=== PATIENT | female | born 1945 | race Hispanic/Latino ===

== ENCOUNTER → 2018-03-14 | Outpatient (CLI) | payer MEDICARE, OTHER ==
[~2018-03-14] MED LIST: ASPIR 8181 MG PO; BYDUREON2 MG; Carisoprodol PO; FLUTICASONE PRO15 GM; GABAPENTIN100 MG PO; LANTUS100 UNITS/ SC; LIPITOR20 MG PO; LOPRESSOR25 MG PO; LYRICA75 MG; MELOXICAM7.5 MG PO; METFORMIN HCL500 MG PO; NOVOLOG100 UNIT/1 SC; PLAVIX75 MG PO; PRINIVIL10 MG PO; PROTONIX40 MG/ML PO; TRAZODONE HCL50 MG PO; VALIUM2 MG PO; VITAMIN B-121000 MCG PO
--- NOTE | 2018-03-14 15:24 | Diagnostic Imaging Report ---
PROCEDURE: Frontal and lateral views of the chest. COMPARISON: Patients [facility], DX, CHEST SINGLE (PORTABLE), 03/13/2016, 17:51. Patients [facility], CT, CT CHEST WO, 03/13/2016, 18:39. Patients [facility], DX, CHEST SINGLE (PORTABLE), 09/23/2016, 22:15. INDICATIONS: COUGH FINDINGS: Lines/tubes: None. Lungs: Lungs are well-inflated. No interval change in focal opacity in the right upper lobe when compared to prior CT chest 2016. Rest of the lungs is clear. No consolidation or pulmonary edema. Pleura: There is no pleural effusion or pneumothorax. Heart and mediastinum: Cardiac silhouette is unremarkable. Pulmonary vasculature is normal. Bones: No acute bony abnormality. IMPRESSION: 1. No acute cardiopulmonary abnormalities. 2. No interval change in focal opacity in the right upper lobe, which was seen on prior CT dated 03/13/2016. This may represent bronchogenic neoplasm such as adenocarcinoma (formerly bronchoalveolar carcinoma). Recommend contrast enhanced chest CT for further evaluation. Enrique Whyte M.D. Dictated by: Enrique Whyte M.D. on 03/14/2018 at 15:28 Electronically approved by: Enrique Whyte M.D. on 03/14/2018 at 15:28
--- NOTE | 2018-03-14 23:45 | Diagnostic Imaging Report ---
CERVICAL SPINE 4 OR 5 VIEWS This study is labeled as routine x-ray, however, the clinician needs a overnight read. HISTORY: Neck pain COMPARISON: None FINDINGS: Bones: No displaced fracture. Osseous alignment is within normal limits. Patient is status post fusion of lower cervical spine from C5 through C7 with anterior fenestrated plate and screws and intervertebral disc fusion. Joints: Degenerative changes of the facet joints from C2-3 through C4-5. Soft tissues: Heterotopic calcification in the distribution of the nuchal ligament. Postsurgical changes in the distribution of the left carotid artery suggestive of prior endarterectomy. Calcified partially visualized thoracic aorta IMPRESSION: 1. No acute radiographic abnormality. 2. Postsurgical changes of the lower cervical spine and left carotid artery. Signed by: Dr. Thomas Alfaro M.D. on 03/14/2018 11:41 PM
== END ==
LOC: RAD 13:32
PROVIDERS: ATTEND Emergency Medicine
DX: M54.2 Cervicalgia (principal)
CPT/HCPCS: 71046; 72050

== ENCOUNTER → 2018-03-15 | Outpatient (CLI) | payer MEDICARE, OTHER | LOC: MAMMO 10:48 | PROVIDERS: ATTEND Emergency Medicine | DX: Z12.31 Encounter for screening mammogram for malignant neoplasm of breast (principal) | CPT/HCPCS: 77067 ==

== ENCOUNTER → 2018-03-21 | Outpatient (CLI) | payer MEDICARE, OTHER ==
--- NOTE | 2018-03-21 20:52 | Diagnostic Imaging Report ---
PROCEDURE: CT CHEST WITHOUT CONTRAST CT scan of the chest WITHOUT intravenous contrast, using standard protocol. TECHNIQUE: The chest was scanned utilizing a multidetector helical scanner from the apex to the level of the adrenal glands. No IV contrast was administered per physician's request. Coronal and sagittal multiplanar reformations were obtained. COMPARISON: Patients [facility], CT, CT CHEST WO, 03/13/2016, 18:39. INDICATIONS: COUGH SHORT OF BREATH FINDINGS: Lines/tubes: None. Lungs and Airways: Interval increase in size of the 2.6 x 0.8 x 1.5 cm mildly spiculated focal ground glass opacity in the right upper lobe (series 3, image 40, and sagittal images 32 and coronal image 57), which previously measured approximately 2.4 x 0.4 x 1.5 cm). Stable triangular shaped 0.7 cm benign, raz-fissural nodule in the minor fissure (sagittal image 41 and series 3, image 62). Stable 2-3 mm nodule in the posterior left lower lobe (series 3, image 63). No new nodules. No new masses, other opacities or consolidation. Airways are clear, without endobronchial lesions. Pleura: No effusion, or pneumothorax. Heart and mediastinum: Stable 1.4 cm right and 1.6 cm left thyroid hypodense lesions. Mild cardiomegaly. Atherosclerotic calcification of the aortic valve, coronary arteries and thoracic aorta. The aorta is non-aneurysmal. Main pulmonary artery is normal in caliber. Lymph nodes: No mediastinum or axillary adenopathy. Difficult to evaluate for hilar nodes given the lack of intravenous contrast. Abdomen: Limited views of the upper abdomen show no abnormality within the visualized liver, spleen, pancreas, or left kidney. The adrenal glands are unremarkable. Vascular calcifications in the kidney. Cholecystectomy clips. Bones: No acute bony abnormalities. Multilevel degenerative disc changes in the thoracic spine. Punctate calcific densities in both breasts (for example series 2, images 67, 68). IMPRESSION: 1. 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 No other pulmonary opacities. No mediastinal or axillary adenopathy. Difficult to evaluate for hilar nodes given the lack of intravenous contrast. 2. Stable nonspecific 2-3 mm pulmonary nodule in the posterior left lower lobe. No new pulmonary nodules. 3. Stable hypodense lesions in bilateral thyroid lobes. This may be further evaluated with dedicated thyroid ultrasound. 4. Punctate calcifications in both breasts may represent small calcified fibroadenomas. Correlate with mammography. Enrique Wyhte M.D. Dictated by: Enrique Whyte M.D. on 03/21/2018 at 18:11 Electronically approved by: Enrique Whyte M.D. on 03/21/2018 at 18:11
== END ==
LOC: CT 16:55
PROVIDERS: ATTEND Emergency Medicine
DX: J98.4 Other disorders of lung (principal)
CPT/HCPCS: 71250

== ENCOUNTER → 2018-04-06 | Outpatient (CLI) | payer OTHER ==
[~2018-04-06] MED LIST changes: +FENTANYL CITRATE/PF 100MCG/2 ML INJ ONE; +LIDOCAINE HCL 1% LOCAL INJ 20 ML VIAL ONE; +MIDAZOLAM HCL 2 MG/2 ML VIAL ONE
[2018-04-06 09:34] LABS: INR 0.95; PROTHROMBIN TIME 11.9 seconds (11.9-14.5)
[2018-04-06 09:35] LABS: PARTIAL THROMBOPLASTIN TIME 27.1 seconds (23.8-35.5)
--- NOTE | 2018-04-06 11:48 | Diagnostic Imaging Report ---
PROCEDURE: CHEST XRAY POST PROCEDURE COMPARISON: None. INDICATIONS: POST LUNG BIOPSY FINDINGS: LUNGS: Ill-defined opacity in the right upper lobe again noted. PLEURA: No effusions or pneumothorax. HEART \T\ MEDIASTINUM: The heart is within normal size-limits. Calcification within the aortic knob and descending aorta. BONES \T\ SOFT TISSUES: No acute findings. Orthopedic plate overlying the lower cervical spine. CONCLUSION: Status post right upper lobe nodule biopsy without evidence of a pneumothorax. Gio Phillip D.O. Dictated by: Gio Phillip D.O. on 04/06/2018 at 11:53 Electronically approved by: Gio hPillip D.O. on 04/06/2018 at 11:53
--- NOTE | 2018-04-06 13:55 | Diagnostic Imaging Report ---
PROCEDURE:X-RAY CHEST, ONE VIEW COMPARISON:Patients [facility], DX, CHEST XRAY POST PROCEDURE, 04/06/2018, 11:31. INDICATIONS:POST LUNG BIOPSY FINDINGS: This is a second post CT guided biopsy chest x-ray. Patient relates no symptoms. There is no pneumothorax. Focal nodular opacity in the right upper lobe again seen. The cardiomediastinal silhouette and pulmonary vasculature are normal. Calcification within the aortic knob. There are no acute osseous abnormalities. CONCLUSION: No evidence of a pneumothorax. Gio Phillip D.O. Dictated by: Gio Phillip D.O. on 04/06/2018 at 14:00 Electronically approved by: iGo Phillip D.O. on 04/06/2018 at 14:00
--- NOTE | 2018-04-06 14:08 | Diagnostic Imaging Report ---
PROCEDURE: CT GUIDED NEEDLE PLACEMENT INDICATIONS: Right apical nodule lung biopsy MEDICATIONS:25 micrograms of Fentanyl and 0.5 mg of Versed EBL: < 5 ml SPECIMEN: Given to pathology DESCRIPTION OF PROCEDURE: Informed consent was obtained. The patient's right anterior chest was prepped and draped in the standard sterile fashion. Multiple CT images were used to localize the abnormality. The skin was anesthetized with lidocaine. Using CT guidance, a 19 G guiding needle was placed into the lesion. Then 4 FNAs were performed utilizing a 20 G Chiba needles and 6 core biopsies utilizing 20 gauge 1 cm and 2 cm throw biopsy guns. The samples were given to pathology in attendance. The pathologist deemed the samples adequate for diagnosis. The patient tolerated the procedure well without evidence of complication. No pneumothorax was noted on completion chest CT. CONCLUSION: Successful CT guided right upper lobe groundglass pulmonary nodule biopsy performed without complication. Gio Phillip D.O. Dictated by: Gio Phillip D.O. on 04/06/2018 at 14:13 Electronically approved by: iGo Phillip D.O. on 04/06/2018 at 14:13
== END ==
LOC: CT 08:34
PROVIDERS: ATTEND Emergency Medicine
DX: C34.91 Malignant neoplasm of unspecified part of right bronchus or lung (principal)
CPT/HCPCS: 10022; 32405; 36415; 71045 ×2; 77012; 85049; 85610; 85730; 88112; 88305; J2001; J2250; 88172; 88173; 99152; 99153

== ENCOUNTER → 2018-04-13 | Outpatient (CLI) | payer MEDICARE, OTHER ==
[~2018-04-13] MED LIST changes: -FENTANYL CITRATE/PF 100MCG/2 ML INJ ONE; -LIDOCAINE HCL 1% LOCAL INJ 20 ML VIAL ONE; -MIDAZOLAM HCL 2 MG/2 ML VIAL ONE
--- NOTE | 2018-04-13 17:06 | Diagnostic Imaging Report ---
PROCEDURE: US THYROID COMPARISON: None. INDICATIONS:Thyromegaly TECHNIQUE: Transverse and longitudinal lee-scale sonographic images of the thyroid were obtained and supplemented with color doppler. FINDINGS: Right thyroid lobe: 4.2 x 1.5 x 1.7 cm. Heterogeneous echogenicity. Normal vascularity. * 1.3 x 1.1 x 1.1 cm iso-to slightly hyperechoic solid nodule in the mid lateral aspect, without microcalcifications, or increased vascularity. * 1.1 x 0.9 x 1.0 cm solid iso-to slightly hyperechoic solid nodule in the inferolateral aspect, without microcalcifications, or increased vascularity. Left thyroid lobe: 4.2 x 1.8 x 2.1 cm. Heterogeneous echogenicity. Normal vascularity. No focal lesions. Isthmus: 0.6 cm. Normal echogenicity. Normal vascularity. No focal lesions. No parathyroid masses. No adenopathy. CONCLUSION: 1. Normal bilateral thyroid lobe size. Bilateral heterogeneous echogenicity. 2. 1.3 and 1.1 cm solid nodules in the right thyroid lobe without suspicious characteristics. Recommend followup thyroid ultrasound in 12 months to document stability. Enrique Whyte M.D. Dictated by: Enrique Whyte M.D. on 04/13/2018 at 17:10 Electronically approved by: Enrique Whyte M.D. on 04/13/2018 at 17:10
== END ==
LOC: US 10:40
PROVIDERS: ATTEND Emergency Medicine
DX: E04.9 Nontoxic goiter, unspecified (principal)
CPT/HCPCS: 76536

== ENCOUNTER → 2018-04-27 | Outpatient (CLI) | payer MEDICARE, OTHER ==
--- NOTE | 2018-04-28 08:48 | Diagnostic Imaging Report ---
#[id number] - MGDXLT #UNILATERAL LEFT DIGITAL DIAGNOSTIC MAMMOGRAM WITH SPOT COMPRESSION: 04/27/2018 Comparison is made to exam dated: 03/15/2018 mammogram - [facility]. Current study contains 2 films. There are scattered fibroglandular elements in the left breast. The density noted on the CC view appears to represent normal breast tissue. No definite mass seen. There are benign vascular calcifications and calcifications in the left breast. No significant masses, calcifications, or other findings are seen in the breast. There has been no significant interval change. IMPRESSION: BENIGN There is no mammographic evidence of malignancy. A 1 year screening mammogram is recommended. The patient will be notified by letter of the results. Gio Phillip Jr., D.O. cw/:04/27/2018 13:40:22 Carnival Worker: Lauren MOHAN)(M), [facility] letter sent: Normal Exam Mammogram BI-RADS: 2 Benign
== END ==
LOC: MAMMO 11:27
PROVIDERS: ATTEND Emergency Medicine
DX: N63.20 Unspecified lump in the left breast, unspecified quadrant (principal)

== ENCOUNTER → 2018-07-18 | Outpatient (CLI) | payer MEDICARE, OTHER ==
--- NOTE | 2018-07-18 13:40 | Diagnostic Imaging Report ---
Frontal and lateral views of the chest. HISTORY: Cough COMPARISON: Chest radiograph September 23, 2016. Images from CT of the chest March 21, 2018. DISCUSSION: Lungs: Low lung volumes result in bibasilar vascular crowding, accentuation of the pulmonary interstitial markings, central pulmonary vasculature, and the cardiac silhouette. Allowing for these limitations, the findings are as follows: The right upper lobe parenchymal nodule was better visualized on the comparison CT and x-ray. No evidence of a consolidative pneumonia or pulmonary alveolar edema. Pleura: No pleural effusion or pneumothorax. Heart and mediastinum: The cardiomediastinal silhouette appears unremarkable. Atherosclerotic vascular calcifications at the aortic arch. Bones: Diffusely decreased mineralization of the osseous structures limits bone detail. Metallic fixation hardware partially visualized at the lower cervical spine. Multilevel degenerative changes of the thoracic spine. Accentuation of the thoracic kyphosis. IMPRESSION: 1. No acute radiographic abnormality. 2. Please refer to the report from the CT of the chest March 21, 2018 regarding the right upper lobe pulmonary nodule, which appears to have decreased in size based upon these chest radiographs. Surveillance CT of the chest without contrast follow-up may still be warranted. Signed by: Dr. Miguel Wen D.O., M.M.M. on 07/18/2018 1:37 PM
== END ==
LOC: RAD 12:51
PROVIDERS: ATTEND Emergency Medicine
DX: R05 Cough (principal)
CPT/HCPCS: 71046

== ENCOUNTER → 2018-11-28 | Outpatient (CLI) | payer MEDICARE, OTHER ==
--- NOTE | 2018-11-28 15:59 | Diagnostic Imaging Report ---
EXAM: Lumbar spine radiographs-5 views INDICATION: Low back pain. COMPARISON: None. FINDINGS: BONES: Diffuse osteopenia. The alignment is within normal limits. No acute displaced fractures. Vertebral body heights are preserved. DISCS: Mild degenerative disc changes, most pronounced at L5-S1. JOINTS: Moderate facet degenerative changes, most pronounced at L5-S1. OTHER: Extensive atherosclerotic calcifications. Right common iliac artery stent is noted. Status post cholecystectomy. IMPRESSION: No acute radiographic abnormality. Mild degenerative disc changes and moderate facet degenerative changes, most pronounced at L5-S1. Diffuse osteopenia. Signed by: Dr. Bg Sue MD on 11/28/2018 3:56 PM
== END ==
LOC: RAD 13:35
PROVIDERS: ATTEND Emergency Medicine
DX: M54.5 Low back pain (principal)
CPT/HCPCS: 72110

== ENCOUNTER → 2019-06-20 | Outpatient (CLI) | payer MEDICARE, OTHER ==
--- NOTE | 2019-06-22 09:15 | Diagnostic Imaging Report ---
#[id number] - MGSCRBIL #BILATERAL DIGITAL SCREENING MAMMOGRAM WITH CAD: 06/20/2019 CLINICAL: Routine screening. Comparison is made to exams dated: 04/27/2018 mammogram and 03/15/2018 mammogram - [facility]. Current study contains 4 films. There are scattered fibroglandular elements in both breasts. Current study was also evaluated with a Computer Aided Detection (CAD) system. There are benign vascular calcifications in both breasts. Benign appearing calcifications are noted bilaterally. No significant masses, calcifications, or other findings are seen in either breast. IMPRESSION: BENIGN There is no mammographic evidence of malignancy. A 1 year screening mammogram is recommended. The patient will be notified by letter of the results. JOSHUA MEJÍA M.D. ct/penrad:06/21/2019 16:13:53 Costume Specialist: Lauren MOHNA)(Meir), [facility] letter sent: Normal Exam Mammogram BI-RADS: 2 Benign
== END ==
LOC: MAMMO 13:35
PROVIDERS: ATTEND Emergency Medicine
DX: Z12.31 Encounter for screening mammogram for malignant neoplasm of breast (principal)
CPT/HCPCS: 77067

== ENCOUNTER 2019-07-17 13:44 | Observation (INO) | payer MEDICARE, OTHER ==
[~2019-07-17] VITALS: Ht 157.5 cm; Wt 67.1 kg
--- OUTSIDE RECORDS SUMMARY | 2019-07-17 13:48 | XMS REPORT ---
[facility] Address Unknown Phone Unavailable Care Team Providers Care Data Management Analyst Name Role Phone RAMA MEDINA Unavailable Unavailable Payers Payer Name Policy Type Policy Number Effective Date Expiration Date Problems This patient has no known problems. Allergies, Adverse Reactions, Alerts Allergy Name Allergy Type Status Severity Reaction(s) Onset Date Inactive Date Treating Clinician Comments No Known Allergies DA Active U 2018-10-12 00:00:00 Medications This patient has no known medications. Results Test Description Test Time Test Comments Text Results Atomic Results Result Comments MAMMOGRAPHY DIGITAL SCR BILAT 2019-06-20 14:25:00 [place] [address] Patient Name: Bharath FRANZ MR #: [id number] : 1945 Age/Sex: 74/F Req #: [id number] Adm Physician: Ordered by: RAMA MEDINA MD Report #: [id number] Location: [facility] Room/Bed: Procedure: [id number] MG/MAMMOGRAPHY DIGITAL SCR BILAT Exam Date: 06/20/19 Exam Time: 1350 REPORT STATUS: Signed #[id number] - [id number] #BILATERAL DIGITAL SCREENING MAMMOGRAM WITH CAD: 06/20/2019 CLINICAL: Routine screening. Comparison is made to exams dated: 04/27/2018 mammogram and 03/15/2018 mammogram - [facility]. Current study contains 4 films. There are scattered fibroglandular elements in both breasts. Current study was also evaluated with a Computer Aided Detection (CAD) system. There are benign vascular calcifications in both breasts. Benign appearing calcifications are noted bilaterally. No significant masses, calcifications, or other findings are seen in either breast. IMPRESSION: BENIGN There is no mammographic evidence of malignancy. A 1 year screening mammogram is recommended. The patient will be notified by letter of the results. JOSHUA MEJÍA M.D. ct/margarita:06/21/2019 16:13:53 Toolroom Clerk: Lauren KING(Gal)(Meir), [facility] letter sent: Normal Exam Mammogram BI-RADS: 2 Benign Dictated By: GLORIA MEJÍA MD 12 Transcribed By: MARGARITA on 06/21/191612 COPY TO: RAMA MEDINA MD [facility] W/CXR 2018-12-28 08:43:00 [place] [address] Patient Name: Bharath FRANZ MR #: [id number] : 1945 Age/Sex: 73/F Req #: [id number] Adm Physician: Ordered by: RAMA MEDINA MD Report #: [id number] Location: [facility] Room/Bed: Procedure: [id number] DX/RIBS UNILAT W/CXR Exam Date: 12/27/18 Exam Time: 1330 REPORT STATUS: Signed EXAM: RIBS UNILAT W/CXR DATE: 12/27/2018 1:14 PM I NDICATION: Fall COMPARISON: Chest x-ray, 07/18/2018; chest CT, 03/21/2018 (no report available) FINDINGS: PA chest: Heart size normal. No focal pulmonary opacity, pleural effusion or pneumothorax. Right upper lobe spiculated mass present on images of previous CT is not readily identified on chest x-ray. Present appearance is unchanged from the previous chest x-ray cervical fusion hardware is partially visualized. Right ribs: 3 views of the right ribs shows no displaced fracture. No underlying pneumothorax or hemothorax is seen. Cholecystectomy clips are noted. Degenerative changes are seen at the right shoulder and thoracic spine. IMPRESSION: 1. No evidence for acute disease in the chest. Spiculated right upper lobe mass present on previous chest CT is not well seen on plain radiograph. 2. No right rib fractures. No underlying pneumothorax or pneumothorax in the right chest. Signed by: Dr. Timmy Vale M.D. on 12/28/2018 8:51 AM Dictated By: TIMMY VALE MD 0 Transcribed By: LAWRENCE on 12/28/18850 COPY TO: RAMA MEDINA MD BONE DXA DUAL ENERGY 2018-12-28 07:02:00 [place] [address] Patient Name: Bharath FRANZ MR #: [id number] : 1945 Age/Sex: 73/F Req #: [id number] Adm Physician: Ordered by: RAMA MEDINA MD Report #: [id number] Location: [facility] Room/Bed: Procedure: [id number] DX/BONE DXA DUAL ENERGY Exam Date: Exam Time: REPORT STATUS: Signed EXAM: DXA BONE DENSITY INDICATIONS: OSTEOPORSIS COMPARISON: None. FINDINGS: Proximal left femur bone mineral density (BMD) (g/cm2): 0.810 Femur T-score (standard deviation relative to young adult mean BMD): -1.1 Femur Z-score (standard deviation relative to age-matched control group): 0.6 Lumbar bone mineral density (BMD) (g/cm2): 1.158 Lumbar T-score (standard deviation relative to young adult mean BMD): 1.0 Lumbar Z-score (standard deviation relative to age-matched control group): 3.4 Change since prior exam (%): Femur: Not applicable. Spine: Not applicable. Change since oldest prior exam (%): Femur: Not applicable. Spine: Not applicable. CONCLUSION: 1. Bone mineral density in the left femur is classified as osteopenia. Fracture risk is increased. 2. Bone mineral density in the spine is classified as normal. Fracture risk is not increased. World Health Organization Classification: *The Z-score is provided for informational purposes. The T-score is preferable for clinical decisions. When comparing exams, a change of >4% is considered statistically significant. SUGGESTED RECOMMENDATIONS: Normal Osteopenia: Consideration should be given to use of calcium supplementation, daily multiple vitamins and adequate exercise, as preventive measures against osteoporosis, if clinically indicated. Osteoporosis Severe Osteoporosis: In addition to the above, consideration should be given to medical therapy against osteoporosis, if clinically indicated. Gio Oviedo D.O. Dictated by: Gio Oviedo D.O. on 12/28/2018 at 7:02 Electronically approved by: Gio Oviedo D.O. on 12/28/2018 at 7:02 Dictated By: GIO OVIEDO DO 1 Roman scribed By: MESFIN on 12/28/18701 COPY TO: RAMA MEDINA MD SP LUMBAR, COMPLETE MIN 4VW 2018-11-28 15:47:00 [place] [address] Patient Name: AMISH FRANZ MR #: [id number] : 1945 Age/Sex: 73/F Req #: [id number] Adm Physician: Ordered by: RAMA MEDINA MD Report #: [id number] Location: [facility] Room/Bed: Procedure: [id number] DX/SP LUMBAR, COMPLETE MIN 4VW Exam Date: 11/28/18 Exam Time: 1350 REPORT STATUS: Signed EXAM: Lumbar spine radiographs-5 views PAULETTE CATION: Low back pain. COMPARISON: None. FINDINGS: BONES: Diffuse osteopenia. The alignment is within normal limits. No acute displaced fractures. Vertebral body heights are preserved. DISCS: Mild degenerative disc changes, most pronounced at L5-S1. JOINTS: Moderate facet degenerative changes, most pronounced at L5-S1. OTHER: Extensive atherosclerotic calcifications. Right common iliac artery stent is noted. Status post cholecystectomy. IMPRESSION: No acute radiographic abnormality. Mild degenerative disc changes and moderate facet degenerative changes, most pronounced at L5-S1. Diffuse osteopenia. Signed by: Dr. Walker Toledo MD on 11/28/2018 3:56 PM Dictated By: WALKER TOLEDO MD [id number] Transcribed By: LAWRENCE on 11/28/18 5665 COPY TO: RAMA MEDINA MD BASIC METABOLIC PANEL 2018-10-12 22:24:00 SODIUM (test code=NA) 137 mmol/L 136-145 POTASSIUM (test code=K) 3.2 mmol/L 3.5-5.1 CHLORIDE (test code=CL) 100.0 mmol/L 98-107 CARBON DIOXIDE (test code=CO2) 28.0 mmol/L 21-32 ANION GAP (test code=GAP) 12.2 10-20 GLUCOSE (test code=GLU) 285 mg/dL 74-106 BLOOD UREA NITROGEN (test code=BUN) 15 mg/dL 7-18 GLOMERULAR FILTRATION RATE (test code=GFR) 54 mL/min >=60 Estimated GFR by using Modified MDRD formula.Chronic kidney disease is defined as either kidney damageor GFR <60 mL/min/1.73 m2 for >3 months. CREATININE (test code=CREAT) 1.00 mg/dL 0.55-1.02 Note change in reference range due to change in reagent. BUN/CREATININE RATIO (test code=BUN/CREA) 15.2 10-20 CALCIUM (test code=CA) 9.0 mg/dL 8.5-10.1 [id number] 22:24:00* Test Item Value Reference Range Comments TROPONIN-I (test code=TROPI) <0.015 ng/mL 0-0.045 CBC W/AUTO [id number] 22:04:00* Test Item Value Reference Range Comments WHITE BLOOD CELL (test code=WBC) 8.7 K/mm3 4.5-12.5 RED BLOOD CELL (test code=RBC) 4.55 mill/mm3 3.7-5.2 HEMOGLOBIN (test code=HGB) 13.9 gram/dL 11.5-15.5 HEMATOCRIT (test code=HCT) 40.6 % 36.0-46.0 MEAN CELL VOLUME (test code=MCV) 89.2 fL 80-98 MEAN CELL HGB (test code=MCH) 30.5 picogram 27.0-33.0 MEAN CELL HGB CONCETRATION (test code=MCHC) 34.2 gram/dL 33.0-36.0 RED CELL DISTRIBUTION WIDTH (test code=RDW) 13.1 % 11.6-16.2 RED CELL DISTRIBUTION WIDTH SD (test code=RDW-SD) 42.6 fL 37.0-51.0 PLATELET COUNT (test code=PLT) 299 K/mm3 150-450 MEAN PLATELET VOLUME (test code=MPV) 9.8 fL 6.7-11.0 NEUTROPHIL % (test code=NT%) 67.2 % 39.0-69.0 IMMATURE GRANULOCYTE % (test code=IG%) 0.2 % 0.0-5.0 LYMPHOCYTE % (test code=LY%) 19.5 % 25.0-55.0 MONOCYTE % (test code=MO%) 6.6 % 0.0-10.0 EOSINOPHIL % (test code=EO%) 3.7 % 0.0-5.0 BASOPHIL % (test code=BA%) 2.8 % 0.0-1.0 NUCLEATED RBC % (test code=NRBC%) 0.0 % 0-0 NEUTROPHIL # (test code=NT#) 5.82 K/mm3 1.8-7.7 IMMATURE GRANULOCYTE # (test code=IG#) 0.02 x10 3/uL 0-0.03 LYMPHOCYTE # (test code=LY#) 1.69 K/mm3 1.0-5.0 MONOCYTE # (test code=MO#) 0.57 K/mm3 0-0.8 EOSINOPHIL # (test code=EO#) 0.32 K/mm3 0.0-0.5 BASOPHIL # (test code=BA#) 0.24 K/mm3 0.0-0.2 NUCLEATED RBC # (test code=NRBC#) 0.00 K/mm3 0.0-0.1 MANUAL DIFF REQUIRED (test code=MDIFF) NO - CT HEAD/BRAIN W/O [id number] 21:51:00 Name: AMISH FRANZ [facility] : 1945 Age/S: 73 / F [address] [facility] Unit #: [id number] Loc: [place] [address] Phys: Moise Martin MD Acct: [id number] Dis Date: Status: PRE ER PHONE #: [phone] Exam Date: 10/12/20188 FAX #: [phone] Reason: Headache EXAMS: CPT CODE: [id number] CT HEAD/BRAIN W/O CONT 29813 EXAM: CT of the head without contrast; INFORMATION: Headache; TECHNIQUE AND FINDINGS: CT dose reduction protocol; 2.5 mm axial scans. There is no evidence of intra or extra-axial hemorrhage, mass lesions or midline shift. Minimal periventricular hypodensities; otherwise, unremarkable muse/white matter differentiation. Ventricles are symmetric and of normal diameter for age; prominent sulci; basilar cisterns are intact. Calcifications of the internal carotid arteries. The calvarium is intact. Complete opacification of the right maxillary sinus; the remainder of the sinuses and mastoid air cells are well aerated. IMPRESSION: 1. No evidence of intracranial hemorrhage or acute territorial infarction. 2. Minimal chronic ischemic white matter changes. 3. Right maxillary sinusitis. at 2151 Reported and signed by: Stephen Brown M.D. CC: Moise Martin MD; Lucio Trimble III, MD Technologist:Leela KING(R); VIDHYA Medeiros CTDI: DLP: Trnscb Date/Time: 10/12/2018 (2150) AdisGRW Orig Print D/T: S: 10/12/2018 (2154) CTDI: DLP: PAGE 1 Signed Report CHEST 2 [id number] 13:31:00 [place] [address] Patient Name: AMISH FRANZ MR #: [id number] : 1945 Age/Sex: 73/F Req #: [id number] Adm Physician: Ordered by: RAMA MEDINA MD Report #: [id number] Location: [facility] Room/Bed: Procedure: [id number] DX/C HEST 2 VIEWS Exam Date: 07/18/18 Exam Time: 1313 REPORT STATUS: Signed Frontal and l ateral views of the chest. HISTORY: Cough COMPARISON: Chest radiograph September 23, 2016. Images from CT of the chest March 21, 2018. DISCUSSIO N: Lungs: Low lung volumes result in bibasilar vascular crowding, ac centuation of the pulmonary interstitial markings, central pulmonary vasculatu re, and the cardiac silhouette. Allowing for these limitations, the findings are as follows: The right upper lobe parenchymal nodule was better visualized on the comparison CT and x-ray. No evidence of a consolidative pneumonia or pulmonary alveolar edema. Pleura: No pleural effusion or pneumothorax. Heart and mediastinum: The cardiomediastinal silhouette appears unremar kable. Atherosclerotic vascular calcifications at the aortic arch. Bones: Diffusely decreased mineralization of the osseous structures limits bone detail. Metallic fixation hardware partially visualized at the lower cervical spine. Multilevel degenerative changes of the thoracic spine. Accentuation o f the thoracic kyphosis. IMPRESSION: 1. No acute radiographic abnorm ality. 2. Please refer to the report from the CT of the chest March 21, 2018 re garding the right upper lobe pulmonary nodule, which appears to have decreased in size based upon these chest radiographs. Surveillance CT of the chest wit hout contrast follow-up may still be warranted. Signed by: Marilu CastanedaOTeresa, M.M.M. on 07/18/2018 1:37 PM Dictated By: ANTON HILL DO Electr onically Signed By: ANTON HILL DO on 07/18/181336 Transcribed By: LAWRENCE on 07/18/181336 COPY TO: RAMA MEDINA MD MAMMOGRAPHY DIGITAL DX UNI [id number] 12:10:00 [place] [address] Patient Name: AMISH FRANZ MR #: [id number] : 1945 Age/Sex: 72/F Req #: [id number] Adm Physician: Ordered by: RAMA MEDINA MD Report #: [id number] Location: [facility] Room/Bed: Procedure: MG/MAMMOGRAPHY DIGITAL DX UN I LT Exam Date: 04/27/18 Exam Time: 1133 REPOR T STATUS: Signed #[id number] - [id number] #UNILATERAL LEFT DIGITAL DIAGNO STIC MAMMOGRAM WITH SPOT COMPRESSION: 04/27/2018 Comparison is made to exam date d: 03/15/2018 mammogram - [facility]. Current study contains 2 films. There are scattered fibroglandular elements in the left br east. The density noted on the CC view appears to represent normal breast ti ssue. No definite mass seen. There are benign vascular calcifications and calcifications in the left breast. No significant masses, calcifications, or other findings are seen in the breast. There has been no significant inter albaro change. IMPRESSION: BENIGN There is no mammographic evidence of malig brian. A 1 year screening mammogram is recommended. The patient will be noti fied by letter of the results. Gio Oviedo Jr., D.O. cw/: 04/27/2018 13:40:22 Toolroom Clerk: Lauren KING(R)(M), [facility] letter sent: Normal Exam Mammogram BI-RADS: 2 B enign Dictated By: GIO OVIEDO DO 1340 Transcribed By: MARGARITA on 04/27/18 1340 COPY TO: RAMA MATHEW MD [id number] 17:10:00 [place] [address] Patient Name: AMISH FRANZ MR #: [id number] : 1945 Age/Sex: 72/F Req #: [id number] [facility] Physician: Ordered by: RAMA MEDINA MD Report #: [id number] Location: Room/Bed: Procedure: [id number] US/US THYROID Exam Date: 04/13 Exam Time: 1113 REPORT STATUS: Signed WI OCEDURE: US THYROID COMPARISON: None. INDICATIONS: Thyromegaly TECHNIQUE : Transverse and longitudinal lee-scale sonographic images of the thyroid we re obtained and supplemented with color doppler. FINDINGS: Right thy roid lobe: 4.2 x 1.5 x 1.7 cm. Heterogeneous echogenicity. Normal vascularity . * 1.3 x 1.1 x 1.1 cm iso-to slightly hyperechoic solid nodule in the mid lateral aspect, without microcalcifications, or increased vascularity. * 1.1 x 0.9 x 1.0 cm solid iso-to slightly hyperechoic solid nodule in the in ferolateral aspect, without microcalcifications, or increased vascularity. Left thyroid lobe: 4.2 x 1.8 x 2.1 cm. Heterogeneous echogenicity. Normal vascularity. No focal lesions. Isthmus: 0.6 cm. Normal echogenicity. Norm al vascularity. No focal lesions. No parathyroid masses. No adeno laura. CONCLUSION: 1. Normal bilateral thyroid lobe size. Bilateral h eterogeneous echogenicity. 2. 1.3 and 1.1 cm solid nodules in the right thy roid lobe without suspicious characteristics. Recommend followup thyroid ultr asound in 12 months to document stability. Meir Donaldson Dictated by: Enrique Venegas M.D. on 04/13/2018 at 17:10 Elect ronically approved by: Enrique Venegas M.D. on 04/13/2018 at 17:10 Dictated By: ENRIQUE VENEGAS MD 09 Transcribed By: MESFIN on 04/13/181709 COPY TO: RAMA DELGADO MD FNA WITH IMAGE [id number] 14:13:00 [facility] [place] [address] Patient Name: AMISH FRANZ MR #: [id number] : 1945 Age/Sex: 72/F Req #: [id number] Adm Physician: Ordered by: RAMA MEDINA MD Report #: [id number] Location: CT Room/Bed: Procedure: [id number] IR/FNA WITH IMAGE GUIDANCE Exa m Date: 04/06/18 Exam Time: 1125 REPORT STATUS: Signed PROCEDURE: CT GUIDED NEEDLE PLACEMENT INDICATIONS: Right api maricruz nodule lung biopsy MEDICATIONS: 25 micrograms of Fentanyl and 0.5 mg of Versed EBL: < 5 ml SPECIMEN: Given to pathology DESCRIPTION OF PROCEDURE: Informed consent was obtained. The patient's right anterior chest was prepped and draped in the standard sterile fashion. Multiple CT images were used to localize the abnormality. The skin was anesthetized with lidocaine. Using CT guidance, a 19 G guiding needle was placed into the lesion. Then 4 FNAs were performed utilizing a 20 G Chiba needles and 6 core biopsies utilizing 20 gauge 1 cm and 2 cm throw biopsy guns. The samples were given to pathology in attendance. The pathologist deemed the samples adequate for diagnosis. The patient tolerated the procedure well without evidence of complication. No pneumothorax was noted on completion chest CT. CONCLUSION: Successful CT guided right upper lobe groundglass pulmonary nodule biopsy performed without complication. Gio Oviedo D.O. Dictated by: Gio Oviedo D.O. on 04/06/2018 at 14:13 Electronically approved by: Gio Oviedo D.O. on 04/06/2018 at 14:13 Dictated By: GIO OVIEDO DO 1413 Transcribed By: RIZWANA SMALLS on 04/06/18 1413 COPY TO: RAMA MEDINA MD BIOPSY LUNG 2018-04-06 14:13:00 [place] [address] Patient Name: AMISH FRANZ MR #: [id number] : 1945 Age/Sex: 72/F Req #: [id number] Adm Physician: Ordered by: RAMA MEDINA MD Report #: [id number] Location: CT Room/Bed: Procedure: [id number] IR/BIOPSY LUNG Exam Date: 03/19 06/06 Exam Time: 1125 REPORT STATUS: Signed P ROCEDURE: CT GUIDED NEEDLE PLACEMENT INDICATIONS: Right apical nodule l maya biopsy MEDICATIONS: 25 micrograms of Fentanyl and 0.5 mg of V ersed EBL: < 5 ml SPECIMEN: Given to pathology DESCRIPTION OF PROCEDURE: Informed consent was obtained. The patient's right anterior chest was prepped and draped in the standard sterile fashion. Multiple CT images were used to localize the abnormality. The skin was anesthetized with lidocaine. Using CT guidance, a 19 G guiding needle was placed into the lesion. Then 4 FNAs were performed utilizing a 20 G Chiba needles and 6 core biopsies utilizing 20 gauge 1 cm and 2 cm throw biopsy guns. The samples were given to pathology in attendance. The pathologist deemed the samples adequate for diagnosis. The patient tolerated the procedure well without evidence of complication. No pneumothorax was noted on completion chest CT. CONCLUSION: Successful CT guided right upper lobe groundglass pulmonary nodule biopsy performed without complication. Gio Oviedo D.O. Dictated by: Gio Oviedo D.O. on 04/06/2018 at 14:13 Electronically approved by: Gio Oviedo D.O. on 04/06/2018 at 14:13 Dictated By: GIO OVIEDO DO 141 Transcribed By: RIZWANA SMALLS on 04/06/181412 COPY TO: RAMA EMDINA MD CT GUIDED BIOPSY/ASPIR/INJ/[id number] 14:13:00 [place] [address] Patient Name: AMISH FRANZ MR #: [id number] : 1945 Age/Sex: 72/F Req #: [id number] Adm Physician: Ordered by: RAMA MEDINA MD Report #: [id number] Location: CT Room/Bed: Procedure: CT/CT GUIDED BIOPSY/ASPIR/INJ/P LA Exam Date: 04/06/18 Exam Time: 112 REPORT STATUS: Signed PROCEDURE: CT GUIDED NEEDLE PLACEMENT INDICATIONS: Ri ght apical nodule lung biopsy MEDICATIONS: 25 micrograms of Fenta nyl and 0.5 mg of Versed EBL: < 5 ml SPECIMEN: Given to pathology DESCRIPTION OF PROCEDURE: Informed consent was obtained. The patient's right anterior chest was prepped and draped in the standard sterile fashion. Multiple CT images were used to localize the abnormality. The skin was anesthetized with lidocaine. Using CT guidance, a 19 G guiding needle was placed into the lesion. Then 4 FNAs were performed utilizing a 20 G Chiba needles and 6 core biopsies utilizing 20 gauge 1 cm and 2 cm throw biopsy guns. The samples were given to pathology in attendance. The pathologist deemed the samples adequate for diagnosis. The patient tolerated the procedure well without evidence of complication. No pneum othorax was noted on completion chest CT. CONCLUSION: Successful CT guided right upper lobe groundglass pulmonary nodule biopsy performed without complication. Gio Oviedo D.O. Dictated by: Gio denton D.O. on 04/06/2018 at 14:13 Electronically approved by: Gio Cazares am, D.O. on 04/06/2018 at 14:13 Dictated By: GIO OVIEDO DO 141 Transcribed By: RIZWANA SMALLS on 04/06/18 141 COPY TO: RAMA MEDINA MD CHEST SINGLE (NOT PORTABLE)2018-04-06 14:00:00 [place] [address] Patient Name: AMISH FRANZ MR #: [id number] : 1945 Age/Sex: 72/F Req #: [id number] Adm Physician: Ordered by: GIO OVIEDO DO Report #: [id number] Location: CT Room/Bed: Procedure: DX/CHEST SINGLE (NOT PORTABLE) Exam Date: Exam Time: REPORT STATUS: Signed PROCEDURE: X-RAY CHEST, ONE VIEW COMPARISON: [facility], DX, CHEST XRAY POST PROCEDURE, 04/06/2018, 11:31. INDICATIONS: POST LUNG BIOPSY FINDINGS: This is a second post CT guided biopsy chest x- ray. Patient relates no symptoms. There is no pneumothorax. Focal nodular opa [place] in the right upper lobe again seen. The cardiomediastinal silhouette and pulmonary vasculature are normal. Calcification within the aortic knob. There are no acute osseous abnormalities. CONCLUSION: No evidence of a pneumothorax. Gio Oviedo D.O. Dictated by: Bethel Rivas on 04/06/2018 at 14:00 Electronically approved by: Brittani Rivas on 04/06/2018 at 14:00 Dictated By: GIO OVIEDO DO Electro nically Signed By: GIO OVIEDO DO on 04/06/18 1400 Transcribed By: MESFIN on 0 04/06/18 1400 COPY TO: GIO OVIEDO DO CHEST XRAY POST PROCEDURE 2018-04-06 11:53:00 [place] [address] Patient Name: AMISH FRANZ MR #: [id number] : 1945 Age/Sex: 72/F Req #: [id number] Adm Physician: Ordered by: GIO OVIEDO DO Report #: [id number] Location: CT Room/Bed: Procedure: [id number] DX/CHEST XRAY POST PROCEDURE Ex am Date: Exam Time: REPORT STATUS: Signed PROCEDURE: CHEST XRAY POST PROCEDURE COMPARISON: None. INDICATIONS: POST DONYA G BIOPSY FINDINGS: LUNGS: Ill-defined opacity in the right upper l obe again noted. PLEURA: No effusions or pneumothorax. HEART T MEDIASTINUM: The heart is within normal size-limits. Calcification within the aortic knob and descending aorta. BONES T SOFT TISSUES: No acute findings. Orthopedic plate overlying the lower cervical spine. CONC LUSION: Status post right upper lobe nodule biopsy without evidence of a pneumothorax. Gio Oviedo D.O. Dictated by: Bethel Rivas on 04/06/2018 at 11:53 Electronically approved by: Brittani Rivas on 04/06/2018 at 11:53 Dictated By: GIO WHIGHAM DO Electro nically Signed By: GIO OVIEDO DO on 04/06/18 1153 Transcribed By: MESFIN on 0 04/06/18 1153 COPY TO: GIO OVIEDO CT CHEST [id number] 18:11:00 [place] [address] Patient Name: Bharath FRANZ MR #: [id number] : 1945 Age/Sex: 72/F Req #: [id number] Adm Physician: Ordered by: RAMA MEDINA MD Report #: [id number] Location: CT Room/Bed: Procedure: [id number] CT/CT CHEST WO Exam Date: 03/21/18 Exam Time: 1725 REPORT STATUS: Signed PROCED URE: CT CHEST WITHOUT CONTRAST CT scan of the chest WITHOUT intravenous contra st, using standard protocol. TECHNIQUE: The chest was scanned utilDifferential Dynamicsi ng a multidetector helical scanner from the apex to the level of the adrenal glands. No IV contrast was administered per physician's request. Coronal and sagittal multiplanar reformations were obtained. COMPARISON: [facility], CT, CT CHEST WO, 03/13/2016, 18:39. INDICATIONS: COUGH SH ORT OF BREATH FINDINGS: Lines/tubes: None. Lungs and Airways: Interval increase in size of the 2.6 x 0.8 x 1.5 cm mildly spiculated focal ground glass opacity in the right upper lobe (series 3, image 40, and sagitta l images 32 and coronal image 57), which previously measured approximately 2. 4 x 0.4 x 1.5 cm). Stable triangular shaped 0.7 cm benign, raz-fissural nodul e in the minor fissure (sagittal image 41 and series 3, image 62). Stable 2 -3 mm nodule in the posterior left lower lobe (series 3, image 63). No new nodules. No new masses, other opacities or consolidation. Airways are clear, w ithout endobronchial lesions. Pleura: No effusion, or pneumothorax. Heart and mediastinum: Stable 1.4 cm right and 1.6 cm left thyroid hypodense lesions. Mild cardiomegaly. Atherosclerotic calcification of the aortic valve , coronary arteries and thoracic aorta. The aorta is non-aneurysmal. Main pul monary artery is normal in caliber. Lymph nodes: No mediastinum or axillary ad enopathy. Difficult to evaluate for hilar nodes given the lack of intravenous contrast. Abdomen: Limited views of the upper abdomen show no abnormality wit hin the visualized liver, spleen, pancreas, or left kidney. The adrenal gl ands are unremarkable. Vascular calcifications in the kidney. Cholecystectomy clips. Bones: No acute bony abnormalities. Multilevel degenerative disc changes in the thoracic spine. Punctate calcific densities in both breasts (for example series 2, images 67, 68). IMPRESSION: 1. interval incr ease in size of focal round glass opacity in the right upper lobe, which is s uspicious for bronchogenic neoplasm, likely adenocarcinoma (formerly bronchoa lveolar carcinoma). No other pulmonary opacities. No mediastinal or axillary adenopathy. Difficult to evaluate for hilar nodes given the lack of intraveno us contrast. 2. Stable nonspecific 2-3 mm pulmonary nodule in the posterior le ft lower lobe. No new pulmonary nodules. 3. Stable hypodense lesions in bi lateral thyroid lobes. This may be further evaluated with dedicated thyroid u ltrasound. 4. Punctate calcifications in both breasts may represent small c alcified fibroadenomas. Correlate with mammography. Enrique Venegas M.D. Dictated by: Enrique Venegas M.D. on 03/21/2018 at 18:11 Electronically approved by: Enrique Venegas M.D. on 03/21/2018 at 18: 11 Dictated By: ENRIQUE VENEGAS MD 10 Transcribed By: MESFIN on 03/21/181810 CLAIM REP Y TO: RAMA MEDINA MD MAMMOGRAPHY DIGITAL SCR [id number] 11:44:00 [facility] [address] [address] Patient Name: Bharath FRANZ MR #: [id number] : 1945 Age/Sex: 72/F Req #: [id number] Adm Physician: Ordered by: RAMA MEDINA MD Report #: [id number] Location: MAMMO Room/Bed: Procedure: [id number] MG/MAMMOGRAPHY DIGITAL SCR BILAT Exam Date: 03/15/18 Exam Time: 1106 REPORT STA TUS: Signed #[id number] - [id number] #BILATERAL DIGITAL SCREENING MAMMO GRAM WITH CAD: 03/15/2018 CLINICAL: Routine screening. No prior exams we re available for comparison. Current study contains 4 films. There are scat tered fibroglandular elements in both breasts. Current study was also evalua julia with a Computer Aided Detection (CAD) system. There is an irregular dens ity in the left breast middle depth medial region seen on the craniocaudal vi ew only. This density is highlighted with CAD analysis. There also is a p ossible mass in the left breast posterior depth medial region seen on the brazer crawler torch niocaudal view only. Scattered calcifications and vascular calcfifications are present. Two surgical scar markers overlie the left breast. No other significant masses, calcifications, or other findings are seen in either breast. IMPRESSION: INCOMPLETE: NEEDS ADDITIONAL IMAGING EVALUATION The irregu lar density in the left breast middle depth medial region seen on the craniocaud al view only is indeterminate. Additional views with possible ultrasound are recommended. The possible mass in the left breast posterior depth medial re gion seen on the craniocaudal view only is indeterminate. Additional views with possible ultrasound are recommended. The patient will be contacted by the Mammography Department to schedule this appointment. Gio Oviedo Jr., D.O. cw/:03/23/2018 14:02:53 Toolroom Clerk: Lauren MOHAN)(Meir), [facility] letter sent: Additional Imaging Needed Mammogram BI-RADS: 0 Indeterminate Dictated By: GIO ANNE DO 01 Transcrib ed By: MARGARITA on 03/23/181401 COPY TO: RAMA MEDINA MD CERVICAL SPINE 4 OR 5 [id number] 23:38:[address] [address] Patient Name: AMISH FRANZ MR #: [id number] : 1945 Age/Sex: 72/F Req #: [id number] Adm Physician: Ordered by: RAMA MEDINA MD Report #: [id number] Location: [facility] Room/Bed: Procedure: [id number] DX/CERVICAL SPINE 4 OR 5 VIEWS Exam Date: 03/14/18 Exam Time: [address] ATUS: Signed CERVICAL SPINE 4 OR 5 VIEWS This study is labeled as routine x -ray, however, the clinician needs a overnight read. HISTORY: Neck pain COMPARISON: None FINDINGS: Bones: No displaced fracture. Osseous alignment is within normal limits. Patient is status post fusion of lo wer cervical spine from C5 through C7 with anterior fenestrated plate and scre ws and intervertebral disc fusion. Joints: Degenerative changes of the fa cet joints from C2-3 through C4-5. Soft tissues: Heterotopic calcificatio n in the distribution of the nuchal ligament. Postsurgical changes in the dist ribution of the left carotid artery suggestive of prior endarterectomy. Calc ified partially visualized thoracic aorta IMPRESSION: 1. No acute ra diographic abnormality. 2. Postsurgical changes of the lower cervical spine a nd left carotid artery. Signed by: Dr. Blanche Alfaro M.D. on 03/14/2018 11:41 PM Dictated By: BLANCHE RODRIGUEZ MD 40 Transcribed By: LAWRENCE on 03/14/182340 COPY TO: RAMA MEDINA MD CHEST 2 [id number] 15:28:[address] [address] Patient Name: AMISH FRANZ MR #: [id number] : Age/Sex: 72/F Req #: [id number] Adm Physician: Ordered by: RAMA MEDINA MD Report #: [id number] Location: [facility] Room/Bed: Procedure: [id number] DX/CHEST 2 VIEWS Exam Date: 03/14/18 Exam Time: 1415 REPORT STATUS: Signed PROCEDURE: Frontal and lateral views of the chest. COMPARISON: [facility], DX, CHEST SINGLE (PORTABLE), 03/13/2016, 17:51. Patients [facility], CT, CT CHEST WO, 03/13/2016, 18:39. [facility], DX , CHEST SINGLE (PORTABLE), 09/23/2016, 22:15. INDICATIONS: COUGH FINDINGS: Lines/tubes: None. Lungs: Lungs are well-inflated. No in terval change in focal opacity in the right upper lobe when compared to prior CT chest 2015. Rest of the lungs is clear. No consolidation or pulmonary lex ma. Pleura: There is no pleural effusion or pneumothorax. Heart and mediastinum: Cardiac silhouette is unremarkable. Pulmonary vasculature is no rmal. Bones: No acute bony abnormality. IMPRESSION: 1. No a cute cardiopulmonary abnormalities. 2. No interval change in focal opacity in the right upper lobe, which was seen on prior CT dated 03/13/2016. This may re present bronchogenic neoplasm such as adenocarcinoma (formerly bronchoalveola r carcinoma). Recommend contrast enhanced chest CT for further evaluation. Enrique Venegas M.D. Dictated by: Enrique Venegas M.D. on at 15:28 Electronically approved by: Enrique Venegas M.D. on 03/14/2018 at 15:28 Dictated By: ENRIQUE VENEGAS MD [employer] Signed By: ENRIQUE VENEGAS MD on 03/14/18 1528 Transcribed By: MESFIN on 02/18 03/06 1528 COPY TO: RAMA MEDINA MD
[2019-07-17] MEDS ORDERED: ASPIRIN 81 MG CHEW TAB PO ONE ×2 (14:30→16:30)
[2019-07-17 15:09] LABS: BASOPHILS # (AUTO) 0.1 (0.0-0.1); BASOPHILS % 1.9 % (0.0-1.0); EOSINOPHILS # (AUTO) 0.2 (0.0-0.4); EOSINOPHILS % 3.2 % (0.0-6.0); HEMATOCRIT 34.3 % (34.2-44.1); HEMOGLOBIN 11.9 g/dL (12.0-16.0); LYMPHOCYTES # (AUTO) 1.4 (1.0-3.2); LYMPHOCYTES % 18.6 % (18.0-39.1); MEAN CORPUSCULAR HEMOGLOBIN 31.1 pg (28-32); MEAN CORPUSCULAR HGB CONC 34.7 g/dL (31-35); MEAN CORPUSCULAR VOLUME 89.6 fL (81-99); MONOCYTES # (AUTO) 0.6 (0.2-0.8); MONOCYTES % 8.2 % (4.4-11.3); NEUTROPHILS % 67.8 % (38.7-80.0); PLATELET COUNT 290 x10e3/uL (140-360); RED BLOOD COUNT 3.83 x10e6/uL (3.6-5.1); RED CELL DISTRIBUTION WIDTH 13.5 % (11.7-14.4)
[2019-07-17 15:25] LABS: ALBUMIN 3.7 g/dL (3.5-5.0); ANION GAP 16.8 mmol/L (8-16); CALCIUM 8.6 mg/dL (8.4-10.2); CREATININE, SERUM 1.17 mg/dL (0.57-1.11); POTASSIUM 3.8 mmol/L (3.5-5.1)
[2019-07-17] MEDS ORDERED: DEXTROSE 50% SYRINGE 50 ML IV PRN (17:15)
[2019-07-17] MEDS ORDERED: ACETAMINOPHEN 325 MG TAB PO PRN (17:30)
[2019-07-17] MEDS ORDERED: ACETAMINOPHEN/CODEINE 300MG - 30MG TAB PO PRN (17:30)
[2019-07-17] MEDS ORDERED: HYDRALAZINE HCL 20 MG/ML VIAL IV PRN (17:30)
[2019-07-17] MEDS ORDERED: SODIUM CHLORIDE 0.9% 1000ML 1,000 ML IV SCH (17:30)
[2019-07-17 18:26] VITALS: BP 156/70
[2019-07-17] MEDS ORDERED: DULCOLAX5 MG PO (18:43)
--- NOTE | 2019-07-17 19:40 | NUR ---
Received bedside report from day nurse. Patient sitting up in bed, alert and oriented, no s/s of distress or c/o pain at this time. All safety measures in place. Will continue to monitor.
[2019-07-17 19:59] VITALS: BP 156/70
[2019-07-17] MEDS: TRAZODONE HCL 50 MG TAB PO SCH (20:27)
[2019-07-17] MEDS: INSULIN LISPRO 100 UNIT/1 ML 3ML VIAL SQ SCH (20:27)
[2019-07-17] MEDS: INSULIN GLARGINE 100 UNITS/ML VIAL SC SCH (20:27)
[2019-07-17] MEDS: ATORVASTATIN 40 MG TAB PO SCH (20:27)
[2019-07-17] MEDS ORDERED: MELATONIN 5 MG TABLET PO PRN (21:00)
[2019-07-17] MEDS ORDERED: ATORVASTATIN 20 MG TAB PO SCH (21:00)
[2019-07-17 21:10] VITALS: BP 156/70
[2019-07-17] MEDS: ONDANSETRON HCL INJ 2MG/ML 2ML 2 MG/ML VIAL IV PRN (22:30)
[2019-07-17] MEDS: MORPHINE SULFATE 2 MG/ML SYR 1ML IV PRN (22:30)
[2019-07-17 22:49] LABS: CREATINE KINASE 57 IU/L (29-168)
[2019-07-18] VITALS (8 sets, daily range): BP systolic 15–157; BP diastolic 49–69
[2019-07-18 02:57] LABS: BASOPHILS # (AUTO) 0.1 (0.0-0.1); BASOPHILS % 1.8 % (0.0-1.0); EOSINOPHILS # (AUTO) 0.3 (0.0-0.4); EOSINOPHILS % 3.3 % (0.0-6.0); HEMATOCRIT 32.4 % (34.2-44.1); HEMOGLOBIN 11.3 g/dL (12.0-16.0); LYMPHOCYTES # (AUTO) 1.6 (1.0-3.2); LYMPHOCYTES % 20.9 % (18.0-39.1); MEAN CORPUSCULAR HGB CONC 34.9 g/dL (31-35); MEAN CORPUSCULAR VOLUME 88.8 fL (81-99); MONOCYTES # (AUTO) 0.6 (0.2-0.8); MONOCYTES % 8.4 % (4.4-11.3); NEUTROPHILS % 65.3 % (38.7-80.0); PLATELET COUNT 263 x10e3/uL (140-360); RED BLOOD COUNT 3.65 x10e6/uL (3.6-5.1); RED CELL DISTRIBUTION WIDTH 13.4 % (11.7-14.4)
[2019-07-18] MEDS: MORPHINE SULFATE 2 MG/ML SYR 1ML IV PRN ×2 (03:02→08:20)
[2019-07-18] MEDS: ONDANSETRON HCL INJ 2MG/ML 2ML 2 MG/ML VIAL IV PRN ×2 (03:02→08:20)
[2019-07-18 03:10] LABS: CREATINE KINASE 48 IU/L (29-168)
[2019-07-18 03:24] LABS: ANION GAP 15.3 mmol/L (8-16); CALCIUM 8.5 mg/dL (8.4-10.2); CHOL/HDL RATIO 5.2 (3.0-3.6); CREATININE, SERUM 1.16 mg/dL (0.57-1.11); POTASSIUM 3.3 mmol/L (3.5-5.1)
[2019-07-18 03:30] LABS: CREATINE KINASE MB < 1.00 ng/mL (0-4.3)
[2019-07-18 03:44] LABS: THYROID STIMULATING HORMONE 1.316 uIU/mL (0.350-4.940)
[2019-07-18] MEDS ORDERED: TRICOR48 MG PO (06:36)
[2019-07-18] MEDS ORDERED: PANTOPRAZOLE SO40 MG PO (06:36)
--- NOTE | 2019-07-18 06:38 | NUR ---
Per Marilyn MARTINEZ, patient okay to DC home if cleared by cardiology. If patient not tolerating diet, then plan to consult GI.
[2019-07-18] MEDS ORDERED: ULTRAM 50MG50 MG PO (06:43)
--- NOTE | 2019-07-18 07:00 | NUR ---
received am report and rounds done. pt is resting in bed, no s/s of distress. call light within reach and side rails up
[2019-07-18] MEDS: MELOXICAM 7.5 MG TAB PO SCH (08:19)
[2019-07-18] MEDS: FENOFIBRATE 48 MG TAB PO SCH (08:19)
[2019-07-18] MEDS: ASPIRIN 81 MG ENTERIC COATED PO SCH (08:19)
[2019-07-18] MEDS: CLOPIDOGREL BISULFATE 75 MG TAB PO SCH (08:19)
[2019-07-18] MEDS: LISINOPRIL 10 MG TAB PO SCH (08:19)
[2019-07-18] MEDS: INSULIN LISPRO 100 UNIT/1 ML 3ML VIAL SQ SCH ×4 (08:21→20:20)
--- NOTE | 2019-07-18 10:05 | Diagnostic Imaging Report ---
EXAMINATION: CHEST 2 VIEWS INDICATION: Chest pain COMPARISON: None FINDINGS: LINES/TUBES:EKG leads overlie the chest. LUNGS:The lungs are moderately inflated. No focal consolidation or pulmonary edema. PLEURA:No pleural effusion or pneumothorax. MEDIASTINUM:The cardiomediastinal silhouette appears normal in size and shape. Atherosclerotic calcifications of the thoracic aorta. BONES/SOFT TISSUES:No acute osseous injury. Partially visualized cervical spine fusion hardware. ABDOMEN:No free air under the diaphragm. Status post cholecystectomy. IMPRESSION: No focal pneumonia or pulmonary edema. Signed by: Jimmy Noland MD on 07/18/2019 10:01 AM
--- NOTE | 2019-07-18 12:17 | NUR ---
Dr. Randlal ordered CT of chest and abdomen with contrast. Pt notified nurse that she has an allergy to iodide, called Dr. Randall and received orders to premedicate patient and schedule the CT at a later time.
[2019-07-18 12:27] LABS: CREATINE KINASE MB 1.9 ng/mL (0-5.0)
[2019-07-18 12:28] LABS: CREATINE KINASE MB 1.8 ng/mL (0-5.0)
[2019-07-18] MEDS ORDERED: REGADENOSON 0.4 MG/5 ML SYR IV ONE (13:31)
--- NOTE | 2019-07-18 16:26 | History and Physical ---
REPORT TITLE: Cardiac Consultation BODY AFTER REPORT TITLE: REASON FOR CONSULTATION: Chest pain. HISTORY: This is a 74-year-old lady, poorly historian. She is known with longstanding history of diabetes mellitus, severe end organ damage, coronary artery disease, status post prior PCI and myocardial infarction, hypertension, hypercholesteremia, lung cancer, status post some form of modified right lung surgery last year, and degenerative joint disease. The patient is here for three days duration of right-sided chest pain, worse with deep inspiration, pain under the ribs, also under the lower retrosternal area and right upper quadrant. The patient's pain is reproducible with palpation. Pain is very severe. Pain is relentless. There is some nausea and vomiting, but no diarrhea. The patient's activities are limited since her cervical spine surgery or even maybe before she got "wobbly gait". She walked with a cane. She does have easy fatigability, shortness of breath on exertion. There is no orthopnea, no paroxysmal nocturnal dyspnea. There is no syncope or presyncope. Regarding her acute illness, it seems to be new over the last 3 days and it is pleuritic in nature and very severe. REVIEW OF SYSTEMS: GENERAL: No fever, no chills. No recent febrile illness. HEENT: Decreased vision and blurry vision. PULMONARY: As per acute illness. Pleuritic chest pain. No cough. No hemoptysis. No recent infection, easy fatigability, shortness of breath on exertion. No recent travel. No leg swelling. CARDIAC: Definitely the patient does have this chest pain, which seems to be atypical for coronary artery disease, but she does have definitely prior to that stable angina at least class III masked by her inactivity and limited exercise. She had prior myocardial infarction as mentioned above. GI: The patient does have abdominal discomfort and constipation at times. No hematemesis. No melena. : Repeated urinary tract infection and incontinence. She is followed by Dr. Martinez. MUSCULOSKELETAL: Back pain, knee pain, limited activity. Neurological: Wobbly gait, peripheral neuropathy symptoms severe, generalized weakness of the lower extremity. ENDOCRINE: She is diabetic, seems to be poorly controlled by history with severe end-organ damage. Hematology: No easy bruising or bleeding. SKIN: No skin rashes or lesions. SOCIAL HISTORY: She is divorcee. She is nonsmoker. She stopped smoking 10 years ago. She is not alcohol drinker. She has retired from several jobs and she is disabled because of her problems. HOME MEDICATIONS: Include: 1. Aspirin 81 mg a day. 2. Plavix 75 mg a day. 3. Lipitor 20 mg a day. 4. Tricor 48 mg a day. 5. Lisinopril 10 mg a day. 6. Lantus insulin 30 units a day. 7. Humalog 10 units t.i.d. 8. Metformin 500 mg twice a day. 9. Vitamin B12 in addition to other p.r.n. medications. ALLERGIES: CODEINE. PAST MEDICAL HISTORY: 1. Diabetes mellitus, severe end-organ damage of many years' duration. 2. Abnormal gait. 3. Cervical spine surgery, C5 to C7 using anterior approach. 4. Bilateral knee problem. 5. Severe peripheral neuropathy. 6. Chronic renal insufficiency. 7. Coronary artery disease. 8. Status post prior myocardial infarction and PCI many years ago. 9. History of TIA, CVA with left carotid endarterectomy. 10. Bilateral carpal tunnel surgery. 11. Knee surgery. 12. Cholecystectomy. 13. Hysterectomy. FAMILY HISTORY: Really truly she does not know much about her father and mother. She does not know their cause of . Her father at ages 61 and mother at age 84 with enlarged heart. Eleven siblings, 2 brothers, nine sister, several with cancer, several with diabetes mellitus, coronary artery disease, congestive heart failure. Four children, 2 sons and 2 daughters, 1 son with some illness, but she does not know details. PHYSICAL EXAMINATION: VITAL SIGNS: Height of 5 feet 2 inches, weight of 148 pounds. Blood pressure 150/70, heart rate 60, respiratory rate of 18, afebrile. HEENT: Pupils are reactive. Neck: No elevation of jugular venous pulsation. Carotid endarterectomy, bilateral carotid bruit. No thyromegaly. No lymphadenopathy. CHEST: Very tender right lower chest and right upper quadrant as well as lower retrosternal area. Decreased air entry and few crackles. HEART: PMI 5th left intercostal space. Normal first and second heart sounds with soft ejection systolic murmur. ABDOMEN: Tenderness of the right upper quadrant. No abdominal bruit. Bowel sounds are present. No organomegaly. EXTREMITIES: No cyanosis, no clubbing, no edema. No signs of deep venous thrombosis. NEUROLOGIC: Awake, alert, and oriented, able to move her extremities. Vision not examined and gait is not examined. The patient walks with a walker. SKIN: No skin rashes or lesions. LABORATORY DATA: Sodium of 139, potassium 3.3, BUN of 15, creatinine of 1.1. White blood cell count of 7.64, hemoglobin of 11.3, hematocrit 32%, and platelet count of 163,000. TSH of 1.31, triglycerides of 374, cholesterol of 234, HDL of 45, LDL of 114. EKG showing normal sinus rhythm, nonspecific ST changes. Left atrial enlargement, QS in V1, V2. IMPRESSION AND PLAN: 1. Diabetes mellitus severe end organ damage. 2. Angina definitely with history of coronary artery disease and myocardial infarction. 3. Hypertension. 4. Hypercholesteremia. 5. Abnormal gait. 6. Severe end organ damage secondary to diabetes. 7. History of cancer with some form of possible partial lobectomy of the right lung. 8. New illness, which does not sound to be angina characterized by pleuritic chest pain and severe tenderness of the right lower chest and right upper quadrant. Cardiac schultz, I would concur with plan to continue her current medication. We will do a nuclear stress test, she needs to have further workup for the pain. For that reason, I will ask for CT chest and abdomen with contrast. We will do nuclear stress test. We will review her echocardiogram. The patient needs definitely to have cardiac workup. She needs definitely to have carotid and vascular workup. However, because of this pain now probably we will do only stress test and we will do CT of her abdomen and chest as ordered. We will hold on doing invasive approach till this problem is resolved. Pending on the results of initial investigation further steps to be done. Thank you very much for the dictation. Of note, the patient is poorly historian and case discussed with the patient and time care of the patient more than 1 hour almost 80 minutes. MD KATELYN Baires/BRIANNE /[id number]
--- NOTE | 2019-07-18 19:00 | NUR ---
Received bedside report from day nurse. Patient resting in bed, no s/s of distress or c/o pain at this time. All safety measures in place. Will continue to monitor.
--- NOTE | 2019-07-18 19:47 | Myoview Stress Test ---
DATE OF STUDY: 07/18/2019 10:09:00 Stress Test - Treadmill ONLY TITLE OF REPORT: Lexiscan nuclear stress test. INDICATION FOR STUDY: Chest pain, history of coronary disease, and inability to exercise. TECHNICAL DETAILS: After risks, benefits, pros and cons of Lexiscan nuclear stress test were explained to the patient, the patient agreed to proceed. She was brought down to the nuclear lab where she received 11 mCi dose of technetium-99m tetrofosmin intravenously and after about 40 minutes, the patient was taken to the [employer] SPECT camera for resting myocardial perfusion imaging. Afterwards, the patient was brought to the stress lab where 12-lead EKG monitoring and blood pressure monitoring were obtained. She received a dose of Lexiscan 0.4 mg intravenously followed by 33 mCi dose of technetium-99m tetrofosmin intravenously. Resting heart rate went from a baseline of 68 beats per minute to a maximum of 85 beats per minute and blood pressure went from a baseline of 141/107 to 115/70, which is appropriate hemodynamic dynamic response. EKG revealed normal sinus rhythm, nonspecific intraventricular block, and nonspecific ST-T wave changes diffusely and with Lexiscan infusion there were no ischemic EKG changes or symptoms. After 25 minutes, the patient was then taken to the SPECT camera for stress myocardial perfusion imaging. FINDINGS: 1. Resting myocardial perfusion imaging reveals a [id number] sized decreased area of uptake in the inferior wall more towards the mid to basal segments. 2. Stress myocardial perfusion imaging reveals a large decreased uptake in the inferior and inferolateral wall to a greater extent as compared to resting imaging. 3. The following gated measurements are obtained. End-diastolic volume is 74 mm, end systolic volume 36 mm, calculated left ventricular ejection fraction is 51% with notable septal hypokinesis. CONCLUSIONS: 1. Abnormal myocardial perfusion imaging study reveals a large partially reversible inferior and inferolateral wall perfusion defect compatible with a mixed scar and ischemia picture. 2. Normal left ventricular function with EF of 51%. 3. The overall findings of the stress test are compatible with at least a moderate risk stress test. MD SHANELL Frye/BRIANNE /[id number]
[2019-07-18] MEDS: TRAZODONE HCL 50 MG TAB PO SCH (20:20)
[2019-07-18] MEDS: ATORVASTATIN 40 MG TAB PO SCH (20:20)
[2019-07-18] MEDS: INSULIN GLARGINE 100 UNITS/ML VIAL SC SCH (20:20)
[2019-07-18] MEDS ORDERED: PREDNISONE 10 MG TAB PO ONE (21:00)
[2019-07-18] MEDS ORDERED: PREDNISONE 20 MG TAB PO ONE (21:00)
[2019-07-19] VITALS (8 sets, daily range): BP systolic 116–144; BP diastolic 57–72
[2019-07-19] MEDS ORDERED: PREDNISONE 10 MG TAB PO ONE (07:00)
[2019-07-19] MEDS ORDERED: PREDNISONE 20 MG TAB PO ONE (07:00)
--- NOTE | 2019-07-19 07:15 | NUR ---
PATIENT IN BED RESTING WITH EYES CLOSED, NO DISTRESS NOTED. TELEMETRY BOX IN PLACE. BED IN LOWER POSITION, CALL LIGHT AT REACH.
[2019-07-19] MEDS: INSULIN LISPRO 100 UNIT/1 ML 3ML VIAL SQ SCH ×4 (07:30→20:33)
[2019-07-19] MEDS ORDERED: FAMOTIDINE 20 MG TAB PO ONE (08:00)
[2019-07-19] MEDS ORDERED: DIPHENHYDRAMINE HCL 25 MG CAP PO ONE (08:00)
--- NOTE | 2019-07-19 09:16 | NUR ---
PATIENT OFF UNIT TO RADIOLOGY.
[2019-07-19] MEDS: MELOXICAM 7.5 MG TAB PO SCH (09:17)
[2019-07-19] MEDS: FENOFIBRATE 48 MG TAB PO SCH (09:17)
[2019-07-19] MEDS: ASPIRIN 81 MG ENTERIC COATED PO SCH (09:17)
[2019-07-19] MEDS: CLOPIDOGREL BISULFATE 75 MG TAB PO SCH (09:17)
[2019-07-19] MEDS: LISINOPRIL 10 MG TAB PO SCH (09:17)
--- NOTE | 2019-07-19 09:41 | NUR ---
PATIENT BACK TO UNIT FROM RADIOLOGY. ASSISTED BACK IN BED, CALL LIGHT AT REACH.
[2019-07-19] MEDS ORDERED: SODIUM CHLORIDE 0.9% 50ML 50 ML ONE (09:46)
[2019-07-19] MEDS ORDERED: IOPAMIDOL 370 MG/ML 200 ML INFUS..BTL INJ ONE (09:46)
--- NOTE | 2019-07-19 11:07 | Diagnostic Imaging Report ---
EXAM: CT Chest and Abdomen WITH intravenous contrast 07/19/2019 9:00 AM INDICATION: Chest pain COMPARISON: Chest radiograph of 07/17/2019 TECHNIQUE: Chest and abdomen were scanned utilizing a multidetector helical scanner from the lung apex through the level of the iliac crest after administration of IV contrast. Coronal and sagittal reformations were obtained. Routine protocol was performed. IV CONTRAST: 100mL Isovue 370 RADIATION DOSE: Total DLP: 539.4 mGy*cm. Dose modulation, iterative reconstruction, and/or weight based adjustment of the mA/kV was utilized to reduce the radiation dose to as low as reasonably achievable. COMPLICATIONS: None FINDINGS: LINES/ TUBES: None. LUNGS AND AIRWAYS: The central airways are patent. No focal consolidation or pulmonary edema. No suspicious pulmonary nodules. PLEURA: The pleural spaces are clear. HEART AND MEDIASTINUM: The thyroid gland is normal. No mediastinal, hilar or axillary lymphadenopathy. The heart is not enlarged. No pericardial effusion. Diffuse atherosclerotic calcifications of the coronary arteries, thoracic aorta and great vessels.. No central pulmonary embolism. The pulmonary artery measures 2.2 cm in diameter. No right heart strain. HEPATOBILIARY: Diffuse hepatic steatosis. No focal hepatic lesions. No biliary ductal dilatation. Status post cholecystectomy. SPLEEN: No splenomegaly. PANCREAS: No focal masses or ductal dilatation. ADRENALS: No adrenal nodules. KIDNEYS/URETERS: Defect at the upper pole of the left kidney. Correlate with history of prior partial nephrectomy. Vascular calcifications involve both kidneys. 4 mm nonobstructive right upper pole renal calculus. No hydronephrosis. PERITONEUM / RETROPERITONEUM: No free air or fluid. LYMPH NODES: No lymphadenopathy. VESSELS: Heavy diffuse atherosclerotic calcifications of the thoracic and abdominal aorta as well as the great vessels. No aortic aneurysm. There is complete occlusion of the left brachiocephalic origin for a short segment beginning at its origin. There is reconstitution distal to the left internal mammary artery. 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 GI TRACT: No abnormal bowel wall thickening. No bowel obstruction. BONES AND SOFT TISSUES: No acute osseous injury. Diffuse osteopenia. Degenerative changes of the visualized spine. No suspicious lytic or blastic lesions. IMPRESSION: No pulmonary embolism. No focal pneumonia or pulmonary edema. Heavy diffuse atherosclerotic calcifications including of the coronary arteries. 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 The proximal visualized portion of the left vertebral artery is also completely occluded. Diffuse hepatic steatosis. Left upper pole renal defect. Correlate with history of prior surgery. Signed by: Jimmy Noland MD on 07/19/2019 11:03 AM
--- NOTE | 2019-07-19 14:00 | NUR ---
CARDIOLOGY IN TO SEE PATIENT. STATED THAT IT IS OK TO DISCHARGE PATIENT; SHE HAS TO FOLLOW UP WITH A GLAZIER HELPER ON A REGULAR BASES. PATIENT VERBALIZED UNDERSTANDING.
--- NOTE | 2019-07-19 16:23 | NUR ---
PATIENT AMBULATED TO THE RESTROOM AND BACK TO BED. QUALITY WORKER IN TO SEE PATIENT, NO NEW ORDER RECEIVED. ALL PERSONAL ITEMS CLOSE TO PATIENT. BED IN LOWER POSITION, CALL LIGHT AT REACH.
[2019-07-19] MEDS ORDERED: METOPROLOL TARTRATE 25 MG TAB PO SCH (17:00)
--- NOTE | 2019-07-19 19:04 | NUR ---
PATIENT HAS A DISCHARGE ORDER. DISCHARGE PAPER GIVEN TO PATIENT. AWAITING FOR PATIENT'S DAUGHTER FOR TRANSPORTATION. DAUGHTER CALLED AND SHE STATED THAT SHE WILL BE HERE SOON POSSIBLE. PATIENT IN BED WITH CALL LIGHT AT REACH.
[2019-07-19] MEDS: TRAZODONE HCL 50 MG TAB PO SCH (20:32)
[2019-07-19] MEDS: ATORVASTATIN 40 MG TAB PO SCH (20:32)
[2019-07-19] MEDS: INSULIN GLARGINE 100 UNITS/ML VIAL SC SCH (20:33)
--- NOTE | 2019-07-19 22:01 | NUR ---
Patient D/C from unit @2259 by wheelchair with stable condition. V/S WNL.
--- NOTE | 2019-07-20 16:05 | Discharge Summary ---
CONSULTING PHYSICIAN: Dr. Daljit Randall, Cardiology. PRIMARY CARE PHYSICIAN: Dr. Snell. CHIEF COMPLAINT: Chest pain. HOSPITAL COURSE: This is a 74-year-old female with past medical history of diabetes, severe end organ damage, coronary artery disease, status post prior PCI and myocardial infarction, hypertension, hypercholesterolemia, lung cancer status post some form of modified right lung surgery last year, and degenerative joint disease, got admitted with complaints of chest pain. The patient described pain worse with deep inspiration, right-sided pain under the right rib also under the lower retrosternal area and right upper quadrant. On arrival, her cardiac enzymes, troponin x3 were negative. The patient got consulted with Cardiology. She had a nuclear stress test done today. The patient is cleared for discharge, no cardiac intervention recommended. CT chest and abdomen with contrast showed no pulmonary embolism. No focal pneumonia or pulmonary edema. Her vital signs include temperature 97.3, pulse 85, blood pressure 116/57, respiratory rate 20, oxygen saturation 94. ALLERGIES: CODEINE, IODINE. MEDICATIONS: She is on Tricor 48 mg tab daily, Protonix 40 mg tab daily, tramadol 50 mg every 8 hours, aspirin 81 mg daily. Lipitor 20 mg at bedtime, Plavix 75 mg daily, vitamin B12 500 mcg p.o. daily, insulin NovoLog 10 units three times a day, insulin Lantus 30 units at bedtime, lisinopril 10 mg p.o. daily, meloxicam 7.5 mg daily, metformin 1000 mg twice daily, trazodone 50 mg at bedtime. PHYSICAL EXAMINATION: GENERAL: No acute distress. NECK: Supple. EXTREMITIES: With no edema. LUNGS: Clear to auscultation. CARDIOVASCULAR: Regular rate and rhythm. ABDOMEN: Soft and nontender. NEUROLOGIC: Nonfocal. LABS: Sodium 139, potassium 3.3, chloride 99, CO2 of 28, BUN 15, creatinine 1.16, glucose 164. WBC 7.64, hemoglobin 11.3, hematocrit 32.4, platelets 263. ASSESSMENT AND DIAGNOSES: 1. Known history of coronary artery disease. Continue with aspirin and Plavix. 2. Type 2 diabetes. Continue with Lantus and sliding scale at home. 3. Hypertension. Continue with lisinopril and monitor blood pressure at home. 4. Hyperlipidemia. Continue atorvastatin. FOLLOWUP: The patient is advised to follow up with primary care physician in 1 to 2 weeks. Follow up with Cardiology in one week. CONDITION UPON DISCHARGE: Improved, fair. JUAN Baca/BRIANNE /[id number]
== END 2019-07-19 21:55 | disposition home or self-care (01) ==
LOC: ER 13:44 → ERHOLD 16:30 → MED/SURG3 17:49
PROVIDERS: ADMIT Internal Medicine; ATTEND Internal Medicine
DX: I25.119 Atherosclerotic heart disease of native coronary artery with unspecified angina pectoris (principal); R07.9 Chest pain, unspecified; E11.22 Type 2 diabetes mellitus with diabetic chronic kidney disease; N17.9 Acute kidney failure, unspecified; M19.90 Unspecified osteoarthritis, unspecified site; I13.10 Hypertensive heart and chronic kidney disease without heart failure, with stage 1 through stage 4 chronic kidney disease, or unspecified chronic kidney disease; Z95.5 Presence of coronary angioplasty implant and graft; Z83.3 Family history of diabetes mellitus; Z80.9 Family history of malignant neoplasm, unspecified; Z82.49 Family history of ischemic heart disease and other diseases of the circulatory system; Z88.5 Allergy status to narcotic agent; Z85.118 Personal history of other malignant neoplasm of bronchus and lung; E78.00 Pure hypercholesterolemia, unspecified; R26.9 Unspecified abnormalities of gait and mobility; Z91.041 Radiographic dye allergy status; N18.3 Chronic kidney disease, stage 3 (moderate); Z79.4 Long term (current) use of insulin
CPT/HCPCS: 36415 ×3; 71046; 71260; 74160; 78452; 80048; 80053; 80061; 82550 ×2; 82553 ×2; 82948 ×3; 83036; 84443; 84484 ×2; 85025 ×2; 93005; 93017; 93306; 96372 ×2; 99284; A9502; G0378 ×3; J1815; J2270 ×2; J2405 ×2; J2785; J7030; J7512 ×2; Q9967

== ENCOUNTER → 2020-04-09 | Outpatient (CLI) | payer MEDICARE, OTHER ==
[~2020-04-09] MED LIST changes: -BYDUREON2 MG; +BYDUREON2 MG SC; +DULCOLAX5 MG PO; +PANTOPRAZOLE SO40 MG PO; +PROAIR HFA INH8.5 GM NEB; +TRICOR48 MG PO; +ULTRAM 50MG50 MG PO
--- NOTE | 2020-04-09 14:38 | Diagnostic Imaging Report ---
EXAMINATION: ELBOW RIGHT COMPLETE INDICATION: Elbow pain COMPARISON: None FINDINGS: No acute fracture or dislocation. Alignment is anatomic. No substantial joint effusion. Soft tissues appear unremarkable. Atherosclerotic arterial calcifications. IMPRESSION: No acute osseous injury. Signed by: Jimmy Noland MD on 04/09/2020 2:34 PM
== END ==
LOC: RAD 12:19
PROVIDERS: ATTEND Emergency Medicine
DX: M25.521 Pain in right elbow (principal); G89.29 Other chronic pain

== ENCOUNTER 2020-04-11 14:57 | Inpatient (IN) | payer MEDICARE, OTHER ==
[~2020-04-11] VITALS: Ht 157.5 cm; Wt 70.9 kg
[2020-04-11] MEDS: ALBUTEROL/IPRATROPIUM 3 ML NEB NEB PRN (02:15)
[~2020-04-11 14:57] MED LIST changes: -PROAIR HFA INH8.5 GM NEB
--- NOTE | 2020-04-11 15:13 | Emergency Department Note ---
History of Present Illnes History of Present Illness History of Present Illness This is a 74 year old female. Patient complaining of shortness of breath and generalized body pain/ chest pain for 3 days. Patient states that she has a history of asthma but her inhaler is . Patient does not appear to be in any acute distress at this time. . Historian: Patient, Family Member Arrival Mode: Car Onset (how long ago): day(s) Radiation: Reports non-radiation Severity: moderate Onset quality: gradual Duration (how long): day(s) Timing of current episode: constant Progression: worsening Relieving factors: none Exacerbating factors: none Treatments prior to arrival: none Past Medical/Family History Physician Review I have reviewed the patient's past medical and family history. Any updates have been documented here. Past Medical History Past Medical History: CVA, CAD, Cancer, UTI's, Hyperlipedemia, Osteoarthritis Other Medical History: ARTHRITIS CARDIAC STENTS HIGH CHOLESTEROL "SLIGHT STROKE" Lung cancer Past Surgical History: Cholecysctectomy, Appendectomy, Hysterectomy, Lumpectomy Other Surgery: HEART STENTS Other Last Tetanus: OOD Review of Systems Review of Systems Constitutional: Reports as per HPI, Reports weakness EENTM: Reports no symptoms Cardiovascular: Reports no symptoms Respiratory: Reports dyspnea Gastrointestinal: Reports no symptoms Genitourinary: Reports no symptoms Musculoskeletal: Reports muscle pain Integumentary: Reports no symptoms Neurological: Reports weakness Psychological: Reports no symptoms Endocrine: Reports no symptoms Hematological/Lymphatic: Reports no symptoms Physical Exam Related Data Allergies: Coded Allergies: Iodine and Iodide Containing Produc (Verified Allergy, Intermediate, HIVES, 07/18/19) codeine (Verified Allergy, Mild, HIVES, 03/26/17) Vital signs reviewed: Yes Physical Exam CONSTITUTIONAL Constitutional: Present well-developed, Present other (pale) HENT HENT: Present normocephalic, Present atraumatic, Present oropharynx clear/moist, Present mucosae dry, Present nose normal HENT L/R: Present left ext ear normal, Present right ext ear normal EYES Eyes: Reports PERRL, Reports conjunctivae normal NECK Neck: Present ROM normal PULMONARY Pulmonary: Present effort normal, Present breath sounds normal CARDIOVASCULAR Cardiovascular: Present regular rhythm, Present heart sounds normal, Present capillary refill normal, Present normal rate, Present tachycardia GASTROINTESTINAL Abdominal: Present soft, Present nontender, Present bowel sounds normal GENITOURINARY Genitourinary: Present exam deferred SKIN Skin: Present warm, Present dry, Present pale MUSCULOSKELETAL Musculoskeletal: Present ROM normal, Present edema, Present tenderness, Present swelling, Present other (mild atrophy) NEUROLOGICAL Neurological: Present alert, Present oriented x 3, Present no gross motor or sensory deficits PSYCHOLOGICAL Psychological: Present mood/affect normal, Present judgement normal Results Laboratory Lab results reviewed: Yes Laboratory comments high DDIMER, low Hgb, high BNP Imaging Imaging results reviewed: Yes Imaging Comments no acute Diagnostics Tests Diagnostic test(s) reviewed: Yes Diagnostic comments CW CHF. Procedures 12 Lead ECG Interpretation ECG Interpretation : ECG: ECG 1 Date: Apr 11, 2020 Time: 15:17 Prior ECG tracings: reviewed Rhythm: sinus tachycardia QRS axis: normal ST segments normal: Yes Q waves: aVR, V1, V2 Clinical Impression: abnormal ECG Additional Comments old SD Assessment & Plan Medical Decision Making MDM CHF, anemia, PE Reassessment Reassessment time: 17:10 Reassessment VSS Assessment & Plan Final Impression: (1) CHF exacerbation (2) SOB (shortness of breath) on exertion (3) Anemia Depart Disposition: ADMITTED Home Meds Active Scripts Furosemide (FUROSEMIDE) 40 Mg Tablet, 20 MG PO Daily, #30 TAB Prov:CARROLL PACK M RN NEUROSURGICAL 04/15/20 Pantoprazole Sodium* (PROTONIX) 40 Mg Tablet.dr, 40 MG PO BIDAC for 30 Days, TAB Prov:CARROLL PACK M RN NEUROSURGICAL 04/15/20 Metoprolol Tartrate (LOPRESSOR) 25 Mg Tab, 25 MG PO BID for 30 Days, TAB Prov:SEAMUS PACKIN M RN NEUROSURGICAL 04/15/20 Tramadol Hcl* (ULTRAM 50MG*) 50 Mg Tab, 50 MG PO Q8H PRN for pain, #20 TAB Prov:CARROLL PACK M RN NEUROSURGICAL 07/18/19 Fenofibrate (TRICOR) 48 Mg Tab, 48 MG PO DAILY, #30 TAB Prov:CARROLL PACK M RN NEUROSURGICAL 07/18/19 Atorvastatin Calcium (LIPITOR) 20 Mg Tablet, 40 MG PO HS for 30 Days Prov:ROSAMARIA MARINO 03/19/16 Reported Medications Albuterol Sulf* (PROAIR HFA INHALER*) 8.5 Gm Inh, 2 INH NEB Q6HR PRN for shor tness of breath 04/12/20 Gabapentin (GABAPENTIN) 100 Mg Capsule, 1 CAP PO TID 04/12/20 Bisacodyl (DULCOLAX) 5 Mg Tablet.dr, 1 TAB PO DAILY 07/17/19 Exenatide Microspheres (BYDUREON) 2 Mg Vial, 2 MG SC once a week 03/26/17 Cyanocobalamin (VITAMIN B-12) 1,000 Mcg Tab, 500 MCG PO DAILY, #30 TAB 03/26/17 Clopidogrel Bisulfate* (PLAVIX) 75 Mg Tablet, 75 MG PO DAILY, #30 TAB 03/26/17 Trazodone Hcl (TRAZODONE HCL) 50 Mg Tablet, 50 MG PO HS, #30 TAB 03/26/17 Aspirin (ASPIR 81) 81 Mg Tablet.dr, 1 TAB PO DAILY 03/26/17 Metformin Hcl (METFORMIN HCL) 500 Mg Tablet, 1000 MG PO BIDWM, #60 TAB 03/13/16 Discontinued Reported Medications Fluticasone Propionate (FLUTICASONE PROPIONATE) 15 Gm Cr 03/26/17 Meloxicam (MELOXICAM) 7.5 Mg Tablet, 7.5 MG PO DAILY, #30 TAB 03/26/17 Insulin Aspart (NOVOLOG) 100 Unit/1 Ml Cartridge, 10 UNITS SC TIDWM 03/13/16 Insulin Glargine (LANTUS) 100 Units/Ml Ml, 30 UNITS SC HS 03/13/16 Discontinued Scripts Lisinopril (PRINIVIL) 10 Mg Tablet, 10 MG PO DAILY for 30 Days Prov:ROSAMARIA MARINO 03/19/16 Pantoprazole Sodium* (PROTONIX) 40 Mg Tablet., 40 MG PO DAILY@0600 for 30 Days, TAB Prov:CARROLL PACK NP 07/18/19 Medications in the ED IV abx, IV fluid Physician Attestation Provider Attestation case discussed with Dr Feldman, Dr Mcfadden. Dr Feldman willl see into the VQ scan RENATO BUSBY MD Apr 11, 2020 15:13
[2020-04-11] MEDS ORDERED: SODIUM CHLORIDE 0.9% 1000ML 1,000 ML IV STA (15:27)
[2020-04-11] MEDS ORDERED: ASPIRIN 81 MG CHEW TAB PO ONE ×2 (15:30→17:15)
[2020-04-11] MEDS ORDERED: CEFTRIAXONE SOD 1 GM VIAL IV ONE (15:30)
[2020-04-11] MEDS ORDERED: ACETAMINOPHEN 325 MG TAB PO ONE (15:30)
[2020-04-11] MEDS ORDERED: ONDANSETRON HCL INJ 2MG/ML 2ML 2 MG/ML VIAL IV PRN ×2 (15:30→17:15)
[2020-04-11 15:39] LABS: BASOPHILS # (AUTO) 0.2 (0.0-0.1); BASOPHILS % 2.4 % (0.0-1.0); EOSINOPHILS # (AUTO) 0.1 (0.0-0.4); EOSINOPHILS % 1.6 % (0.0-6.0); HEMATOCRIT 29.2 % (34.2-44.1); HEMOGLOBIN 8.8 g/dL (12.0-16.0); LYMPHOCYTES # (AUTO) 1.6 (1.0-3.2); MEAN CORPUSCULAR HEMOGLOBIN 25.4 pg (28-32); MEAN CORPUSCULAR HGB CONC 30.1 g/dL (31-35); MEAN CORPUSCULAR VOLUME 84.4 fL (81-99); MONOCYTES # (AUTO) 0.7 (0.2-0.8); MONOCYTES % 8.4 % (4.4-11.3); NEUTROPHILS # (AUTO) 5.4 (2.1-6.9); NEUTROPHILS % 67.4 % (38.7-80.0); PLATELET COUNT 470 x10e3/uL (140-360); RED BLOOD COUNT 3.46 x10e6/uL (3.6-5.1); RED CELL DISTRIBUTION WIDTH 15.8 % (11.7-14.4)
[2020-04-11 15:44] LABS: INR 1.04; PROTHROMBIN TIME 14.1 seconds (11.9-14.5)
[2020-04-11 15:45] LABS: PARTIAL THROMBOPLASTIN TIME 30.7 seconds (23.8-35.5)
[2020-04-11] MEDS ORDERED: CEFTRIAXONE SOD 1 GM/NS 50 ML 50 ML IV ONE (15:45)
[2020-04-11 15:48] LABS: CLARITY,URINE CLEAR (CLEAR); COLOR,URINE YELLOW (YELLOW); LEUKOCYTE ESTERASE ,URINE NEGATIVE (NEGATIVE); NITRITE,URINE NEGATIVE (NEGATIVE); PROTEIN,URINE DIPSTICK 2+ (NEGATIVE)
[2020-04-11 15:49] LABS: BILIRUBIN,URINE SMALL (NEGATIVE); KETONES,URINE NEGATIVE (NEGATIVE)
[2020-04-11 15:54] LABS: ALBUMIN 3.6 g/dL (3.5-5.0); ALBUMIN/GLOBULIN RATIO 0.9 (0.8-2.0); ANION GAP 20.1 mmol/L (8-16); CALCIUM 9.8 mg/dL (8.4-10.2); CREATININE, SERUM 1.35 mg/dL (0.57-1.11); POTASSIUM 4.1 mmol/L (3.5-5.1)
[2020-04-11 15:57] LABS: BACTERIA,URINE MODERATE /HPF; EPITHELIAL CELLS,URINE MANY /LPF; WBC,URINE (MAN) 0-5 /HPF (0-5)
[2020-04-11 16:00] LABS: CREATINE KINASE MB 2.6 ng/mL (0-5.0)
--- NOTE | 2020-04-11 16:24 | Diagnostic Imaging Report ---
EXAMINATION: CHEST SINGLE (PORTABLE) INDICATION: Chest pain COMPARISON: Chest CT 10/08/2019 FINDINGS: LINES/TUBES:EKG leads overlie the chest. LUNGS:The lungs are moderately inflated. Mild right apical pleural parenchymal thickening/scarring. No focal consolidation or pulmonary edema. PLEURA:No pleural effusion or pneumothorax. MEDIASTINUM:The cardiomediastinal silhouette appears normal in size and shape. Atherosclerotic calcifications of the thoracic aorta. BONES/SOFT TISSUES:No acute osseous injury. ABDOMEN:No free air under the diaphragm. IMPRESSION: No focal pneumonia or pulmonary edema. Signed by: Jimmy Noland MD on 04/11/2020 4:20 PM
[2020-04-11] MEDS ORDERED: SODIUM CHLORIDE FLUSH 10 ML SYR INJ PRN (17:15)
[2020-04-11] MEDS ORDERED: DIPHENHYDRAMINE HCL INJ 50 MG/ML VIAL IV PRN (17:15)
[2020-04-11] MEDS: FAMOTIDINE 20 MG TAB PO SCH (18:25)
--- NOTE | 2020-04-11 18:54 | NUR ---
report given to Selvin BECERRIL
--- NOTE | 2020-04-11 20:17 | Diagnostic Imaging Report ---
Perfusion Lung Scan NOTE: Lung ventilation studies with xenon are not being performed per the recommendation of the Society of Nuclear Medicine and Molecular Imaging. It is not possible to be certain that the ventilation system is adequately disinfected. Ventilation studies with Tc-99m DTPA particles is contraindicated because the delivery by nebulization generates too many water droplets from the patient's airway. Clinical Information: SOB x 3 days Comparison: Chest radiograph 04/11/2020 Discussion: Ventilation images were not obtained. See note above. Perfusion images of the lungs were obtained in multiple projections following intravenous administration of approximately 6 mCi of Tc-99m MAA. The right lung volume is decreased compared to the left lung volume. Distribution of tracer is mildly irregular throughout the lungs. There are no segmental perfusion defects of any size. The cardiomediastinal silhouette is unremarkable. Impression: 1. Scan findings represent a VERY LOW probability for acute pulmonary embolic disease based on the perfusion-only PIOPED II criteria. 2. Decreased volume in the right lung due to elevated hemidiaphragm as well as right apical pleural thickening/scarring as seen on today's chest radiograph. 3. Scan findings are compatible with diffuse parenchymal and/or obstructive lung disease. Signed by: Dr. Lauren Forrest M.D. on 04/11/2020 8:14 PM
[2020-04-11] MEDS: PANTOPRAZOLE 40 MG 10ML VIAL IV SCH (20:45)
[2020-04-11] MEDS ORDERED: ZOLPIDEM TARTRATE 5 MG TAB PO PRN (21:00)
--- NOTE | 2020-04-11 22:30 | NUR ---
Received telephone report from Selvin (ER nurse). Selvin mentioned patient's BNP was 1275.1 but patient never received Lasix medication in ED because SBP was low (90s).
--- NOTE | 2020-04-11 22:45 | NUR ---
Patient arrived on the unit as a new admit from ED to room 207 with admitting diagnoses of Anemia, CHF exacerbation, and shortness of breath on exertion. Pt saline locked on IV. Pt notably pale and quite short of breath especially when exerting herself. Pt placed on 2L NC. O2 sat 100% at this time. On potline monitor (SR on rhythm). Will monitor pt closely. Call osborn within reach.
[2020-04-12] VITALS (9 sets, daily range): BP systolic 72–126; BP diastolic 56–81
[2020-04-12 00:11] LABS: CREATINE KINASE MB 2.2 ng/mL (0-5.0)
[2020-04-12] MEDS ORDERED: FUROSEMIDE 20 MG TAB PO STA (01:54)
--- NOTE | 2020-04-12 01:55 | NUR ---
Called Daja Zamora (RESIDENTIAL PROPERTY CONSULTANT for Dr. Feldman) and explained that patient is currently c/o chest tightness accompanied with shortness of breath. Patient currently sitting up on bedside chair for extra comfort. Oxygen increased to 3L on nasal cannula with O2 sat at 98%. Daja aware and ordered to give patient Lasix 20mg PO x1 STAT, ECHO in AM, labs in AM (CBC, BMP, BNP), Duoneb Q6hr prn for dyspnea.
--- NOTE | 2020-04-12 02:00 | NUR ---
Called RT and requested breathing treatment of patient. RT stated she was busy at the moment at [facility] unit but will come up shortly.
--- NOTE | 2020-04-12 02:05 | NUR ---
Pt given Lasix 20mg PO. Will continue to monitor pt.
[2020-04-12] MEDS ORDERED: PROAIR HFA INH8.5 GM NEB (02:19)
[2020-04-12] MEDS ORDERED: GABAPENTIN100 MG PO (02:19)
--- NOTE | 2020-04-12 02:19 | NUR ---
Pt receiving breathing treatment at this time given by RT.
--- NOTE | 2020-04-12 02:50 | NUR ---
Checked on patient. Patient still sitting on bedside chair and on 3L NC. Patient states she feels a lot better in terms of breathing and chest tightness was gone. Patient preferred to stay on the chair for now.
--- NOTE | 2020-04-12 05:45 | NUR ---
Patient assisted back in bed. Pt stated she felt so much better. Pt stated she urinated 3 times ever since she received the lasix medication.
[2020-04-12 06:05] LABS: BASOPHILS # (AUTO) 0.2 (0.0-0.1); BASOPHILS % 2.3 % (0.0-1.0); EOSINOPHILS # (AUTO) 0.1 (0.0-0.4); EOSINOPHILS % 1.1 % (0.0-6.0); HEMOGLOBIN 8.1 g/dL (12.0-16.0); LYMPHOCYTES # (AUTO) 1.2 (1.0-3.2); LYMPHOCYTES % 16.2 % (18.0-39.1); MEAN CORPUSCULAR HEMOGLOBIN 25.2 pg (28-32); MEAN CORPUSCULAR VOLUME 84.1 fL (81-99); MONOCYTES # (AUTO) 0.6 (0.2-0.8); MONOCYTES % 7.8 % (4.4-11.3); NEUTROPHILS # (AUTO) 5.1 (2.1-6.9); NEUTROPHILS % 72.3 % (38.7-80.0); PLATELET COUNT 435 x10e3/uL (140-360); RED BLOOD COUNT 3.21 x10e6/uL (3.6-5.1); RED CELL DISTRIBUTION WIDTH 15.6 % (11.7-14.4)
--- NOTE | 2020-04-12 06:27 | NUR ---
Called and spoke with Dr. Randall (via phone) to notify of new consult order. Reason for consult is CHF. MD aware and stated he will see pt today.
[2020-04-12 06:34] LABS: ANION GAP 14.1 mmol/L (8-16); CALCIUM 8.8 mg/dL (8.4-10.2); CREATININE, SERUM 1.17 mg/dL (0.57-1.11); POTASSIUM 4.1 mmol/L (3.5-5.1)
--- NOTE | 2020-04-12 07:00 | NUR ---
RECEIVED PATIENT RESTING IN BED NO S/S OF DISTRESS. BED LOW, WHEELS LOCKED, SIDE RAILS X2. CALL LIGHT IN REACH WILL CONTINUE TO MONITOR PATIENT.
[2020-04-12 07:36] LABS: CREATINE KINASE MB 2.6 ng/mL (0-5.0)
[2020-04-12] MEDS: PANTOPRAZOLE 40 MG 10ML VIAL IV SCH ×2 (07:58→16:00)
[2020-04-12] MEDS: FAMOTIDINE 20 MG TAB PO SCH ×2 (07:58→15:57)
--- NOTE | 2020-04-12 11:29 | NUR ---
DR. GOYAL MAKING ROUNDS. AWARE OF BLOOD PRESSURE BEING LOW. PATIENT ASYMPTOMATIC AT THIS TIME. NEW ORDER FOR HH AT 1300. NEW ORDERS IMPLEMENTED.
--- NOTE | 2020-04-12 12:54 | Consultation ---
DATE OF CONSULTATION: 04/12/2020 Cardiac consultation. REASON FOR CONSULTATION: Weakness, volume overload, debility, chronic pain. HISTORY OF PRESENT ILLNESS: This 74-year-old lady, very poorly historian, diabetic of many years with severe end-organ damage, coronary artery disease status post multiple PCI and myocardial infarction in the past. Most recent in [place] when she had several stents and latest cath showed all the stents are working, hypertension, hypercholesteremia, history of lung cancer. She had some form of modified right lung surgery last year and there is probably new spot degenerative joint disease and chronic pain. The patient came to this institution because weakness. She cannot hold anything by her hands. Her hands are hurting her. She is weak. No energy. She is having easy fatigability, shortness of breath on exertion. She said her pain is very, very severe. It is all over her body, mainly her both hands are very weak and she cannot hold anything and her muscle is spasming. She needs pain medication. She denied having any chest pain. She denied having any shortness of breath. The patient said she does have wobbly gait since her cervical spine surgery and she got weakness and the pain in both arms and tingling and numbness and spasm in her arms are relentless since then. Surprisingly, she denied having angina. She does have some shortness of breath on exertion, easy fatigability. She does not do really much of her activity. There is no pleuritic nor pericardiac component of chest pain. There is no anginal chest pain. There is only the above-mentioned symptoms. REVIEW OF SYSTEMS: GENERAL: No fever, no chills. No recent febrile illness. HEENT: Decreased vision and blurry vision at the time. PULMONARY AND CARDIAC: As per history and physical. However, the patient is not very active. GI: Bloating, indigestion, and constipation. No hematemesis, no melena, although her stool occult blood was positive. : Repeated urinary tract infection and incontinence. MUSCULOSKELETAL: Back pain, knee pain, and unable to do much activity and weakness of both arm and wobbly gait since her cervical spine surgery. NEUROLOGICAL: Abnormal gait, peripheral neuropathy, weakness. ENDOCRINE: Diabetic, poorly controlled with severe end organ damage. HEMATOLOGY: No easy bruising or bleeding. SKIN: There are no skin rashes. SOCIAL HISTORY: She is divorcee. She is nonsmoker. She stopped in fact smoking 10 years ago. She is not alcohol drinker. She is retired from several jobs and she is disabled. HOME MEDICATIONS: Include: 1. Aspirin 81 mg a day. 2. Plavix 75 mg a day. 3. Lipitor 20 mg a day. 4. Tricor 48 mg a day. 5. Lisinopril 10 mg a day. 6. Lantus insulin and Humalog in addition to metformin. 7. Vitamin B12. 8. ProAir and other p.r.n. ALLERGIES: CODEINE. PAST MEDICAL/SURGICAL HISTORY: 1. Diabetes mellitus, severe end-organ damage. 2. Abnormal gait. 3. Status post cervical spine surgery using anterior approach. 4. Bilateral knee problem. 5. Severe peripheral neuropathy. 6. Coronary artery disease. 7. Status post myocardial infarction and PCIs. 8. History of TIA, CVA with left carotid endarterectomy. 9. Bilateral carpal tunnel surgeries. 10. Knee surgery. 11. Cholecystectomy. 12. Hysterectomy. FAMILY HISTORY: Father and mother unknown cause of . Dad at age 61 and mother at age 84. Seven siblings, two brothers, 9 sisters, several with cancer, coronary artery disease and congestive heart failure. Four children. PHYSICAL EXAMINATION: VITAL SIGNS: Height of 5 feet 2 inches, weight of 156 pounds, blood pressure 100/60, heart rate of 80, respiratory rate of 18. HEENT: Pupils are reactive. NECK: No elevation of jugular venous pulsation. CHEST: Clear to auscultation and percussion. HEART: PMI 5th left intercostal space. Normal first and second heart sounds. ABDOMEN: Soft with good bowel sounds. EXTREMITIES: Decreased pulses and weakness. SKIN: No rashes. LABORATORY DATA: Sodium of 139, potassium 4.1, BUN of 18, creatinine of 1.17. White blood cell count of 7000, hemoglobin 8.1, hematocrit 27%, platelet count of 435,000. BNP of 1144. Chest x-ray showing no volume overload. EKG showing sinus tachycardia, anterior myocardial infarction, and lateral T-wave changes. IMPRESSION AND PLAN: 1. Weakness, debility and pain. 2. Shortness of breath. 3. Elevated BNP. 4. Diabetes mellitus, severe end-organ damage. 5. Hypertension. 6. Severe spine disease with abnormal gait and severe neuropathy. 7. History of cancer, status post surgery. 8. Anemia with occult blood positive. 9. Chronic pain syndrome. 10. Abnormal stress test last year and followed by her leather carver, questionable details of further workup. 11. From a cardiac point of view, the recommendation now observation adjusting medication, observing volume status, watching hemoglobin and hematocrit. If the patient ruled out for myocardial infarction and when she is stabilized, she can go home and keep follow up with her PCP and her leather carver. Importance of continuous care and proper followup with physicians are discussed and explained. MD KATELYN Baires/CATHERINEL /[id number]
[2020-04-12 13:48] LABS: HEMATOCRIT 28.1 % (34.2-44.1); HEMOGLOBIN 8.5 g/dL (12.0-16.0)
[2020-04-12] MEDS ORDERED: DEXTROSE 50% SYRINGE 50 ML IV PRN (18:15)
--- NOTE | 2020-04-12 20:25 | NUR ---
PATIENT RESTING IN BED ALERT AND ORIENTED, NO SIGNS OF DISTRESS NOTED. NIGHT TIME MEDICATIONS ARE GIVEN AND PATIENT VOICES NO PAIN AT THIS TIME. NASAL CANNULA IS INTACT AND RUNNING AT 3 LITERS, PATENT AND FLOWING. BED IS IN LOWEST POSITION, BOTH SIDE RAILS ARE UP, CALL LIGHT IS WITHIN EASY REACH, WILL CONTINUE TO MONITOR.
[2020-04-12] MEDS: INSULIN REGULAR, HUMAN 100 UNIT/1 ML 3ML VIAL SQ SCH (20:40)
[2020-04-12] MEDS: ATORVASTATIN 20 MG TAB PO SCH (20:40)
[2020-04-13] VITALS (9 sets, daily range): BP systolic 111–155; BP diastolic 61–102
[2020-04-13 05:36] LABS: BASOPHILS # (AUTO) 0.2 (0.0-0.1); BASOPHILS % 1.9 % (0.0-1.0); EOSINOPHILS # (AUTO) 0.3 (0.0-0.4); EOSINOPHILS % 2.9 % (0.0-6.0); HEMATOCRIT 26.3 % (34.2-44.1); HEMOGLOBIN 8.3 g/dL (12.0-16.0); LYMPHOCYTES # (AUTO) 1.6 (1.0-3.2); LYMPHOCYTES % 17.2 % (18.0-39.1); MEAN CORPUSCULAR HEMOGLOBIN 26.9 pg (28-32); MEAN CORPUSCULAR HGB CONC 31.6 g/dL (31-35); MEAN CORPUSCULAR VOLUME 85.1 fL (81-99); MONOCYTES # (AUTO) 0.8 (0.2-0.8); MONOCYTES % 8.7 % (4.4-11.3); NEUTROPHILS # (AUTO) 6.3 (2.1-6.9); NEUTROPHILS % 68.9 % (38.7-80.0); PLATELET COUNT 381 x10e3/uL (140-360); RED BLOOD COUNT 3.09 x10e6/uL (3.6-5.1); RED CELL DISTRIBUTION WIDTH 15.9 % (11.7-14.4)
[2020-04-13 06:10] LABS: ALBUMIN 3.1 g/dL (3.5-5.0); ALBUMIN/GLOBULIN RATIO 0.9 (0.8-2.0); ANION GAP 13.2 mmol/L (8-16); CALCIUM 8.7 mg/dL (8.4-10.2); CHOL/HDL RATIO 4.7 (3.0-3.6); CREATININE, SERUM 1.24 mg/dL (0.57-1.11); POTASSIUM 3.2 mmol/L (3.5-5.1)
[2020-04-13 06:32] LABS: THYROID STIMULATING HORMONE 1.651 uIU/mL (0.350-4.940)
[2020-04-13 06:57] LABS: FERRITIN 23.76 ng/mL (4.63-204.00)
--- NOTE | 2020-04-13 07:14 | NUR ---
Patient is Day [address] observation. Message left for Dr. Feldman, and awaiting reply.
[2020-04-13] MEDS ORDERED: METFORMIN HCL 500 MG TAB PO SCH (08:00)
[2020-04-13] MEDS: INSULIN REGULAR, HUMAN 100 UNIT/1 ML 3ML VIAL SQ SCH ×4 (08:18→20:00)
[2020-04-13] MEDS: PANTOPRAZOLE 40 MG 10ML VIAL IV SCH ×2 (08:18→16:04)
[2020-04-13] MEDS: FAMOTIDINE 20 MG TAB PO SCH ×2 (08:18→16:04)
[2020-04-13] MEDS: ACETAMINOPHEN 325 MG TAB PO PRN (10:36)
--- NOTE | 2020-04-13 11:44 | NUR ---
Nutrition Screen Note RD Recommendation for Physician: -Rec adding ADA 1600 diet restriction Plan of Care: RD following, monitoring for tolerance and adequacy Nutrition reason for involvement: Nutrition risk trigger MST Primary Diagnose(s): Weakness, debility and pain PMH: diabetic of many years with severe end-organ damage, coronary artery disease status post multiple PCI and myocardial infarction, hypertension, hypercholesteremia, lung cancer Ht: 62in Wt: 156.25lb BMI: 28.6kg/m2 IBW: 110lb +/- 10% RD Assessment: (04/13) Chart reviewed. Labs and meds reviewed. 74yo F, who was admitted for weakness. Visited pt in the room. Pt reports good appetite with 75% recorded meal intake. Pt denies any nausea or vomiting. Pt has denture, and denies any chewing or swallowing difficulty. Weight has been stable. Pt has had diabetes for over 30+ years but never received any education on diabetic diet. Handouts were left on bedside. RD will return for diet education when pt is less fatigue. Will continue to follow. Current Diet: cardiac diet Malnutrition Evaluation (04/13/20) The patient does not meet criteria for a specified degree of malnutrition at this time. Will re-evaluate at follow-up as appropriate. Diet Education Needs Assessment: Diet education indicated, provided education handouts on diabetic diet. Pt was too fatigue for teaching. Nutrition Care Level: low Signed: Jackelyn Bowman MS, RD, LD
--- NOTE | 2020-04-13 11:55 | NUR ---
Patient states , "I feel dizzy." BP supine position 134/71 P90, sitting 121/102 P90, standing 111/[address] Randall aware
[2020-04-13] MEDS ORDERED: POTASSIUM CHLORIDE 20 MEQ TAB CR PO ONE (12:06)
--- NOTE | 2020-04-13 16:03 | Progress Note ---
DATE: 04/13/2020 CONSULTING PHYSICIAN: Daljit Randall MD. PERTINENT ADDITIONAL PAST HISTORY: The patient does not see Pulmonology or Oncology on an outpatient basis. She lives alone. She states she has a daughter who lives close. There was a 2nd daughter who lives in [place], [place], and she has a son who does not live nearby. She states that she stopped going to her first PCP because it did not seem like things were getting done. She changed to a different PCP, Dr. Graves, but she has difficulty getting to his office as it is at [place] [address] and she lives in [place]. She does not have much support in the way of getting to the doctor's office. She continues to feel malaise and given her current condition she would likely be hard pressed to be able to get transportation not only to her PCP but to any consulting physicians to allow for any further workup. She has a history of lung cancer and states she also has a history of asthma. She had some type of modified right lung surgery. She states that she had five nodules removed from the right lung by Dr. Servin. She has had multiple PCI with stents. She had cervical spine surgery. The lung surgery was for lung cancer. SUBJECTIVE: In speaking with the patient and reviewing the emergency department physician's note, the patient had chest pain and general pain for 3 days prior to arrival. She says that three days ago she had a wheeze, but it was definitely not an asthma attack. She has experienced that in the past and she was taking her asthma medications and was not resolving. She currently complains of being tired, weak, having a dry cough, dizzy, short of breath with chest pressure and paroxysmal palpitations. Her last bowel movement was 04/11. She has also had recent considerable stress and depression. OBJECTIVE: VITAL SIGNS: This morning, temperature 98.2, heart rate 96, blood pressure 150/69, respirations 20, and oxygen saturation 99%. Orthostatic blood pressures are as follows: In supine 134/71, sitting 121/102, standing 111/62. GENERAL: The patient is supine in bed, is verbose, but appears extremely weak, frail, does not appear healthy. Skin on her face appears ashen. LUNGS: Overall clear to auscultation, diminished in the bases. She was on 2 L of oxygen via nasal cannula earlier, but now is on room air with oxygen saturation 96%. She does complain of dyspnea on exertion, but currently respirations are relaxed in respiratory rate is normal. HEENT: EOMI. NECK: Supple. No JVD. CARDIOVASCULAR: Regular rate and rhythm without murmur. ABDOMEN: Soft. Bowel sounds present. No guarding. EXTREMITIES: Without pitting edema. No clubbing, cyanosis, or signs of DVT. NEUROLOGICAL: GCS 15. Nonfocal. Does complain of weakness and tingling in her hands, chronic pain. LABORATORY DATA: WBCs 9.11, hemoglobin 8.3, hematocrit 26.3, and platelets 381. Sodium 139, potassium 3.2, chloride 103, CO2 of 26, anion gap 13.2, BUN 18, creatinine 1.24, estimated GFR 42, glucose 106, calcium 8.7. Iron 13, TIBC 385, percept sat 3, transferrin 275, ferritin 23.76, total bilirubin 0.4, AST 13, ALT 8, alkaline phosphatase 116, total bilirubin 6.7, albumin 3.1, triglycerides 114, cholesterol 142, LDL 89, HDL 30, and TSH 1.651. Yesterday B-type natriuretic peptide was 1144.5. The on 04/11 fecal occult blood test was positive. On 04/11 [place] virus PCR was negative. The coronavirus sample was sent to [facility]. I spoke with Debbie Edmond in the laboratory, who had called [facility] and obtained the result, which was negative. Blood cultures x2 collected on 04/11, show no growth after 24 hours. Final urine culture sensitivity shows no growth after 36 to 48 hours. Urinalysis on 04/11, showed moderate bacteria, negative for nitrite, negative for leukocyte esterase. IMAGING STUDIES: V/Q lung scan on 04/11, had shown very low probability for acute pulmonary embolic disease. Chest x-ray on 04/11, showed no focal pneumonia or pulmonary edema. Per telemetry, sinus rhythm with a heart rate of 92, bundle branch block. On 04/12, her echocardiogram showed the mild concentric left ventricular hypertrophy. Overall, left ventricular systolic function mild to moderately impaired with an ejection fraction between 40-45%. Pseudo normal left ventricular filling pattern consistent with elevated left atrial pressure. Left atrium enlargement. Mild aortic valve sclerosis without stenosis. Mild to moderate aortic regurgitation. Very abnormal mitral valve with eccentric jet of mild to moderate mitral regurgitation. Evidence of pulmonary hypertension. Ejection fraction was between 40-45%. ASSESSMENT AND PLAN: 1. Shortness of breath, status post diuresis for acute on chronic systolic congestive heart failure with ejection fraction 40-45%. The patient had 120 mg dose of IV Lasix and cardiology has seen the patient today and is okay with her discharging home from a Cardiology standpoint. She continues to have a dry cough and shortness of breath, but currently not requiring oxygen as well as Dr. Francis with Pulmonology to see her and evaluate. She may need a CT of the chest ordered. 2. Elevated D-dimer. V/Q scan was negative for PE, currently not on anticoagulant. 3. History of lung cancer and modified right lung surgery as well as Dr. Jennifer Hall with Oncology to see and evaluate the patient. She has no oncologist here to follow up with her on outpatient basis. Appreciate recommendations from all consultants. 4. Acute hypokalemia. Potassium level 3.2, potassium 40 mEq p.o. once today. 5. Iron deficiency anemia with positive fecal occult blood test and possible chronic blood loss. Aspirin and Plavix held by Cardiology. The patient states she had a colonoscopy done a year and a half ago that was normal. Hemoglobin 8.3, hematocrit 26.5. No obvious bleeding. Defer anemia workup to Hematology. 6. Degenerative joint disease with chronic pain syndrome. The patient especially complains of pain in the hands. Defer pain management to oncology/hematology. 7. Hemoglobin A1c on 07/18/2019 was 8.2%. Serum glucose 106. We will check a hemoglobin A1c tomorrow. 8. Controlled hypertension. Blood pressure 150/69, orthostatic vital signs as above. Cardiology following. Continue current medications. 9. History of coronary artery disease with multiple stents. Aspirin and Plavix on hold. 10. Severe spine disease with abnormal gait and severe neuropathy with ambulatory dysfunction, debility, weakness and pain. PT eval and treat. 11. Abnormal stress test last year and followed up by our livestock counter, questionable details of further workup ensure myocardial infarction ruled out. Troponin I was 0.109, then 0.118, then 0.168. Cardiac enzyme her screaming cardiac biomarker was negative x3. We will change her diet from a cardiac diet to ADA diet. 12. Prophylaxis. Protonix and Pepcid. Billing code 62596. Time spent 60 minutes. Dictated by Spike W Derrell, CORPORATE SAFETY COORDINATOR MD SADIE Naidu/BRIANNE /[id number]
--- NOTE | 2020-04-13 19:06 | Diagnostic Imaging Report ---
EXAM: CT Chest WITHOUT contrast INDICATION: SOB, dry cough, chest pressure,hx Lung CA Rt lung surgery COMPARISON: VQ scan dated 04/11/2020. Chest x-ray dated 04/11/2020. CT chest dated 07/19/2019. TECHNIQUE: Chest was scanned utilizing a multidetector helical scanner from the lung apex through the level of the adrenal glands without administration of IV contrast. Absence of intravenous contrast decreases sensitivity for detection of lymphadenopathy and vascular pathology. Coronal and sagittal reformations were obtained. Routine protocol was performed. IV CONTRAST: None COMPLICATIONS: None RADIATION DOSE: Total DLP: 436.42 mGy*cm Estimated effective dose: (DLP x 0.014 x size factor) mSv CTDIvol has been reviewed. It is below the limits set by the Radiation Protocol Committee (RPC). FINDINGS: LINES/ TUBES: None. LUNGS AND AIRWAYS: Faint bilateral groundglass opacities are seen. Additionally there are few new nodular opacities, for example a 5 mm nodular opacity in the left lower lobe (series 3, image 77) and 6 mm nodular opacity in the right lung (series 3, image 67).. Airways are normal. PLEURA: There is a moderate size right and a small left pleural effusion with associated atelectasis. HEART AND MEDIASTINUM: The thyroid gland is heterogeneous. No axillary lymphadenopathy. Slightly prominent mediastinal and hilar lymphadenopathy likely reactive. The heart is normal in size.. There is no pericardial effusion. There are significant atherosclerotic calcifications in the aorta and coronary arteries. UPPER ABDOMEN: Cholecystectomy clips. Nonobstructive right renal calculi measure up to 5 mm. BONES: There are degenerative changes in the spine. Spinal fixation hardware noted. SOFT TISSUES: Unremarkable. IMPRESSION: 1. Faint bilateral groundglass opacities are likely infectious in etiology. 2. New bilateral pulmonary nodules measuring up to 6 mm are nonspecific could be infectious or neoplastic. Recommend attention follow-up. 3. Moderate right and small left pleural effusions with associated atelectasis. 4. Nonobstructive right renal calculi measure up to 5 mm incompletely included on this exam. Signed by: Diogo Forbes MD on 04/13/2020 7:02 PM
--- NOTE | 2020-04-13 19:10 | NUR ---
Report given to oncoming nurse of patient's status. Resting in bed and talking on the phone. AAOX3 to time, person, place, situation. Respirations even and unlabored, forgetful. Side rails upx2, call light within reach, bed alarm on.
--- NOTE | 2020-04-13 19:34 | Consultation ---
DATE OF CONSULTATION: Pulmonary Critical Care Consultation CHIEF COMPLAINT: Dyspnea. HISTORY OF PRESENT ILLNESS: The patient is a 74-year-old woman. She has a past medical history of coronary artery disease with prior stents. She also has a history of lung cancer in 2018 that required surgical resection. She did not require any postoperative chemo. She now complains of shortness of breath for several days. She has a mild cough, but no fevers. She is not complaining of chest pain. PAST SURGICAL HISTORY: 1. Status post lung surgery for bronchogenic carcinoma. 2. History of prior cardiac stents. 3. Status post appendectomy. 4. Status post cholecystectomy. 5. Status post hysterectomy. PAST MEDICAL HISTORY: 1. Diabetes. 2. Coronary artery disease. 3. Vague history of asthma that required a rescue inhaler. SOCIAL HISTORY: The patient was a previous smoker. She quit smoking 12 years ago. She is not a drinker. ALLERGIES: THE PATIENT IS ALLERGIC TO IODINE WELL CODEINE. FAMILY HISTORY: She has a sister with cancer. REVIEW OF SYSTEMS: She has no fever. She has no headache. She is not having neck pain. She has no chest pain. She does note some dyspnea and some cough. She has no abdominal pain. She has no nausea or vomiting. She has no leg edema. PHYSICAL EXAMINATION: VITAL SIGNS: Blood pressure is 142/67. HEENT: No facial swelling or erythema. LYMPHATIC: Shows no submandibular, cervical, or supraclavicular adenopathy. CARDIAC: Regular rate and rhythm with normal S1, S2. LUNGS: Auscultation of lungs reveals crackles at the bases. There is no wheezing. ABDOMEN: Soft, nontender. There is no rebound or guarding. EXTREMITIES: No leg edema. NEUROLOGICAL: No focal abnormalities. LABORATORY DATA: White blood cell count is 9.1 and hemoglobin is 8.3. The platelet count is 381. The BUN to creatinine ratio is 18 to 1.24. Potassium is 3.2 and the other electrolytes are within normal limits. The BNP is 1144. Albumin is 3.1. RADIOGRAPHIC DATA: Chest x-ray shows no active disease. V/Q scan shows low probability for pulmonary embolism. IMPRESSION: 1. Acute on chronic systolic congestive heart failure. 2. Chronic obstructive pulmonary disease with prior use of rescue inhalers. 3. Prior history of stage I bronchogenic carcinoma and lung surgery. 4. Diabetes. 5. Hypertension. 6. Anemia, unspecified. PLAN: 1. Await CT scan of the chest. 2. Low-dose diuretics. 3. Continue oxygen. 4. Continue bronchodilators. MD ALMA Enrique/MODL /[id number]
[2020-04-13] MEDS: ATORVASTATIN 20 MG TAB PO SCH (20:35)
--- NOTE | 2020-04-13 20:35 | NUR ---
PATIENT RESTING IN BED ALERT AND ORIENTED, NO SIGNS OF DISTRESS NOTED. NIGHT TIME MEDICATIONS ARE GIVEN AND PATIENT VOICES NO PAIN AT THIS TIME. NASAL CANNULA IS INTACT AND RUNNING AT 3 LITERS, PATENT AND FLOWING. PATIENT VOICED UNDERSTANDING TO CALL IF NEEDING ASSISTANCE TO RESTROOM. BED IS IN LOWEST POSITION, BOTH SIDE RAILS ARE UP, CALL LIGHT IS WITHIN EASY REACH, WILL CONTINUE TO MONITOR.
[2020-04-14] VITALS (7 sets, daily range): BP systolic 116–141; BP diastolic 63–79
[2020-04-14] MEDS: ALBUTEROL/IPRATROPIUM 3 ML NEB NEB PRN (05:15)
[2020-04-14 05:41] LABS: BASOPHILS # (AUTO) 0.2 (0.0-0.1); BASOPHILS % 1.8 % (0.0-1.0); EOSINOPHILS # (AUTO) 0.2 (0.0-0.4); EOSINOPHILS % 2.1 % (0.0-6.0); HEMATOCRIT 27.4 % (34.2-44.1); HEMOGLOBIN 8.3 g/dL (12.0-16.0); LYMPHOCYTES # (AUTO) 1.3 (1.0-3.2); LYMPHOCYTES % 12.8 % (18.0-39.1); MEAN CORPUSCULAR HGB CONC 30.3 g/dL (31-35); MEAN CORPUSCULAR VOLUME 85.9 fL (81-99); MONOCYTES # (AUTO) 0.7 (0.2-0.8); MONOCYTES % 6.9 % (4.4-11.3); NEUTROPHILS # (AUTO) 7.8 (2.1-6.9); NEUTROPHILS % 76.1 % (38.7-80.0); PLATELET COUNT 403 x10e3/uL (140-360); RED BLOOD COUNT 3.19 x10e6/uL (3.6-5.1); RED CELL DISTRIBUTION WIDTH 15.6 % (11.7-14.4); RETICULOCYTE % 2.4 % (0.8-2.2)
[2020-04-14 06:18] LABS: ALBUMIN 3.3 g/dL (3.5-5.0); ALBUMIN/GLOBULIN RATIO 0.9 (0.8-2.0); ANION GAP 15.4 mmol/L (8-16); CALCIUM 8.6 mg/dL (8.4-10.2); CREATININE, SERUM 1.21 mg/dL (0.57-1.11); MAGNESIUM 1.6 MG/DL (1.3-2.1); POTASSIUM 4.4 mmol/L (3.5-5.1)
[2020-04-14 06:42] LABS: FERRITIN 23.15 ng/mL (4.63-204.00)
[2020-04-14] MEDS: PANTOPRAZOLE 40 MG 10ML VIAL IV SCH ×2 (08:39→18:21)
[2020-04-14] MEDS: METFORMIN HCL 500 MG TAB PO SCH ×2 (08:39→18:21)
[2020-04-14] MEDS: INSULIN REGULAR, HUMAN 100 UNIT/1 ML 3ML VIAL SQ SCH ×4 (08:40→21:00)
[2020-04-14] MEDS: FAMOTIDINE 20 MG TAB PO SCH ×2 (08:40→18:21)
[2020-04-14] MEDS: ACETAMINOPHEN 325 MG TAB PO PRN (08:40)
[2020-04-14] MEDS: FUROSEMIDE INJ 10 MG/ML 4 ML VIAL IV SCH (11:54)
--- NOTE | 2020-04-14 15:16 | NUR ---
Discontinuing PT services since patient is Mod I in functional mobility. Thank you. Addendum: 04/14/20 at 1517 by Drew hull PT Amended: Links added.
--- NOTE | 2020-04-14 16:51 | NUR ---
HEMATOLOGY/ONCOLOGY CONSULTATION REPORT REASON FOR CONSULTATION: History of Lung Cancer and Pain management HISTORY OF PRESENT ILLNESS: Ms. Kwong is a pleasant 74 year old woman with past medical history of coronary artery disease, CHF, COPD, diabetes mellitus, possible history of asthma, and history of bronchogenic carcinoma s/p lung surgery in 2018 without any chemoradiation with a surgeon over at [facility]. She has now been admitted for dyspnea worsening over the past few days concerning for CHF and COPD exacerbation. She was started on inhalers, supplemental oxygen, and diuresis. Hematology/Oncology has been consulted to assist with management. Presently, patient is resting comfortably. She appears to be in NAD with nonlabored breathing. ALLERGIES: Iodine, codeine PAST MEDICAL HISTORY: CAD, CHF, COPD, DM, Asthma, bronchogenic carcinoma PAST SURGICAL HISTORY: Lung surgery, cardiac stent placement, cholecystectomy, hysterectomy PAST FAMILY HISTORY: Sister - cancer (unknown type), Sister - breast cancer SOCIAL HISTORY: Former smoker, denies history of alcohol use, or illicit drug use REVIEW OF SYSTEMS: 14 point ROS negative unless otherwise stated in the HPI. PHYSICAL EXAMINATION: VITAL SIGNS: Reviewed per EMR. GENERAL: NAD HEENT: NC, AT; EOMI NECK: Supple CARDIOVASCULAR: Regular rate, regular rhythm PULMONARY: Decreased breath sounds bilaterally ABDOMEN: Soft, nontender, nondistended, normal bowel sounds EXTREMITIES: No edema, no cyanosis NEUROLOGICAL: Awake, alert PSYCHIATRIC: Cooperative LABORATORY DATA: 04/14/2020 WBC: 10.21 Hgb: 8.3 Hct: 27.4 Plt: 403 BUN: 21 Cr: 1.21 RADIOGRAPHIC DATA: 04/11/20 Chest x-ray: No acute findings. 04/11/20 V/Q scan: Very low probability for pulmonary embolism. 04/13/[address] 1. Faint bilateral groundglass opacities are likely infectious in etiology.2. New bilateral pulmonary nodules measuring up to 6 mm are nonspecific could be infectious or neoplastic. Recommend attention follow-up. 3. Moderate right and small left pleural effusions with associated atelectasis. 4. Nonobstructive right renal calculi measure up to 5 mm incompletely included on this exam. ASSESSMENT/PLAN: Ms. Kwong is a pleasant 74 year old woman with past medical history of coronary artery disease, CHF, COPD, diabetes mellitus, possible history of asthma, and history of bronchogenic carcinoma s/p lung surgery in 8 without any chemoradiation with a surgeon over at [facility]. She has now been admitted for dyspnea worsening over the past few days concerning for CHF and COPD exacerbation. She was started on inhalers, supplemental oxygen, and diuresis. Hematology/Oncology has been consulted to assist with management. 1. Dyspnea: Appears possible secondary to CHF and/or COPD exacerbation. BNP 1144. On diuresis and inhalers. CT chest revealed bilateral groundglass opacities likely infectious. COVID19 negative. Afebrile and not currently on antibiotics. Managed per Primary and Pulmonary teams on board. 2. Anemia: Appears chronic with normocytic, hypochromic counts suggestive of iron deficiency anemia. Counts overall stable. S/p colonoscopy about 1 year ago with normal results per patient. FOBT positive although no signs of active b leeding. Will obtain baseline workup and patient may benefit from IV Iron infusions. Monitor for now. 3. ALICE?: On IVF. Creatinine improving. Managed per primary team. 4. Back Pain: Chronic in nature. Patient currently denies pain. She can continue Tylenol 650mg q6h as needed for now. Will consider adding gabapentin for neuropathy. She has used Tramadol in the past for pain relief verified by [facility] Aware. Will monitor for medication adjustment. Recommend limiting opioid pain medication if possible given COPD/CHF and risk for sedation/respiratory depression. 5. DVT/GI proph: Recommend starting patient on Heparin sq for DVT proph. On pepcid and protonix. [facility] AWARE: 07/21/2019 1 07/18/2019 Tramadol Hcl 50 Mg Tablet 20.00 6 Er Amb [id number] [facility] ([id number]) 0 16.67 MME Comm Ins [place] Above plan discussed with Dr. Rodriguez. Thank you for the consult. I will be available. Please call with questions.
--- NOTE | 2020-04-14 17:22 | NUR ---
HEMATOLOGY/ONCOLOGY CONSULTATION REPORT 6. Thrombocytosis: Likely reactive possibly secondary to TIMO pending further workup. Counts stable. Monitor for now. Thank you, MOLINA [place] Dr.
[2020-04-14] MEDS: DOCUSATE SODIUM 100 MG CAP PO SCH (18:21)
[2020-04-14] MEDS: POLYETHYLENE GLYCOL 3350 17 GM PACK PO SCH (18:21)
[2020-04-14] MEDS: METOPROLOL TARTRATE 25 MG TAB PO SCH (18:22)
--- NOTE | 2020-04-14 19:20 | NUR ---
Report given to oncoming nurse of patient's status. Resting in bed. No s/s of acute distress noted. Side rails upx2, call light within reach.
[2020-04-14] MEDS: ATORVASTATIN 20 MG TAB PO SCH (21:00)
[2020-04-14] MEDS ORDERED: MAGNESIUM SULFATE 2GM/50ML 50 ML IV ONE (22:15)
--- NOTE | 2020-04-14 23:00 | Progress Note ---
DATE: CONSULTING PHYSICIANS: 1. Dr. Glen Francis with Pulmonology. 2. Dr. Ronel Rodriguez with Oncology/Hematology. 3. Dr. Daljit Randall with Cardiology. SUBJECTIVE: The patient states she did not eat breakfast. Denies any chest pain. She is complaining of a stiff neck tonight. She ambulated 350 feet with a cane with Physical Therapy today. She took 12 steps, which she tolerated well per PT. Apparently, she has steps at home. She is able to achieve this. At the time I saw her this morning, she only complained of stomach upset. Her last bowel movement was 2 days ago. She is weak and feels constipated. No cough today. Headache that she had yesterday is improved now. No pain. OBJECTIVE: VITAL SIGNS: Temperature 98.4, heart rate 108. She does have sinus tachycardia at times, but no atrial fibrillation. Blood pressure 138/79, respirations 17, oxygen saturation 98%. GENERAL: Pale, appears ill, frail, does not appear healthy. SKIN: On her face appears ashen. LUNGS: Overall clear to auscultation, diminished in the bases. Currently, breathing room air. No supplemental oxygen. HEENT: EOMI. NECK: Supple. No JVD. CARDIOVASCULAR: Regular rate and rhythm without murmur. ABDOMEN: Soft. Bowel sounds are present. No guarding. EXTREMITIES: Without pitting edema. No clubbing, cyanosis, or signs of DVT. NEUROLOGIC: GCS 15. Nonfocal. She does complain of weakness and tingling in her hands from time to time and chronic pain. INTEGUMENTARY: No rash. LABORATORY DATA: WBCs 10.21, hemoglobin 8.3, hematocrit 27.4, platelets 403. Sodium 138, potassium 4.4, chloride 101, CO2 of 26. BUN 21, creatinine 1.21, estimated GFR 43, glucose 211, calcium 8.6, phosphorus 4, magnesium 1.6. Iron 26, TIBC 402, percent saturation 6, transferrin 287, ferritin 23.15. Total bilirubin 0.4, AST 12, ALT 8, alkaline phosphatase 122, total protein 7.1, albumin 3.3, hemoglobin A1c 9.9%, vitamin D B12 of 850, folate pending. Fingerstick blood glucose level 268 on . Coronavirus PCR was negative on 04/11 and negative today on 04/14. Blood cultures collected on 04/11, show no growth after [address] of the chest done yesterday on 04/13, showed faint bilateral ground-glass opacities, likely infectious in etiology. New bilateral pulmonary nodules measuring up to 6 mm, nonspecific, could be infectious or neoplastic. Recommend attention followup, moderate right and small left pleural effusions with associated atelectasis. Nonobstructive right renal calculi measuring up to 5 mm incompletely included on this exam. ASSESSMENT AND PLAN: 1. Dyspnea, status post diuresis for [id number] systolic congestive heart failure with ejection fraction of 40% to 45%. The patient had 20 mg of IV Lasix by Cardiology and they are okay with sending her home from a Cardiology standpoint because she has had dry cough, shortness of breath, and history of lung cancer. Overall, had malaise. Did not look good enough to send home. 2. Pulmonology and Oncology consults were ordered. Apparently, also has a possible history of chronic obstructive pulmonary disease and asthma. She is on inhalers p.r.n. supplemental oxygen. Continue diuresis p.r.n. Appreciate recommendations from all consultants. Coronavirus disease test negative twice. Afebrile and not currently on antibiotics. White blood cell count slightly elevated at 10.2, we will reassess in the morning. 3. Elevated D-dimer. V/Q scan was negative for pulmonary embolism, currently not anticoagulated. 4. History of lung cancer, modified right lung surgery. Appreciate recommendations from all consultants regarding whether CT of the chest results need further workup. 5. Iron-deficiency anemia. Deferred to Hematology. FOBT positive, although no signs of active bleeding. The patient may benefit from IV iron sucrose infusions. Monitor for now. Aspirin and Plavix held by Cardiology. 6. Degenerative joint disease with chronic pain syndrome. Defer pain management, oncology/Hematology. 7. Uncontrolled type 2 diabetes mellitus with hyperglycemia, hemoglobin A1c 9.9%. Serum glucose 211. Given her elevation in creatinine, we will stop her metformin and start her on a low dose sliding scale insulin. 8. Acute kidney injury. Creatinine 1.21 (1.24). Elevation in creatinine may be due to diuresis. Monitor renal labs. Otherwise, we will discontinue metformin. 9. Controlled hypertension. Blood pressure 138/79. Cardiology following. Continue current medications. 10. Chronic back pain. The patient has severe spine disease with abnormal gait, severe neuropathy with ambulatory dysfunction, debility, weakness and pain. The patient can continue Tylenol 650 mg every 6 hours p.r.n. for now as per Oncology recommendations. Possible addition of gabapentin for neuropathy. Tramadol has been used in the past for pain relief as verified by [facility] aware, limit opioid pain medication if possible given her chronic obstructive pulmonary disease /congestive heart failure, and risk for sedation/respiratory depression. Physical therapy to continue work on with the patient. 11. Multiple coronary artery stents with history of coronary artery disease and abnormal stress test last year. Troponin I was 0.109, 0.118, then 0.168. Cardiac biomarkers negative x3. 12. Prophylaxis. Protonix and Pepcid for peptic ulcer disease prophylaxis. Oncology recommends starting the patient on heparin subcu for deep venous thrombosis prophylaxis. 13. Acute hypomagnesemia. Magnesium level 1.6. We will replace with 2 g magnesium sulfate IV once. 14. Billing code 64044. Time spent 45 minutes. Dictated by Spike Dove NP Kin Feldman MD HWP/MODL /[id number]
[2020-04-15 00:39] VITALS: BP 93/52
[2020-04-15] MEDS ORDERED: MAGNESIUM SULFATE 2GM/50ML 50 ML IV ONE (02:30)
[2020-04-15 03:50] VITALS: BP 93/52
[2020-04-15] MEDS ORDERED: SODIUM CHLORIDE 0.9% 250ML 250 ML ONE (04:25)
[2020-04-15 04:48] VITALS: BP 118/54
[2020-04-15 06:11] LABS: BASOPHILS # (AUTO) 0.2 (0.0-0.1); BASOPHILS % 1.6 % (0.0-1.0); EOSINOPHILS # (AUTO) 0.2 (0.0-0.4); EOSINOPHILS % 1.6 % (0.0-6.0); HEMATOCRIT 26.3 % (34.2-44.1); HEMOGLOBIN 7.9 g/dL (12.0-16.0); LYMPHOCYTES # (AUTO) 1.5 (1.0-3.2); LYMPHOCYTES % 15.6 % (18.0-39.1); MEAN CORPUSCULAR HEMOGLOBIN 24.8 pg (28-32); MEAN CORPUSCULAR VOLUME 82.4 fL (81-99); MONOCYTES # (AUTO) 0.7 (0.2-0.8); MONOCYTES % 7.3 % (4.4-11.3); NEUTROPHILS % 73.5 % (38.7-80.0); PLATELET COUNT 424 x10e3/uL (140-360); RED BLOOD COUNT 3.19 x10e6/uL (3.6-5.1); RED CELL DISTRIBUTION WIDTH 15.7 % (11.7-14.4)
[2020-04-15 06:33] LABS: ALBUMIN 3.1 g/dL (3.5-5.0); ALBUMIN/GLOBULIN RATIO 0.8 (0.8-2.0); ANION GAP 15.7 mmol/L (8-16); CALCIUM 8.8 mg/dL (8.4-10.2); CREATININE, SERUM 1.32 mg/dL (0.57-1.11); POTASSIUM 3.7 mmol/L (3.5-5.1)
--- NOTE | 2020-04-15 07:00 | NUR ---
Bedside rounding was completed and the pt. denies pain or discomfort at this time.
[2020-04-15] MEDS: INSULIN REGULAR, HUMAN 100 UNIT/1 ML 3ML VIAL SQ SCH ×2 (07:30→11:30)
[2020-04-15 07:44] VITALS: BP 123/61
--- NOTE | 2020-04-15 07:58 | NUR ---
HEMATOLOGY/ONCOLOGY CONSULTATION REPORT REASON FOR CONSULTATION: History of Lung Cancer and Pain management HISTORY OF PRESENT ILLNESS: Patient resting comfortably, appears NAD. She denies chest pain, back pain, abdominal pain. She c/o constipated and took a stool softener and laxative. PHYSICAL EXAMINATION: VITAL SIGNS: Reviewed per EMR. GENERAL: NAD HEENT: NC, AT; EOMI NECK: Supple CARDIOVASCULAR: Regular rate, regular rhythm PULMONARY: Decreased breath sounds bilaterally ABDOMEN: Soft, nontender, nondistended, normal bowel sounds EXTREMITIES: No edema, no cyanosis NEUROLOGICAL: Awake, alert PSYCHIATRIC: Cooperative LABORATORY DATA: 04/14/2020 WBC: 9.55 Hgb: 7.9 Hct: 26.3 Plt: 424 BUN: 19 Cr: 1.32 Retic: 2.4 Iron: 26 TIBC: 402 %sat: 6 Transferrin: 287 Ferritin: 23.15 B12: 850 Folate: 12.3 RADIOGRAPHIC DATA: 04/11/20 Chest x-ray: No acute findings. 04/11/20 V/Q scan: Very low probability for pulmonary embolism. 04/13/[address] 1. Faint bilateral groundglass opacities are likely infectious in etiology.2. New bilateral pulmonary nodules measuring up to 6 mm are nonspecific could be infectious or neoplastic. Recommend attention follow-up. 3. Moderate right and small left pleural effusions with associated atelectasis. 4. Nonobstructive right renal calculi measure up to 5 mm incompletely included on this exam. ASSESSMENT/PLAN: Ms. Kwong is a pleasant 74 year old woman with past medical history of coronary artery disease, CHF, COPD, diabetes mellitus, possible history of asthma, and history of bronchogenic carcinoma s/p lung surgery in 201 without any chemoradiation with a surgeon over at [facility]. She has now been admitted for dyspnea worsening over the past few days concerning for CHF and COPD exacerbation. She was started on inhalers, supplemental oxygen, and diuresis. Hematology/Oncology has been consulted to assist with management. 1. Dyspnea: Appears possible secondary to CHF and/or COPD exacerbation. BNP 1144. On diuresis and inhalers. CT chest revealed bilateral groundglass opacities likely infectious. COVID19 negative. Afebrile and not currently on antibiotics. Managed per Primary and Pulmonary teams on board. 2. Anemia: Appears chronic with normocytic, hypochromic counts appears secondary to iron deficiency anemia. S/p colonoscopy about 1 year ago with normal results per patient. FOBT positive although no signs of active bleeding. Counts trending down. Start patient on trial of IV Iron infusion. Monitor for now. 3. ALICE?: On IVF. Creatinine slightly up today. Managed per primary team. 4. Back Pain: Chronic in nature. Patient currently denies pain. She can continue Tylenol 650mg q6h as needed for now. Will consider adding gabapentin for neuropathy. She has used Tramadol in the past for pain relief verified by [facility] Aware. Will monitor for medication adjustment. Recommend limiting opioid pain medication if possible given COPD/CHF and risk for sedation/respiratory depression. 5. NSCLC: S/p lung surgery in 2018. No history of chemoradiation. CT chest new bilateral pulmonary nodules measuring up to 6 mm are nonspecific. Patient will need PETCT scan which can be done in the outpatient setting fo further evaluation. Monitor for now. 6. Thrombocytosis: Likely reactive secondary to TIMO. Counts trending up. Monitor for now. 7. DVT/GI proph: Start patient on Heparin 5000u sq q12h for DVT proph. On pepcid and protonix. [facility]WARE: 07/21/2019 1 07/18/2019 Tramadol Hcl 50 Mg Tablet 20.00 6 Er Amb [id number] [facility] (3526) 0 16.67 MME Comm Ins [place] Above plan discussed with Dr. Rodriguez. Thank you for the consult. I will be available. Please call with questions.
[2020-04-15] MEDS: FAMOTIDINE 20 MG TAB PO SCH (08:21)
[2020-04-15] MEDS: POLYETHYLENE GLYCOL 3350 17 GM PACK PO SCH (09:00)
[2020-04-15] MEDS ORDERED: HEPARIN SOD (PORCINE) 5,000 UNIT/ML VIAL SC SCH (09:00)
[2020-04-15] MEDS: PANTOPRAZOLE 40 MG 10ML VIAL IV SCH (09:30)
[2020-04-15] MEDS: DOCUSATE SODIUM 100 MG CAP PO SCH (09:30)
[2020-04-15] MEDS: FUROSEMIDE INJ 10 MG/ML 4 ML VIAL IV SCH (09:30)
[2020-04-15] MEDS: METOPROLOL TARTRATE 25 MG TAB PO SCH (09:31)
[2020-04-15] MEDS ORDERED: PANTOPRAZOLE SO40 MG PO (09:55)
[2020-04-15] MEDS ORDERED: LOPRESSOR25 MG PO (09:55)
[2020-04-15] MEDS ORDERED: SODIUM FERRIC GLUCONATE COMPLX 125 MG in SODIUM CHLORIDE 0.9% 100 ML 100 ML IV ONE (10:00)
[2020-04-15] MEDS ORDERED: FUROSEMIDE40 MG PO (10:24)
--- NOTE | 2020-04-15 11:00 | NUR ---
The pt. completed home o2 evaluation and is to discharge home.
[2020-04-15] MEDS ORDERED: ONDANSETRON HCL 4 MG ORAL DISINTEGRATING TAB PO PRN (12:15)
[2020-04-15 13:27] VITALS: BP 125/62
--- NOTE | 2020-04-15 14:41 | NUR ---
The pt. was discharged home in stable condition post removal of iv and receiving prescriptions and discharge information. The pt. verifies that she understands her instructions.
[2020-04-15] MEDS ORDERED: PANTOPRAZOLE SOD 40 MG TABEC PO SCH (16:30)
--- NOTE | 2020-04-16 08:28 | Discharge Summary ---
ADMISSION DIAGNOSES: Acute on chronic systolic CHF, type 2 diabetes, hypertension with chronic systolic CHF, history of CAD with stents, anemia of chronic disease. DISCHARGE DIAGNOSES: Acute on chronic systolic CHF, type 2 diabetes, hypertension with chronic systolic CHF, history of CAD with stents, anemia of chronic disease plus acute blood loss anemia secondary to GI bleed. HISTORY: Type 2 diabetes, arthritis, CAD with PCI, hypertension, severe peripheral neuropathy, TIA, CVA, and hyperlipidemia. SURGICAL HISTORY: Appendectomy, cholecystectomy, hysterectomy, bilateral carpal tunnel surgery, knee surgery, left carotid endarterectomy. FAMILY HISTORY: The patient's sister has cancer. SOCIAL HISTORY: Noncontributory. HOSPITAL COURSE: A 74-year-old female admits with complaints of shortness of breath for the past few days. She reported that she has history of asthma and takes DuoNeb at home. On admission, chest x-ray showed no pneumonia or edema. V/Q scan showed low probability of PE. CT of the chest showed faint bilateral ground-glass opacities, new bilateral pulmonary nodules, moderate right and small left pleural effusion. The patient's BNP on admission was 1275. She was started on IV Lasix. The patient's hemoglobin remained in the 8s on admission. Her stool for blood came back positive, so she was started on Protonix p.o. The patient apparently had a history of lung cancer, which required surgery on her left lung, so she was following Dr. Rodriguez as outpatient. The patient's echo showed an EF of 40% to 45%. Hemoglobin A1c was 9.9%. After few days of IV Lasix, the patient is feeling much better. She was assessed for home O2 prior to discharge and she does not qualify. She is feeling much better and ready to go home. The patient understands discharge instructions and agrees the plan. She will follow up with Primary Care, Cardiology and Dr. Rodriguez in 1 to 2 weeks. Dictated by Marilyn Garcia NP MD CANDIDA Naidu/MODL /[id number]
--- OUTSIDE RECORDS SUMMARY | 2020-04-18 17:51 | XMS REPORT | Clinical Summary ---
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 Active exenatide microspheres Inject under 0 (BYDUREON) 2 mg/0.65 mL the skin once pen injector a week. Active albuterol (PROAIR Inhale 2 0 HFA,PROVENTIL puffs every 6 HFA,VENTOLIN HFA) 90 (six) hours mcg/actuation inhaler as needed for wheezing. Active ipratropium-albuterol Inhale 2 0 (COMBIVENT RESPIMAT) puffs 4 20-100 mcg/actuation mist (four) times inhaler a day. Active Problems Problem Noted Date PAD (peripheral artery disease) 06/26/2018 Subclavian steal syndrome 06/26/2018 Non-small cell lung cancer, right 06/12/2018 Cancer Staging: Pathologic stage from : Stage IA3 (pT1c, pN0, cM0) - Unsigned Pre-op exam 06/04/2018 Carotid bruit 06/04/2018 Coronary artery disease involving [place] heart with a ngina pectoris 06/04/2018 Angina pectoris 06/04/2018 Immunizations Name Administration Dates Next Due FLUCELVAX QUAD PF 06/15/2018 Family History Medical History Relation Name Comments Heart disease Father Neuropathy Father Diabetes Mother Heart disease Mother Relation Name Status Comments Father Mother Social History Date Tobacco Use Types Packs/Day Years Used Quit: 2005 Former Smoker Cigarettes 0.2 47 Smokeless Tobacco: Never Used Drinks/Week oz/Week Comments Alcohol Use No Sex Assigned at Date Recorded Not on file Industry Job Start Date Occupation Not on file Not on file Not on file Travel End Travel History Travel Start No recent travel history available. Last Filed Vital Signs Not on file Plan of Treatment Health Maintenance Due Date Last Done Comments BREAST CANCER SCREENING 1994 COLONOSCOPY SCREENING 1994 SHINGLES VACCINES (#1) 1994 65+ PNEUMOCOCCAL VACCINE 2009 (1 of 2 - PCV13) INFLUENZA VACCINE 04/19/2020 06/15/2018 Implants Device Identifier Shelf Expiration Date Model / Serial / L ot Implanted Type Area Manufactur er 11/24/2022 [id number] / / [id number] [employer]ip [employer] Hem-[employer]-Moni Endoscpc Aplr Surgical N/A: N/A CHRI[facility]INE [facility] - [id number] Implants; CLOSURE Implanted: Qty: 1 on 06/12/2018 by [employer]; Scott Marvin MD at [facility] Extenders; HOSPITAL Surgical Wires Results Not on fileafter 04/11/2019 Insurance Type Payer Benefit Subscriber ID Effective Phone Address Plan / Dates Group Medicaid MEDICAID MEDICAID xxxxxxxxx 2011-P resent HMO [facility] MEDICARE [facility] DUAL xxxxxxxxx 2018-P COMPLETE resent [facility] Advance Directives For more information, please contact: [phone] 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
--- OUTSIDE RECORDS SUMMARY | 2020-04-18 17:51 | XMS REPORT | Clinical Summary ---
Author Author [facility] Organization [facility] Address Unknown Phone Unavailable Care Team Providers Care Blue Leather Sorter Name Role Phone Channing Graves MD PCP [...] Carotid bruit 06/04/2018 Coronary artery disease involving [place] heart with a ngina pectoris 06/04/2018 Angina [...] ot Implanted Type Area Manufactur er 11/24/2022 [id number] / / [id number] Clip [employer] Aplr Surgical N/A: N/A CHRISTINE [facility] - [id number] Implants; CLOSURE Implanted: Qty: 1 on 06/12/2018 by [employer]; Scott Marvin MD at [facility] Ext[employer]; HOSPITAL Surgical Wires Results Not on fileafter 04/11/2019 Insurance Type Payer Benefit Subscriber ID Effective Phone Address Plan / Dates Group Medicaid MEDICAID MEDICAID xxxxxxxxx 2011-P resent HMO [facility] MEDICARE [facility] DUAL xxxxxxxxx 2018-P COMPLETE resent [facility] Advance Directives For more information, please contact: [phone] 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
--- OUTSIDE RECORDS SUMMARY | 2020-04-18 17:51 | XMS REPORT | Continuity of Care Document ---
Author Author [facility] t Organization [facility] Address [address] [place] [address] Phone Unavailable Care Team Providers Care Sporting Goods Sales Associate Name Role Phone CAROL LEVINE, MD ONTIVEROS PCP STEPHANIE CHRISTENSEN Attracheals Unavailable RAMA MEDINA Attphys Unavailable STEPHANIE CHRISTENSEN Admtani Unavailable Payers Payer Name Policy Type Policy Number Effective Date Expiration Date S [facility] [id number] 2019 00:00:00 [facility] [id number] 2019 00:00 :00 [facility] Problems Condition Name Condition Details Condition Category Status Onset Date Resolution Date Last Treatment Date Treating Clinician Comments Source PAD (peripheral artery disease) PAD (peripheral artery disease) Dis ease Active 2018-06-26 00:00:00 Vishal Bentley Subclavian steal syndrome Subclavian steal syndrome Disease Ac tive 2018-06-26 00:00:[address] Non-small cell lung cancer, right Non-small cell lung cancer, ri ght Disease Active 2018-06-12 00:00:00 Christoph on Tenriism Pre-op exam Pre-op exam Disease Active 2018-06-04 00:00:00 Vishal Bentley Carotid bruit Carotid bruit Disease Active 2018-06-04 00:00:00 Vishal Bentley 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 Disease A ctive 2018-06-04 00:00:00 Vishal Bentley Angina pectoris Angina pectoris Disease Active 2018-06-04 00:00:00 Vishal Bentley Chest pain Chest pain Problem Active 2016-03-13 00:00:00 [facility] Diabetes mellitus Diabetes Problem Active 2016-03-13 00:00:00 [facility] Hypokalemia Hypokalemia Problem Active 2016-03-13 00:00:00 [facility] Urinary tract infection UTI (urinary tract infection) Problem Active 2016-03-13 00:00:00 [facility] Acute on chronic congestive heart failure Problem Active [facility] Anemia Problem Active [facility] Short of breath on exertion Problem Active [facility] Allergies, Adverse Reactions, Alerts Allergy Name Allergy Type Status Severity Reaction(s) Onset Date Inacti ve Date Treating Clinician Comments Source Iodine and Iodide Containing Produc Allergy to substance Active M oderate HIVES 2019-07-18 00:00:00 [facility] No Known Allergies DA Active U 2018-10-12 00:00:00 [facility] Codeine Allergy to substance Active Mild HIVES 2017-03-26 00:00:00 [facility] Family History Family Member Diagnosis Comments Start Date Stop Date Source Natural father Heart disease Vishal Bentley Natural father Neuropathy [facility] Natural mother Diabetes [facility] Natural mother Heart disease Vishal Bentley Social History Social Habit Start Date Stop Date Quantity Comments Source History of tobacco use Current smoker Vishal Bentley Sex Assigned At [facility] jarvis Tenri[facility] Cigarettes smoked current (pack per day) - Reported 00:00:00 2018-08-03 00:00:00 Vishal Bentley Cigarette pack-years 2018-08-03 00:00:00 2018-08-03 00:00:00 [facility] Alcohol intake 2018-08-03 00:00:00 2018-08-03 00:00:00 Current non-drinker of alcohol (finding) Vishal Bentley Smoking Status Start Date Stop Date Source Former smoker 2018-08-03 00:00:00 2018-08-03 00:00:00 Vishal Bentley Medications Ordered Medication Name Filled Medication Name Start Date Stop Da te Current Medication? Ordering Clinician Indication Dosage Frequency Signature (SIG) Comments Components Source Furosemide Furosemide 2020-04-15 10:24:00 Yes 20 Faith ly [facility] Metoprolol Tartrate (Lopressor) 25 Mg TAB Metoprolol T artrate (Lopressor) 25 Mg TAB 2020-04-15 09:55:00 Yes 25 Twice A Day [facility] Pantoprazole Sodium (Protonix) 40 Mg TABLET. Pantopr azole Sodium (Protonix) 40 Mg TABLET. 2020-04-15 09:55:00 Yes 40 Twice Daily Before Meals [facility] Tramadol Hcl (Ultram 50MG*) 50 Mg TAB Tramadol Hcl (Ultram 5 0MG*) 50 Mg TAB 2019-07-18 06:43:00 Yes 50 Every 8 Hours as n eeded for Pain [facility] Fenofibrate (Tricor) 48 Mg TAB Fenofibrate (Tricor) 48 Mg TA B 2019-07-18 06:36:00 Yes 48 Daily [facility] Pantoprazole Sodium (Protonix) 40 Mg TABLET. Pantopr azole Sodium (Protonix) 40 Mg TABLET. 2019-07-18 06:36:00 2020-04-12 00:00:00 No 40 Daily@0600 [facility] metFORMIN (GLUCOPHAGE) 500 mg tablet 2018-06-26 13:35:07 Ye s 500mg Q.5D Take 500 mg by mouth 2 (two) times a day with meals. Vishal Bentley exenatide microspheres (BYDUREON) 2 mg/0.65 mL pen injector 2018-06-26 13:35:07 Yes Q7D Inject under the skin once a week. Vishal Bentley albuterol (PROAIR HFA,PROVENTIL HFA,VENTOLIN HFA) 90 mcg/act uation inhaler 2018-06-26 13:35:07 Yes 2{puff} Q6H Inhale 2 puffs every 6 (six) hours as needed for wheezing. Vishal Bentley ipratropium-albuterol (COMBIVENT RESPIMAT) 20-100 mcg/actuat ion mist inhaler 2018-06-26 13:35:07 Yes 2{puff} Q.25D Inhale 2 puffs 4 (four) times a day. Vishal Bentley Atorvastatin Calcium (Lipitor) 20 Mg TABLET Atorvastat in Calcium (Lipitor) 20 Mg TABLET 2016-03-19 14:39:00 Yes 40 Bedtime [facility] Lisinopril (Prinivil) 10 Mg TABLET Lisinopril (Prinivil) 10 Mg TABLET 2016-03-19 14:39:00 2020-04-15 00:00:00 No 10 Daily [facility] Carisoprodol Carisoprodol 2016-03-19 14:39:00 2017-03-26 00:00:00 No 350 Every 12 Hours as needed for Muscle Spasms [facility] Metoprolol Tartrate (Lopressor) 25 Mg TAB Metoprolol T artrate (Lopressor) 25 Mg TAB 2016-03-19 14:39:00 2017-03-26 00:00:00 No 25 Ever y 12 Hours [facility] Pantoprazole Sod (Protonix) 40 Mg/Ml SUSP Pantoprazole Sod (Protonix) 40 Mg/Ml SUSP 2016-03-19 14:39:00 2017-03-26 00:00:00 No 40 Befo re Breakfast [facility] Albuterol Sulfate (Proair Hfa Inhaler*) 8.5 Gm INH Alb uterol Sulfate (Proair Hfa Inhaler*) 8.5 Gm INH Yes 2 Laura ry 6 Hours as needed for Shortness Of Breath [facility] Aspirin (Aspir 81) 81 Mg TABLET. Aspirin (Aspir 81) 81 Mg TABLET. Yes 1 Daily [facility] Bisacodyl (Dulcolax) 5 Mg TABLET. Bisacodyl (Dulcolax) 5 Mg TABLET. Yes 1 Daily [facility] Clopidogrel Bisulfate (Plavix) 75 Mg TABLET Clopidogre l Bisulfate (Plavix) 75 Mg TABLET Yes 75 Daily [facility] Cyanocobalamin (Vitamin B-12) 1,000 Mcg TAB Cyanocobal dennis (Vitamin B-12) 1,000 Mcg TAB Yes 500 Daily [facility] Exenatide Microspheres (Bydureon) 2 Mg VIAL Exenatide Microspheres (Bydureon) 2 Mg VIAL Yes 2 Once A Week [facility] Gabapentin Gabapentin Yes 1 Three Times A Day [facility] Metformin Hcl Metformin Hcl Yes 1000 Twice Daily With Meals [facility] Trazodone Hcl Trazodone Hcl Yes 50 Bedtime [facility] Fluticasone Propionate Fluticasone Propionate 2020-04-12 00:00:00 No [facility] Insulin Aspart (Novolog) 100 Unit/1 Ml CARTRIDGE Insul in Aspart (Novolog) 100 Unit/1 Ml CARTRIDGE 2020-04-12 00:00:00 No 10 Three Times Daily With Meals [facility] Insulin Glargine (Lantus) 100 Units/Ml ML Insulin Glar gine (Lantus) 100 Units/Ml ML 2020-04-12 00:00:00 No 30 Bedtime [facility] Meloxicam Meloxicam 2020-04-12 00:00:00 No 7.5 Daily [facility] Gabapentin Gabapentin 2017-03-26 00:00:00 No 600 Twi ce A Day [facility] Pregabalin (Lyrica) 75 Mg CAP Pregabalin (Lyrica) 75 Mg CAP 2017-03-26 00:00:00 No 75 Twice A Day [facility] Clopidogrel Bisulfate (Plavix) 75 Mg TABLET Clopidogre l Bisulfate (Plavix) 75 Mg TABLET 2016-03-19 00:00:00 No 75 Daily [facility] Diazepam (Valium) 2 Mg TABLET Diazepam (Valium) 2 Mg TABLET 2016-03-14 00:00:00 No 2 Twice A Day [facility] Immunizations Ordered Immunization Name Filled Immunization Name Date Status Comments Source FLUCELVAX QUAD PF 2018-06-15 00:00:00 Completed [facility] Vital Signs Vital Name Observation Time Observation Value Comments Source Body Temperature 2020-04-15 13:27:00 96.7 [degF] [facility] Weight 2020-04-12 00:00:00 156.25 [lb_av] [facility] BMI (Body Mass Index) 2020-04-12 00:00:00 28.6 kg/m2 [facility] Procedures Procedure Date / Time Performed Performing Clinician [facility] Computed tomography of chest without contrast 2020-04-13 00:00:0 0 [facility] US thyroid 2019-10-08 00:00:00 [facility] Computed tomography of chest without contrast 2019-10-08 00:00:0 0 [facility] Computed tomography of abdomen with contrast 2019-07-19 00:0 0:00 JYOTSNA [facility] Computed tomography of chest with contrast 2019-07-19 00:00:00 Tamie DE LA FUENTE [facility] X-ray of chest, two views 2019-07-17 00:00:00 EVERT BAXTER [facility] Plan of Care Planned Activity Planned Date Details Comments Source Future Scheduled Test 2020-04-19 00:00:00 INFLUENZA VACCINE [code = INFLUENZA VACCINE] [facility] Scheduled Test 2009 00:00:00 65+ PNEUMOCOCCAL V ACCINE (1 of 2 - PCV13) [code = 65+ PNEUMOCOCCAL VACCINE (1 of 2 - PCV13)] [facility] Scheduled Test 1994 00:00:00 BREAST CANCER SCRE ENING [code = BREAST CANCER SCREENING] [facility] Scheduled Test 1994 00:00:00 COLONOSCOPY SCREEN ING [code = COLONOSCOPY SCREENING] [facility] Scheduled Test 1994 00:00:00 SHINGLES VACCINES (#1) [code = SHINGLES VACCINES (#1)] [facility] Anemia [facility] Encounters Start Date/Time End Date/Time Encounter Type Admission Type [facility] Care Department Encounter ID Source 2020-04-13 15:21:00 2020-04-15 14:41:00 Discharged Inpatient 1 STEPHANIE CH[facility]ENS[facility] [id number] [facility] 2020-04-09 12:19:00 2020-04-09 12:19:00 Registered Clinic 3 [facility] [id number] [facility] 2019-10-08 12:58:00 2019-10-08 12:58:00 Registered Clinic 3 [facility] [id number] [facility] 2019-07-17 16:30:00 2019-07-19 21:55:00 Discharged Inpatient (obs) 1 AMPARO [facility] [id number] [facility] 2019-06-20 13:35:00 2019-06-20 13:35:00 Registered Clinic 3 [facility] [id number] [facility] 2018-12-27 12:59:00 2018-12-27 12:59:00 Registered Clinic [address] [facility] [id number] [facility] 2018-11-28 13:35:00 2018-11-28 13:35:00 Registered Clinic [address] [facility] [id number] [facility] Results Test Description Test Time Test Comments Results Result Comments Source Capillary blood glucose measurement by glucometer (mas s/volume) 2020-04-15 11:33:00 Test Item Bedside Glucose (test code = 56913-0) 156 70-120 Meter ID: [id number]Blood leukocytes automated count (number/volume)2020-04-15 06:00:00* Test Item Value Reference Range Interpretation Comments White Blood Count (test code = 6690-2) 9.55 4.8-10.8 [facility] erythrocytes automated count (number/volume)2020-04-15 06:00:00* Test Item Value Reference Range Interpretation Comments Red Blood Count (test code = 789-8) 3.19 3.6-5.1 [facility] hemoglobin measurement (moles/volume)2020-04-15 06:00:00* Test Item Value Reference Range Interpretation Comments Hemoglobin (test code = 15688-5) 7.9 12.0-16.0 [facility] SpringsAutomated blood hematocrit (volume fraction)2020-04-15 06:00:00* Test Item Value Reference Range Interpretation Comments Hematocrit (test code = 4544-3) 26.3 34.2-44.1 [facility] SpringsAutomated erythrocyte mean corpuscular [id number] 06:00:00* Test Item Value Reference Range Interpretation Comments Mean Corpuscular Volume (test code = 787-2) 82.4 81-99 [facility] Springs[facility] erythrocyte mean corpuscular hemoglobin (mass per erythrocyte)2020-04-15 06:00:00* Test Item Value Reference Range Interpretation Comments Mean Corpuscular Hemoglobin (test code = 785-6) 24.8 28-32 [facility] Springs[facility] erythrocyte mean corpuscular hemoglobin concentration measurement (mass/volume)2020-04-15 06:00:00* Test Item Value Reference Range Interpretation Comments Mean Corpuscular Hemoglobin Concent (test code = 786-4) 30.0 31-35 [facility] SpringsRDW [id number] 06:00:00* Test Item Value Reference Range Interpretation Comments Red Cell Distribution Width (test code = 83868-4) 15.7 11.7 -14.4 [facility] blood platelet count (count/volume)2020-04-15 06:00:00* Test Item Value Reference Range Interpretation Comments Platelet Count (test code = 777-3) 424 140-360 [facility] SpringsAutom[facility] blood segmented neutrophil count as percentage of total [id number] 06:00:00* Test Item Value Reference Range Interpretation Comments Neutrophils (%) (Auto) (test code = 14869-8) 73.5 38.7-80.0 [facility] blood lymphocyte count as percentage ot total [id number] 06:00:00* Test Item Value Reference Range Interpretation Comments Lymphocytes (%) (Auto) (test code = 736-9) 15.6 18.0-39.1 [facility] SpringsAutomated blood monocyte count as percentage of total [id number] 06:00:00* Test Item Value Reference Range Interpretation Comments Monocytes (%) (Auto) (test code = 5905-5) 7.3 4.4-11.3 [facility] Springs[facility] blood eosinophil count as percentage of total mgfgtgadsk1632-12-67 06:00:00* Test Item Value Reference Range Interpretation Comments Eosinophils (%) (Auto) (test code = 713-8) 1.6 0.0-6.0 [facility] SpringsAutom[facility] blood basophil count as percentage of total [id number] 06:00:00* Test Item Value Reference Range Interpretation Comments Basophils (%) (Auto) (test code = 706-2) 1.6 0.0-1.0 [facility] SpringsFluoroscopic procedure less than one hour [id number] 06:00:00* Test Item Value Reference Range Interpretation Comments IM GRANULOCYTES % (test code = IM GRANULOCYTES %) 0.4 0.0- 1.0 [facility] SpringsAutom[facility] blood neutrophil count 2020-04-15 06:00:00* Test Item Value Reference Range Interpretation Comments Neutrophils # (Auto) (test code = 751-8) 7.0 2.1-6.9 [facility] lymphocytes count (number/volume) 2020-04-15 06:00:00* Test Item Value Reference Range Interpretation Comments Lymphocytes # (Auto) (test code = 81205-5) 1.5 1.0-3.2 [facility] monocytes automated count (number/volume)2020-04-15 06:00:00* Test Item Value Reference Range Interpretation Comments Monocytes # (Auto) (test code = 742-7) 0.7 0.2-0.8 [facility] SpringsAutomated blood eosinophil count 2020-04-15 06:00:00* Test Item Value Reference Range Interpretation Comments Eosinophils # (Auto) (test code = 711-2) 0.2 0.0-0.4 [facility] SpringsAutomated blood basophil count (count/volume)2020-04-15 06:00:00* Test Item Value Reference Range Interpretation Comments Basophils # (Auto) (test code = 704-7) 0.2 0.0-0.1 [facility] SpringsFluoroscopic procedure less than one hour [id number] 06:00:00* Test Item Value Reference Range Interpretation Comments Absolute Immature Granulocyte (auto (jojo t code = Absolute Immature Granulocyte (auto) 0.04 0-0.1 [facility] sodium measurement (moles/volume)2020-04-15 05:30:00* Test Item Value Reference Range Interpretation Comments Sodium Level (test code = 2951-2) 138 136-145 [facility] potassium measurement (moles/volume)2020-04-15 05:30:00* Test Item Value Reference Range Interpretation Comments Potassium Level (test code = 2823-3) 3.7 3.5-5.1 [facility] chloride measurement (moles/volume)2020-04-15 05:30:00* Test Item Value Reference Range Interpretation Comments Chloride Level (test code = 2075-0) 100 98-107 [facility] plasma carbon dioxide, total measurement (moles/volume)2020-04-15 05:30:00* Test Item Value Reference Range Interpretation Comments Carbon Dioxide Level (test code = 2028-9) 26 22-29 [facility] plasma anion [id number] 05:30:00* Test Item Value Reference Range Interpretation Comments Anion Gap (test code = 04198-4) 15.7 8-16 [facility] plasma urea nitrogen measurement (mass/volume)2020-04-15 05:30:00* Test Item Value Reference Range Interpretation Comments Blood Urea Nitrogen (test code = 3094-0) 19 7-26 [facility] plasma creatinine measurement (mass/volume)2020-04-15 05:30:00* Test Item Value Reference Range Interpretation Comments Creatinine (test code = 2160-0) 1.32 0.57-1.11 [facility] plasma urea nitrogen/creatinine mass [id number] 05:30:00* Test Item Value Reference Range Interpretation Comments BUN/Creatinine Ratio (test code = 3097-3) 14 6-25 [facility] SpringsEstimated glomerular filtration rate (GFR) rutrcfgxrfxbc1660-96-67 05:30:00* Test Item Value Reference Range Interpretation Comments Estimat Glomerular Filtration Rate (test code = 826881139) 39 >60 Ranges were taken from the National Kidney Disease Education Program and the [facility] Kidney Foundation literature.Reference ranges:60 or greater: Liyxyh46-31 ( for 3 consecutive months): Chronic kidney disease 15 or less: Kidney failureCHRISTUS Mother Frances Hospital – Sulphur SpringsGlucose boujvlltsnq8209-83-28 05:30:00* Test Item Value Reference Range Interpretation Comments Glucose Level (test code = JGT2110) 123 74-118 [facility]er[facility] plasma calcium measurement (mass/volume)2020-04-15 05:30:00* Test Item Value Reference Range Interpretation Comments Calcium Level (test code = 29655-6) 8.8 8.4-10.2 [facility]er[facility] plasma magnesium measurement (mass/volume)2020-04-15 05:30:00* Test Item Value Reference Range Interpretation Comments Magnesium Level (test code = 64389-2) 2.3 1.3-2.1 [facility]er[facility] plasma total bilirubin measurement (mass/volume)2020-04-15 05:30:00* Test Item Value Reference Range Interpretation Comments Total Bilirubin (test code = 1975-2) 0.5 0.2-1.2 [facility] SpringsFluoroscopic procedure less than one hour [id number] 05:30:00* Test Item Value Reference Range Interpretation Comments Aspartate Amino Transf (AST/SGOT) (test code = Aspartate Amino Transf (AST/SGOT)) 16 5-34 [facility]er[facility] plasma alanine aminotransferase measurement (enzymatic activity/volume)2020-04-15 05:30:00* Test Item Value Reference Range Interpretation Comments Alanine Aminotransferase (ALT/SGPT) (test code = 1742-6) 7 0-55 [facility] Hospitaler[facility] or plasma protein measurement (mass/volume)2020-04-15 05:30:00* Test Item Value Reference Range Interpretation Comments Total Protein (test code = 2885-2) 6.9 6.5-8.1 [facility]er[facility] plasma albumin measurement (mass/volume)2020-04-15 05:30:00* Test Item Value Reference Range Interpretation Comments Albumin (test code = 1751-7) 3.1 3.5-5.0 [facility] SpringsPlasma globulin measurement (mass/volume) 2020-04-15 05:30:00* Test Item Value Reference Range Interpretation Comments Globulin (test code = 92801-1) 3.8 2.3-3.5 [facility] Hospitaler[facility] or plasma albumin/globulin mass [id number] 05:30:00* Test Item Value Reference Range Interpretation Comments Albumin/Globulin Ratio (test code = 1759-0) 0.8 0.8-2.0 [facility]er[facility] or plasma alkaline phosphatase measurement (enzymatic activity/volume)2020-04-15 05:30:00* Test Item Value Reference Range Interpretation Comments Alkaline Phosphatase (test code = 6768-6) 104 40-150 [facility] SpringsFluoroscopic procedure less than one hour [id number] 10:36:00* Test Item Value Reference Range Interpretation Comments Coronavirus (PCR) (test code = Coronavirus (PCR)) NOT DETECTED NOTD ETECTED SARS-COV2/RT-PCRNegative results do not preclude SARS-CoV-2 infection and should not be used as the sole basis for patient management decisions. Negative results must be combined with clinical observations, patient history, and epidemiologi maricruz information. A false negative result may occur if a specimen is improperly c ollected, transported or handled.The limit of detection for this assay is 250 co pies/mLThe SARS-CoV-2 test is a rapid, real-time RT-PCR test intended for the qu alitative detection of nucleic acid from SARS-CoV-2 in nasopharyngeal swab speci men collected from individuals suspected of COVID-19 by their healthcare provide r. This test has not been Food and Drug Administration (FDA) cleared or approved and has been authorized by FDA under an Emergency Use Authorization (EUA). This EUA will be effective until the declaration that circumstances exist justifying the authorization of the emergency use of in vitro diagnostic test for detection and or diagnosis of COVID-19 is terminated under section 564(b) of the Act, or the the EUA is revoked under 564(g) of the ACT.Testing performed by [facility], [place] [address]HPBCHRIST[facility] SpringsAutomated reticulocyte count as percentage of total [id number] 05:10:00* Test Item Value Reference Range Interpretation Comments Percent Reticulocyte Count (test code = 44186-8) 2.4 0.8-2 .2 [facility] SpringsFluoroscopic procedure less than one hour [id number] 05:10:00* Test Item Value Reference Range Interpretation Comments Hemoglobin A1c Percent (test code = Hemoglobin A1c Percent) 9.9 4.0-7.0 [facility] SpringsPhosphorus [id number] 05:10:00 * Test Item Value Reference Range Interpretation Comments Phosphorus Level (test code = CRO4182) 4.0 2.3-4.7 [facility] plasma iron measurement (mass/volume)2020-04-14 05:10:00* Test Item Value Reference Range Interpretation Comments Iron Level (test code = 2498-4) 26 50-170 [facility] Hospitalerum or plasma iron binding capacity measurement (mass/volume)2020-04-14 05:10:00* Test Item Value Reference Range Interpretation Comments Total Iron Binding Capacity (test code = 2500-7) 402 261-4 78 [facility] iron saturation measurement (mass fraction)2020-04-14 05:10:00* Test Item Value Reference Range Interpretation Comments Percent Iron Saturation (test code = 2502-3) 6 15-50 [facility] transferrin measurement (mass/volume)2020-04-14 05:10:00* Test Item Value Reference Range Interpretation Comments Transferrin (test code = 3034-6) 287 180-382 [facility] ferritin measurement (mass/volume)2020-04-14 05:10:00* Test Item Value Reference Range Interpretation Comments Ferritin (test code = 2276-4) 23.15 4.63-204.00 [facility] SpringsBlood cobalamin (vitamin B12) measurement (mass/volume)2020-04-14 05:10:00* Test Item Value Reference Range Interpretation Comments Vitamin B12 Level (test code = 20243-4) 531 213-933 [facility] folate measurement (mass/volume)2020-04-14 05:10:00* Test Item Value Reference Range Interpretation Comments Folate (test code = 2284-8) 12.3 >3.0 A serum folate concentration of less than 3.1 ng/mL isconsidered to represent cl inical deficiency.Performed at: - [address] [id number] Director: Leonardo Delarosa MD, Phone: [phone] Sulph[facility] SpringsCT CHEST [id number] 18:48:00 [place] [address] Patient Name: Bharath FRANZ MR #: [id number] : 1945 Age/Sex: 74/F Req #: [id number] Adm Physician: STEPHANIE CHRISTENSEN MD Ordered by: CESAR CHESTER ACCOUNT MAINTENANCE REPRESENTATIVE Report #: [id number] Location: [facility] Room/Bed: [facility] Procedure: [id number] CT/CT CHEST WO Exam Date: 04/13/20 Exam Time: 1805 REPORT STATUS: Signed EXAM: CT Chest WITHOUT contrast INDICATION: SOB, dry cough, chest pressure,hx Lung CA Rt lung surgery COMP ARISON: VQ scan dated 04/11/2020. Chest x-ray dated 04/11/2020. CT chest dated . TECHNIQUE: Chest was scanned utilizing a multidetector helical scanner from the lung apex through the level of the adrenal glands without ad ministration of IV contrast. Absence of intravenous contrast decreases sensiti vity for detection of lymphadenopathy and vascular pathology. Coronal and sagi ttal reformations were obtained. Routine protocol was performed. IV CON TRAST: None COMPLICATIONS: None RADIATION DOSE: Total DLP: 436.42 mGy*cm Estimated effective dose: (DLP x 0.014 x size factor) mSv CTDIvol has been reviewed. It is below the limits set by the Radiation P rotocol Committee (RPC). FINDINGS: LINES/ TUBES: None. LUNGS AND AIRWAYS: Faint bilateral groundglass opacities are seen. Additiona lly there are few new nodular opacities, for example a 5 mm nodular opacity in the left lower lobe (series 3, image 77) and 6 mm nodular opacity in the right lung (series 3, image 67).. Airways are normal. PLEURA: There is a moder ate size right and a small left pleural effusion with associated atelectasis. HEART AND MEDIASTINUM: The thyroid gland is heterogeneous. No axillary lymphadenopathy. Slightly prominent mediastinal and hilar lymphadenopathy l ikely reactive. The heart is normal in size.. There is no pericardial effus ion. There are significant atherosclerotic calcifications in the aorta and co ronary arteries. UPPER ABDOMEN: Cholecystectomy clips. Nonobstructive right renal calculi measure up to 5 mm. BONES: There are degenerative changes in the spine. Spinal fixation hardware noted. SOFT TISSUES: Unremark able. IMPRESSION: 1. Faint bilateral groundglass opaci ties are likely infectious in etiology. 2. New bilateral pulmonary nodules measuring up to 6 mm are nonspecific could be infectious or neoplastic. Recom mend attention follow-up. 3. Moderate right and small left pleural effusio ns with associated atelectasis. 4. Nonobstructive right renal calculi me asure up to 5 mm incompletely included on this exam. Signed by: Diogo gutierrez MD on 04/13/2020 7:02 PM Dictated By: DIOGO SANTIAGO MD Elec tronically Signed By: DIOGO SANTIAGO MD on 04/13/201901 Transcribed By: SEBASTIAN ARAUZ on 04/13/201901 COPY TO: CESAR CHESTER NP Serum or plasma triglyceride measurement (mass/volume)2020-04-13 05:00:00* Test Item Value Reference Range Interpretation Comments Triglycerides Level (test code = 2571-8) 114 0-149 [facility] cholesterol measurement (mass/volume)2020-04-13 05:00:00* Test Item Value Reference Range Interpretation Comments Cholesterol Level (test code = 2093-3) 142 0-199 Less than 200 mg/dL Low Ffzt916 - 239 mg/dL Borderline Igbq571 m g/dl and greater High Risk [facility] cholesterol in LDL measurement (mass/volume) 2020-04-13 05:00:00* Test Item Value Reference Range Interpretation Comments LDL Cholesterol (test code = 2089-1) 89 60-130 [facility] cholesterol in HDL measurement (mass/volume)2020-04-13 05:00:00* Test Item Value Reference Range Interpretation Comments HDL Cholesterol (test code = 2085-9) 30 40-60 [facility] plasma total cholesterol/cholesterol in HDL mass xyvxr1242-68-98 05:00:00* Test Item Value Reference Range Interpretation Comments Cholesterol/HDL Ratio (test code = 9830-1) 4.7 3.0-3.6 [facility] thyrotropin measurement by detection limit <= 0.005 miu/l (units/volume)2020-04-13 05:00:00* Test Item Value Reference Range Interpretation Comments Thyroid Stimulating Hormone (TSH) (test code = 42329-6) 1.651 0.350-4.940 [facility] SpringsBNP [id number]-yNpb3968-29-25 05:30:00* Test Item Value Reference Range Interpretation Comments B-Type Natriuretic Peptide (test code = 49871-1) 1144.5 0-100 [facility] plasma creatine kinase measurement (enzymatic activity/volume)2020-04-12 05:30:00* Test Item Value Reference Range Interpretation Comments Creatine Kinase (test code = 2157-6) 49 29-168 [facility] creatine kinase MB measurement (mass/volume)2020-04-12 05:30:00* Test Item Value Reference Range Interpretation Comments Creatine Kinase MB (test code = 69670-6) 2.60 0-5.0 [facility] SpringsTroponin I measurement by highly sensitive enzyme khajrnccoky4121-67-54 05:30:00* Test Item Value Reference Range Interpretation Comments Troponin I (test code = 40118-1) 0.168 0-0.300 [facility] SpringsVQ LUNG SCAN VENT [id number] 20:07:00 [facility] [address] [place] [address] Patient Name: Bharath FRANZ MR #: [id number] : 1945 Age/Sex: 74/F Req #: [id number] Adm Physician: STEPHANIE CHRISTENSEN MD Ordered by: RENATO BUSBY MD Report #: [id number] Location: [facility] Room/Bed: [place] [address] Procedure: NM/VQ LUNG SCAN VENT PERFUSION Exam Date: Exam Time: REPORT STATUS: Signed Perfusion Lung Scan N OTE: Lung ventilation studies with xenon are not being performed per the recom mendation of the Society of Nuclear Medicine and Molecular Imaging. It is not possible to be certain that the ventilation system is adequately disinfected. Ventilation studies with Tc-99m DTPA particles is contraindicated because the delivery by nebulization generates too many water droplets from the patient's airway. Clinical Information: SOB x 3 days Comparison: Chest radio graph 04/11/2020 Discussion: Ventilation images were not obtained. See not e above. Perfusion images of the lungs were obtained in multiple projection s following intravenous administration of approximately 6 mCi of Tc-99m MAA. T he right lung volume is decreased compared to the left lung volume. Distribut ion of tracer is mildly irregular throughout the lungs. There are no segmenta l perfusion defects of any size. The cardiomediastinal silhouette is un remarkable. Impression: 1. Scan findings represent a VERY LOW probab ility for acute pulmonary embolic disease based on the perfusion-only PIOPED I I criteria. 2. Decreased volume in the right lung due to elevated hemidiaph ragm as well as right apical pleural thickening/scarring as seen on today's ch est radiograph. 3. Scan findings are compatible with diffuse parenchymal and/ or obstructive lung disease. Signed by: Dr. Lauren Forrest M.D. on 04/11/20 8:14 PM Dictated By: LAUREN FORREST MD 13 Transcribed By: LAWRENCE on 04/11/202013 COPY TO : RENATO BUSBY MD Stool gastrointestinal hemoglobin detection 2020-04-11 19:15:00* Test Item Value Reference Range Interpretation Comments Stool Occult Blood (test code = 2335-8) POSITIVE NEGATIVE [facility] SpringsBlood [id number] 18:15:00* Test Item Value Reference Range Interpretation Comments Blood Culture (test code = 85427349) NO GROWTH AFTER 72 HOURS [facility] SpringsFluoroscopic procedure less than one hour bswuzvyp6899-01-30 18:00:00* Test Item Value Reference Range Interpretation Comments Lactic Acid Level (test code = Lactic Acid Level) 1.0 0.5- 2.0 [facility] SINGLE (PORTABLE)2020-04-11 16:19:00 [facility] [address] [place] [address] Patient Name: Bharath FRANZ MR #: [id number] : 1945 Age/Sex: 74/F Req #: [id number] Adm Physician: Ordered by: RENATO BUSBY MD Report #: [id number] Location: ER Room/Bed: Procedure: [id number] DX/CHEST SINGLE (RILEY BLE) Exam Date: 04/11/20 Exam Time: 154 REPORT STATUS: Signed EXAMINATION: CHEST S EMILY (PORTABLE) INDICATION: Chest pain COMPARISON: Chest CT 2019 FINDINGS: LINES/TUBES:EKG leads overlie the chest. LUNG S:The lungs are moderately inflated. Mild right apical pleural parenchymal thi ckening/scarring. No focal consolidation or pulmonary edema. PLEURA:No pleu ral effusion or pneumothorax. MEDIASTINUM:The cardiomediastinal silhouette appears normal in size and shape. Atherosclerotic calcifications of the thorac ic aorta. BONES/SOFT TISSUES:No acute osseous injury. ABDOMEN:No free air under the diaphragm. IMPRESSION: No focal pneumonia or pulmonary edema. Signed by: Omid Pelayo MD on 04/11/2020 4:20 PM Dictated By: Ofelia PELAYO MD 19 Transcri bed By: LAWRENCE on 04/11/201619 COPY TO: RENATO BUSBY MD Prothrombin time (PT) in platelet poor plasma by coagulation [id number] 15:21:00* Test Item Value Reference Range Interpretation Comments Prothrombin Time (test code = 5902-2) 14.1 11.9-14.5 [facility] SpringsINR in Platelet poor plasma by Coagulation qdnpv5662-31-41 15:21:00* Test Item Value Reference Range Interpretation Comments Prothromb Time International Ratio (test code = 6301-6) 1.04 Oral Anticoagulant Therapy INR Values:1. Low Intensity Therapy 1.5 - 2.02 . Moderate Intensity Therapy 2.0 - 3.03. High Intensity Therapy(1) 2.5 - 3. 54. High Intensity Therapy(2) 3.0 - 4.05. Panic Value INR > 5.0 [facility] SpringsActivated partial thromboplastin time (aPTT) in platelet poor plasma by coagulation pmxgf3573-35-17 15:21:00* Test Item Value Reference Range Interpretation Comments Activated Partial Thromboplast Time (test code = 05843-4) 30.7 23.8-35.5 [facility] SpringsFibrin D-dimer DDU measurement in platelet poor plasma (mass/volume)2020-04-11 15:21:00* Test Item Value Reference Range Interpretation Comments D-Dimer Quantitative (PE/DVT) (test code = 86775-9) 2.29 0. 00-0.45 As with all in vitro diagnostic tests, the test results should be interpreted by the physician in conjunction with clinical findings and other test results.Test results are reported in NEW D-dimer units(ug/mLFEU).[facility] SpringsUrine color umeyycekolpxd9781-06-24 15:21:00* Test Item Value Reference Range Interpretation Comments Urine Color (test code = 5778-6) YELLOW YELLOW [facility] SpringsUrine prdtnii3164-27-83 15:21:00* Test Item Value Reference Range Interpretation Comments Urine Clarity (test code = 08596-9) CLEAR CLEAR [facility] gravity of Urine by Test strip 2020-04-11 15:21:00* Test Item Value Reference Range Interpretation Comments Urine Specific [place] (test code = 5811-5) 1.020 1.010-1.02 5 [facility] SpringsUrine pH measurement by automated test bysom9292-70-12 15:21:00* Test Item Value Reference Range Interpretation Comments Urine pH (test code = 25582-5) 7 5-7 [facility] SpringsUrine leukocyte esterase detection by kfdvulqp7042-28-88 15:21:00* Test Item Value Reference Range Interpretation Comments Urine Leukocyte Esterase (test code = 5799-2) NEGATIVE NEGATIVE [facility] SpringsUrine nitrite ypspnsooy3814-10-42 15:21:00* Test Item Value Reference Range Interpretation Comments Urine Nitrite (test code = 60733-3) NEGATIVE NEGATIVE [facility] SpringsUrine protein measurement by test strip (mass/volume)2020-04-11 15:21:00* Test Item Value Reference Range Interpretation Comments Urine Protein (test code = 5804-0) 2+ NEGATIVE [facility] SpringsUrine glucose lcnqqlugl0573-33-87 15:21:00* Test Item Value Reference Range Interpretation Comments Urine Glucose (UA) (test code = 2349-9) NEGATIVE NEGATIVE [facility] SpringsUrine ketones detection by automated test evhpp4685-71-31 15:21:00* Test Item Value Reference Range Interpretation Comments Urine Ketones (test code = 00742-8) NEGATIVE NEGATIVE [facility] SpringsUrine urobilinogen measurement by test strip (mass/volume)2020-04-11 15:21:00* Test Item Value Reference Range Interpretation Comments Urine Urobilinogen (test code = 28548-3) 2.0 0.2-1 [facility] SpringsUrine total bilirubin measurement (mass/volume)2020-04-11 15:21:00* Test Item Value Reference Range Interpretation Comments Urine Bilirubin (test code = 1978-6) SMALL NEGATIVE [facility] SpringsUrine erythrocytes fehzipqmr6062-45-85 15:21:00* Test Item Value Reference Range Interpretation Comments Urine Blood (test code = 70457-9) NEGATIVE NEGATIVE [facility] SpringsAutomated urine sediment leukocyte count by microscopy (number/high power field)2020-04-11 15:21:00* Test Item Value Reference Range Interpretation Comments Urine WBC (test code = 5821-4) 0-5 0-5 [facility] SpringsErythrocytes detection in urine sediment by light wljncetqfv9359-18-15 15:21:00* Test Item Value Reference Range Interpretation Comments Urine RBC (test code = 16598-5) NONE 0-5 [facility] SpringsBacteria detection in urine sediment by light vugohfbtye8633-77-48 15:21:00* Test Item Value Reference Range Interpretation Comments Urine Bacteria (test code = 22425-5) MODERATE NONE [facility] SpringsEpithelial cells detection in urine sediment by light hudbgxrmkk6377-60-33 15:21:00* Test Item Value Reference Range Interpretation Comments Urine Epithelial Cells (test code = 94014-0) MANY NONE [facility] SpringsELBOW RIGHT [id number] 14:33:00 [facility] [address] [place] [address] Patient Name: Bharath FRANZ MR #: [id number] : 1945 Age/Sex: 74/F Req #: [id number] Adm Physician: Ordered by: RAMA MEDINA MD Report #: [id number] Location: [facility] Room/Bed: Procedure: [id number] DX/ELBOW RIGHT COMPL ETE Exam Date: 04/09/20 Exam Time: 1230 REPORT STATUS: Signed EXAMINATION: ELBOW RI GHT COMPLETE INDICATION: Elbow pain COMPARISON: None FIN DINGS: No acute fracture or dislocation. Alignment is anatomic. No substant ial joint effusion. Soft tissues appear unremarkable. Atherosclerotic arterial calcifications. IMPRESSION: No acute osseous injury. Signed by: Omid Pelayo MD on 04/09/2020 2:34 PM Dictated By: OMID Schulte maranda Signed By: OMID PELAYO MD on 04/09/20 1434 Transcribed By: LAWRENCE on 03/20 11/08 143 COPY TO: RAMA MEDINA MD [facility] CENTERFVRFQEW7299-86-05 10:59:00 [place] [address] Patient Name: Bharath FRANZ MR #: [id number] : 1945 Age/Sex: 74/F Req #: [id number] Adm Physician: Ordered by: RAMA MEDINA MD Report #: [id number] Location: US Room/Bed: Procedure: [id number] US/US THY ROID Exam Date: 10/08/19 Exam Time: 1518 REPORT STATUS: Signed Thyroid ultrasound CPT code: 54762 History: Thyromegaly Comparison: None Findings: The thyroid echotexture is normal. Vascularity is normal. The right lobe measures 3.7 x 1.6 x 2 point cm. The left lobe measures 4.3 x 2.0 x 1.8 cm. The isthmus measures 0.4 cm. Nodules (measurements are AP, transvers e, craniocaudal): Right Lobe: 1.3 x 1.2 x 1.2 cm lower pole solid, isoech oic, wider than tall, well-circumscribed nodule with macrocalcifications (TR4) Left Lobe: 2.3 x 1.4 x 1.6 cm lower pole solid, isoechoic, wider than tall, circumscribed nodule without calcifications (TR3) Isthmus: No cystic m ass or discrete solid nodule identified. Lymph Nodes: No cervical lymph nod es are identified. Parathyroids: Not visualized. IMPRESSION: Bila teral thyroid nodules as above, none of which meet criteria for FNA. Based on the most suspicious nodule, ultrasound follow-up is recommended at 1, 3 and 5 years. ACR glossary of thyroid rads TI-RADS 1: No focal lesion. TI-RADS 2: Not suspicious. TI-RADS 3: Mildly suspicious (recommend FNA is greater than or equal to 2.5 cm; follow-up at 1, 3, and 5 years if greater than or equal to 1.5 cm) TI-RADS 4: Moderately Suspicious (recommend FNA is greater than or equal to 1.5 cm; follow-up at 1, 2, 3, and 5 years) TI-RADS 5: Highly suspicious (recommend FNA is greater than or equal to 10 mm) TI-RADS 6: Biopsy-proven malignancy Signed by: Omid Pelayo MD on 10/09/2019 11:05 AM Dictated By: OMID PELAYO MD 04 Transcribed By: LAWRENCE on 10/09/191104 COPY TO: RAMA CATES MD KNEE RIGHT THREE [id number] 15:06:00 [place] [address] Patient Name: Bharath FRANZ MR #: [id number] : 1945 Age/Sex: 74/F Req #: [id number] Adm Physician: Ordered by: RAMA MEDINA MD Report #: [id number] Location: Room/Bed: Procedure: [id number] DX/KNEE R IGHT THREE VIEWS Exam Date: 10/08/19 Exam Time: 1445 REPORT STATUS: Signed EXAMINATI ON: KNEE RIGHT THREE VIEWS INDICATION: Osteoarthritis COMPARISON: None FINDINGS: No acute fracture or dislocation. Alignment appea rs anatomic. Trace suprapatellar joint effusion. Mild degenerative changes wit h small osteophyte formation. Moderate chondrocalcinosis. Heavy atheroscleroti c arterial calcifications of the popliteal artery. IMPRESSION: No acut e osseous injury. Mild degenerative changes. Chondrocalcinosis. S igned by: Omid Pelayo MD on 10/08/2019 3:07 PM Dictated By: OMID PELAYO MD 06 Transcribed By: BRIT DANIEL on 10/08/191506 COPY TO: RAMA MEDINA MD CT CHEST WO 2019-10-08 14:50:00 [place] [address] Patient Name: Bharath FRANZ MR #: [id number] : 1945 Age/Sex: 74/F Req #: [id number] Adm Physician: Ordered by: RAMA MEDINA MD Report #: [id number] Location: Room/Bed: Procedure: [id number] CT/CT [facility] Exam Date: Exam Time: REPORT STATUS: Signed EXAM: CT Chest WITHOUT intraveno us contrast 10/08/2019 2:16 PM INDICATION: Malignancy, thyromegaly COMPARISO N: Chest CT of 07/19/2019 TECHNIQUE: Chest was scanned utilizing a multidete ctor helical scanner from the lung apex through the level of the adrenal gland s without administration of IV contrast. Coronal and sagittal reformations wer e obtained. Routine protocol was performed. IV CONTRAST: None RADIATION DOSE: Total DLP: 500.8 mGy*cm. Dose modulation, iterative reconstruction, and /or weight based adjustment of the mA/kV was utilized to reduce the radiation dose to as low as reasonably achievable. COMPLICATIONS: None FINDINGS: LINES/ TUBES: None. LUNGS AND AIRWAYS: The central airways are patent. No focal consolidation or pulmonary edema. PLEURA: The pleural spaces are clear. HEART AND MEDIASTINUM: Left hypodense thyroid nodule measures up to 1.7 cm. Right hypodense thyroid nodule measures up to 1.2 cm. No supraclavi cular, mediastinal, hilar, or axillary lymphadenopathy. The heart is not enlar ged. No pericardial effusion. Diffuse heavy atherosclerotic calcifications of the aorta, coronary arteries, and great vessels. UPPER ABDOMEN: Limited noncontrast images of the upper abdomen demonstrate postoperative findings of cholecystectomy. No focal abnormality of the partially visualized liver, sple en, pancreas, adrenals, or upper most kidneys. Diffuse mesenteric and renal ar terial calcifications. BONES: No acute osseous injury. Somewhat mottled dahiana earance of multiple ribs and the scapula and clavicles. Mild multilevel degene rative changes of the visualized spine. SOFT TISSUES: Unremarkable. IMPRESSION: No focal pneumonia or pulmonary edema. No suspicious pulmonary ma ss lesion. Somewhat mottled appearance of multiple ribs as well as the scap nicci and clavicles. This most likely represents changes of mild diffuse osteope bryson. However, if there is concern for diffuse osseous metastatic disease, nucl ear medicine bone scan can be considered for further evaluation. Right an d left thyroid nodules measuring up to 1.7 cm on the left and 1.2 cm on the ri ght. Dedicated thyroid ultrasound is recommended for further evaluation. Si gned by: Omid Pelayo MD on 10/08/2019 3:01 PM Dictated By: OMID PELAYO MD 1501 Transcribed By: MASOUD May on 10/08/19 1501 COPY TO: RAMA MEDINA MD Bedside Glucose 2019-07-19 21:42:00* Test Item Value Reference Range Interpretation Comments Bedside Glucose (test code = 90404-8) 297 70-120 H Meter ID: [id number] [facility] 2019-07-19 10:34:00 [place] [address] Patient Name: Bharath FRANZ MR #: [id number] : 1945 Age/Sex: 74/F Req #: [id number] Adm Physician: STEPHANIE CHRISTENSEN MD Ordered by: EDMUNDO GOYAL MD Report #: [id number] Location: MED/SURG3 Room/Bed: [facility]1 Procedure: [id number] CT/CT A JOAQUINOMEN W Exam Date: 07/19/19 Exam Time: 1000 REPORT STATUS: Signed EXAM: CT Chest and Abdomen WITH intravenous contrast 07/19/2019 9:00 AM INDICATION: Chest pain COMPARISON: Chest radiograph of 07/17/2019 TECHNIQUE: Chest and abdomen were scanned utilizing a multidetector helical scanner from the lung apex through the level of the iliac crest after administration of IV contrast. Coronal and sagittal reformations were obtained. Routine protocol was performed. IV CONTRAST: 100mL Isovue 370 RADIATION DOSE: Total DLP: 539.4 mGy*cm. Dose mod ulation, iterative reconstruction, and/or weight based adjustment of the mA/kV was utilized to reduce the radiation dose to as low as reasonably achievable. COMPLICATIONS: None FINDINGS: LINES/ TUBES: None. LUNGS AND A IRWAYS: The central airways are patent. No focal consolidation or pulmonary e maru. No suspicious pulmonary nodules. PLEURA: The pleural spaces are see ar. HEART AND MEDIASTINUM: The thyroid gland is normal. No mediastinal, hi lar or axillary lymphadenopathy. The heart is not enlarged. No pericardial ef fusion. Diffuse atherosclerotic calcifications of the coronary arteries, thora cic aorta and great vessels.. No central pulmonary embolism. The pulmonary art trang measures 2.2 cm in diameter. No right heart strain. HEPATOBILIARY: Diffuse hepatic steatosis. No focal hepatic lesions. No biliary ductal dilata tion. Status post cholecystectomy. SPLEEN: No splenomegaly. PANCREAS: No focal masses or ductal dilatation. ADRENALS: No adrenal nodules. KIDNE YS/URETERS: Defect at the upper pole of the left kidney. Correlate with histor y of prior partial nephrectomy. Vascular calcifications involve both kidneys. 4 mm nonobstructive right upper pole renal calculus. No hydronephrosis. P ERITONEUM / RETROPERITONEUM: No free air or fluid. LYMPH NODES: No lymphadenop athy. VESSELS: Heavy diffuse atherosclerotic calcifications of the thoracic an d abdominal aorta as well as the great vessels. No aortic aneurysm. 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 There is reconstitution distal to the left internal mamm sharif artery. 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 GI TRACT: No abnormal bowel wall thickening. No b owel obstruction. BONES AND SOFT TISSUES: No acute osseous injury. Diffuse osteopenia. Degenerative changes of the visualized spine. No suspicious lytic or blastic lesions. IMPRESSION: No pulmonary embolism. No focal pneumo bryson or pulmonary edema. Heavy diffuse atherosclerotic calcifications includ ing of the coronary arteries. 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 The proximal visualized portion of the left vertebral artery is also complete ly occluded. Diffuse hepatic steatosis. Left upper pole renal defect. Correlate with history of prior surgery. Signed by: Omid Pelayo MD on 07/19 11:03 AM Dictated By: OMID PELAYO MD 02 Transcribed By: LAWRENCE on 07/19/191102 COPY TO: EDMUNDO GOYAL MD CT CHEST [id number] 10:34:00 [place] [address] Patient Name: Bharath FRANZ MR #: [id number] : 1945 Age/Sex: 74/F Req #: [id number] Adm Physician: STEPHANIE CHRISTENSEN MD Ordered by: EDMUNDO GOYAL MD Report #: [id number] Location: MED/SURG3 Room/Bed: 284 Procedure: [id number] CT/CT C HEST W Exam Date: 07/19/19 Exam Time: 1000 REPORT STATUS: Signed EXAM: CT Chest and Abdomen WITH intravenous contrast 07/19/2019 9:00 AM INDICATION: Chest pain COMPARISON: Chest radiograph of 07/17/2019 TECHNIQUE: Chest and abdomen were scanned utilizing a multidetector helical scanner from the lung apex through the level of the iliac crest after administration of IV contrast. Coronal and sagittal reformations were obtained. Routine protocol was performed. IV CONTRAST: 100mL Isovue 370 RADIATION DOSE: Total DLP: 539.4 mGy*cm. Dose modul ation, iterative reconstruction, and/or weight based adjustment of the mA/kV w as utilized to reduce the radiation dose to as low as reasonably achievable. COMPLICATIONS: None FINDINGS: LINES/ TUBES: None. LUNGS AND AIR WAYS: The central airways are patent. No focal consolidation or pulmonary lex ma. No suspicious pulmonary nodules. PLEURA: The pleural spaces are clear . HEART AND MEDIASTINUM: The thyroid gland is normal. No mediastinal, candice r or axillary lymphadenopathy. The heart is not enlarged. No pericardial effu belkis. Diffuse atherosclerotic calcifications of the coronary arteries, thoraci c aorta and great vessels.. No central pulmonary embolism. The pulmonary arter y measures 2.2 cm in diameter. No right heart strain. HEPATOBILIARY: Di ffuse hepatic steatosis. No focal hepatic lesions. No biliary ductal dilatati on. Status post cholecystectomy. SPLEEN: No splenomegaly. PANCREAS: No focal masses or ductal dilatation. ADRENALS: No adrenal nodules. KIDNEYS /URETERS: Defect at the upper pole of the left kidney. Correlate with history of prior partial nephrectomy. Vascular calcifications involve both kidneys. 4 mm nonobstructive right upper pole renal calculus. No hydronephrosis. PER ITONEUM / RETROPERITONEUM: No free air or fluid. LYMPH NODES: No lymphadenopat hy. VESSELS: Heavy diffuse atherosclerotic calcifications of the thoracic and abdominal aorta as well as the great vessels. No aortic aneurysm. There is c omplete occlusion of the left brachiocephalic origin for a short segment begin beatris at its origin. There is reconstitution distal to the left internal mammar y artery. The visualized portions of the proximal left vertebral artery are al so completely occluded. GI TRACT: No abnormal bowel wall thickening. No bow el obstruction. BONES AND SOFT TISSUES: No acute osseous injury. Diffuse os teopenia. Degenerative changes of the visualized spine. No suspicious lytic or blastic lesions. IMPRESSION: No pulmonary embolism. No focal pneumonia or pulmonary edema. Heavy diffuse atherosclerotic calcifications including of the coronary arteries. Complete occlusion of the proximal left brachiocep halic artery with reconstitution distal to the left internal mammary artery. T he proximal visualized portion of the left vertebral artery is also completely occluded. Diffuse hepatic steatosis. Left upper pole renal defect. Co rrelate with history of prior surgery. Signed by: Omid Pelayo MD on 019 11:03 AM Dictated By: OMID PELAYO MD 02 Transcribed By: LAWRENCE on 07/19/191102 COPY TO : EDMUNDO GOYAL MD Stress Test - Treadmill [id number] 18:17:00 [place] [address] Patient Name : Bharath FRANZ MR #: [id number] : 1945 Age/Sex: 74/F Adm Physician : STEPHANIE CHRISTENSEN MD Admit Date : 07/17/19 Location : MED/SURG3 Room/Bed : [facility] REPORT: Myoview Stre ss Test DATE OF STUDY: 07/18/2019 10:09:00 Stress Test - Treadmill ONL Y TITLE OF REPORT: Lexiscan nuclear stress test. INDICATION FOR LIZZIE DY: Chest pain, history of coronary disease, and inability to exercise. TECHNICAL DETAILS: After risks, benefits, pros and cons of Lexiscan nuclear s tress test were explained to the patient, the patient agreed to proceed. She was brought down to the nuclear lab where she received 11 mCi dose of techneti um-99m tetrofosmin intravenously and after about 40 minutes, the patient was t aken to the [employer] SPECT camera for resting myocardial perfusion imaging. A fterwards, the patient was brought to the stress lab where 12-lead EKG monitorin g and blood pressure monitoring were obtained. She received a dose of Lexisca n 0.4 mg intravenously followed by 33 mCi dose of technetium-99m tetrofosmin i ntravenously. Resting heart rate went from a baseline of 68 beats per minute t o a maximum of 85 beats per minute and blood pressure went from a baseline of 141/107 to 115/70, which is appropriate hemodynamic dynamic response. E KG revealed normal sinus rhythm, nonspecific intraventricular block, and nonspec ific ST-T wave changes diffusely and with Lexiscan infusion there were no isch emic EKG changes or symptoms. After 25 minutes, the patient was then taken to the SPECT camera for stress myocardial perfusion imaging. FINDINGS: 1. Resting myocardial perfusion imaging reveals a pixxn-ql-cykhmgqx sized decr eased area of uptake in the inferior wall more towards the mid to basal segmen ts. 2. Stress myocardial perfusion imaging reveals a large decreased uptake i n the inferior and inferolateral wall to a greater extent as compared to resti ng imaging. 3. The following gated measurements are obtained. End-diastolic volume is 74 mm, end systolic volume 36 mm, calculated left ventricular ejecti on fraction is 51% with notable septal hypokinesis. CONCLUSIONS: 1. Abnormal myocardial perfusion imaging study reveals a large partially reversible inferior and inferolateral wall perfusion defect compatible with a mixed scar and ischemia picture. 2. Normal left ventricular function with EF of 51%. 3. The overall findings of the stress test are compatible with at least a mod erate risk stress test. MD SHANELL Argueta/BRIANNE 19:1 5:46 /[id number] Signature Date Dictated By: NATALY GOYAL MD Transcribed By: BIRANNE on 07/18/19 <Electronically signed by EDMUNDO GOYAL MD>for NATALY GOYAL MD<<Signature on File>>07/19/19 1232 COPY TO: Creatine Kinase [id number] 12:29:00* Test Item Value Reference Range Interpretation Comments Creatine Kinase MB (test code = 97279-5) 1.80 0-5.0 [facility] SpringsHemoglobin A1c Xoemaam2612-65-31 11:19:00 * Test Item Value Reference Range Interpretation Comments Hemoglobin A1c Percent (test code = Hemoglobin A1c Percent) 8.2 4.0-7.0 H [facility] SpringsThyroid Stimulating Hormone (TSH) 2019-07-18 11:19:00* Test Item Value Reference Range Interpretation Comments Thyroid Stimulating Hormone (TSH) (test code = 53296-4) 1.335 0.350-4.940 [facility] SpringsCHEST 2 [id number] 10:00:00 [place] [address] Patient Name: Bharath FRANZ MR #: [id number] : 1945 Age/Sex: 74/F Req #: [id number] Adm Physician: STEPHANIE CHRISTENSEN MD Ordered by: EVERT BAXTER MD Report #: [id number] Location: [facility] Room/Bed: [facility] Procedure: [id number] DX/TIGRE ST 2 VIEWS Exam Date: 07/17/19 Exam Time: 1450 REPORT STATUS: Signed EXAMINATION: C HEST 2 VIEWS INDICATION: Chest pain COMPARISON: None FIN DINGS: LINES/TUBES:EKG leads overlie the chest. LUNGS:The lungs are mo derately inflated. No focal consolidation or pulmonary edema. PLEURA:No p leural effusion or pneumothorax. MEDIASTINUM:The cardiomediastinal silhouet te appears normal in size and shape. Atherosclerotic calcifications of the tho racic aorta. BONES/SOFT TISSUES:No acute osseous injury. Partially visualiz ed cervical spine fusion hardware. ABDOMEN:No free air under the diaphrag m. Status post cholecystectomy. IMPRESSION: No focal pneumonia or pul monary edema. Signed by: Omid Pelayo MD on 07/18/2019 10:01 AM Dicta julia By: OMID PELAYO MD 1001 Transcribed By: LAWRENCE on 07/18/19 1001 COPY TO: EVERT BAXTER MD Creatine Icigib6713-66-27 03:30:00* Test Item Value Reference Range Interpretation Comments Creatine Kinase (test code = 2157-6) 48 29-168 [facility] SpringsTroponin [id number] 03:30:00* Test Item Value Reference Range Interpretation Comments Troponin I (test code = 49696-7) < 0.05 0.0-0.40 [facility] Scbvs8366-30-47 03:29:00* Test Item Value Reference Range Interpretation Comments Sodium Level (test code = 2951-2) 139 136-145 [facility] SpringsPotassium Gjofo3603-85-77 03:29:00* Test Item Value Reference Range Interpretation Comments Potassium Level (test code = 2823-3) 3.3 3.5-5.1 L [facility] SpringsChloride Hyqiz0286-83-15 03:29:00* Test Item Value Reference Range Interpretation Comments Chloride Level (test code = 2075-0) 99 98-107 [facility] SpringsCarbon Dioxide Wxkft0525-37-07 03:29:00* Test Item Value Reference Range Interpretation Comments Carbon Dioxide Level (test code = 2028-9) 28 22-29 [facility] SpringsAnion Pez9474-38-09 03:29:00* Test Item Value Reference Range Interpretation Comments Anion Gap (test code = 89796-1) 15.3 8-16 [facility] SpringsBlood Urea Ghzakmqb1649-88-70 03:29:00* Test Item Value Reference Range Interpretation Comments Blood Urea Nitrogen (test code = 3094-0) 15 7-26 [facility] SpringsCreatinine2019-10-30 03:29:00* Test Item Value Reference Range Interpretation Comments Creatinine (test code = 2160-0) 1.16 0.57-1.11 H [facility] SpringsBUN/Creatinine Chypq5096-53-28 03:29:00* Test Item Value Reference Range Interpretation Comments BUN/Creatinine Ratio (test code = 3097-3) 13 6-25 [facility] SpringsEstimat Glomerular Filtration Rate 2019-07-18 03:29:00* Test Item Value Reference Range Interpretation Comments Estimat Glomerular Filtration Rate (test code = 854148499) 46 >60 L Ranges were taken from the National Kidney Disease Education Program and the [facility] Kidney Foundation literature.Reference ranges:60 or greater: Ywcnmi63-85 ( for 3 consecutive months): Chronic kidney disease 15 or less: Kidney failureCHRISTUS [facility] – [facility] SpringsGlucose Qvvfo1988-70-64 03:29:00* Test Item Value Reference Range Interpretation Comments Glucose Level (test code = VJY9833) 164 74-118 H [facility] SpringsCalcium Mhpwo0616-12-29 03:29:00* Test Item Value Reference Range Interpretation Comments Calcium Level (test code = 61059-9) 8.5 8.4-10.2 [facility] SpringsTriglycerides Illbk4359-22-24 03:29:00* Test Item Value Reference Range Interpretation Comments Triglycerides Level (test code = 2571-8) 374 0-149 H [facility] SpringsCholesterol Muzdt3736-76-37 03:29:00* Test Item Value Reference Range Interpretation Comments Cholesterol Level (test code = 2093-3) 234 0-199 H Less than 200 mg/dL Low Tnfp273 - 239 mg/dL Borderline Xxnu242 m g/dl and greater High Risk [facility] SpringsLDL Pegkallmwvq5048-07-11 03:29:00* Test Item Value Reference Range Interpretation Comments LDL Cholesterol (test code = 2089-1) 114 60-130 [facility] SpringsHDL Ckhljcucpjz8965-16-84 03:29:00* Test Item Value Reference Range Interpretation Comments HDL Cholesterol (test code = 2085-9) 45 40-60 [facility] SpringsCholesterol/HDL Yxrzn8170-34-75 03:29:00 * Test Item Value Reference Range Interpretation Comments Cholesterol/HDL Ratio (test code = 9830-1) 5.2 3.0-3.6 H [facility] SpringsWhite Blood Lusbx8086-54-98 03:09:00* Test Item Value Reference Range Interpretation Comments White Blood Count (test code = 6690-2) 7.64 4.8-10.8 [facility] SpringsRed Blood Vowbh6832-20-22 03:09:00* Test Item Value Reference Range Interpretation Comments Red Blood Count (test code = 789-8) 3.65 3.6-5.1 [facility] SpringsHemoglobin2019-10-30 03:09:00* Test Item Value Reference Range Interpretation Comments Hemoglobin (test code = 55111-3) 11.3 12.0-16.0 L [facility] SpringsHematocrit2019-10-30 03:09:00* Test Item Value Reference Range Interpretation Comments Hematocrit (test code = 4544-3) 32.4 34.2-44.1 L [facility] SpringsMean Corpuscular Ilzbor6452-41-69 03:09:00* Test Item Value Reference Range Interpretation Comments Mean Corpuscular Volume (test code = 787-2) 88.8 81-99 [facility] SpringsMean Corpuscular Ofhfugnlrq9411-76-32 03:09:00* Test Item Value Reference Range Interpretation Comments Mean Corpuscular Hemoglobin (test code = 785-6) 31.0 28-32 [facility] Corpuscular Hemoglobin Concent 2019-07-18 03:09:00* Test Item Value Reference Range Interpretation Comments Mean Corpuscular Hemoglobin Concent (test code = 786-4) 34.9 31-35 [facility] SpringsRed Cell Distribution Bljje2909-97-16 03:09:00* Test Item Value Reference Range Interpretation Comments Red Cell Distribution Width (test code = 81263-8) 13.4 11.7 -14.4 [facility] SpringsPlatelet Uvxvf0479-92-50 03:09:00* Test Item Value Reference Range Interpretation Comments Platelet Count (test code = 777-3) 263 140-360 [facility] SpringsNeutrophils (%) (Auto)2019-07-18 03:09:00 * Test Item Value Reference Range Interpretation Comments Neutrophils (%) (Auto) (test code = 27248-8) 65.3 38.7-80.0 [facility] SpringsLymphocytes (%) (Auto)2019-07-18 03:09:00 * Test Item Value Reference Range Interpretation Comments Lymphocytes (%) (Auto) (test code = 736-9) 20.9 18.0-39.1 [facility] SpringsMonocytes (%) (Auto)2019-07-18 03:09:00* Test Item Value Reference Range Interpretation Comments Monocytes (%) (Auto) (test code = 5905-5) 8.4 4.4-11.3 [facility] SpringsEosinophils (%) (Auto)2019-07-18 03:09:00 * Test Item Value Reference Range Interpretation Comments Eosinophils (%) (Auto) (test code = 713-8) 3.3 0.0-6.0 [facility] SpringsBasophils (%) (Auto)2019-07-18 03:09:00* Test Item Value Reference Range Interpretation Comments Basophils (%) (Auto) (test code = 706-2) 1.8 0.0-1.0 H [facility] SpringsIM GRANULOCYTES %2019-07-18 03:09:00* Test Item Value Reference Range Interpretation Comments IM GRANULOCYTES % (test code = IM GRANULOCYTES %) 0.3 0.0- 1.0 [facility] SpringsNeutrophils # (Auto)2019-07-18 03:09:00* Test Item Value Reference Range Interpretation Comments Neutrophils # (Auto) (test code = 751-8) 5.0 2.1-6.9 [facility] SpringsLymphocytes # (Auto)2019-07-18 03:09:00* Test Item Value Reference Range Interpretation Comments Lymphocytes # (Auto) (test code = 10264-2) 1.6 1.0-3.2 [facility] SpringsMonocytes # (Auto)2019-07-18 03:09:00* Test Item Value Reference Range Interpretation Comments Monocytes # (Auto) (test code = 742-7) 0.6 0.2-0.8 [facility] SpringsEosinophils # (Auto)2019-07-18 03:09:00* Test Item Value Reference Range Interpretation Comments Eosinophils # (Auto) (test code = 711-2) 0.3 0.0-0.4 [facility] SpringsBasophils # (Auto)2019-07-18 03:09:00* Test Item Value Reference Range Interpretation Comments Basophils # (Auto) (test code = 704-7) 0.1 0.0-0.1 [facility] SpringsAbsolute Immature Granulocyte (auto 2019-07-18 03:09:00* Test Item Value Reference Range Interpretation Comments Absolute Immature Granulocyte (auto (jojo t code = Absolute Immature Granulocyte (auto) 0.02 0-0.1 [facility] SpringsTotal Yvthslqdn2164-75-58 15:27:00* Test Item Value Reference Range Interpretation Comments Total Bilirubin (test code = 1975-2) 0.4 0.2-1.2 [facility] SpringsAspartate Amino Transf (AST/SGOT) 2019-07-17 15:27:00* Test Item Value Reference Range Interpretation Comments Aspartate Amino Transf (AST/SGOT) (test code = Aspartate Amino Transf (AST/SGOT)) 14 5-34 [facility] SpringsAlanine Aminotransferase (ALT/SGPT) 2019-07-17 15:27:00* Test Item Value Reference Range Interpretation Comments Alanine Aminotransferase (ALT/SGPT) (test code = 1742-6) 7 0-55 [facility] SpringsTotal Gktrkyt0334-67-11 15:27:00* Test Item Value Reference Range Interpretation Comments Total Protein (test code = 2885-2) 7.5 6.5-8.1 [facility] SpringsAlbumin2019-10-29 15:27:00* Test Item Value Reference Range Interpretation Comments Albumin (test code = 1751-7) 3.7 3.5-5.0 [facility] SpringsGlobulin2019-10-29 15:27:00* Test Item Value Reference Range Interpretation Comments Globulin (test code = 43363-6) 3.8 2.3-3.5 H [facility] SpringsAlbumin/Globulin Nkwem4796-66-86 15:27:00 * Test Item Value Reference Range Interpretation Comments Albumin/Globulin Ratio (test code = 1759-0) 1.0 0.8-2.0 [facility] SpringsAlkaline Mjctnzcinby4091-38-00 15:27:00* Test Item Value Reference Range Interpretation Comments Alkaline Phosphatase (test code = 6768-6) 116 40-150 [facility] SpringsMAMMOGRAPHY DIGITAL SCR KRSJK5185-46-94 14:25:00 [facility] [address] [place] [address] Patient Name: Bharath FRANZ MR #: [id number] : 1945 Age/Sex: 74/F Req #: [id number] Adm Physician: Ordered by: RAMA MEDINA MD Report #: [id number] Location: [facility] Room/Bed: Procedure: [id number] MG/MAMMOG MANJULA DIGITAL SCR BILAT Exam Date: 06/20/19 Exam Jaswinder e: 1350 REPORT STATUS: Signed #[id number] - [id number] #BILATERAL DIGITAL SCREENING MAMMOGRAM WITH CAD: CLINICAL: Routine screening. Comparison is made to exams dated: 04/27/2018 mammogram and 03/15/2018 mammogram - [facility] nter. Current study contains 4 films. There are scattered fibroglandular el ements in both breasts. Current study was also evaluated with a Computer Aid ed Detection (CAD) system. There are benign vascular calcifications in both breasts. Benign appearing calcifications are noted bilaterally. No signi ficant masses, calcifications, or other findings are seen in either breast. IMPRESSION: BENIGN There is no mammographic evidence of malignancy. A 1 ye ar screening mammogram is recommended. The patient will be notified by letter of the results. JOSHUA núñez/margarita:06/21/2019 16 :13:53 Dairy Department Manager: Lauren KING(R)(M), [facility] letter sent: Normal Exam Mammogram BI-RADS: 2 Benign D ictated By: JOSHUA MEJÍA MD 1613 COPY TO: CRISTOBAL MEDINA MD UNILAT W/HKG2865-96-05 08:43:00 [place] [address] Patient Name: Bharath FRANZ MR #: [id number] : 1945 Age/Sex: 73/F Req #: [id number] Adm Physician: Ordered by: RAMA MEDINA MD Report #: [id number] Location: RAD Room/Bed: Procedure: [id number] DX/RIBS U NILAT W/CXR Exam Date: 12/27/18 Exam Time: 1330 REPORT STATUS: Signed EXAM: RIBS UN ILAT W/CXR DATE: 12/27/2018 1:14 PM INDICATION: Fall COMPARISON : Chest x-ray, 07/18/2018; chest CT, 03/21/2018 (no report available) FINDING S: PA chest: Heart size normal. No focal pulmonary opacity, pleural effusio n or pneumothorax. Right upper lobe spiculated mass present on images of previ ous CT is not readily identified on chest x-ray. Present appearance is unchang ed from the previous chest x-ray cervical fusion hardware is partially visuali zed. Right ribs: 3 views of the right ribs shows no displaced fracture. No underlying pneumothorax or hemothorax is seen. Cholecystectomy clips are noted. Degenerative changes are seen at the right shoulder and thoracic spine. IMPRESSION: 1. No evidence for acute disease in the chest. Spiculated right upper lobe mass present on previous chest CT is not well seen on plain radio graph. 2. No right rib fractures. No underlying pneumothorax or pneumothora x in the right chest. Signed by: Dr. Yumi Vale M.D. on 12/28/2018 8:5 1 AM Dictated By: YUMI VALE MD 0 Transcribed By: LAWRENCE on 12/28/18850 COPY TO: RAMA MEDINA MD BONE DXA DUAL [id number] 07:02:00 [place] [address] Patient Name: Bharath FRANZ MR #: [id number] : 1945 Age/Sex: 73/F Req #: [id number] Adm Physician: Ordered by: RAMA MEDINA MD Report #: [id number] Location: [facility] Room/Bed: Procedure: [id number] DX/BONE D XA DUAL ENERGY Exam Date: Exam Time: REPORT STATUS: Signed EXAM: DXA BONE DENSITY INDICATIONS: OSTEOPORSIS COMPARISON: None. FINDINGS: Proximal left femur bone mineral density (BMD) (g/cm2): 0.810 Femur T-score (standard d eviation relative to young adult mean BMD): -1.1 Femur Z-score (standard deviation relative to age-matched control group): 0.6 Lumbar bone min eral density (BMD) (g/cm2): 1.158 Lumbar T-score (standard deviation relativ e to young adult mean BMD): 1.0 Lumbar Z-score (standard deviation relati ve to age-matched control group): 3.4 Change since prior exam (%): Femur: Not applicable. Spine: Not applicable. Change since oldest kendra or exam (%): Femur: Not applicable. Spine: Not applicable. CONCLUS ION: 1. Bone mineral density in the left femur is classified as osteopenia. Fracture risk is increased. 2. Bone mineral density in the spine is classified as normal. Fracture risk is not increased. World Health Organization Classification: *The Z-score is provided for informational purposes. The T- score is preferable for clinical decisions. When comparing exams, a change o f >4% is considered statistically significant. SUGGESTED RECOMMENDATIONS: Normal Osteopenia: Consideration should be given to use of calcium supplementation, daily multiple vitamins and adequate exercise, as preventive measures against osteoporosis, if clinically indicated. Osteoporosis Severe Osteoporosis: In addition to the above, consideration should be given to medical therapy against osteoporosis, if clinically indicated. Vandana Oviedo D.O. Dictated by: Vandana Oviedo D.O. on 12/28/2018 at 7:02 Electronically approved by: Vandana Oviedo D.O. on 12/28/2018 at 7:02 Dictated By: VANDANA OVIEDO DO 1 Transcribed By: MESFIN on 12/28/18701 COPY TO: RAMA MEDINA MD SP LUMBAR, COMPLETE MIN [id number] 15:47:[address], [place], [place] [address] Patient Name: AMISH FRANZ MR #: [id number] : 1945 Age/Sex: 73/F Req #: [id number] [facility] Physician: Ordered by: RAMA MEDINA MD Report #: [id number] Location: [facility] Room/Bed: Procedure: [id number] DX/S P LUMBAR, COMPLETE MIN 4VW Exam Date: 11/28/18 Exam Time: 1350 REPORT STATUS: Signed EXAM: Lumbar spine radiographs-5 views INDICATION: Low back pain. CO MPARISON: None. FINDINGS: BONES: Diffuse osteopenia. The alignment is within normal limits. No acute displaced fractures. Vertebral body heights are preserved. DISCS: Mild degenerative disc changes, most pronounced at L5-S1. JOINTS: Moderate facet degenerative changes, most pronounced at L5 -S1. OTHER: Extensive atherosclerotic calcifications. Right common iliac artery stent is noted. Status post cholecystectomy. IMPRESSION: No acute radiographic abnormality. Mild degenerative disc changes and moderate facet degenerative changes, most pronounced at L5-S1. Diffuse osteopenia. Signed by: Dr. Walker Toledo MD on 11/28/2018 3:56 PM Dictated By: WALKER TOLEDO MD 1556 Transcr ibed By: LAWRENCE on 11/28/18 1551 COPY TO: RAMA MEDINA MD BASIC METABOLIC [id number] 22:24:00* Test Item Value Reference Range Interpretation Comments SODIUM (test code = NA) 137 mmol/L 136-145 N POTASSIUM (test code = K) 3.2 mmol/L 3.5-5.1 L CHLORIDE (test code = CL) 100.0 mmol/L 98-107 N CARBON DIOXIDE (test code = CO2) 28.0 mmol/L 21-32 N ANION GAP (test code = GAP) 12.2 10-20 N GLUCOSE (test code = GLU) 285 mg/dL 74-106 H BLOOD UREA NITROGEN (test code = BUN) 15 mg/dL 7-18 N GLOMERULAR FILTRATION RATE (test code = GFR) 54 mL/min >=60 Estimated GFR by using Modified MDRD formula.Chronic kidney disease is defined as either kidney damageor GFR <60 mL/min/1.73 m2 for >3 months. CREATININE (test code = CREAT) 1.00 mg/dL 0.55-1.02 N Note change in reference range due to change in reagent. BUN/CREATININE RATIO (test code = BUN/CREA) 15.2 10-20 N CALCIUM (test code = CA) 9.0 mg/dL 8.5-10.1 N [id number] 22:24:00* Test Item Value Reference Range Interpretation Comments TROPONIN-I (test code = TROPI) <0.015 ng/mL 0-0.045 N CBC W/AUTO [id number] 22:04:00* Test Item Value Reference Range Interpretation Comments WHITE BLOOD CELL (test code = WBC) 8.7 K/mm3 4.5-12.5 N RED BLOOD CELL (test code = RBC) 4.55 mill/mm3 3.7-5.2 N HEMOGLOBIN (test code = HGB) 13.9 gram/dL 11.5-15.5 N HEMATOCRIT (test code = HCT) 40.6 % 36.0-46.0 N MEAN CELL VOLUME (test code = MCV) 89.2 fL 80-98 N MEAN CELL HGB (test code = MCH) 30.5 picogram 27.0-33.0 N MEAN CELL HGB CONCETRATION (test code = MCHC) 34.2 gram/dL 33.0-36. 0 N RED CELL DISTRIBUTION WIDTH (test code = RDW) 13.1 % 11.6-16. 2 N RED CELL DISTRIBUTION WIDTH SD (test code = RDW-SD) 42.6 fL 37 .0-51.0 N PLATELET COUNT (test code = PLT) 299 K/mm3 150-450 N MEAN PLATELET VOLUME (test code = MPV) 9.8 fL 6.7-11.0 N NEUTROPHIL % (test code = NT%) 67.2 % 39.0-69.0 N IMMATURE GRANULOCYTE % (test code = IG%) 0.2 % 0.0-5.0 N LYMPHOCYTE % (test code = LY%) 19.5 % 25.0-55.0 L MONOCYTE % (test code = MO%) 6.6 % 0.0-10.0 N EOSINOPHIL % (test code = EO%) 3.7 % 0.0-5.0 N BASOPHIL % (test code = BA%) 2.8 % 0.0-1.0 H NUCLEATED RBC % (test code = NRBC%) 0.0 % 0-0 N NEUTROPHIL # (test code = NT#) 5.82 K/mm3 1.8-7.7 N IMMATURE GRANULOCYTE # (test code = IG#) 0.02 x10 3/uL 0-0.03 N LYMPHOCYTE # (test code = LY#) 1.69 K/mm3 1.0-5.0 N MONOCYTE # (test code = MO#) 0.57 K/mm3 0-0.8 N EOSINOPHIL # (test code = EO#) 0.32 K/mm3 0.0-0.5 N BASOPHIL # (test code = BA#) 0.24 K/mm3 0.0-0.2 H NUCLEATED RBC # (test code = NRBC#) 0.00 K/mm3 0.0-0.1 N MANUAL DIFF REQUIRED (test code = MDIFF) NO - CT HEAD/BRAIN W/O [id number] 21:51:00 Name: ETELVINANITHYATANKARIANNA HAIR [facility] : 1945 Age/S: 73 / F [address] [facility] #: [id number] [place]: [place] [address] Phys: Moise Martin MD Acct: [id number] Dis Date: Status: PRE ER PHONE #: [phone] Exam Date: 10/12/20182117 FAX #: [phone] Reason: Headache EXAMS: CPT CODE: [id number] CT HEAD/BRAIN W/O CONT 32425 EXAM: CT of the head without contrast; [...] DLP: PAGE 1 Signed Report CHEST 2 [id number] 13:31:00 [place] [address] Patient Name: AMISH FRANZ MR #: [id number] : 1945 Age/Sex: 73/F Req #: [id number] Adm Physician: Ordered by: RAMA MEDINA MD Report #: [id number] Location: [facility] Room/Bed: Procedure: [id number] DX/C HEST 2 VIEWS Exam Date: 07/18/18 [...] TO: RAMA MEDINA MD MAMMOGRAPHY DIGITAL DX [facility] [id number] 12:10:00 [place] [address] Patient Name: AMISH FRANZ MR #: [id number] : 1945 Age/Sex: 72/F Req #: [id number] Adm Physician: Ordered by: RAMA MEDINA MD Report #: [id number] Location: [facility] Room/Bed: Procedure: MG/MAMMOGRAPHY DIGITAL DX UN I LT Exam Date: 04/27/18 Exam Time: 1133 REPOR T STATUS: Signed #[id number] - MGDXLT #UNILATERAL LEFT DIGITAL DIAGNO STIC MAMMOGRAM WITH SPOT COMPRESSION: 04/27/2018 Comparison is made to exam date d: 03/15/2018 mammogram - [facility]. Current study contains 2 films. There are [...] noti fied by letter of the results. Vandana Oviedo Jr., D.O. cw/: 04/27/2018 13:40:22 Dairy Department Manager: Lauren MOHAN)(Meir), [facility] letter sent: Normal Exam Mammogram BI-RADS: 2 B enign Dictated By: VANDANA OVIEDO DO 1340 Transcribed By: MARGARITA on 04/27/18 1340 COPY TO: RAMA MATHEW MD [id number] 17:10:00 [place] [address] Patient Name: AMISH FRANZ MR #: [id number] : 1945 Age/Sex: 72/F Req #: [id number] Adm Physician: Ordered by: RAMA MEDINA MD Report #: [id number] Location: US Room/Bed: Procedure: [id number] US/US THYROID Exam Date: 04/13 Exam Time: 1113 REPORT STATUS: Signed OH OCEDURE: US THYROID COMPARISON: None. INDICATIONS: Thyromegaly [...] TO: RAMA DELGADO MD FNA WITH IMAGE [id number] 14:13:00 [place] [address] Patient Name: AMISH FRANZ MR #: [id number] : 1945 Age/Sex: 72/F Req #: [id number] Adm Physician: Ordered by: RAMA MEDINA MD Report #: [id number] Location: CT Room/Bed: Procedure: [id number] IR/FNA WITH IMAGE GUIDANCE Exa m Date: 04/06/18 Exam Time: 112 REPORT STATUS: [...] groundglass pulmonary nodule biopsy performed without complication. Vandana Oviedo D.O. Dictated by: Vandana Oviedo D.O. on 04/06/2018 at 14:13 Electronically approved by: Vandana Oviedo D.O. on 04/06/2018 at 14:13 Dictated By: VANDANA OVIEDO DO 12 Transcribed By: RIZWANA SMALLS on 04/06/181412 COPY TO: RAMA MEDINA MD BIOPSY LUNG 2018-04-06 14:13:00 [place] [address] Patient Name: AMISH FRANZ MR #: [id number] : 1945 Age/Sex: 72/F Req #: [id number] Adm Physician: Ordered by: RAMA MEDINA MD Report #: [id number] Location: CT Room/Bed: Procedure: [id number] IR/BIOPSY LUNG Exam Date: 03/19 06/06 Exam [...] groundglass pulmonary nodule biopsy performed without complication. Vandana Oviedo D.O. Dictated by: Vandana Oviedo D.O. on 04/06/2018 at 14:13 Electronically approved by: Vandana Oviedo D.O. on 04/06/2018 at 14:13 Dictated By: VANDANA OVIEDO DO 12 Transcribed By: RIZWANA SMALLS on 04/06/181412 COPY TO: RAMA MEDINA MD CT GUIDED BIOPSY/ASPIR/INJ/[id number] 14:13:00 [place] [address] Patient Name: AMISH FRANZ MR #: [id number] : 1945 Age/Sex: 72/F Req #: [id number] Adm Physician: Ordered by: RAMA MEDINA MD Report #: [id number] Location: CT Room/Bed: Procedure: CT/CT GUIDED BIOPSY/ASPIR/INJ/P LA Exam Date: 04/06/18 Exam Time: 1125 REPORT STATUS: [...] groundglass pulmonary nodule biopsy performed without complication. Vandana Oviedo D.O. Dictated by: Vandana denton D.O. on 04/06/2018 at 14:13 Electronically approved by: Vandana Cazares am, D.O. on 04/06/2018 at 14:13 Dictated By: VANDANA OVIEDO DO 1413 Transcribed By: RIZWANA SMALLS on 04/06/18 1413 COPY TO: RAMA MEDINA MD CHEST SINGLE (NOT PORTABLE)2018-04-06 14:00:00 [place] [address] Patient Name: AMISH FRANZ MR #: [id number] : 1945 Age/Sex: 72/F Req #: [id number] Adm Physician: Ordered by: VANDANA OVIEDO DO Report #: [id number] Location: CT Room/Bed: Procedure: DX/CHEST SINGLE (NOT PORTABLE) Exam Date: Exam Time: REPORT STATUS: Signed PROCEDURE: X-RAY CHEST, ONE VIEW COMPARISON: [facility], DX, CHEST XRAY POST PROCEDURE, 04/06/2018, 11:31. [...] abnormalities. CONCLUSION: No evidence of a pneumothorax. Vandana Oviedo D.O. Dictated by: Bethel Rivas on 04/06/2018 at 14:00 Electronically approved by: Brittani Rivas on 04/06/2018 at 14:00 Dictated By: VANDANA OVIEDO DO Electro nically Signed By: VANDANA OVIEDO DO on 04/06/18 1400 Transcribed By: MESFIN on 0 04/06/18 1400 COPY TO: VANDANA OVIEDO DO CHEST XRAY POST PROCEDURE 2018-04-06 11:53:00 [place] [address] Patient Name: AMISH FRANZ MR #: [id number] : 1945 Age/Sex: 72/F Req #: [id number] Adm Physician: Ordered by: VANDANA OVIEDO DO Report #: [id number] Location: CT Room/Bed: Procedure: [id number] DX/CHEST XRAY POST PROCEDURE Ex am Date: [...] nodule biopsy without evidence of a pneumothorax. Vandana Oviedo D.O. Dictated by: Bethel Rivas on 04/06/2018 at 11:53 Electronically approved by: Brittani Rivas on 04/06/2018 at 11:53 Dictated By: VANDANA OVIEDO DO Electro nically Signed By: VANDANA OVIEDO DO on 04/06/18 1153 Transcribed By: MESFIN on 0 04/06/18 1153 COPY TO: VANDANA OVIEDO DO CT CHEST [id number] 18:11:00 [place] [address] Patient Name: Bharath FRANZ MR #: [id number] : 1945 Age/Sex: 72/F Req #: [id number] Adm Physician: Ordered by: RAMA MEDINA MD Report #: [id number] Location: CT Room/Bed: Procedure: [id number] CT/CT CHEST WO Exam Date: 03/21/18 Exam Time: 1725 REPORT STATUS: Signed PROCED URE: CT CHEST WITHOUT CONTRAST CT scan of the chest WITHOUT intravenous contra st, using standard protocol. TECHNIQUE: The chest was scanned [employer] ng a multidetector helical scanner from the apex to the level of the adrenal glands. No IV contrast was administered per physician's request. Coronal and sagittal multiplanar reformations were obtained. COMPARISON: [facility], CT, CT CHEST WO, 03/13/2016, 18:39. 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 Scattered calcifications and vascular [...] the Mammography Department to schedule this appointment. Vandana Oviedo Jr., D.O. cw/:03/23/2018 14:02:53 Dairy Department Manager: Lauren MOHAN)(Meir), [facility] letter sent: Additional Imaging Needed Mammogram BI-RADS: 0 Indeterminate Dictated By: VANDANA ANNE DO 140 Transcrib ed By: MARGARITA on 03/23/18 140 COPY TO: RAMA MEDINA MD CERVICAL SPINE 4 OR 5 [id number] 23:38:00 [place] [address] Patient Name: AMISH FRANZ MR #: [id number] : 1945 Age/Sex: 72/F Req #: [id number] Adm Physician: Ordered by: RAMA MEDINA MD Report #: [id number] Location: RAD Room/Bed: Procedure: [id number] DX/CERVICAL SPINE 4 OR 5 VIEWS Exam [...] nd left carotid artery. Signed by: Dr. Thomas Alfaro M.D. on 03/14/2018 11:41 PM Dictated By: THOMAS RODRIGUEZ MD 40 Transcribed By: LAWRENCE on 03/14/182340 COPY TO: RAMA MEDINA MD CHEST 2 [id number] 15:28:00 [place] [address] Patient Name: AMISH FRANZ MR #: [id number] : Age/Sex: 72/F Req #: [id number] Adm Physician: Ordered by: RAMA MEDINA MD Report #: [id number] Location: [facility] Room/Bed: Procedure: [id number] DX/CHEST 2 VIEWS Exam Date: 03/14/18 Exam Time: 1415 REPORT STATUS: Signed PROCEDURE: Frontal and lateral views of the chest. COMPARISON: Patients [facility], DX, CHEST SINGLE (PORTABLE), 03/13/2016, 17:51. Patients [facility], CT, CT CHEST WO, 03/13/2016, 18:39. Patients [facility], DX , CHEST SINGLE (PORTABLE), 09/23/2016, 22:15. [...]
--- OUTSIDE RECORDS SUMMARY | 2020-04-18 17:52 | XMS REPORT | Continuity of Care Document ---
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 Name Role Phone CAROL LEVINE, MD ONTIVEROS PCP STEPHANIE CHRISTENSEN Attracheals Unavailable RAMA MEDINA Attphys Unavailable STEPHANIE CHRISTENSEN Admtani Unavailable Payers Payer Name Policy Type Policy Number Effective Date Expiration Date S [facility] [id number] 2019 00:00:00 [facility] [id number] 2019 00:00 :00 [facility] Problems Condition Name Condition Details Condition Category [...] ght Disease Active 2018-06-12 00:00:00 [facility] Pre-op exam Pre-op exam Disease Active 2018-06-04 00:00:00 Vishal Bentley Carotid bruit Carotid bruit Disease Active 2018-06-04 00:00:00 Vishal Bentley 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 Disease A ctive 2018-06-04 00:00:00 Vishal Bentley Angina pectoris Angina pectoris Disease Active 2018-06-04 00:00:00 Vishal Bentley Chest pain Chest pain Problem Active 2016-03-13 00:00:00 [facility] Diabetes mellitus Diabetes Problem Active 2016-03-13 00:00:00 [facility] Hypokalemia Hypokalemia Problem Active 2016-03-13 00:00:00 [facility] Urinary tract infection UTI (urinary tract infection) Problem Active 2016-03-13 00:00:00 [facility] Acute on chronic congestive heart failure Problem Active [facility] Anemia Problem Active [facility] Short of breath on exertion Problem Active [facility] Allergies, Adverse Reactions, Alerts Allergy Name Allergy Type Status Severity Reaction(s) Onset Date Inacti ve Date Treating Clinician Comments Source Iodine and Iodide Containing Produc Allergy to substance Active M oderate HIVES 2019-07-18 00:00:00 [facility] No Known Allergies DA Active U 2018-10-12 00:00:00 [facility] Codeine Allergy to substance Active Mild HIVES 2017-03-26 00:00:00 [facility] Family History Family Member Diagnosis Comments Start Date Stop Date Source Natural father Heart disease Vishal Bentley Natural father Neuropathy [facility] Natural mother Diabetes [facility] Natural mother Heart disease Vishal Bentley Social History Social Habit Start Date Stop Date Quantity Comments Source History of tobacco use Current smoker Vishal Bentley [facility] Cigarettes smoked current (pack per day) - Reported 00:00:00 2018-08-03 00:00:00 Vishal Bentley Cigarette pack-years 2018-08-03 00:00:00 2018-08-03 00:00:00 [facility] Alcohol intake 2018-08-03 00:00:00 2018-08-03 00:00:00 Current non-drinker of alcohol (finding) Vishal Bentley Smoking Status Start Date Stop Date Source Former smoker 2018-08-03 00:00:00 2018-08-03 00:00:00 Vishal Bentley Medications Ordered Medication Name Filled Medication Name Start Date Stop Da te Current Medication? Ordering Clinician Indication Dosage Frequency Signature (SIG) Comments Components Source Furosemide Furosemide 2020-04-15 10:24:00 Yes 20 Faith ly [facility] Metoprolol Tartrate (Lopressor) 25 Mg TAB Metoprolol T artrate (Lopressor) 25 Mg TAB 2020-04-15 09:55:00 Yes 25 Twice A Day [facility] Pantoprazole Sodium (Protonix) 40 Mg TABLET. Pantopr azole Sodium (Protonix) 40 Mg TABLET. 2020-04-15 09:55:00 Yes 40 Twice Daily Before Meals [facility] Tramadol Hcl (Ultram 50MG*) 50 Mg TAB Tramadol Hcl (Ultram 5 0MG*) 50 Mg TAB 2019-07-18 06:43:00 Yes 50 Every 8 Hours as n eeded for Pain [facility] Fenofibrate (Tricor) 48 Mg TAB Fenofibrate (Tricor) 48 Mg TA B 2019-07-18 06:36:00 Yes 48 Daily [facility] Pantoprazole Sodium (Protonix) 40 Mg TABLET. Pantopr azole Sodium (Protonix) 40 Mg TABLET. 2019-07-18 06:36:00 2020-04-12 00:00:00 No 40 Daily@0600 [facility] metFORMIN (GLUCOPHAGE) 500 mg tablet 2018-06-26 13:35:07 [...] Mg TABLET 2016-03-19 14:39:00 Yes 40 Bedtime [facility] Lisinopril (Prinivil) 10 Mg TABLET Lisinopril (Prinivil) 10 Mg TABLET 2016-03-19 14:39:00 2020-04-15 00:00:00 No 10 Daily [facility] Carisoprodol Carisoprodol 2016-03-19 14:39:00 2017-03-26 00:00:00 No 350 Every 12 Hours as needed for Muscle Spasms [facility] Metoprolol Tartrate (Lopressor) 25 Mg TAB Metoprolol T artrate (Lopressor) 25 Mg TAB 2016-03-19 14:39:00 2017-03-26 00:00:00 No 25 Ever y 12 Hours [facility] Pantoprazole Sod (Protonix) 40 Mg/Ml SUSP Pantoprazole Sod (Protonix) 40 Mg/Ml SUSP 2016-03-19 14:39:00 2017-03-26 00:00:00 No 40 Befo re Breakfast [facility] Albuterol Sulfate (Proair Hfa Inhaler*) 8.5 Gm INH Alb uterol Sulfate (Proair Hfa Inhaler*) 8.5 Gm INH Yes 2 Laura ry 6 Hours as needed for Shortness Of Breath [facility] Aspirin (Aspir 81) 81 Mg TABLET. Aspirin (Aspir 81) 81 Mg TABLET. Yes 1 Daily [facility] Bisacodyl (Dulcolax) 5 Mg TABLET. Bisacodyl (Dulcolax) 5 Mg TABLET. Yes 1 Daily [facility] Clopidogrel Bisulfate (Plavix) 75 Mg TABLET Clopidogre l Bisulfate (Plavix) 75 Mg TABLET Yes 75 Daily [facility] Cyanocobalamin (Vitamin B-12) 1,000 Mcg TAB Cyanocobal dennis (Vitamin B-12) 1,000 Mcg TAB Yes 500 Daily [facility] Exenatide Microspheres (Bydureon) 2 Mg VIAL Exenatide Microspheres (Bydureon) 2 Mg VIAL Yes 2 Once A Week [facility] Gabapentin Gabapentin Yes 1 Three Times A Day [facility] Metformin Hcl Metformin Hcl Yes 1000 Twice Daily With Meals [facility] Trazodone Hcl Trazodone Hcl Yes 50 Bedtime [facility] Fluticasone Propionate Fluticasone Propionate 2020-04-12 00:00:00 No [facility] Insulin Aspart (Novolog) 100 Unit/1 Ml CARTRIDGE Insul in Aspart (Novolog) 100 Unit/1 Ml CARTRIDGE 2020-04-12 00:00:00 No 10 Three Times Daily With Meals [facility] Insulin Glargine (Lantus) 100 Units/Ml ML Insulin Glar gine (Lantus) 100 Units/Ml ML 2020-04-12 00:00:00 No 30 Bedtime [facility] Meloxicam Meloxicam 2020-04-12 00:00:00 No 7.5 Daily [facility] Gabapentin Gabapentin 2017-03-26 00:00:00 No 600 Twi ce A Day [facility] Pregabalin (Lyrica) 75 Mg CAP Pregabalin (Lyrica) 75 Mg CAP 2017-03-26 00:00:00 No 75 Twice A Day [facility] Clopidogrel Bisulfate (Plavix) 75 Mg TABLET Clopidogre l Bisulfate (Plavix) 75 Mg TABLET 2016-03-19 00:00:00 No 75 Daily [facility] Diazepam (Valium) 2 Mg TABLET Diazepam (Valium) 2 Mg TABLET 2016-03-14 00:00:00 No 2 Twice A Day [facility] Immunizations Ordered Immunization Name Filled Immunization Name Date Status Comments Source FLUCELVAX QUAD PF 2018-06-15 00:00:00 Completed [facility] Vital Signs Vital Name Observation Time Observation Value Comments Source Body Temperature 2020-04-15 13:27:00 96.7 [degF] [facility] Weight 2020-04-12 00:00:00 156.25 [lb_av] [facility] BMI (Body Mass Index) 2020-04-12 00:00:00 28.6 kg/m2 [facility] Procedures Procedure Date / Time Performed Performing Clinician [facility] Computed tomography of chest without contrast 2020-04-13 00:00:0 0 [facility] US thyroid 2019-10-08 00:00:00 [facility] Computed tomography of chest without contrast 2019-10-08 00:00:0 0 [facility] Computed tomography of abdomen with contrast 2019-07-19 00:0 0:[address] [facility] Computed tomography of chest with contrast 2019-07-19 00:00:[address] [facility] X-ray of chest, two views 2019-07-17 00:00:00 EVERT BAXTER [facility] Plan of Care Planned Activity Planned Date Details Comments Source Future Scheduled Test 2020-04-19 00:00:00 INFLUENZA VACCINE [code = INFLUENZA VACCINE] [facility] Scheduled Test 2009 00:00:00 65+ PNEUMOCOCCAL V ACCINE (1 of 2 - PCV13) [code = 65+ PNEUMOCOCCAL VACCINE (1 of 2 - PCV13)] [facility] Scheduled Test 1994 00:00:00 BREAST CANCER SCRE ENING [code = BREAST CANCER SCREENING] [facility] Scheduled Test 1994 00:00:00 COLONOSCOPY SCREEN ING [code = COLONOSCOPY SCREENING] [facility] Scheduled Test 1994 00:00:00 SHINGLES VACCINES (#1) [code = SHINGLES VACCINES (#1)] [facility] Anemia [facility] Encounters Start Date/Time End Date/Time Encounter Type Admission Type [facility] Care Department Encounter ID Source 2020-04-13 15:21:00 2020-04-15 14:41:00 Discharged Inpatient 1 STEPHANIE CHRISTENSEN [facility] [id number] [facility] 2020-04-09 12:19:00 2020-04-09 12:19:00 Registered Clinic 3 [facility] [id number] [facility] 2019-10-08 12:58:00 2019-10-08 12:58:00 Registered Clinic 3 [facility] [id number] [facility] 2019-07-17 16:30:00 2019-07-19 21:55:00 Discharged Inpatient (obs) 1 AMPARO [facility] [id number] [facility] 2019-06-20 13:35:00 2019-06-20 13:35:00 Registered Clinic 3 [facility] [id number] [facility] 2018-12-27 12:59:00 2018-12-27 12:59:00 Registered Clinic [address] [facility] [id number] [facility] 2018-11-28 13:35:00 2018-11-28 13:35:00 Registered Clinic [address] [facility] [id number] [facility] Results Test Description Test Time Test Comments Results Result Comments Source Capillary blood glucose measurement by glucometer (mas s/volume) 2020-04-15 11:33:00 Test Item Bedside Glucose (test code = 79367-9) 156 70-120 Meter ID: [id number] [facility] PasoBlood leukocytes automated count (number/volume)2020-04-15 06:00:00* Test Item Value Reference Range Interpretation Comments White Blood Count (test code = 6690-2) 9.55 4.8-10.8 [facility] erythrocytes automated count (number/volume)2020-04-15 06:00:00* Test Item Value Reference Range Interpretation Comments Red Blood Count (test code = 789-8) 3.19 3.6-5.1 [facility] hemoglobin measurement (moles/volume)2020-04-15 06:00:00* Test Item Value Reference Range Interpretation Comments Hemoglobin (test code = 25925-7) 7.9 12.0-16.0 [facility] BrookAutomated blood hematocrit (volume fraction)2020-04-15 06:00:00* Test Item Value Reference Range Interpretation Comments Hematocrit (test code = 4544-3) 26.3 34.2-44.1 [facility] BrookAutomated erythrocyte mean corpuscular snztsz4834-10-83 06:00:00* Test Item Value Reference Range Interpretation Comments Mean Corpuscular Volume (test code = 787-2) 82.4 81-99 [facility] BrookAutomated erythrocyte mean corpuscular hemoglobin (mass per erythrocyte)2020-04-15 06:00:00* Test Item Value Reference Range Interpretation Comments Mean Corpuscular Hemoglobin (test code = 785-6) 24.8 28-32 [facility] BrookAutomated erythrocyte mean corpuscular hemoglobin concentration measurement (mass/volume)2020-04-15 06:00:00* Test Item Value Reference Range Interpretation Comments Mean Corpuscular Hemoglobin Concent (test code = 786-4) 30.0 31-35 [facility] BrookRDW HeyOh-Rvf9909-52-28 06:00:00* Test Item Value Reference Range Interpretation Comments Red Cell Distribution Width (test code = 93089-3) 15.7 11.7 -14.4 [facility] BrookAutomated blood platelet count (count/volume)2020-04-15 06:00:00* Test Item Value Reference Range Interpretation Comments Platelet Count (test code = 777-3) 424 140-360 [facility] BrookAutomated blood segmented neutrophil count as percentage of total kinbxtawox3823-45-66 06:00:00* Test Item Value Reference Range Interpretation Comments Neutrophils (%) (Auto) (test code = 42778-6) 73.5 38.7-80.0 [facility] BrookAutomated blood lymphocyte count as percentage ot total spdkrcqsbi2712-80-55 06:00:00* Test Item Value Reference Range Interpretation Comments Lymphocytes (%) (Auto) (test code = 736-9) 15.6 18.0-39.1 [facility] BrookAutomated blood monocyte count as percentage of total dzzizdyskw6189-72-33 06:00:00* Test Item Value Reference Range Interpretation Comments Monocytes (%) (Auto) (test code = 5905-5) 7.3 4.4-11.3 [facility] BrookAutomated blood eosinophil count as percentage of total zcjdkqwetr5313-36-68 06:00:00* Test Item Value Reference Range Interpretation Comments Eosinophils (%) (Auto) (test code = 713-8) 1.6 0.0-6.0 [facility] BrookAutomated blood basophil count as percentage of total mrokyfiram5094-62-28 06:00:00* Test Item Value Reference Range Interpretation Comments Basophils (%) (Auto) (test code = 706-2) 1.6 0.0-1.0 [facility] BrookFluoroscopic procedure less than one hour powvtceo1943-60-11 06:00:00* Test Item Value Reference Range Interpretation Comments IM GRANULOCYTES % (test code = IM GRANULOCYTES %) 0.4 0.0- 1.0 [facility] BrookAutomated blood neutrophil count 2020-04-15 06:00:00* Test Item Value Reference Range Interpretation Comments Neutrophils # (Auto) (test code = 751-8) 7.0 2.1-6.9 [facility] BrookBlood lymphocytes count (number/volume) 2020-04-15 06:00:00* Test Item Value Reference Range Interpretation Comments Lymphocytes # (Auto) (test code = 62863-4) 1.5 1.0-3.2 [facility] BrookBlood monocytes automated count (number/volume)2020-04-15 06:00:00* Test Item Value Reference Range Interpretation Comments Monocytes # (Auto) (test code = 742-7) 0.7 0.2-0.8 [facility] BrookAutomated blood eosinophil count 2020-04-15 06:00:00* Test Item Value Reference Range Interpretation Comments Eosinophils # (Auto) (test code = 711-2) 0.2 0.0-0.4 [facility] BrookAutomated blood basophil count (count/volume)2020-04-15 06:00:00* Test Item Value Reference Range Interpretation Comments Basophils # (Auto) (test code = 704-7) 0.2 0.0-0.1 [facility] BrookFluoroscopic procedure less than one hour wuujlycn1379-62-15 06:00:00* Test Item Value Reference Range Interpretation Comments Absolute Immature Granulocyte (auto (jojo t code = Absolute Immature Granulocyte (auto) 0.04 0-0.1 [facility] sodium measurement (moles/volume)2020-04-15 05:30:00* Test Item Value Reference Range Interpretation Comments Sodium Level (test code = 2951-2) 138 136-145 [facility] or plasma potassium measurement (moles/volume)2020-04-15 05:30:00* Test Item Value Reference Range Interpretation Comments Potassium Level (test code = 2823-3) 3.7 3.5-5.1 [facility] or plasma chloride measurement (moles/volume)2020-04-15 05:30:00* Test Item Value Reference Range Interpretation Comments Chloride Level (test code = 2075-0) 100 98-107 [facility]icserum or plasma carbon dioxide, total measurement (moles/volume)2020-04-15 05:30:00* Test Item Value Reference Range Interpretation Comments Carbon Dioxide Level (test code = 2028-9) 26 22-29 [facility]um or plasma anion htr0832-08-50 05:30:00* Test Item Value Reference Range Interpretation Comments Anion Gap (test code = 56546-0) 15.7 8-16 [facility]icser[facility] or plasma urea nitrogen measurement (mass/volume)2020-04-15 05:30:00* Test Item Value Reference Range Interpretation Comments Blood Urea Nitrogen (test code = 3094-0) 19 7-26 [facility]icser[facility] or plasma creatinine measurement (mass/volume)2020-04-15 05:30:00* Test Item Value Reference Range Interpretation Comments Creatinine (test code = 2160-0) 1.32 0.57-1.11 [facility]ics[facility]um or plasma urea nitrogen/creatinine mass zwqmw3561-76-86 05:30:00* Test Item Value Reference Range Interpretation Comments BUN/Creatinine Ratio (test code = 3097-3) 14 6-25 [facility] BrookEstimated glomerular filtration rate (GFR) obvoqcjyegfwi0224-90-57 05:30:00* Test Item Value Reference Range Interpretation Comments Estimat Glomerular Filtration Rate (test code = 843722388) 39 >60 Ranges were taken from the National Kidney Disease Education Program and the [facility] Kidney Foundation literature.Reference ranges:60 or greater: Fhjtib01-64 ( for 3 consecutive months): Chronic kidney disease 15 or less: Kidney failureAdventHealth Rollins BrookGlucose lecfzygjslw6003-93-83 05:30:00* Test Item Value Reference Range Interpretation Comments Glucose Level (test code = NLO5121) 123 74-118 [facility]ics[facility] or plasma calcium measurement (mass/volume)2020-04-15 05:30:00* Test Item Value Reference Range Interpretation Comments Calcium Level (test code = 93595-0) 8.8 8.4-10.2 [facility]ics[facility] or plasma magnesium measurement (mass/volume)2020-04-15 05:30:00* Test Item Value Reference Range Interpretation Comments Magnesium Level (test code = 80117-4) 2.3 1.3-2.1 [facility] or plasma total bilirubin measurement (mass/volume)2020-04-15 05:30:00* Test Item Value Reference Range Interpretation Comments Total Bilirubin (test code = 1975-2) 0.5 0.2-1.2 [facility] BrookFluoroscopic procedure less than one hour vzbzuhow2004-08-50 05:30:00* Test Item Value Reference Range Interpretation Comments Aspartate Amino Transf (AST/SGOT) (test code = Aspartate Amino Transf (AST/SGOT)) 16 5-34 [facility]icserum or plasma alanine aminotransferase measurement (enzymatic activity/volume)2020-04-15 05:30:00* Test Item Value Reference Range Interpretation Comments Alanine Aminotransferase (ALT/SGPT) (test code = 1742-6) 7 0-55 [facility]icserum or plasma protein measurement (mass/volume)2020-04-15 05:30:00* Test Item Value Reference Range Interpretation Comments Total Protein (test code = 2885-2) 6.9 6.5-8.1 [facility]icserum or plasma albumin measurement (mass/volume)2020-04-15 05:30:00* Test Item Value Reference Range Interpretation Comments Albumin (test code = 1751-7) 3.1 3.5-5.0 [facility] BrookPlasma globulin measurement (mass/volume) 2020-04-15 05:30:00* Test Item Value Reference Range Interpretation Comments Globulin (test code = 39587-5) 3.8 2.3-3.5 [facility]icserum or plasma albumin/globulin mass fibdd6113-02-16 05:30:00* Test Item Value Reference Range Interpretation Comments Albumin/Globulin Ratio (test code = 1759-0) 0.8 0.8-2.0 [facility]icser[facility] or plasma alkaline phosphatase measurement (enzymatic activity/volume)2020-04-15 05:30:00* Test Item Value Reference Range Interpretation Comments Alkaline Phosphatase (test code = 6768-6) 104 40-150 [facility] BrookFluoroscopic procedure less than one hour vedhurzn6975-98-52 10:36:00* Test Item Value Reference Range Interpretation [...] under 564(g) of the ACT.Testing performed by [facility] [place], [place] [address]IQAAdventHealth Rollins BrookAutomated reticulocyte count as percentage of total fbcgffmtyten0081-08-24 05:10:00* Test Item Value Reference Range Interpretation Comments Percent Reticulocyte Count (test code = 93678-3) 2.4 0.8-2 .2 [facility] BrookFluoroscopic procedure less than one hour nvbiiner7095-25-62 05:10:00* Test Item Value Reference Range Interpretation Comments Hemoglobin A1c Percent (test code = Hemoglobin A1c Percent) 9.9 4.0-7.0 [facility] BrookPhosphorus khnitrmdrgd5665-53-34 05:10:00 * Test Item Value Reference Range Interpretation Comments Phosphorus Level (test code = AJW9962) 4.0 2.3-4.7 [facility]icserum or plasma iron measurement (mass/volume)2020-04-14 05:10:00* Test Item Value Reference Range Interpretation Comments Iron Level (test code = 2498-4) 26 50-170 [facility]icserum or plasma iron binding capacity measurement (mass/volume)2020-04-14 05:10:00* Test Item Value Reference Range Interpretation Comments Total Iron Binding Capacity (test code = 2500-7) 402 261-4 78 [facility]icserum or plasma iron saturation measurement (mass fraction)2020-04-14 05:10:00* Test Item Value Reference Range Interpretation Comments Percent Iron Saturation (test code = 2502-3) 6 15-50 [facility]icserum or plasma transferrin measurement (mass/volume)2020-04-14 05:10:00* Test Item Value Reference Range Interpretation Comments Transferrin (test code = 3034-6) 287 180-382 [facility]icserum or plasma ferritin measurement (mass/volume)2020-04-14 05:10:00* Test Item Value Reference Range Interpretation Comments Ferritin (test code = 2276-4) 23.15 4.63-204.00 [facility] BrookBlood cobalamin (vitamin B12) measurement (mass/volume)2020-04-14 05:10:00* Test Item Value Reference Range Interpretation Comments Vitamin B12 Level (test code = 42253-9) 037 213-284 [facility]ics[facility]um or plasma folate measurement (mass/volume)2020-04-14 05:10:00* Test Item Value Reference Range Interpretation Comments Folate (test code = 2284-8) 12.3 >3.0 A serum folate concentration of less than 3.1 ng/mL isconsidered to represent cl inical deficiency.Performed at: - Lab[address] [id number] Director: Leonardo Delarosa MD, Phone: [phone] Rollins BrookCT CHEST [id number] 18:48:00 [place] [address] Patient Name: Bharath FRANZ MR #: [id number] : 1945 Age/Sex: 74/F Req #: [id number] Adm Physician: STEPHANIE CHRISTENSEN MD Ordered by: CESAR CHESTER HOT SAW OPERATOR Report #: [id number] Location: [facility] Room/Bed: [facility] Procedure: [id number] CT/CT CHEST WO Exam Date: 04/13/20 Exam [...] Level (test code = 2571-8) 114 0-149 [facility]erum or plasma cholesterol measurement (mass/volume)2020-04-13 05:00:00* Test Item Value Reference Range Interpretation Comments Cholesterol Level (test code = 2093-3) 142 0-199 Less than 200 mg/dL Low Whnf609 - 239 mg/dL Borderline Mcvt898 m g/dl and greater High Risk [facility]icserum or plasma cholesterol in LDL measurement (mass/volume) 2020-04-13 05:00:00* Test Item Value Reference Range Interpretation Comments LDL Cholesterol (test code = 2089-1) 89 60-130 [facility]icserum or plasma cholesterol in HDL measurement (mass/volume)2020-04-13 05:00:00* Test Item Value Reference Range Interpretation Comments HDL Cholesterol (test code = 2085-9) 30 40-60 [facility]icserum or plasma total cholesterol/cholesterol in HDL mass massl9756-07-31 05:00:00* Test Item Value Reference Range Interpretation Comments Cholesterol/HDL Ratio (test code = 9830-1) 4.7 3.0-3.6 [facility]icserum or plasma thyrotropin measurement by detection limit <= 0.005 miu/l (units/volume)2020-04-13 05:00:00* Test Item Value Reference Range Interpretation Comments Thyroid Stimulating Hormone (TSH) (test code = 94477-8) 1.651 0.350-4.940 [facility] BrookBNP Sgs-bVrd6414-04-25 05:30:00* Test Item Value Reference Range Interpretation Comments B-Type Natriuretic Peptide (test code = 30821-5) 1144.5 0-100 [facility]icserum or plasma creatine kinase measurement (enzymatic activity/volume)2020-04-12 05:30:00* Test Item Value Reference Range Interpretation Comments Creatine Kinase (test code = 2157-6) 49 29-168 [facility]icserum or plasma creatine kinase MB measurement (mass/volume)2020-04-12 05:30:00* Test Item Value Reference Range Interpretation Comments Creatine Kinase MB (test code = 50796-9) 2.60 0-5.0 [facility] BrookTroponin I measurement by highly sensitive enzyme nhfoutxhldw9449-70-80 05:30:00* Test Item Value Reference Range Interpretation Comments Troponin I (test code = 25986-3) 0.168 0-0.300 [facility] BrookVQ LUNG SCAN VENT YXASPSFFB7555-14-10 20:07:00 [facility] [address] [address] Patient Name: Bharath FRANZ MR #: [id number] : 1945 Age/Sex: 74/F Req #: [id number] Adm Physician: STEPHANIE CHRISTENSEN MD Ordered by: RENATO BUSBY MD Report #: [id number] Location: [facility] Room/Bed: [place] [address] Procedure: NM/VQ LUNG SCAN VENT PERFUSION Exam [...] Blood (test code = 2335-8) POSITIVE NEGATIVE [facility] BrookBlood wqkaqyj1253-76-17 18:15:00* Test Item Value Reference Range Interpretation Comments Blood Culture (test code = 14414301) NO GROWTH AFTER 72 HOURS [facility] BrookFluoroscopic procedure less than one hour iishyshf5789-25-31 18:00:00* Test Item Value Reference Range Interpretation Comments Lactic Acid Level (test code = Lactic Acid Level) 1.0 0.5- 2.0 [facility] SINGLE (PORTABLE)2020-04-11 16:19:00 [facility] [address] [place] [address] Patient Name: Bharath FRANZ MR #: [id number] : 1945 Age/Sex: 74/F Req #: [id number] Adm Physician: Ordered by: RENATO BUSBY MD Report #: [id number] Location: ER Room/Bed: Procedure: 5136-1784 DX/CHEST SINGLE (RILEY BLE) Exam Date: 04/11/20 [...] (PT) in platelet poor plasma by coagulation ioqhn6074-54-98 15:21:00* Test Item Value Reference Range Interpretation Comments Prothrombin Time (test code = 5902-2) 14.1 11.9-14.5 [facility] BrookINR in Platelet poor plasma by Coagulation foqpz0586-38-94 15:21:00* Test Item Value Reference Range Interpretation Comments Prothromb Time International Ratio (test code = 6301-6) 1.04 Oral Anticoagulant Therapy INR Values:1. Low Intensity Therapy 1.5 - 2.02 . Moderate Intensity Therapy 2.0 - 3.03. High Intensity Therapy(1) 2.5 - 3. 54. High Intensity Therapy(2) 3.0 - 4.05. Panic Value INR > 5.0 [facility] BrookActivated partial thromboplastin time (aPTT) in platelet poor plasma by coagulation zmwgd9838-65-70 15:21:00* Test Item Value Reference Range Interpretation Comments Activated Partial Thromboplast Time (test code = 70576-9) 30.7 23.8-35.5 [facility] BrookFibrin D-dimer DDU measurement in platelet poor plasma (mass/volume)2020-04-11 15:21:00* Test Item Value Reference Range Interpretation Comments D-Dimer Quantitative (PE/DVT) (test code = 94043-6) 2.29 0. 00-0.45 As with all in vitro diagnostic tests, the test results should be interpreted by the physician in conjunction with clinical findings and other test results.Test results are reported in NEW D-dimer units(ug/mLFEU).[facility] BrookUrine color cdzqdjbbpmkrw0217-26-49 15:21:00* Test Item Value Reference Range Interpretation Comments Urine Color (test code = 5778-6) YELLOW YELLOW [facility] BrookUrine kcjwyra2862-38-70 15:21:00* Test Item Value Reference Range Interpretation Comments Urine Clarity (test code = 28455-7) CLEAR CLEAR [facility] gravity of Urine by Test strip 2020-04-11 15:21:00* Test Item Value Reference Range Interpretation Comments Urine Specific Dufur (test code = 5811-5) 1.020 1.010-1.02 5 [facility] BrookUrine pH measurement by automated test zbqwd2944-90-44 15:21:00* Test Item Value Reference Range Interpretation Comments Urine pH (test code = 34491-5) 7 5-7 [facility] BrookUrine leukocyte esterase detection by opcbmdbp3762-78-39 15:21:00* Test Item Value Reference Range Interpretation Comments Urine Leukocyte Esterase (test code = 5799-2) NEGATIVE NEGATIVE [facility] BrookUrine nitrite gysanjlhp2719-72-18 15:21:00* Test Item Value Reference Range Interpretation Comments Urine Nitrite (test code = 48705-8) NEGATIVE NEGATIVE [facility] BrookUrine protein measurement by test strip (mass/volume)2020-04-11 15:21:00* Test Item Value Reference Range Interpretation Comments Urine Protein (test code = 5804-0) 2+ NEGATIVE [facility] BrookUrine glucose hzqolwevc2427-09-97 15:21:00* Test Item Value Reference Range Interpretation Comments Urine Glucose (UA) (test code = 2349-9) NEGATIVE NEGATIVE [facility] BrookUrine ketones detection by automated test pwnta0270-59-05 15:21:00* Test Item Value Reference Range Interpretation Comments Urine Ketones (test code = 62460-3) NEGATIVE NEGATIVE [facility] BrookUrine urobilinogen measurement by test strip (mass/volume)2020-04-11 15:21:00* Test Item Value Reference Range Interpretation Comments Urine Urobilinogen (test code = 79083-4) 2.0 0.2-1 [facility] BrookUrine total bilirubin measurement (mass/volume)2020-04-11 15:21:00* Test Item Value Reference Range Interpretation Comments Urine Bilirubin (test code = 1978-6) SMALL NEGATIVE [facility] BrookUrine erythrocytes xfozqhkyc7192-40-56 15:21:00* Test Item Value Reference Range Interpretation Comments Urine Blood (test code = 24487-7) NEGATIVE NEGATIVE [facility] BrookAutomated urine sediment leukocyte count by microscopy (number/high power field)2020-04-11 15:21:00* Test Item Value Reference Range Interpretation Comments Urine WBC (test code = 5821-4) 0-5 0-5 [facility] BrookErythrocytes detection in urine sediment by light qyiliptnex6787-92-61 15:21:00* Test Item Value Reference Range Interpretation Comments Urine RBC (test code = 39686-2) NONE 0-5 [facility] BrookBacteria detection in urine sediment by light jrgdzrnddl4444-48-17 15:21:00* Test Item Value Reference Range Interpretation Comments Urine Bacteria (test code = 83390-0) MODERATE NONE [facility] BrookEpithelial cells detection in urine sediment by light ogftkfmskk2571-97-23 15:21:00* Test Item Value Reference Range Interpretation Comments Urine Epithelial Cells (test code = 59778-1) MANY NONE [facility] BrookELBOW RIGHT NGOTUYTL6784-45-76 14:33:00 [facility] [address] [address] Patient Name: Bharath FRANZ MR #: [id number] : 1945 Age/Sex: 74/F Req #: [id number] Adm Physician: Ordered by: RAMA MEDINA MD Report #: [id number] Location: [facility] Room/Bed: Procedure: 1838-7171 DX/ELBOW RIGHT COMPL ETE Exam Date: 04/09/20 [...] 11/08 143 COPY TO: RAMA MEDINA MD [facility]LT[facility]HL[facility]98-70 10:59:00 [address] [address] Patient Name: Bharath FRANZ MR #: [id number] : 1945 Age/Sex: 74/F Req #: [id number] Adm Physician: Ordered by: RAMA MEDINA MD Report #: [id number] Location: US Room/Bed: Procedure: 8800-0853 US/US THY ROID Exam Date: 10/08/19 Exam Time: 1518 REPORT STATUS: Signed Thyroid ultrasound CPT code: 31088 History: Thyromegaly Comparison: None Findings: The thyroid [...] TO: RAMA CATES MD KNEE RIGHT THREE GPWRQ2492-16-58 15:06:00 [address] [address] Patient Name: Bharath FRANZ MR #: [id number] : 1945 Age/Sex: 74/F Req #: [id number] Adm Physician: Ordered by: RAMA MEDINA MD Report #: [id number] Location: Room/Bed: Procedure: 5813-5727 DX/KNEE R IGHT THREE VIEWS Exam Date: [...] OMID PELAYO MD 06 Transcribed By: BRIT DANEIL on 10/08/191506 COPY TO: RAMA MEDINA MD CT CHEST WO 2019-10-08 14:50:00 [address] [address] Patient Name: Bharath FRANZ MR #: [id number] : 1945 Age/Sex: 74/F Req #: [id number] Adm Physician: Ordered by: RAMA MEDINA MD Report #: [id number] Location: Room/Bed: Procedure: 5080-8441 CT/CT [facility] Exam Date: Exam Time: REPORT STATUS: Signed [...] Interpretation Comments Bedside Glucose (test code = 01911-6) 297 70-120 H Meter ID: [id number] [facility] 2019-07-19 10:34:00 [address] [address] Patient Name: Bharath FRANZ MR #: [id number] : 1945 Age/Sex: 74/F Req #: [id number] Adm Physician: STEPHANIE CHRISTENSEN MD Ordered by: EDMUNDO GOYAL MD Report #: [id number] Location: MED/SURG3 Room/Bed: [facility] Procedure: 8876-4883 CT/CT A JOAQUINOMEN W Exam Date: 07/19/19 [...] COPY TO: EDMUNDO GOYAL MD CT CHEST G9076-56-26 10:34:00 [address] [address] Patient Name: Bharath FRANZ MR #: [id number] : 1945 Age/Sex: 74/F Req #: [id number] Adm Physician: STEPHANIE CHRISTENSEN MD Ordered by: EDMUNDO GOYAL MD Report #: [id number] Location: MED/SURG3 Room/Bed: 284 Procedure: 0947-0976 CT/CT C HEST W Exam Date: 07/19/19 [...] EDMUNDO GOYAL MD Stress Test - Treadmill YYRF1572-89-16 18:17:[address] [address] Patient Name : Bharath FRANZ MR #: [id number] : 1945 Age/Sex: 74/F Adm Physician : STEPHANIE CHRISTENSEN MD Admit Date : 07/17/19 Location : MED/SURG3 Room/Bed : [facility] REPORT: Myoview Stre ss Test DATE OF [...] the patient was t aken to the CryoMedix SPECT camera for resting myocardial perfusion imaging. [...] 1. Resting myocardial perfusion imaging reveals a mculu-xk-enmaqcia sized decr eased area of uptake in [...] stress test. MD SHANELL Argueta/BRIANNE 19:1 5:46 /[id number] Signature Date Dictated By: NATALY GOYAL MD Transcribed By: BRIANNE on 07/18/19 <Electronically signed by EDMUNDO GOYAL MD>for NATALY GOYAL MD<<Signature on File>>07/19/19 1232 COPY TO: Creatine Kinase MZ9902-51-54 12:29:00* Test Item Value Reference Range Interpretation Comments Creatine Kinase MB (test code = 13726-1) 1.80 0-5.0 [facility] BrookHemoglobin A1c Nmvdnnv8447-75-38 11:19:00 * Test Item Value Reference Range Interpretation Comments Hemoglobin A1c Percent (test code = Hemoglobin A1c Percent) 8.2 4.0-7.0 H [facility] BrookThyroid Stimulating Hormone (TSH) 2019-07-18 11:19:00* Test Item Value Reference Range Interpretation Comments Thyroid Stimulating Hormone (TSH) (test code = 53984-9) 1.335 0.350-4.940 [facility] BrookCHEST 2 GCOLA1123-81-94 10:00:00 [address] [address] Patient Name: Bhraath FRANZ MR #: [id number] : 1945 Age/Sex: 74/F Req #: [id number] Adm Physician: STEPHANIE CHRISTENSEN MD Ordered by: EVERT BAXTER MD Report #: [id number] Location: [facility] Room/Bed: [facility] Procedure: 8529-0137 DX/TIGRE ST 2 VIEWS Exam Date: 07/17/19 [...] 1001 COPY TO: EVERT BAXTER MD Creatine Tylaeg0623-32-16 03:30:00* Test Item Value Reference Range Interpretation Comments Creatine Kinase (test code = 2157-6) 48 29-168 [facility] BrookTroponin W1189-02-49 03:30:00* Test Item Value Reference Range Interpretation Comments Troponin I (test code = 62282-5) < 0.05 0.0-0.40 [facility] Clinicsodium Flxmf8631-63-09 03:29:00* Test Item Value Reference Range Interpretation Comments Sodium Level (test code = 2951-2) 139 136-145 [facility] BrookPotassium Ylncv5058-13-12 03:29:00* Test Item Value Reference Range Interpretation Comments Potassium Level (test code = 2823-3) 3.3 3.5-5.1 L [facility] BrookChloride Agqho2961-93-83 03:29:00* Test Item Value Reference Range Interpretation Comments Chloride Level (test code = 2075-0) 99 98-107 [facility] BrookCarbon Dioxide Jteyy9583-46-96 03:29:00* Test Item Value Reference Range Interpretation Comments Carbon Dioxide Level (test code = 2028-9) 28 22-29 [facility] BrookAnion Xea3186-01-84 03:29:00* Test Item Value Reference Range Interpretation Comments Anion Gap (test code = 62444-0) 15.3 8-16 [facility] BrookBlood Urea Chijzwha9673-42-88 03:29:00* Test Item Value Reference Range Interpretation Comments Blood Urea Nitrogen (test code = 3094-0) 15 7-26 [facility] BrookCreatinine2019-10-30 03:29:00* Test Item Value Reference Range Interpretation Comments Creatinine (test code = 2160-0) 1.16 0.57-1.11 H [facility] BrookBUN/Creatinine Ewjkh3200-68-28 03:29:00* Test Item Value Reference Range Interpretation Comments BUN/Creatinine Ratio (test code = 3097-3) 13 6-25 [facility] BrookEstimat Glomerular Filtration Rate 2019-07-18 03:29:00* Test Item Value Reference Range Interpretation Comments Estimat Glomerular Filtration Rate (test code = 372856191) 46 >60 L Ranges were taken from the National Kidney Disease Education Program and the [facility]ney Foundation literature.Reference ranges:60 or greater: Qpnjtg91-13 ( for 3 consecutive months): Chronic kidney disease 15 or less: Kidney failureAdventHealth Rollins BrookGlucose Cdonw5278-14-24 03:29:00* Test Item Value Reference Range Interpretation Comments Glucose Level (test code = FGE1147) 164 74-118 H [facility] BrookCalcium Qewiu3865-52-06 03:29:00* Test Item Value Reference Range Interpretation Comments Calcium Level (test code = 41644-9) 8.5 8.4-10.2 [facility] BrookTriglycerides Ipkkj7065-02-98 03:29:00* Test Item Value Reference Range Interpretation Comments Triglycerides Level (test code = 2571-8) 374 0-149 H [facility] BrookCholesterol Pevsw9975-45-93 03:29:00* Test Item Value Reference Range Interpretation Comments Cholesterol Level (test code = 2093-3) 234 0-199 H Less than 200 mg/dL Low Qwks417 - 239 mg/dL Borderline Wcjs826 m g/dl and greater High Risk [facility] BrookLDL Ouxsqawikpj5086-47-98 03:29:00* Test Item Value Reference Range Interpretation Comments LDL Cholesterol (test code = 2089-1) 114 60-130 [facility] BrookHDL Cuzotqagvbg9509-05-41 03:29:00* Test Item Value Reference Range Interpretation Comments HDL Cholesterol (test code = 2085-9) 45 40-60 [facility] BrookCholesterol/HDL Wvcnm6358-12-37 03:29:00 * Test Item Value Reference Range Interpretation Comments Cholesterol/HDL Ratio (test code = 9830-1) 5.2 3.0-3.6 H [facility] BrookWhite Blood Uhgjh8361-54-51 03:09:00* Test Item Value Reference Range Interpretation Comments White Blood Count (test code = 6690-2) 7.64 4.8-10.8 [facility] BrookRed Blood Yrkpk0631-02-40 03:09:00* Test Item Value Reference Range Interpretation Comments Red Blood Count (test code = 789-8) 3.65 3.6-5.1 [facility] BrookHemoglobin2019-10-30 03:09:00* Test Item Value Reference Range Interpretation Comments Hemoglobin (test code = 26151-8) 11.3 12.0-16.0 L [facility] BrookHematocrit2019-10-30 03:09:00* Test Item Value Reference Range Interpretation Comments Hematocrit (test code = 4544-3) 32.4 34.2-44.1 L [facility] BrookMean Corpuscular Faukcc2372-90-19 03:09:00* Test Item Value Reference Range Interpretation Comments Mean Corpuscular Volume (test code = 787-2) 88.8 81-99 [facility] BrookMean Corpuscular Njnirytyqp3764-21-17 03:09:00* Test Item Value Reference Range Interpretation Comments Mean Corpuscular Hemoglobin (test code = 785-6) 31.0 28-32 [facility] Corpuscular Hemoglobin Concent 2019-07-18 03:09:00* Test Item Value Reference Range Interpretation Comments Mean Corpuscular Hemoglobin Concent (test code = 786-4) 34.9 31-35 [facility] BrookRed Cell Distribution Nlbyy9554-02-46 03:09:00* Test Item Value Reference Range Interpretation Comments Red Cell Distribution Width (test code = 31118-0) 13.4 11.7 -14.4 [facility] BrookPlatelet Nyapl9127-27-75 03:09:00* Test Item Value Reference Range Interpretation Comments Platelet Count (test code = 777-3) 263 140-360 [facility] BrookNeutrophils (%) (Auto)2019-07-18 03:09:00 * Test Item Value Reference Range Interpretation Comments Neutrophils (%) (Auto) (test code = 25961-4) 65.3 38.7-80.0 [facility] BrookLymphocytes (%) (Auto)2019-07-18 03:09:00 * Test Item Value Reference Range Interpretation Comments Lymphocytes (%) (Auto) (test code = 736-9) 20.9 18.0-39.1 [facility] BrookMonocytes (%) (Auto)2019-07-18 03:09:00* Test Item Value Reference Range Interpretation Comments Monocytes (%) (Auto) (test code = 5905-5) 8.4 4.4-11.3 [facility] BrookEosinophils (%) (Auto)2019-07-18 03:09:00 * Test Item Value Reference Range Interpretation Comments Eosinophils (%) (Auto) (test code = 713-8) 3.3 0.0-6.0 [facility] BrookBasophils (%) (Auto)2019-07-18 03:09:00* Test Item Value Reference Range Interpretation Comments Basophils (%) (Auto) (test code = 706-2) 1.8 0.0-1.0 H [facility] BrookIM GRANULOCYTES %2019-07-18 03:09:00* Test Item Value Reference Range Interpretation Comments IM GRANULOCYTES % (test code = IM GRANULOCYTES %) 0.3 0.0- 1.0 [facility] BrookNeutrophils # (Auto)2019-07-18 03:09:00* Test Item Value Reference Range Interpretation Comments Neutrophils # (Auto) (test code = 751-8) 5.0 2.1-6.9 [facility] BrookLymphocytes # (Auto)2019-07-18 03:09:00* Test Item Value Reference Range Interpretation Comments Lymphocytes # (Auto) (test code = 28681-7) 1.6 1.0-3.2 [facility] BrookMonocytes # (Auto)2019-07-18 03:09:00* Test Item Value Reference Range Interpretation Comments Monocytes # (Auto) (test code = 742-7) 0.6 0.2-0.8 [facility] BrookEosinophils # (Auto)2019-07-18 03:09:00* Test Item Value Reference Range Interpretation Comments Eosinophils # (Auto) (test code = 711-2) 0.3 0.0-0.4 [facility] BrookBasophils # (Auto)2019-07-18 03:09:00* Test Item Value Reference Range Interpretation Comments Basophils # (Auto) (test code = 704-7) 0.1 0.0-0.1 [facility] BrookAbsolute Immature Granulocyte (auto 2019-07-18 03:09:00* Test Item Value Reference Range Interpretation Comments Absolute Immature Granulocyte (auto (jojo t code = Absolute Immature Granulocyte (auto) 0.02 0-0.1 [facility] BrookTotal Rmbrfmojb6142-65-44 15:27:00* Test Item Value Reference Range Interpretation Comments Total Bilirubin (test code = 1975-2) 0.4 0.2-1.2 [facility] BrookAspartate Amino Transf (AST/SGOT) 2019-07-17 15:27:00* Test Item Value Reference Range Interpretation Comments Aspartate Amino Transf (AST/SGOT) (test code = Aspartate Amino Transf (AST/SGOT)) 14 5-34 [facility] BrookAlanine Aminotransferase (ALT/SGPT) 2019-07-17 15:27:00* Test Item Value Reference Range Interpretation Comments Alanine Aminotransferase (ALT/SGPT) (test code = 1742-6) 7 0-55 [facility] BrookTotal Mlgevpk0295-06-26 15:27:00* Test Item Value Reference Range Interpretation Comments Total Protein (test code = 2885-2) 7.5 6.5-8.1 [facility] BrookAlbumin2019-10-29 15:27:00* Test Item Value Reference Range Interpretation Comments Albumin (test code = 1751-7) 3.7 3.5-5.0 [facility] BrookGlobulin2019-10-29 15:27:00* Test Item Value Reference Range Interpretation Comments Globulin (test code = 76146-6) 3.8 2.3-3.5 H [facility] BrookAlbumin/Globulin Yponv9904-57-18 15:27:00 * Test Item Value Reference Range Interpretation Comments Albumin/Globulin Ratio (test code = 1759-0) 1.0 0.8-2.0 [facility] BrookAlkaline Uofiwhyqzhq2539-25-49 15:27:00* Test Item Value Reference Range Interpretation Comments Alkaline Phosphatase (test code = 6768-6) 116 40-150 [facility] BrookMAMMOGRAPHY DIGITAL SCR ISUVR7713-73-94 14:25:00 [facility] [address] [place] [address] Patient Name: Bharath FRANZ MR #: [id number] : 1945 Age/Sex: 74/F Req #: [id number] Adm Physician: Ordered by: RAMA MEDINA MD Report #: [id number] Location: [facility] Room/Bed: Procedure: 4494-0389 MG/MAMMOG MANJULA DIGITAL SCR BILAT Exam Date: 06/20/19 Exam Jaswinder e: 1350 REPORT STATUS: Signed #[id number] - MGSCRBIL #BILATERAL DIGITAL SCREENING MAMMOGRAM WITH CAD: CLINICAL: Routine screening. Comparison is made to exams dated: 04/27/2018 mammogram and 03/15/2018 mammogram - [facility] nter. Current study contains 4 [...] of the results. JOSHUA núñez/margarita:06/21/2019 16 :13:53 Cake Wringer: Lauren KING(R)(M), [facility] letter sent: Normal Exam Mammogram BI-RADS: 2 Benign D ictated By: JOSHUA MEJÍA MD 1613 COPY TO: CRISTOBAL MEDINA MD UNILAT W/ZON0371-81-64 08:43:00 [place] [address] Patient Name: Bharath FRANZ MR #: [id number] : 1945 Age/Sex: 73/F Req #: [id number] Adm Physician: Ordered by: RAMA MEDINA MD Report #: [id number] Location: RAD Room/Bed: Procedure: 2806-1303 DX/RIBS U NILAT W/CXR Exam Date: 12/27/18 [...] TO: RAMA MEDINA MD BONE DXA DUAL AZOXJC0776-89-02 07:02:00 [place] [address] Patient Name: Bharath FRANZ MR #: [id number] : 1945 Age/Sex: 73/F Req #: [id number] Adm Physician: Ordered by: RAMA MEDINA MD Report #: [id number] Location: [facility] Room/Bed: Procedure: 9650-7229 DX/BONE D XA DUAL ENERGY Exam Date: [...] RAMA MEDINA MD SP LUMBAR, COMPLETE MIN 3JY5295-12-48 15:47:[address], [place], [place] [address] Patient Name: AMISH FRANZ MR #: [id number] : 1945 Age/Sex: 73/F Req #: [id number] [facility] Physician: Ordered by: RAMA MEDINA MD Report #: [id number] Location: [facility] Room/Bed: Procedure: 8983-8976 DX/S P LUMBAR, COMPLETE MIN 4VW Exam [...] 1556 Transcr ibed By: LAWRENCE on 11/28/18 155 COPY TO: RAMA MEDINA MD BASIC METABOLIC NUQFY7071-04-85 22:24:00* Test Item Value Reference Range Interpretation [...] code = CA) 9.0 mg/dL 8.5-10.1 N NKAAEMMC-W4896-89-24 22:24:00* Test Item Value Reference Range Interpretation Comments TROPONIN-I (test code = TROPI) <0.015 ng/mL 0-0.045 N CBC W/AUTO OLLZ7313-22-78 22:04:00* Test Item Value Reference Range Interpretation [...] = MDIFF) NO - CT HEAD/BRAIN W/O ECKY0134-27-16 21:51:00 Name: ETELVINANITHYATANKARIANNA HAIR [facility] : 1945 Age/S: 73 / F [address] [facility] #: [id number] [place]: [place] [address] Phys: Moise Martin MD Acct: [id number] Dis Date: Status: PRE ER PHONE #: [phone] Exam Date: 10/12/20182117 FAX #: [phone] Reason: Headache EXAMS: CPT CODE: [id number] CT HEAD/BRAIN W/O CONT 41817 EXAM: CT of the head without contrast; [...] DLP: PAGE 1 Signed Report CHEST 2 OHZSF7395-84-48 13:31:00 [place] [address] Patient Name: AMISH FRANZ MR #: [id number] : 1945 Age/Sex: 73/F Req #: [id number] Adm Physician: Ordered by: RAMA MEDINA MD Report #: [id number] Location: [facility] Room/Bed: Procedure: 8354-5918 DX/C HEST 2 VIEWS Exam Date: 07/18/18 [...] TO: RAMA MEDINA MD MAMMOGRAPHY DIGITAL DX [facility] EG0927-90-15 12:10:00 [place] [address] Patient Name: AMISH FRANZ MR #: [id number] : 1945 Age/Sex: 72/F Req #: [id number] Adm Physician: Ordered by: RAMA MEDINA MD Report #: [id number] Location: [facility] Room/Bed: Procedure: MG/MAMMOGRAPHY DIGITAL DX UN I LT Exam Date: 04/27/18 Exam Time: 1133 REPOR T STATUS: Signed #[id number] - MGDXLT #UNILATERAL LEFT DIGITAL DIAGNO STIC MAMMOGRAM WITH SPOT COMPRESSION: 04/27/2018 Comparison is made to exam date d: 03/15/2018 mammogram - [facility]. Current study contains 2 films. There are [...] Vandana Oviedo Jr., D.O. cw/: 04/27/2018 13:40:22 Cake Wringer: Lauren MOHAN)(Meir), [facility] letter sent: Normal Exam Mammogram BI-RADS: 2 B enign Dictated By: VANDANA OVIEDO DO 1340 Transcribed By: MARGARITA on 04/27/18 1340 COPY TO: RAMA MATHEW MD BSCSOJS9727-79-66 17:10:00 [place] [address] Patient Name: AMISH FRANZ MR #: [id number] : 1945 Age/Sex: 72/F Req #: [id number] Adm Physician: Ordered by: RAMA MEDINA MD Report #: [id number] Location: US Room/Bed: Procedure: 4152-2823 US/US THYROID Exam Date: 04/13 Exam Time: 1113 REPORT STATUS: Signed IN OCEDURE: US THYROID COMPARISON: None. INDICATIONS: Thyromegaly [...] TO: RAMA DELGADO MD FNA WITH IMAGE DYKJMCSD6051-47-65 14:13:00 [place] [address] Patient Name: AMISH FRANZ MR #: [id number] : 1945 Age/Sex: 72/F Req #: [id number] Adm Physician: Ordered by: RAMA MEDINA MD Report #: [id number] Location: CT Room/Bed: Procedure: 3738-0269 IR/FNA WITH IMAGE GUIDANCE Exa m Date: [...] RAMA MEDINA MD BIOPSY LUNG 2018-04-06 14:13:00 [place] [address] Patient Name: AMISH FRANZ MR #: [id number] : 1945 Age/Sex: 72/F Req #: [id number] Adm Physician: Ordered by: RAMA MEDINA MD Report #: [id number] Location: CT Room/Bed: Procedure: 3089-7422 IR/BIOPSY LUNG Exam Date: 03/19 06/06 Exam [...] COPY TO: RAMA MEDINA MD CT GUIDED BIOPSY/ASPIR/INJ/[id number] 14:13:00 [place] [address] Patient Name: AMISH FRANZ MR #: [id number] : 1945 Age/Sex: 72/F Req #: [id number] Adm Physician: Ordered by: RAMA MEDINA MD Report #: [id number] Location: CT Room/Bed: Procedure: CT/CT GUIDED BIOPSY/ASPIR/INJ/P [...] pulmonary nodule biopsy performed without complication. Vandana Oivedo D.O. Dictated by: Vandana denton D.O. on 04/06/2018 at 14:13 Electronically approved by: Vandana Cazares am, D.O. on 04/06/2018 at 14:13 Dictated By: VANDANA OVIEDO DO 1413 Transcribed By: RIZWANA SMALLS on 04/06/18 1413 COPY TO: RAMA MEDINA MD CHEST SINGLE (NOT PORTABLE)2018-04-06 14:00:00 [place] [address] Patient Name: AMISH FRANZ MR #: [id number] : 1945 Age/Sex: 72/F Req #: [id number] Adm Physician: Ordered by: VANDANA OVIEDO DO Report #: [id number] Location: CT Room/Bed: Procedure: DX/CHEST SINGLE (NOT PORTABLE) Exam Date: Exam Time: REPORT STATUS: Signed PROCEDURE: X-RAY CHEST, ONE VIEW COMPARISON: [facility], DX, CHEST XRAY POST PROCEDURE, 04/06/2018, 11:31. [...] DO CHEST XRAY POST PROCEDURE 2018-04-06 11:53:00 [place] [address] Patient Name: AMISH FRANZ MR #: [id number] : 1945 Age/Sex: 72/F Req #: [id number] Adm Physician: Ordered by: VANDANA OVIEDO DO Report #: [id number] Location: CT Room/Bed: Procedure: [id number] DX/CHEST XRAY POST PROCEDURE Ex am Date: [...] COPY TO: VANDANA OVIEDO DO CT CHEST [id number] 18:11:00 [place] [address] Patient Name: Bharath FRANZ MR #: [id number] : 1945 Age/Sex: 72/F Req #: [id number] Adm Physician: Ordered by: RAMA MEDINA MD Report #: [id number] Location: CT Room/Bed: Procedure: [id number] CT/CT CHEST WO Exam Date: 03/21/18 Exam Time: 1725 REPORT STATUS: Signed PROCED URE: CT CHEST WITHOUT CONTRAST CT scan of the chest WITHOUT intravenous contra st, using standard protocol. TECHNIQUE: The chest was scanned [employer] ng a multidetector helical scanner from the apex to the level of the adrenal glands. No IV contrast was administered per physician's request. Coronal and sagittal multiplanar reformations were obtained. COMPARISON: [facility], CT, CT CHEST WO, 03/13/2016, 18:39. INDICATIONS: [...] MD 10 Transcribed By: MESFIN on 03/21/181810 [employer] SALESPERSON Y TO: RAMA MEDINA MD MAMMOGRAPHY DIGITAL SCR [id number] 11:44:00 [place] [address] Patient Name: Bharath FRANZ MR #: [id number] : 1945 Age/Sex: 72/F Req #: [id number] Adm Physician: Ordered by: RAMA MEDINA MD Report #: [id number] Location: MAMMO Room/Bed: Procedure: [id number] MG/MAMMOGRAPHY DIGITAL SCR BILAT Exam Date: 03/15/18 Exam Time: 1106 REPORT STA TUS: Signed #[id number] - [id number] #BILATERAL DIGITAL SCREENING MAMMO GRAM [...] posterior depth medial region seen on the aircraft structural design engineer niocaudal view only. Scattered calcifications and vascular [...] appointment. Vandana Oviedo Jr., D.O. cw/:03/23/2018 14:02:53 Cake Wringer: Lauren MOHAN)(Meir), [facility] letter sent: Additional Imaging Needed Mammogram BI-RADS: 0 Indeterminate Dictated By: VANDANA ANNE DO 140 Transcrib ed By: MARGARITA on 03/23/18 140 COPY TO: RAMA MEDINA MD CERVICAL SPINE 4 OR 5 [id number] 23:38:00 [place] [address] Patient Name: AMISH FRANZ MR #: [id number] : 1945 Age/Sex: 72/F Req #: [id number] Adm Physician: Ordered by: RAMA MEDINA MD Report #: [id number] Location: RAD Room/Bed: Procedure: [id number] DX/CERVICAL SPINE 4 OR 5 VIEWS Exam [...] COPY TO: RAMA MEDINA MD CHEST 2 [id number] 15:28:00 [place] [address] Patient Name: AMISH FRANZ MR #: [id number] : Age/Sex: 72/F Req #: [id number] Adm Physician: Ordered by: RAMA MEDINA MD Report #: [id number] Location: [facility] Room/Bed: Procedure: [id number] DX/CHEST 2 VIEWS Exam Date: 03/14/18 Exam Time: 1415 REPORT STATUS: Signed PROCEDURE: Frontal and lateral views of the chest. COMPARISON: Patients [facility], DX, CHEST SINGLE (PORTABLE), 03/13/2016, 17:51. Patients [facility], CT, CT CHEST WO, 03/13/2016, 18:39. Patients [facility], DX , CHEST SINGLE (PORTABLE), 09/23/2016, 22:15. [...]
== END 2020-04-15 14:41 | disposition home or self-care (01) | DRG 292 ==
LOC: ER 15:21 → ERHOLD 17:03 → MED/SURG2 22:50 → OBSVTOIN 04-13 15:21
PROVIDERS: ADMIT Internal Medicine; ATTEND Internal Medicine
DX: I11.0 Hypertensive heart disease with heart failure (principal); N17.9 Acute kidney failure, unspecified; D62 Acute posthemorrhagic anemia; K92.2 Gastrointestinal hemorrhage, unspecified; D63.8 Anemia in other chronic diseases classified elsewhere; I50.23 Acute on chronic systolic (congestive) heart failure; E87.6 Hypokalemia; E11.65 Type 2 diabetes mellitus with hyperglycemia; E83.41 Hypermagnesemia; E78.5 Hyperlipidemia, unspecified; E78.00 Pure hypercholesterolemia, unspecified; J45.909 Unspecified asthma, uncomplicated; I25.10 Atherosclerotic heart disease of native coronary artery without angina pectoris; I25.2 Old myocardial infarction; Z95.5 Presence of coronary angioplasty implant and graft; Z87.440 Personal history of urinary (tract) infections; Z91.041 Radiographic dye allergy status; Z80.9 Family history of malignant neoplasm, unspecified; Z83.3 Family history of diabetes mellitus; Z82.49 Family history of ischemic heart disease and other diseases of the circulatory system; Z88.5 Allergy status to narcotic agent; Z85.118 Personal history of other malignant neoplasm of bronchus and lung; Z86.73 Personal history of transient ischemic attack (TIA), and cerebral infarction without residual deficits; G62.9 Polyneuropathy, unspecified; G89.4 Chronic pain syndrome; Z87.891 Personal history of nicotine dependence; Z80.1 Family history of malignant neoplasm of trachea, bronchus and lung; E83.42 Hypomagnesemia; R91.8 Other nonspecific abnormal finding of lung field; Z79.82 Long term (current) use of aspirin; Z79.84 Long term (current) use of oral hypoglycemic drugs
CPT/HCPCS: 36415; 71045; 71250; 78582; 80048; 80053; 80061; 81001; 82270; 82550; 82553; 82607; 82728; 82746; 82948; 83036; 83540; 83605; 83735; 83880; 84100; 84443; 84466; 84484; 85014; 85018; 85025; 85045; 85379; 85610; 85730; 87040; 87086; 93005; 93306; 94640; 97139; 99284; G0378; J0696; J1644; J1940; J2405; J2916; J3475; J7030; J7050; U0002

== ENCOUNTER 2020-04-24 17:21 | Inpatient (IN) | payer MEDICARE, OTHER ==
[~2020-04-24] VITALS: Ht 165.1 cm; Wt 62.7 kg
[~2020-04-24 17:21] MED LIST changes: +FUROSEMIDE40 MG PO; +PROAIR HFA INH8.5 GM NEB
--- OUTSIDE RECORDS SUMMARY | 2020-04-24 18:25 | XMS REPORT | Clinical Summary ---
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 Manufactur er 11/24/2022 [id number] / / [id number] [employer] Hem-[employer]-Moni Endoscpc Aplr Surgical N/A: N/A [facility] - [id number] Implants; CLOSURE Implanted: Qty: 1 on 06/12/2018 by [employer]; Scott Marvin MD at [facility] Extenders; HOSPITAL Surgical Wires Results Not on fileafter 04/24/2019 Insurance Type Payer Benefit Subscriber ID Effective Phone Address Plan / Dates Group Medicaid MEDICAID MEDICAID xxxxxxxxx 2011-P resent HMO [facility] MEDICARE [facility] DUAL xxxxxxxxx 2018-P COMPLETE resent [facility] Advance Directives For more information, please contact: [phone] 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
--- OUTSIDE RECORDS SUMMARY | 2020-04-24 18:26 | XMS REPORT | Continuity of Care Document ---
Author Author [facility] t Organization [facility] Address [address] [place] [address] Phone Unavailable Care Team Providers Care Retail Sales Manager Name Role Phone CAROL LEVINE, MD ONTIVEROS PCP STEPHANIE CHRISTENSEN Attracheals Unavailable RAMA MEDINA Attphys Unavailable STEPHANIE CHRISTENSEN Admtani Unavailable Payers Payer Name Policy Type Policy Number Effective Date Expiration Date S 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 Disease A ctive 2018-06-04 00:00:00 Vishal Bentley Angina pectoris Angina pectoris Disease Active 2018-06-04 00:00:00 Vishal Bentley Chest pain Chest pain Problem Active 2016-03-13 00:00:00 [facility] Diabetes mellitus Diabetes Problem Active 2016-03-13 00:00:00 [facility] Hypokalemia Hypokalemia Problem Active 2016-03-13 00:00:00 [facility] Urinary tract infection UTI (urinary tract infection) Problem Active 2016-03-13 00:00:00 [facility] Acute on chronic congestive heart failure Problem Active [facility] Anemia Problem Active [facility] Short of breath on exertion Problem Active [facility] Allergies, Adverse Reactions, Alerts Allergy Name Allergy Type Status Severity Reaction(s) Onset Date Inacti ve Date Treating Clinician Comments Source Iodine and Iodide Containing Produc Allergy to substance Active M oderate HIVES 2019-07-18 00:00:00 [facility] No Known Allergies DA Active U 2018-10-12 00:00:00 [facility] Codeine Allergy to substance Active Mild HIVES 2017-03-26 00:00:00 [facility] Family History Family Member Diagnosis Comments Start Date Stop Date Source Natural father Heart disease Vishal Bentley Natural father Neuropathy [facility] Natural mother Diabetes [facility] Natural mother Heart disease Vishal Bentley Social History Social Habit Start Date Stop Date Quantity Comments Source History of tobacco use Current smoker Vishal Bentley Sex Assigned At [facility] Cigarettes smoked current (pack per day) - Reported 00:00:00 2018-08-03 00:00:00 Vishal Bentley Cigarette pack-years 2018-08-03 00:00:00 2018-08-03 00:00:00 [facility] Alcohol intake 2018-08-03 00:00:00 2018-08-03 00:00:00 Current non-drinker of alcohol (finding) Vishal Bentley Smoking Status Start Date Stop Date Source Former smoker 2018-08-03 00:00:00 2018-08-03 00:00:00 Vishal Bentley Medications Ordered Medication Name Filled Medication Name Start Date Stop Da te Current Medication? Ordering Clinician Indication Dosage Frequency Signature (SIG) Comments Components Source Furosemide Furosemide 2020-04-15 10:24:00 Yes 20 Faith ly [facility] Metoprolol Tartrate (Lopressor) 25 Mg TAB Metoprolol T artrate (Lopressor) 25 Mg TAB 2020-04-15 09:55:00 Yes 25 Twice A Day [facility] Pantoprazole Sodium (Protonix) 40 Mg TABLET. Pantopr azole Sodium (Protonix) 40 Mg TABLET. 2020-04-15 09:55:00 Yes 40 Twice Daily Before Meals [facility] Tramadol Hcl (Ultram 50MG*) 50 Mg TAB Tramadol Hcl (Ultram 5 0MG*) 50 Mg TAB 2019-07-18 06:43:00 Yes 50 Every 8 Hours as n eeded for Pain [facility] Fenofibrate (Tricor) 48 Mg TAB Fenofibrate (Tricor) 48 Mg TA B 2019-07-18 06:36:00 Yes 48 Daily [facility] Pantoprazole Sodium (Protonix) 40 Mg TABLET. Pantopr azole Sodium (Protonix) 40 Mg TABLET. 2019-07-18 06:36:00 2020-04-12 00:00:00 No 40 Daily@0600 [facility] metFORMIN (GLUCOPHAGE) 500 mg tablet 2018-06-26 13:35:07 [...] Mg TABLET 2016-03-19 14:39:00 Yes 40 Bedtime [facility] Lisinopril (Prinivil) 10 Mg TABLET Lisinopril (Prinivil) 10 Mg TABLET 2016-03-19 14:39:00 2020-04-15 00:00:00 No 10 Daily [facility] Carisoprodol Carisoprodol 2016-03-19 14:39:00 2017-03-26 00:00:00 No 350 Every 12 Hours as needed for Muscle Spasms [facility] Metoprolol Tartrate (Lopressor) 25 Mg TAB Metoprolol T artrate (Lopressor) 25 Mg TAB 2016-03-19 14:39:00 2017-03-26 00:00:00 No 25 Ever y 12 Hours [facility] Pantoprazole Sod (Protonix) 40 Mg/Ml SUSP Pantoprazole Sod (Protonix) 40 Mg/Ml SUSP 2016-03-19 14:39:00 2017-03-26 00:00:00 No 40 Befo re Breakfast [facility] Albuterol Sulfate (Proair Hfa Inhaler*) 8.5 Gm INH Alb uterol Sulfate (Proair Hfa Inhaler*) 8.5 Gm INH Yes 2 Laura ry 6 Hours as needed for Shortness Of Breath [facility] Aspirin (Aspir 81) 81 Mg TABLET. Aspirin (Aspir 81) 81 Mg TABLET. Yes 1 Daily [facility] Bisacodyl (Dulcolax) 5 Mg TABLET. Bisacodyl (Dulcolax) 5 Mg TABLET. Yes 1 Daily [facility] Clopidogrel Bisulfate (Plavix) 75 Mg TABLET Clopidogre l Bisulfate (Plavix) 75 Mg TABLET Yes 75 Daily [facility] Cyanocobalamin (Vitamin B-12) 1,000 Mcg TAB Cyanocobal dennis (Vitamin B-12) 1,000 Mcg TAB Yes 500 Daily [facility] Exenatide Microspheres (Bydureon) 2 Mg VIAL Exenatide Microspheres (Bydureon) 2 Mg VIAL Yes 2 Once A Week [facility] Gabapentin Gabapentin Yes 1 Three Times A Day [facility] Metformin Hcl Metformin Hcl Yes 1000 Twice Daily With Meals [facility] Trazodone Hcl Trazodone Hcl Yes 50 Bedtime [facility] Fluticasone Propionate Fluticasone Propionate 2020-04-12 00:00:00 No [facility] Insulin Aspart (Novolog) 100 Unit/1 Ml CARTRIDGE Insul in Aspart (Novolog) 100 Unit/1 Ml CARTRIDGE 2020-04-12 00:00:00 No 10 Three Times Daily With Meals [facility] Insulin Glargine (Lantus) 100 Units/Ml ML Insulin Glar gine (Lantus) 100 Units/Ml ML 2020-04-12 00:00:00 No 30 Bedtime [facility] Meloxicam Meloxicam 2020-04-12 00:00:00 No 7.5 Daily [facility] Gabapentin Gabapentin 2017-03-26 00:00:00 No 600 Twi ce A Day [facility] Pregabalin (Lyrica) 75 Mg CAP Pregabalin (Lyrica) 75 Mg CAP 2017-03-26 00:00:00 No 75 Twice A Day [facility] Clopidogrel Bisulfate (Plavix) 75 Mg TABLET Clopidogre l Bisulfate (Plavix) 75 Mg TABLET 2016-03-19 00:00:00 No 75 Daily [facility] Diazepam (Valium) 2 Mg TABLET Diazepam (Valium) 2 Mg TABLET 2016-03-14 00:00:00 No 2 Twice A Day [facility] Immunizations Ordered Immunization Name Filled Immunization Name Date Status Comments Source FLUCELVAX QUAD PF 2018-06-15 00:00:00 Completed [facility] Vital Signs Vital Name Observation Time Observation Value Comments Source Body Temperature 2020-04-15 13:27:00 96.7 [degF] [facility] Weight 2020-04-12 00:00:00 156.25 [lb_av] [facility] BMI (Body Mass Index) 2020-04-12 00:00:00 28.6 kg/m2 [facility] Procedures Procedure Date / Time Performed Performing Clinician [facility] e Computed tomography of chest without contrast 2020-04-13 00:00:0 0 [facility] US thyroid 2019-10-08 00:00:00 [facility] Computed tomography of chest without contrast 2019-10-08 00:00:0 0 [facility] Computed tomography of abdomen with contrast 2019-07-19 00:0 0:00 JYOTSNA [facility] Computed tomography of chest with contrast 2019-07-19 00:00:00 Tamie DE LA FUENTE [facility] X-ray of chest, two views 2019-07-17 00:00:00 EVERT BAXTER [facility] Plan of Care Planned Activity Planned Date Details Comments Source Future Scheduled Test 2020-04-19 00:00:00 INFLUENZA VACCINE [code = INFLUENZA VACCINE] [facility] Scheduled Test 2009 00:00:00 65+ PNEUMOCOCCAL V ACCINE (1 of 2 - PCV13) [code = 65+ PNEUMOCOCCAL VACCINE (1 of 2 - PCV13)] [facility] Scheduled Test 1994 00:00:00 BREAST CANCER SCRE ENING [code = BREAST CANCER SCREENING] [facility] Scheduled Test 1994 00:00:00 COLONOSCOPY SCREEN ING [code = COLONOSCOPY SCREENING] [facility] Scheduled Test 1994 00:00:00 SHINGLES VACCINES (#1) [code = SHINGLES VACCINES (#1)] [facility] Anemia [facility] Encounters Start Date/Time End Date/Time Encounter Type Admission Type [facility] Care Department Encounter ID Source 2020-04-13 15:21:00 2020-04-15 14:41:00 Discharged Inpatient 1 STEPHANIE CHRISTENSEN [facility] [id number] [facility] 2020-04-09 12:19:00 2020-04-09 12:19:00 Registered Clinic 3 [facility] [id number] [facility] 2019-10-08 12:58:00 2019-10-08 12:58:00 Registered Clinic 3 [facility] [id number] [facility] 2019-07-17 16:30:00 2019-07-19 21:55:00 Discharged Inpatient (obs) 1 [facility] [id number] [facility] 2019-06-20 13:35:00 2019-06-20 13:35:00 Registered Clinic 3 [facility] [id number] [facility] 2018-12-27 12:59:00 2018-12-27 12:59:[address] [facility] [id number] [facility] 2018-11-28 13:35:00 2018-11-28 13:35:[address] [facility] [id number] [facility] Results Test Description Test Time Test Comments Results Result Comments Source Capillary blood glucose measurement by glucometer (mas s/volume) 2020-04-15 11:33:00 Test Item Bedside Glucose (test code = 94370-9) 156 70-120 Meter ID: [id number] automated count (number/volume)2020-04-15 06:00:00* Test Item Value Reference Range Interpretation Comments White Blood Count (test code = 6690-2) 9.55 4.8-10.8 [facility] erythrocytes automated count (number/volume)2020-04-15 06:00:00* Test Item Value Reference Range Interpretation Comments Red Blood Count (test code = 789-8) 3.19 3.6-5.1 [facility] hemoglobin measurement (moles/volume)2020-04-15 06:00:00* Test Item Value Reference Range Interpretation Comments Hemoglobin (test code = 20968-1) 7.9 12.0-16.0 [facility]ham[facility] blood hematocrit (volume fraction)2020-04-15 06:00:00* Test Item Value Reference Range Interpretation Comments Hematocrit (test code = 4544-3) 26.3 34.2-44.1 [facility]hamAutomated erythrocyte mean corpuscular [id number] 06:00:00* Test Item Value Reference Range Interpretation Comments Mean Corpuscular Volume (test code = 787-2) 82.4 81-99 [facility]ham[facility] erythrocyte mean corpuscular hemoglobin (mass per erythrocyte)2020-04-15 06:00:00* Test Item Value Reference Range Interpretation Comments Mean Corpuscular Hemoglobin (test code = 785-6) 24.8 28-32 [facility]ham[facility] erythrocyte mean corpuscular hemoglobin concentration measurement (mass/volume)2020-04-15 06:00:00* Test Item Value Reference Range Interpretation Comments Mean Corpuscular Hemoglobin Concent (test code = 786-4) 30.0 31-35 [facility]hamRDW ElyNo-[id number] 06:00:00* Test Item Value Reference Range Interpretation Comments Red Cell Distribution Width (test code = 15821-3) 15.7 11.7 -14.4 [facility]ham[facility] blood platelet count (count/volume)2020-04-15 06:00:00* Test Item Value Reference Range Interpretation Comments Platelet Count (test code = 777-3) 424 140-360 [facility]hamAutom[facility] blood segmented neutrophil count as percentage of total jbyvmxfvsu9862-77-02 06:00:00* Test Item Value Reference Range Interpretation Comments Neutrophils (%) (Auto) (test code = 64826-1) 73.5 38.7-80.0 [facility]ham[facility] blood lymphocyte count as percentage ot total eedntuhnjt0356-02-90 06:00:00* Test Item Value Reference Range Interpretation Comments Lymphocytes (%) (Auto) (test code = 736-9) 15.6 18.0-39.1 [facility]ham[facility] blood monocyte count as percentage of total vkifkzpbyb6080-78-31 06:00:00* Test Item Value Reference Range Interpretation Comments Monocytes (%) (Auto) (test code = 5905-5) 7.3 4.4-11.3 [facility]ham[facility] blood eosinophil count as percentage of total sxeqgmqzir9100-46-06 06:00:00* Test Item Value Reference Range Interpretation Comments Eosinophils (%) (Auto) (test code = 713-8) 1.6 0.0-6.0 [facility]ham[facility] blood basophil count as percentage of total xjfcadbhcn2368-15-95 06:00:00* Test Item Value Reference Range Interpretation Comments Basophils (%) (Auto) (test code = 706-2) 1.6 0.0-1.0 [facility]hamFluoroscopic procedure less than one hour [id number] 06:00:00* Test Item Value Reference Range Interpretation Comments IM GRANULOCYTES % (test code = IM GRANULOCYTES %) 0.4 0.0- 1.0 [facility]ham[facility] blood neutrophil count 2020-04-15 06:00:00* Test Item Value Reference Range Interpretation Comments Neutrophils # (Auto) (test code = 751-8) 7.0 2.1-6.9 [facility] lymphocytes count (number/volume) 2020-04-15 06:00:00* Test Item Value Reference Range Interpretation Comments Lymphocytes # (Auto) (test code = 12012-4) 1.5 1.0-3.2 [facility]ham[facility] monocytes automated count (number/volume)2020-04-15 06:00:00* Test Item Value Reference Range Interpretation Comments Monocytes # (Auto) (test code = 742-7) 0.7 0.2-0.8 [facility]ham[facility] blood eosinophil count 2020-04-15 06:00:00* Test Item Value Reference Range Interpretation Comments Eosinophils # (Auto) (test code = 711-2) 0.2 0.0-0.4 [facility]hamAutom[facility] blood basophil count (count/volume)2020-04-15 06:00:00* Test Item Value Reference Range Interpretation Comments Basophils # (Auto) (test code = 704-7) 0.2 0.0-0.1 [facility]hamFluoroscopic procedure less than one hour [id number] 06:00:00* Test Item Value Reference Range Interpretation Comments Absolute Immature Granulocyte (auto (jojo t code = Absolute Immature Granulocyte (auto) 0.04 0-0.1 [facility] sodium measurement (moles/volume)2020-04-15 05:30:00* Test Item Value Reference Range Interpretation Comments Sodium Level (test code = 2951-2) 138 136-145 [facility] plasma potassium measurement (moles/volume)2020-04-15 05:30:00* Test Item Value Reference Range Interpretation Comments Potassium Level (test code = 2823-3) 3.7 3.5-5.1 [facility] plasma chloride measurement (moles/volume)2020-04-15 05:30:00* Test Item Value Reference Range Interpretation Comments Chloride Level (test code = 2075-0) 100 98-107 [facility]er[facility] or plasma carbon dioxide, total measurement (moles/volume)2020-04-15 05:30:00* Test Item Value Reference Range Interpretation Comments Carbon Dioxide Level (test code = 2028-9) 26 22-29 [facility]er[facility] or plasma anion [id number] 05:30:00* Test Item Value Reference Range Interpretation Comments Anion Gap (test code = 41677-4) 15.7 8-16 [facility]er[facility] or plasma urea nitrogen measurement (mass/volume)2020-04-15 05:30:00* Test Item Value Reference Range Interpretation Comments Blood Urea Nitrogen (test code = 3094-0) 19 7-26 [facility]er[facility] or plasma creatinine measurement (mass/volume)2020-04-15 05:30:00* Test Item Value Reference Range Interpretation Comments Creatinine (test code = 2160-0) 1.32 0.57-1.11 [facility]erum or plasma urea nitrogen/creatinine mass pyqho7516-30-93 05:30:00* Test Item Value Reference Range Interpretation Comments BUN/Creatinine Ratio (test code = 3097-3) 14 6-25 [facility]hamEstimated glomerular filtration rate (GFR) exozimhvjeivm9586-53-91 05:30:00* Test Item Value Reference Range Interpretation Comments Estimat Glomerular Filtration Rate (test code = 759541424) 39 >60 Ranges were taken from the National Kidney Disease Education Program and the [facility] Foundation literature.Reference ranges:60 or greater: Xpqkpg71-30 ( for 3 consecutive months): Chronic kidney disease 15 or less: Kidney failureBaylor Scott & White Medical Center – BrenhamGlucose abmfomugmzu3166-46-46 05:30:00* Test Item Value Reference Range Interpretation Comments Glucose Level (test code = ORW7919) 123 74-118 [facility] Hospitalerum or plasma calcium measurement (mass/volume)2020-04-15 05:30:00* Test Item Value Reference Range Interpretation Comments Calcium Level (test code = 05219-8) 8.8 8.4-10.2 [facility]erum or plasma magnesium measurement (mass/volume)2020-04-15 05:30:00* Test Item Value Reference Range Interpretation Comments Magnesium Level (test code = 15988-1) 2.3 1.3-2.1 [facility]erum or plasma total bilirubin measurement (mass/volume)2020-04-15 05:30:00* Test Item Value Reference Range Interpretation Comments Total Bilirubin (test code = 1975-2) 0.5 0.2-1.2 [facility]hamFluoroscopic procedure less than one hour ohbajoos7989-45-54 05:30:00* Test Item Value Reference Range Interpretation Comments Aspartate Amino Transf (AST/SGOT) (test code = Aspartate Amino Transf (AST/SGOT)) 16 5-34 [facility] Hospitalerum or plasma alanine aminotransferase measurement (enzymatic activity/volume)2020-04-15 05:30:00* Test Item Value Reference Range Interpretation Comments Alanine Aminotransferase (ALT/SGPT) (test code = 1742-6) 7 0-55 [facility] Hospitaler[facility] or plasma protein measurement (mass/volume)2020-04-15 05:30:00* Test Item Value Reference Range Interpretation Comments Total Protein (test code = 2885-2) 6.9 6.5-8.1 [facility]er[facility] or plasma albumin measurement (mass/volume)2020-04-15 05:30:00* Test Item Value Reference Range Interpretation Comments Albumin (test code = 1751-7) 3.1 3.5-5.0 [facility]hamPlasma globulin measurement (mass/volume) 2020-04-15 05:30:00* Test Item Value Reference Range Interpretation Comments Globulin (test code = 01551-2) 3.8 2.3-3.5 [facility] Hospitalerum or plasma albumin/globulin mass [id number] 05:30:00* Test Item Value Reference Range Interpretation Comments Albumin/Globulin Ratio (test code = 1759-0) 0.8 0.8-2.0 [facility]erum or plasma alkaline phosphatase measurement (enzymatic activity/volume)2020-04-15 05:30:00* Test Item Value Reference Range Interpretation Comments Alkaline Phosphatase (test code = 6768-6) 104 40-150 [facility]hamFluoroscopic procedure less than one hour sbrsrsqh3625-75-04 10:36:00* Test Item Value Reference Range Interpretation [...] under 564(g) of the ACT.[facility] [place], [place] [address]GEDB[facility] & [facility] BrenhamAutomated reticulocyte count as percentage of total bsfcoumhbldq9718-02-61 05:10:00* Test Item Value Reference Range Interpretation Comments Percent Reticulocyte Count (test code = 86861-6) 2.4 0.8-2 .2 [facility]hamFluoroscopic procedure less than one hour xavzoxch6959-15-15 05:10:00* Test Item Value Reference Range Interpretation Comments Hemoglobin A1c Percent (test code = Hemoglobin A1c Percent) 9.9 4.0-7.0 [facility]hamPhosphorus [id number] 05:10:00 * Test Item Value Reference Range Interpretation Comments Phosphorus Level (test code = DRX2741) 4.0 2.3-4.7 [facility]er[facility] or plasma iron measurement (mass/volume)2020-04-14 05:10:00* Test Item Value Reference Range Interpretation Comments Iron Level (test code = 2498-4) 26 50-170 [facility]er[facility] or plasma iron binding capacity measurement (mass/volume)2020-04-14 05:10:00* Test Item Value Reference Range Interpretation Comments Total Iron Binding Capacity (test code = 2500-7) 402 261-4 78 [facility] Hospitalerum or plasma iron saturation measurement (mass fraction)2020-04-14 05:10:00* Test Item Value Reference Range Interpretation Comments Percent Iron Saturation (test code = 2502-3) 6 15-50 [facility]er[facility] or plasma transferrin measurement (mass/volume)2020-04-14 05:10:00* Test Item Value Reference Range Interpretation Comments Transferrin (test code = 3034-6) 287 180-382 [facility]erum or plasma ferritin measurement (mass/volume)2020-04-14 05:10:00* Test Item Value Reference Range Interpretation Comments Ferritin (test code = 2276-4) 23.15 4.63-204.00 [facility]hamBlood cobalamin (vitamin B12) measurement (mass/volume)2020-04-14 05:10:00* Test Item Value Reference Range Interpretation Comments Vitamin B12 Level (test code = 60948-4) 315 213-278 [facility] plasma folate measurement (mass/volume)2020-04-14 05:10:00* Test Item Value Reference Range Interpretation Comments Folate (test code = 2284-8) 12.3 >3.0 A serum folate concentration of less than 3.1 ng/mL isconsidered to represent cl inical deficiency.Performed at: - Lab[address] [id number] Director: Leonardo Delarosa MD, Phone: [phone] Scott & White Medical Center – BrenhamCT CHEST [id number] 18:48:00 [place] [address] Patient Name: Bharath FRANZ MR #: [id number] : 1945 Age/Sex: 74/F Req #: [id number] Adm Physician: STEPHANIE CHRISTENSEN MD Ordered by: CESAR CHESTER POLISHING MACHINE TENDER Report #: [id number] Location: [facility] Room/Bed: [facility] Procedure: [id number] CT/CT CHEST WO Exam Date: 04/13/20 Exam [...] Level (test code = 2571-8) 114 0-149 [facility] or plasma cholesterol measurement (mass/volume)2020-04-13 05:00:00* Test Item Value Reference Range Interpretation Comments Cholesterol Level (test code = 2093-3) 142 0-199 Less than 200 mg/dL Low Xejg312 - 239 mg/dL Borderline Hgum431 m g/dl and greater High Risk [facility]erum or plasma cholesterol in LDL measurement (mass/volume) 2020-04-13 05:00:00* Test Item Value Reference Range Interpretation Comments LDL Cholesterol (test code = 2089-1) 89 60-130 [facility]er[facility] or plasma cholesterol in HDL measurement (mass/volume)2020-04-13 05:00:00* Test Item Value Reference Range Interpretation Comments HDL Cholesterol (test code = 2085-9) 30 40-60 [facility]er[facility] or plasma total cholesterol/cholesterol in HDL mass dnsgt1631-66-86 05:00:00* Test Item Value Reference Range Interpretation Comments Cholesterol/HDL Ratio (test code = 9830-1) 4.7 3.0-3.6 [facility] Hospitalerum or plasma thyrotropin measurement by detection limit <= 0.005 miu/l (units/volume)2020-04-13 05:00:00* Test Item Value Reference Range Interpretation Comments Thyroid Stimulating Hormone (TSH) (test code = 22955-6) 1.651 0.350-4.940 [facility]hamBNP Coq-yIgu0804-28-25 05:30:00* Test Item Value Reference Range Interpretation Comments B-Type Natriuretic Peptide (test code = 61584-5) 1144.5 0-100 [facility]er[facility] or plasma creatine kinase measurement (enzymatic activity/volume)2020-04-12 05:30:00* Test Item Value Reference Range Interpretation Comments Creatine Kinase (test code = 2157-6) 49 29-168 [facility] Hospitaler[facility] or plasma creatine kinase MB measurement (mass/volume)2020-04-12 05:30:00* Test Item Value Reference Range Interpretation Comments Creatine Kinase MB (test code = 35931-1) 2.60 0-5.0 [facility] BrenhamTroponin I measurement by highly sensitive enzyme gasqggdfklj6980-73-26 05:30:00* Test Item Value Reference Range Interpretation Comments Troponin I (test code = 35926-6) 0.168 0-0.300 [facility] BrenhamVQ LUNG SCAN VENT KJJMPUYVQ7929-08-88 20:07:00 [facility] [address] [address] Patient Name: Bharath FRANZ MR #: [id number] : 1945 Age/Sex: 74/F Req #: [id number] Adm Physician: STEPHANIE CHRISTENSEN MD Ordered by: RENATO BUSBY MD Report #: [id number] Location: [facility] Room/Bed: [place] [address] Procedure: NM/VQ LUNG SCAN VENT PERFUSION Exam [...] Blood (test code = 2335-8) POSITIVE NEGATIVE [facility]hamBlood eybzbhf5520-90-86 18:15:00* Test Item Value Reference Range Interpretation Comments Blood Culture (test code = 82164616) NO GROWTH AFTER 72 HOURS [facility] BrenhamFluoroscopic procedure less than one hour dljwuhet0020-38-04 18:00:00* Test Item Value Reference Range Interpretation Comments Lactic Acid Level (test code = Lactic Acid Level) 1.0 0.5- 2.0 [facility] SINGLE (PORTABLE)2020-04-11 16:19:00 [facility] [address] [place] [address] Patient Name: Bharath FRANZ MR #: [id number] : 1945 Age/Sex: 74/F Req #: [id number] Adm Physician: Ordered by: RENATO BUSBY MD Report #: [id number] Location: ER Room/Bed: Procedure: [id number] DX/CHEST SINGLE (RILEY BLE) Exam Date: 04/11/20 [...] (PT) in platelet poor plasma by coagulation wwfat6522-62-46 15:21:00* Test Item Value Reference Range Interpretation Comments Prothrombin Time (test code = 5902-2) 14.1 11.9-14.5 [facility] BrenhamINR in Platelet poor plasma by Coagulation nwqvh3742-42-58 15:21:00* Test Item Value Reference Range Interpretation Comments Prothromb Time International Ratio (test code = 6301-6) 1.04 Oral Anticoagulant Therapy INR Values:1. Low Intensity Therapy 1.5 - 2.02 . Moderate Intensity Therapy 2.0 - 3.03. High Intensity Therapy(1) 2.5 - 3. 54. High Intensity Therapy(2) 3.0 - 4.05. Panic Value INR > 5.0 [facility] BrenhamActivated partial thromboplastin time (aPTT) in platelet poor plasma by coagulation vqqpd1025-99-58 15:21:00* Test Item Value Reference Range Interpretation Comments Activated Partial Thromboplast Time (test code = 58832-0) 30.7 23.8-35.5 [facility] BrenhamFibrin D-dimer DDU measurement in platelet poor plasma (mass/volume)2020-04-11 15:21:00* Test Item Value Reference Range Interpretation Comments D-Dimer Quantitative (PE/DVT) (test code = 34961-6) 2.29 0. 00-0.45 As with all in vitro diagnostic tests, the test results should be interpreted by the physician in conjunction with clinical findings and other test results.Test results are reported in NEW D-dimer units(ug/mLFEU).[facility] BrenhamUrine color wzusxysxslesk6894-73-43 15:21:00* Test Item Value Reference Range Interpretation Comments Urine Color (test code = 5778-6) YELLOW YELLOW [facility] BrenhamUrine bnjljmd4839-89-39 15:21:00* Test Item Value Reference Range Interpretation Comments Urine Clarity (test code = 35030-8) CLEAR CLEAR [facility] Hospitalpecific gravity of Urine by Test strip 2020-04-11 15:21:00* Test Item Value Reference Range Interpretation Comments Urine Specific [facility] (test code = 5811-5) 1.020 1.010-1.02 5 [facility] BrenhamUrine pH measurement by automated test fvcrc1615-23-23 15:21:00* Test Item Value Reference Range Interpretation Comments Urine pH (test code = 19142-8) 7 5-7 [facility] BrenhamUrine leukocyte esterase detection by rueuwqrd7193-29-68 15:21:00* Test Item Value Reference Range Interpretation Comments Urine Leukocyte Esterase (test code = 5799-2) NEGATIVE NEGATIVE [facility] BrenhamUrine nitrite bnkwmphop0584-68-43 15:21:00* Test Item Value Reference Range Interpretation Comments Urine Nitrite (test code = 99549-9) NEGATIVE NEGATIVE [facility] BrenhamUrine protein measurement by test strip (mass/volume)2020-04-11 15:21:00* Test Item Value Reference Range Interpretation Comments Urine Protein (test code = 5804-0) 2+ NEGATIVE [facility] BrenhamUrine glucose lwunmfqbl1884-11-93 15:21:00* Test Item Value Reference Range Interpretation Comments Urine Glucose (UA) (test code = 2349-9) NEGATIVE NEGATIVE [facility] BrenhamUrine ketones detection by automated test prxxg3712-38-93 15:21:00* Test Item Value Reference Range Interpretation Comments Urine Ketones (test code = 29564-5) NEGATIVE NEGATIVE [facility] BrenhamUrine urobilinogen measurement by test strip (mass/volume)2020-04-11 15:21:00* Test Item Value Reference Range Interpretation Comments Urine Urobilinogen (test code = 60986-2) 2.0 0.2-1 [facility] BrenhamUrine total bilirubin measurement (mass/volume)2020-04-11 15:21:00* Test Item Value Reference Range Interpretation Comments Urine Bilirubin (test code = 1978-6) SMALL NEGATIVE [facility] BrenhamUrine erythrocytes cwqgclyid4394-87-94 15:21:00* Test Item Value Reference Range Interpretation Comments Urine Blood (test code = 19002-7) NEGATIVE NEGATIVE [facility] BrenhamAutomated urine sediment leukocyte count by microscopy (number/high power field)2020-04-11 15:21:00* Test Item Value Reference Range Interpretation Comments Urine WBC (test code = 5821-4) 0-5 0-5 [facility] BrenhamErythrocytes detection in urine sediment by light emvnruefxt7221-97-43 15:21:00* Test Item Value Reference Range Interpretation Comments Urine RBC (test code = 13263-6) NONE 0-5 [facility] BrenhamBacteria detection in urine sediment by light myeyezgukg0322-80-40 15:21:00* Test Item Value Reference Range Interpretation Comments Urine Bacteria (test code = 76333-4) MODERATE NONE [facility] BrenhamEpithelial cells detection in urine sediment by light yzmypiwkam7756-09-31 15:21:00* Test Item Value Reference Range Interpretation Comments Urine Epithelial Cells (test code = 91738-5) MANY NONE [facility] BrenhamELBOW RIGHT BNAVEJLP8024-35-70 14:33:00 [facility] [address] [address] Patient Name: Bharath FRANZ MR #: [id number] : 1945 Age/Sex: 74/F Req #: [id number] Adm Physician: Ordered by: RAMA MEDINA MD Report #: [id number] Location: [facility] Room/Bed: Procedure: [id number] DX/ELBOW RIGHT COMPL ETE Exam Date: 04/09/20 [...] 11/08 143 COPY TO: RAMA MEDINA MD [facility]BMOWRYA8490-70-98 10:59:00 [place] [address] Patient Name: Bharath RFANZ MR #: [id number] : 1945 Age/Sex: 74/F Req #: [id number] Adm Physician: Ordered by: RAMA MEDINA MD Report #: [id number] Location: US Room/Bed: Procedure: [id number] US/US THY ROID Exam Date: 10/08/19 Exam Time: 1518 REPORT STATUS: Signed Thyroid ultrasound CPT code: 31977 History: Thyromegaly Comparison: None Findings: The thyroid [...] TO: RAMA CATES MD KNEE RIGHT THREE UAWQG0583-65-13 15:06:00 [place] [address] Patient Name: Bharath FRANZ MR #: [id number] : 1945 Age/Sex: 74/F Req #: [id number] Adm Physician: Ordered by: RAMA MEDINA MD Report #: [id number] Location: Room/Bed: Procedure: [id number] DX/KNEE R IGHT THREE VIEWS Exam Date: [...] MEDINA MD CT CHEST WO 2019-10-08 14:50:00 [place] [address] Patient Name: Bharath FRANZ MR #: [id number] : 1945 Age/Sex: 74/F Req #: [id number] Adm Physician: Ordered by: RAMA MEDINA MD Report #: [id number] Location: Room/Bed: Procedure: [id number] CT/CT [facility] Exam Date: Exam Time: REPORT STATUS: [...] Interpretation Comments Bedside Glucose (test code = 44435-0) 297 70-120 H Meter ID: [id number] [facility] 2019-07-19 10:34:00 [place] [address] Patient Name: Bharath FRANZ MR #: [id number] : 1945 Age/Sex: 74/F Req #: [id number] Adm Physician: STEPHANIE CHRISTENSEN MD Ordered by: EDMUNDO GOYAL MD Report #: [id number] Location: MED/SURG3 Room/Bed: [facility] Procedure: [id number] CT/CT A JOAQUINOMEN W Exam Date: 07/19/19 [...] COPY TO: EDMUNDO GOYAL MD CT CHEST H2929-67-26 10:34:00 [place] [address] Patient Name: Bharath FRANZ MR #: [id number] : 1945 Age/Sex: 74/F Req #: [id number] Adm Physician: STEPHANIE CHRISTENSEN MD Ordered by: EDMUNDO GOYAL MD Report #: [id number] Location: MED/SURG3 Room/Bed: 284 Procedure: [id number] CT/CT C HEST W Exam Date: 07/19/19 [...] EDMUNDO GOYAL MD Stress Test - Treadmill TYPO8216-40-03 18:17:00 [place] [address] Patient Name : Bharath FRANZ MR #: [id number] : 1945 Age/Sex: 74/F Adm Physician : STEPHANIE CHRISTENSEN MD Admit Date : 07/17/19 Location : MED/SURG3 Room/Bed : [facility] REPORT: Myoview Stre ss Test DATE OF [...] the patient was t aken to the [employer] SPECT camera for resting myocardial perfusion imaging. [...] 1. Resting myocardial perfusion imaging reveals a cewhu-aq-yzombcjl sized decr eased area of uptake in [...] stress test. MD SHANELL Argueta/BRIANNE 19:1 5:46 /[id number] Signature Date Dictated By: NATALY GOYAL MD Transcribed By: BRIANNE on 07/18/19 <Electronically signed by EDMUNDO GOYAL MD>for NATALY GOYAL MD<<Signature on File>>07/19/19 1232 COPY TO: Creatine Kinase SJ8192-78-27 12:29:00* Test Item Value Reference Range Interpretation Comments Creatine Kinase MB (test code = 12696-2) 1.80 0-5.0 [facility] BrenhamHemoglobin A1c Yolopyz0650-98-53 11:19:00 * Test Item Value Reference Range Interpretation Comments Hemoglobin A1c Percent (test code = Hemoglobin A1c Percent) 8.2 4.0-7.0 H [facility] BrenhamThyroid Stimulating Hormone (TSH) 2019-07-18 11:19:00* Test Item Value Reference Range Interpretation Comments Thyroid Stimulating Hormone (TSH) (test code = 08182-8) 1.335 0.350-4.940 [facility] BrenhamCHEST 2 XNBKE9408-28-63 10:00:00 [place] [address] Patient Name: Bharath FRANZ MR #: [id number] : 1945 Age/Sex: 74/F Req #: [id number] Adm Physician: STEPHANIE CHRISTENSEN MD Ordered by: EVERT BAXTER MD Report #: [id number] [facility]: [facility] Room/Bed: [facility] Procedure: [id number] DX/TIGRE ST 2 VIEWS Exam Date: 07/17/19 [...] 1001 COPY TO: EVERT BAXTER MD Creatine Fsmojt4137-59-20 03:30:00* Test Item Value Reference Range Interpretation Comments Creatine Kinase (test code = 2157-6) 48 29-168 [facility] BrenhamTroponin W7847-26-26 03:30:00* Test Item Value Reference Range Interpretation Comments Troponin I (test code = 10968-3) < 0.05 0.0-0.40 [facility] Hospitalodium Jyndq3126-35-22 03:29:00* Test Item Value Reference Range Interpretation Comments Sodium Level (test code = 2951-2) 139 136-145 [facility] BrenhamPotassium Eatbf9888-20-74 03:29:00* Test Item Value Reference Range Interpretation Comments Potassium Level (test code = 2823-3) 3.3 3.5-5.1 L [facility] BrenhamChloride Ydgwz3652-42-44 03:29:00* Test Item Value Reference Range Interpretation Comments Chloride Level (test code = 2075-0) 99 98-107 [facility] BrenhamCarbon Dioxide Xzsgw6786-14-53 03:29:00* Test Item Value Reference Range Interpretation Comments Carbon Dioxide Level (test code = 2028-9) 28 22-29 [facility] BrenhamAnion Fcu4895-58-64 03:29:00* Test Item Value Reference Range Interpretation Comments Anion Gap (test code = 62793-4) 15.3 8-16 [facility] BrenhamBlood Urea Nykfagdo5376-63-83 03:29:00* Test Item Value Reference Range Interpretation Comments Blood Urea Nitrogen (test code = 3094-0) 15 7-26 [facility] BrenhamCreatinine2019-10-30 03:29:00* Test Item Value Reference Range Interpretation Comments Creatinine (test code = 2160-0) 1.16 0.57-1.11 H [facility] BrenhamBUN/Creatinine Gczxl3129-01-49 03:29:00* Test Item Value Reference Range Interpretation Comments BUN/Creatinine Ratio (test code = 3097-3) 13 6-25 [facility] BrenhamEstimat Glomerular Filtration Rate 2019-07-18 03:29:00* Test Item Value Reference Range Interpretation Comments Estimat Glomerular Filtration Rate (test code = 936969746) 46 >60 L Ranges were taken from the National Kidney Disease Education Program and the [facility] Foundation literature.Reference ranges:60 or greater: Gctltp80-22 ( for 3 consecutive months): Chronic kidney disease 15 or less: Kidney failureBaylor Scott & White Medical Center – BrenhamGlucose Fleop7232-13-86 03:29:00* Test Item Value Reference Range Interpretation Comments Glucose Level (test code = UYS4555) 164 74-118 H [facility] BrenhamCalcium Cgpfu4747-64-50 03:29:00* Test Item Value Reference Range Interpretation Comments Calcium Level (test code = 86306-6) 8.5 8.4-10.2 [facility] BrenhamTriglycerides Ztlga7041-20-00 03:29:00* Test Item Value Reference Range Interpretation Comments Triglycerides Level (test code = 2571-8) 374 0-149 H [facility] BrenhamCholesterol Swuds0606-98-47 03:29:00* Test Item Value Reference Range Interpretation Comments Cholesterol Level (test code = 2093-3) 234 0-199 H Less than 200 mg/dL Low Ykzk445 - 239 mg/dL Borderline Atfk725 m g/dl and greater High Risk [facility] BrenhamLDL Qgpebooiavs3341-90-15 03:29:00* Test Item Value Reference Range Interpretation Comments LDL Cholesterol (test code = 2089-1) 114 60-130 [facility] BrenhamHDL Wtgnomvgdha7131-93-49 03:29:00* Test Item Value Reference Range Interpretation Comments HDL Cholesterol (test code = 2085-9) 45 40-60 [facility] BrenhamCholesterol/HDL Xtmoq1767-67-88 03:29:00 * Test Item Value Reference Range Interpretation Comments Cholesterol/HDL Ratio (test code = 9830-1) 5.2 3.0-3.6 H [facility] BrenhamWhite Blood Rlpot5478-78-21 03:09:00* Test Item Value Reference Range Interpretation Comments White Blood Count (test code = 6690-2) 7.64 4.8-10.8 [facility] BrenhamRed Blood Bfhqn3633-73-25 03:09:00* Test Item Value Reference Range Interpretation Comments Red Blood Count (test code = 789-8) 3.65 3.6-5.1 [facility] BrenhamHemoglobin2019-10-30 03:09:00* Test Item Value Reference Range Interpretation Comments Hemoglobin (test code = 62524-0) 11.3 12.0-16.0 L [facility] BrenhamHematocrit2019-10-30 03:09:00* Test Item Value Reference Range Interpretation Comments Hematocrit (test code = 4544-3) 32.4 34.2-44.1 L [facility] BrenhamMean Corpuscular Ijdqel5112-23-42 03:09:00* Test Item Value Reference Range Interpretation Comments Mean Corpuscular Volume (test code = 787-2) 88.8 81-99 [facility] BrenhamMean Corpuscular Aspgcpicfk7992-12-21 03:09:00* Test Item Value Reference Range Interpretation Comments Mean Corpuscular Hemoglobin (test code = 785-6) 31.0 28-32 [facility] Corpuscular Hemoglobin Concent 2019-07-18 03:09:00* Test Item Value Reference Range Interpretation Comments Mean Corpuscular Hemoglobin Concent (test code = 786-4) 34.9 31-35 [facility] BrenhamRed Cell Distribution Pmcnc6158-42-14 03:09:00* Test Item Value Reference Range Interpretation Comments Red Cell Distribution Width (test code = 88127-9) 13.4 11.7 -14.4 [facility] BrenhamPlatelet Dzyxy8964-31-05 03:09:00* Test Item Value Reference Range Interpretation Comments Platelet Count (test code = 777-3) 263 140-360 [facility] BrenhamNeutrophils (%) (Auto)2019-07-18 03:09:00 * Test Item Value Reference Range Interpretation Comments Neutrophils (%) (Auto) (test code = 58856-7) 65.3 38.7-80.0 [facility] BrenhamLymphocytes (%) (Auto)2019-07-18 03:09:00 * Test Item Value Reference Range Interpretation Comments Lymphocytes (%) (Auto) (test code = 736-9) 20.9 18.0-39.1 [facility] BrenhamMonocytes (%) (Auto)2019-07-18 03:09:00* Test Item Value Reference Range Interpretation Comments Monocytes (%) (Auto) (test code = 5905-5) 8.4 4.4-11.3 [facility] BrenhamEosinophils (%) (Auto)2019-07-18 03:09:00 * Test Item Value Reference Range Interpretation Comments Eosinophils (%) (Auto) (test code = 713-8) 3.3 0.0-6.0 [facility] BrenhamBasophils (%) (Auto)2019-07-18 03:09:00* Test Item Value Reference Range Interpretation Comments Basophils (%) (Auto) (test code = 706-2) 1.8 0.0-1.0 H [facility] BrenhamIM GRANULOCYTES %2019-07-18 03:09:00* Test Item Value Reference Range Interpretation Comments IM GRANULOCYTES % (test code = IM GRANULOCYTES %) 0.3 0.0- 1.0 [facility] BrenhamNeutrophils # (Auto)2019-07-18 03:09:00* Test Item Value Reference Range Interpretation Comments Neutrophils # (Auto) (test code = 751-8) 5.0 2.1-6.9 [facility] BrenhamLymphocytes # (Auto)2019-07-18 03:09:00* Test Item Value Reference Range Interpretation Comments Lymphocytes # (Auto) (test code = 38176-6) 1.6 1.0-3.2 [facility] BrenhamMonocytes # (Auto)2019-07-18 03:09:00* Test Item Value Reference Range Interpretation Comments Monocytes # (Auto) (test code = 742-7) 0.6 0.2-0.8 [facility] BrenhamEosinophils # (Auto)2019-07-18 03:09:00* Test Item Value Reference Range Interpretation Comments Eosinophils # (Auto) (test code = 711-2) 0.3 0.0-0.4 [facility] BrenhamBasophils # (Auto)2019-07-18 03:09:00* Test Item Value Reference Range Interpretation Comments Basophils # (Auto) (test code = 704-7) 0.1 0.0-0.1 [facility] BrenhamAbsolute Immature Granulocyte (auto 2019-07-18 03:09:00* Test Item Value Reference Range Interpretation Comments Absolute Immature Granulocyte (auto (jojo t code = Absolute Immature Granulocyte (auto) 0.02 0-0.1 [facility] BrenhamTotal Grtvwzvlb1323-84-66 15:27:00* Test Item Value Reference Range Interpretation Comments Total Bilirubin (test code = 1975-2) 0.4 0.2-1.2 [facility] BrenhamAspartate Amino Transf (AST/SGOT) 2019-07-17 15:27:00* Test Item Value Reference Range Interpretation Comments Aspartate Amino Transf (AST/SGOT) (test code = Aspartate Amino Transf (AST/SGOT)) 14 5-34 [facility] BrenhamAlanine Aminotransferase (ALT/SGPT) 2019-07-17 15:27:00* Test Item Value Reference Range Interpretation Comments Alanine Aminotransferase (ALT/SGPT) (test code = 1742-6) 7 0-55 [facility] BrenhamTotal Lcfoors0724-81-58 15:27:00* Test Item Value Reference Range Interpretation Comments Total Protein (test code = 2885-2) 7.5 6.5-8.1 [facility] BrenhamAlbumin2019-10-29 15:27:00* Test Item Value Reference Range Interpretation Comments Albumin (test code = 1751-7) 3.7 3.5-5.0 [facility] BrenhamGlobulin2019-10-29 15:27:00* Test Item Value Reference Range Interpretation Comments Globulin (test code = 98113-8) 3.8 2.3-3.5 H [facility] BrenhamAlbumin/Globulin Rcmlb9270-13-36 15:27:00 * Test Item Value Reference Range Interpretation Comments Albumin/Globulin Ratio (test code = 1759-0) 1.0 0.8-2.0 [facility] BrenhamAlkaline Aucwzvnetix3197-16-25 15:27:00* Test Item Value Reference Range Interpretation Comments Alkaline Phosphatase (test code = 6768-6) 116 40-150 [facility] BrenhamMAMMOGRAPHY DIGITAL SCR EFQID3931-52-52 14:25:00 [facility] [address] [place] [address] Patient Name: Bharath FRANZ MR #: [id number] : 1945 Age/Sex: 74/F Req #: [id number] Adm Physician: Ordered by: RAMA MEDINA MD Report #: [id number] Location: [facility] Room/Bed: Procedure: [id number] MG/MAMMOG MANJULA DIGITAL SCR BILAT Exam Date: 06/20/19 Exam Jaswinder e: 1350 REPORT STATUS: Signed #[id number] - MGSCRBIL #BILATERAL DIGITAL SCREENING MAMMOGRAM WITH CAD: CLINICAL: Routine screening. Comparison is made to exams dated: 04/27/2018 mammogram and 03/15/2018 mammogram - [facility] nter. Current study contains 4 films. There [...] of the results. JOSHUA núñez/margarita:06/21/2019 16 :13:53 [employer]: Lauren KING(R)(M), [facility] letter sent: Normal Exam Mammogram BI-RADS: 2 Benign D ictated By: JOSHUA MEJÍA MD 1613 COPY TO: CRISTOBAL MEDINA MD UNILAT W/RUR1364-04-87 08:43:00 [place] [address] Patient Name: Bharath FRANZ MR #: [id number] : 1945 Age/Sex: 73/F Req #: [id number] Adm Physician: Ordered by: RAMA MEDINA MD Report #: [id number] Location: RAD Room/Bed: Procedure: [id number] DX/RIBS U NILAT W/CXR Exam Date: 12/27/18 [...] TO: RAMA MEDINA MD BONE DXA DUAL YSIRSR9471-14-22 07:02:00 [place] [address] Patient Name: Bharath FRANZ MR #: [id number] : 1945 Age/Sex: 73/F Req #: [id number] Adm Physician: Ordered by: RAMA MEDINA MD Report #: [id number] Location: [facility] Room/Bed: Procedure: [id number] DX/BONE D XA DUAL ENERGY Exam Date: [...] RAMA MEDINA MD SP LUMBAR, COMPLETE MIN 7PU7560-82-89 15:47:[address], [place], [place] [address] Patient Name: AMISH FRANZ MR #: [id number] : 1945 Age/Sex: 73/F Req #: [id number] [facility] Physician: Ordered by: RAMA MEDINA MD Report #: [id number] Location: [facility] Room/Bed: Procedure: [id number] DX/S P LUMBAR, COMPLETE MIN 4VW Exam [...] 1556 Transcr ibed By: LAWRENCE on 11/28/18 1552 COPY TO: RAMA MEDINA MD BASIC METABOLIC [id number] 22:24:00* Test Item Value Reference Range Interpretation [...] code = CA) 9.0 mg/dL 8.5-10.1 N [id number] 22:24:00* Test Item Value Reference Range Interpretation Comments TROPONIN-I (test code = TROPI) <0.015 ng/mL 0-0.045 N CBC W/AUTO [id number] 22:04:00* Test Item Value Reference Range Interpretation [...] = MDIFF) NO - CT HEAD/BRAIN W/O [id number] 21:51:00 Name: ETELVINANITHYATANKARIANNA HAIR [facility] [place] : 1945 Age/S: 73 / F [address] [facility] #: [id number] Loc: [place] [address] Phys: Mosie Martin MD Acct: [id number] Dis Date: Status: PRE ER PHONE #: [phone] Exam Date: 10/12/20182117 FAX #: [phone] Reason: Headache EXAMS: CPT CODE: [id number] CT HEAD/BRAIN W/O CONT 92126 EXAM: CT of the head without contrast; [...] DLP: PAGE 1 Signed Report CHEST 2 [id number] 13:31:00 [place] [address] Patient Name: AMISH FRANZ MR #: [id number] : 1945 Age/Sex: 73/F Req #: [id number] Adm Physician: Ordered by: RAMA MEDINA MD Report #: [id number] Location: [facility] Room/Bed: Procedure: [id number] DX/C HEST 2 VIEWS Exam Date: 07/18/18 [...] TO: RAMA MEDINA MD MAMMOGRAPHY DIGITAL DX [facility] [id number] 12:10:00 [place] [address] Patient Name: AMISH FRANZ MR #: [id number] : 1945 Age/Sex: 72/F Req #: [id number] Adm Physician: Ordered by: RAMA MEDINA MD Report #: [id number] Location: [facility] Room/Bed: Procedure: MG/MAMMOGRAPHY DIGITAL DX UN I LT Exam Date: 04/27/18 Exam Time: 1133 REPOR T STATUS: Signed #[id number] - MGDXLT #UNILATERAL LEFT DIGITAL DIAGNO STIC MAMMOGRAM WITH SPOT COMPRESSION: 04/27/2018 Comparison is made to exam date d: 03/15/2018 mammogram - [facility]. Current study contains 2 films. [...] Vandana Oviedo Jr., D.O. 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 INDICATIONS: Thyromegaly [...] TO: RAMA DELGADO MD FNA WITH IMAGE [id number] 14:13:00 [place] [address] Patient Name: AMISH FRANZ MR #: [id number] : 1945 Age/Sex: 72/F Req #: [id number] Adm Physician: Ordered by: RAMA MEDINA MD Report #: [id number] Location: CT Room/Bed: Procedure: [id number] IR/FNA WITH IMAGE GUIDANCE Exa m Date: [...] RAMA MEDINA MD BIOPSY LUNG 2018-04-06 14:13:00 [place] [address] Patient Name: AMISH FRANZ MR #: [id number] : 1945 Age/Sex: 72/F Req #: [id number] Adm Physician: Ordered by: RAMA MEDINA MD Report #: [id number] Location: CT Room/Bed: Procedure: [id number] IR/BIOPSY LUNG Exam Date: 03/19 06/06 Exam [...] COPY TO: RAMA MEDINA MD CT GUIDED BIOPSY/ASPIR/INJ/[id number] 14:13:00 [place] [address] Patient Name: AMISH FRANZ MR #: [id number] : 1945 Age/Sex: 72/F Req #: [id number] Adm Physician: Ordered by: RAMA MEDINA MD Report #: [id number] Location: CT Room/Bed: Procedure: CT/CT GUIDED BIOPSY/ASPIR/INJ/P [...] MEDINA MD CHEST SINGLE (NOT PORTABLE)2018-04-06 14:00:00 [place] [address] Patient Name: AMISH FRANZ MR #: [id number] : 1945 Age/Sex: 72/F Req #: [id number] Adm Physician: Ordered by: VANDANA OVIEDO DO Report #: [id number] Location: CT Room/Bed: Procedure: DX/CHEST SINGLE (NOT PORTABLE) Exam Date: Exam Time: REPORT STATUS: Signed PROCEDURE: X-RAY CHEST, ONE VIEW COMPARISON: [facility], DX, CHEST XRAY POST PROCEDURE, 04/06/2018, 11:31. [...] DO CHEST XRAY POST PROCEDURE 2018-04-06 11:53:00 [place] [address] Patient Name: AMISH FRANZ MR #: [id number] : 1945 Age/Sex: 72/F Req #: [id number] Adm Physician: Ordered by: VANDANA OVIEDO DO Report #: [id number] Location: CT Room/Bed: Procedure: [id number] DX/CHEST XRAY POST PROCEDURE Ex am Date: [...] COPY TO: VANDANA OVIEDO DO CT CHEST [id number] 18:11:00 [place] [address] Patient Name: Bharath FRANZ MR #: [id number] : 1945 Age/Sex: 72/F Req #: [id number] Adm Physician: Ordered by: RAMA MEDINA MD Report #: [id number] Location: CT Room/Bed: Procedure: [id number] CT/CT CHEST WO Exam Date: 03/21/18 Exam Time: 1725 REPORT STATUS: Signed PROCED URE: CT CHEST WITHOUT CONTRAST CT scan of the chest WITHOUT intravenous contra st, using standard protocol. TECHNIQUE: The chest was scanned [employer] ng a multidetector helical scanner from the apex to the level of the adrenal glands. No IV contrast was administered per physician's request. Coronal and sagittal multiplanar reformations were obtained. COMPARISON: [facility], CT, CT CHEST WO, 03/13/2016, 18:39. INDICATIONS: [...] MD 10 Transcribed By: MESFIN on 03/21/181810 [employer] PIL[employer] Y TO: RAMA MEDINA MD MAMMOGRAPHY DIGITAL SCR [id number] 11:44:00 [place] [address] Patient Name: Bharath FRANZ MR #: [id number] : 1945 Age/Sex: 72/F Req #: [id number] Adm Physician: Ordered by: RAMA MEDINA MD Report #: [id number] Location: MAMMO Room/Bed: Procedure: [id number] MG/MAMMOGRAPHY DIGITAL SCR BILAT Exam Date: 03/15/18 Exam Time: 1106 REPORT STA TUS: Signed #[id number] - [id number] #BILATERAL DIGITAL SCREENING MAMMO GRAM [...] depth medial region seen on the aircraft structure mechanic niocaudal view only. Scattered calcifications and vascular [...] appointment. Vandana Oviedo Jr., D.O. cw/:03/23/2018 14:02:53 Novelty Printing Machine Operator: Lauren MOHAN)(Meir), [facility] letter sent: Additional Imaging Needed Mammogram BI-RADS: 0 Indeterminate Dictated By: VANDANA ANNE DO 140 Transcrib ed By: MARGARITA on 03/23/18 140 COPY TO: RAMA MEDINA MD CERVICAL SPINE 4 OR 5 [id number] 23:38:00 [place] [address] Patient Name: AMISH FRANZ MR #: [id number] : 1945 Age/Sex: 72/F Req #: [id number] Adm Physician: Ordered by: RAMA MEDINA MD Report #: [id number] Location: RAD Room/Bed: Procedure: [id number] DX/CERVICAL SPINE 4 OR 5 VIEWS Exam [...] COPY TO: RAMA MEDINA MD CHEST 2 [id number] 15:28:00 [place] [address] Patient Name: AMISH FRANZ MR #: [id number] : Age/Sex: 72/F Req #: [id number] Adm Physician: Ordered by: RAMA MEDINA MD Report #: [id number] Location: [facility] Room/Bed: Procedure: [id number] DX/CHEST 2 VIEWS Exam Date: 03/14/18 Exam Time: 1415 REPORT STATUS: Signed PROCEDURE: Frontal and lateral views of the chest. COMPARISON: Patients [facility], DX, CHEST SINGLE (PORTABLE), 03/13/2016, 17:51. Patients [facility], CT, CT CHEST WO, 03/13/2016, 18:39. Patients [facility], DX , CHEST SINGLE (PORTABLE), 09/23/2016, [...]
[2020-04-24 18:56] LABS: BASOPHILS # (AUTO) 0.1 (0.0-0.1); EOSINOPHILS % 0.5 % (0.0-6.0); HEMATOCRIT 26.2 % (34.2-44.1); HEMOGLOBIN 7.8 g/dL (12.0-16.0); LYMPHOCYTES # (AUTO) 0.8 (1.0-3.2); LYMPHOCYTES % 12.6 % (18.0-39.1); MEAN CORPUSCULAR HEMOGLOBIN 24.1 pg (28-32); MEAN CORPUSCULAR HGB CONC 29.8 g/dL (31-35); MEAN CORPUSCULAR VOLUME 80.9 fL (81-99); MONOCYTES # (AUTO) 0.6 (0.2-0.8); NEUTROPHILS # (AUTO) 4.9 (2.1-6.9); NEUTROPHILS % 75.7 % (38.7-80.0); PLATELET COUNT 379 x10e3/uL (140-360); RED BLOOD COUNT 3.24 x10e6/uL (3.6-5.1); RED CELL DISTRIBUTION WIDTH 15.9 % (11.7-14.4)
--- NOTE | 2020-04-24 18:59 | Emergency Department Note ---
History of Present Illnes History of Present Illness Chief Complaint: General Medicine Complaints History of Present Illness This is a 74 year old female with h/o chf, anemia and a former smoker presents with c/o sob for past 3 days, also states her ankles are swollen. pt had been admitted here twice for same in past coule of months and was tested for covid 19 both times and was negative both times. states sob worse with lying flat, walking and especially when walking up stairs. denies chest pain, also reports has asthma and she has been using her inhalers and they are not helping her sob. . Historian: Patient Arrival Mode: Car Onset (how long ago): day(s) (3) Location: chest Quality: sob Radiation: Reports non-radiation Severity: moderate Onset quality: gradual Duration (how long): day(s) (3) Timing of current episode: constant Progression: waxing and waning Chronicity: recurrent Context: Denies recent illness, Denies recent surgery, Denies trauma/injury Relieving factors: none Exacerbating factors: movement, other (lying flat) Associated symptoms: Reports denies other symptoms Treatments prior to arrival: none Past Medical/Family History Physician Review I have reviewed the patient's past medical and family history. Any updates have been documented here. Past Medical History Recent Fever: No Clinical Suspicion of Infectio: No New/Unexplained Change in Ment: No Past Medical History: Diabetes, CHF, TIA, Asthma, CAD, UTI's, Depression, H yperlipedemia, Osteoarthritis Other Medical History: cardiac stents, Lung cancer (right) Past Surgical History: Cholecysctectomy, Appendectomy, Hysterectomy, Lumpectomy Other Surgery: HEART STENTS Social History Smoking Cessation: Former smoker Alcohol Use: None Any Illegal Drug Use: No Family History Family history of heart diseas: Yes Other family history htn,dm,cad Other Last Tetanus: OOD Review of Systems Review of Systems Constitutional: Reports no symptoms EENTM: Reports no symptoms Cardiovascular: Reports no symptoms Respiratory: Reports as per HPI Gastrointestinal: Reports no symptoms Genitourinary: Reports no symptoms Musculoskeletal: Reports no symptoms Integumentary: Reports no symptoms Neurological: Reports no symptoms Psychological: Reports no symptoms Endocrine: Reports no symptoms Hematological/Lymphatic: Reports no symptoms Physical Exam Related Data Allergies: Coded Allergies: Iodine and Iodide Containing Produc (Verified Allergy, Intermediate, HIVES, 07/18/19) codeine (Verified Allergy, Mild, HIVES, 03/26/17) Triage Vital Signs Vital Signs Date Time Temp Pulse Resp B/P (MAP) Pulse Ox O2 Delivery O2 Flow Rate FiO2 04/24/20 18:11 98.3 106 16 107/60 100 Room Air Vital signs reviewed: Yes Physical Exam CONSTITUTIONAL Constitutional: Present well-developed, Present well-nourished; Absent distressed HENT HENT: Present normocephalic, Present atraumatic, Present oropharynx clear/moist, Present nose normal HENT L/R: Present left ext ear normal, Present right ext ear normal EYES Eyes: Reports PERRL, Reports other (pale conjuctiva) NECK Neck: Present ROM normal PULMONARY Pulmonary: Present effort normal, Present other (decreased moderately at bases bilateral, no wheezing, no rhales noted) CARDIOVASCULAR Cardiovascular: Present regular rhythm, Present heart sounds normal, Present capillary refill normal, Present normal rate GASTROINTESTINAL Abdominal: Present soft, Present nontender, Present bowel sounds normal GENITOURINARY Genitourinary: Present exam deferred SKIN Skin: Present warm, Present dry MUSCULOSKELETAL Musculoskeletal: Present ROM normal, Present edema (2 + pitting edema to ankles bilateral) NEUROLOGICAL Neurological: Present alert, Present oriented x 3, Present no gross motor or sensory deficits PSYCHOLOGICAL Psychological: Present mood/affect normal, Present judgement normal Results Laboratory Laboratory Laboratory Tests Test 04/24/20 18:38 White Blood Count 6.44 x10e3/uL (4.8-10.8) Red Blood Count 3.24 x10e6/uL (3.6-5.1) Hemoglobin 7.8 g/dL (12.0-16.0) Hematocrit 26.2 % (34.2-44.1) Mean Corpuscular Volume 80.9 fL (81-99) Mean Corpuscular Hemoglobin 24.1 pg (28-32) Mean Corpuscular Hemoglobin Concent 29.8 g/dL (31-35) Red Cell Distribution Width 15.9 % (11.7-14.4) Platelet Count 379 x10e3/uL (140-360) Neutrophils (%) (Auto) 75.7 % (38.7-80.0) Lymphocytes (%) (Auto) 12.6 % (18.0-39.1) Monocytes (%) (Auto) 9.0 % (4.4-11.3) Eosinophils (%) (Auto) 0.5 % (0.0-6.0) Basophils (%) (Auto) 2.0 % (0.0-1.0) Neutrophils # (Auto) 4.9 (2.1-6.9) Lymphocytes # (Auto) 0.8 (1.0-3.2) Monocytes # (Auto) 0.6 (0.2-0.8) Eosinophils # (Auto) 0.0 (0.0-0.4) Basophils # (Auto) 0.1 (0.0-0.1) Absolute Immature Granulocyte (auto 0.01 x10e3/uL (0-0.1) Sodium Level 136 mmol/L (136-145) Potassium Level 4.1 mmol/L (3.5-5.1) Chloride Level 99 mmol/L (98-107) Carbon Dioxide Level 23 mmol/L (22-29) Anion Gap 18.1 mmol/L (8-16) Blood Urea Nitrogen 28 mg/dL (7-26) Creatinine 1.50 mg/dL (0.57-1.11) Estimat Glomerular Filtration Rate 34 ML/MIN (60-) BUN/Creatinine Ratio 19 (6-25) Glucose Level 341 mg/dL (74-118) Calcium Level 9.2 mg/dL (8.4-10.2) Total Bilirubin 1.3 mg/dL (0.2-1.2) Aspartate Amino Transf (AST/SGOT) 42 IU/L (5-34) Alanine Aminotransferase (ALT/SGPT) 35 IU/L (0-55) Alkaline Phosphatase 197 IU/L (40-150) Creatine Kinase 57 IU/L (29-168) Creatine Kinase MB 3.30 ng/mL (0-5.0) Troponin I 0.397 ng/mL (0-0.300) Total Protein 7.4 g/dL (6.5-8.1) Albumin 3.5 g/dL (3.5-5.0) Globulin 3.9 g/dL (2.3-3.5) Albumin/Globulin Ratio 0.9 (0.8-2.0) Lab results reviewed: Yes Imaging Imaging results reviewed: Yes Impressions Examination: Single AP view of the chest. COMPARISON: None. INDICATION: Shortness of breath, fluid overload DISCUSSION: Lines/tubes: None. Lungs: Pulmonary venous congestion. Pleura: Probable small effusions. Heart and mediastinum: Prominent heart size. Bones and soft tissues: No acute bony abnormalities. IMPRESSION: 1. Cardiopulmonary with pulmonary venous congestion and probable small effusions Signed by: Dr. Quynh Parr M.D. on 04/24/2020 7:45 PM Dictated By: QUYNH PARR MD 44 Transcribed By: LAWRENCE on 04/24/201944 COPY TO: QUETA BENNETT MD~ Procedures 12 Lead ECG Interpretation ECG Interpretation : ECG: ECG 1 Pre Sales Technical Engineer: Interpreted by ED physician Date: Apr 24, 2020 Time: 18:50 Prior ECG tracings: reviewed Rhythm: sinus rhythm Rate: normal BPM: 94 QRS axis: normal ST segments normal: Yes T waves normal: No T wave inversion: V6 T waves flattening: II, III, aVF, V4, V5 Q waves: III, V1, V2, V3 Clinical Impression: abnormal ECG Assessment & Plan Medical Decision Making MDM pt with h/o cad, chf, asthma, former smoker presents with worsening sob for three days cbc, cmp, cardiac enzymes, bnp, cxr, ordered to eval for anemia, myocardial infarction, electrolyte abnormality, pulmonary edema, pneumonia, pt found to have elevated troponin, cardiomegaly, pulmonary venous congestion, aspirin 324 mg po ordered i spoke with dr malagon and dr coles, admit inpatient, echocardiogram in am, Assessment & Plan Final Impression: (1) Elevated troponin I level (2) Anemia (3) SOB (shortness of breath) on exertion (4) CHF exacerbation Depart Disposition: ADMITTED Last Vital Signs Date Time Temp Pulse Resp B/P (MAP) Pulse Ox O2 Delivery O2 Flow Rate FiO2 04/24/20 18:11 98.3 106 16 107/60 100 Room Air Home Meds Active Scripts Furosemide (FUROSEMIDE) 40 Mg Tablet, 20 MG PO Daily, #30 TAB Prov:CARROLL PACK NP 04/15/20 Pantoprazole Sodium* (PROTONIX) 40 Mg Tablet.dr, 40 MG PO BIDAC for 30 Days, TAB Prov:CARROLL PACK NP 04/15/20 Metoprolol Tartrate (LOPRESSOR) 25 Mg Tab, 25 MG PO BID for 30 Days, TAB Prov:CARROLL PACK CLIENT REPORTING ASSOCIATE 04/15/20 Tramadol Hcl* (ULTRAM 50MG*) 50 Mg Tab, 50 MG PO Q8H PRN for pain, #20 TAB Prov:CARROLL PACK CLIENT REPORTING ASSOCIATE 07/18/19 Fenofibrate (TRICOR) 48 Mg Tab, 48 MG PO DAILY, #30 TAB Prov:CARROLL PACK CLIENT REPORTING ASSOCIATE 07/18/19 Atorvastatin Calcium (LIPITOR) 20 Mg Tablet, 40 MG PO HS for 30 Days Prov:ROSAMARIA MARINO 03/19/16 Reported Medications Albuterol Sulf* (PROAIR HFA INHALER*) 8.5 Gm Inh, 2 INH NEB Q6HR PRN for shortness of breath 04/12/20 Gabapentin (GABAPENTIN) 100 Mg Capsule, 1 CAP PO TID 04/12/20 Bisacodyl (DULCOLAX) 5 Mg Tablet.dr, 1 TAB PO DAILY 07/17/19 Exenatide Microspheres (BYDUREON) 2 Mg Vial, 2 MG SC once a week 03/26/17 Cyanocobalamin (VITAMIN B-12) 1,000 Mcg Tab, 500 MCG PO DAILY, #30 TAB 03/26/17 Clopidogrel Bisulfate* (PLAVIX) 75 Mg Tablet, 75 MG PO DAILY, #30 TAB 03/26/17 Trazodone Hcl (TRAZODONE HCL) 50 Mg Tablet, 50 MG PO HS, #30 TAB 03/26/17 Aspirin (ASPIR 81) 81 Mg Tablet.dr, 1 TAB PO DAILY 03/26/17 Metformin Hcl (METFORMIN HCL) 500 Mg Tablet, 1000 MG PO BIDWM, #60 TAB 03/13/16 QUETA BENNETT MD Apr 24, 2020 18:59
[2020-04-24 19:28] LABS: ALBUMIN 3.5 g/dL (3.5-5.0); ALBUMIN/GLOBULIN RATIO 0.9 (0.8-2.0); ANION GAP 18.1 mmol/L (8-16); CALCIUM 9.2 mg/dL (8.4-10.2); CREATININE, SERUM 1.5 mg/dL (0.57-1.11); POTASSIUM 4.1 mmol/L (3.5-5.1)
[2020-04-24 19:34] LABS: CREATINE KINASE MB 3.3 ng/mL (0-5.0)
--- NOTE | 2020-04-24 19:48 | Diagnostic Imaging Report ---
Examination: Single AP view of the chest. COMPARISON: None. INDICATION: Shortness of breath, fluid overload DISCUSSION: Lines/tubes: None. Lungs: Pulmonary venous congestion. Pleura: Probable small effusions. Heart and mediastinum: Prominent heart size. Bones and soft tissues: No acute bony abnormalities. IMPRESSION: 1. Cardiopulmonary with pulmonary venous congestion and probable small effusions Signed by: Dr. Benjamin Alexander M.D. on 04/24/2020 7:45 PM
[2020-04-24] MEDS ORDERED: SODIUM CHLORIDE FLUSH 10 ML SYR INJ PRN (20:00)
[2020-04-24] MEDS ORDERED: ASPIRIN 81 MG CHEW TAB PO ONE (20:00)
[2020-04-24] MEDS ORDERED: DEXTROSE 50% SYRINGE 50 ML IV PRN (20:00)
[2020-04-24] MEDS: METOPROLOL TARTRATE 25 MG TAB PO SCH (21:41)
[2020-04-24] MEDS: FUROSEMIDE INJ 10 MG/ML 4 ML VIAL IV SCH (21:41)
--- NOTE | 2020-04-24 21:57 | NUR ---
Received report from ER nurse.
--- NOTE | 2020-04-24 22:20 | NUR ---
Patient arrived to the floor via w/c. BS checked. Snack given. Denies pain at this time.
--- OUTSIDE RECORDS SUMMARY | 2020-04-24 22:45 | XMS REPORT | Continuity of Care Document ---
Author Author [facility] t Organization [facility] Address [address] [place] [address] Phone Unavailable Care Team Providers Care Delicatessen Department Manager Name Role Phone CAROL LEVINE, MD ONTIVEROS PCP Prema BENNETT Attphys Unavailable STEPHANIE CHRISTENSEN Attphys Unavailable RAMA MEDINA Attphys Unavailable STEPHANIE CHRISTENSEN Admphys Unavailable Payers Payer Name Policy Type Policy Number Effective Date Expiration Date S [facility] [id number] 2019 00:00:00 [facility] [id number] 2019 00:00 :00 [facility]ly [facility] Problems Condition Name Condition Details Condition Category Status Onset Date Resolution Date Last Treatment Date Treating Clinician Comments Source PAD (peripheral artery disease) PAD (peripheral artery disease) Dis ease Active 2018-06-26 00:00:00 Vishal Bentley Subclavian steal syndrome Subclavian steal syndrome Disease Ac tive 2018-06-26 00:00:[address] Non-small cell lung cancer, right Non-small cell lung cancer, ri ght Disease Active 2018-06-12 00:00:00 Christoph Bentley Pre-op exam Pre-op exam Disease Active 2018-06-04 00:00:00 Vishal Bentley Carotid bruit Carotid bruit Disease Active 2018-06-04 00:00:00 Vishal Bentley 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 Disease A ctive 2018-06-04 00:00:00 Vishal Bentley Angina pectoris Angina pectoris Disease Active 2018-06-04 00:00:00 Vishal Bentley Chest pain Chest pain Problem Active 2016-03-13 00:00:00 [facility] Diabetes mellitus Diabetes Problem Active 2016-03-13 00:00:00 [facility] Hypokalemia Hypokalemia Problem Active 2016-03-13 00:00:00 [facility] Urinary tract infection UTI (urinary tract infection) Problem Active 2016-03-13 00:00:00 [facility] Acute on chronic congestive heart failure Problem Active [facility] Anemia Problem Active [facility] Short of breath on exertion Problem Active [facility] Allergies, Adverse Reactions, Alerts Allergy Name Allergy Type Status Severity Reaction(s) Onset Date Inacti ve Date Treating Clinician Comments Source Iodine and Iodide Containing Produc Allergy to substance Active M oderate HIVES 2019-07-18 00:00:00 [facility] No Known Allergies DA Active U 2018-10-12 00:00:00 [facility] Codeine Allergy to substance Active Mild HIVES 2017-03-26 00:00:00 [facility] Family History Family Member Diagnosis Comments Start Date Stop Date Source Natural father Heart disease Vishal Bentley Natural father Neuropathy [facility] Natural mother Diabetes [place] [facility] Natural mother Heart disease Vishal Bentley Social History Social Habit Start Date Stop Date Quantity Comments Source History of tobacco use Current smoker Vishal Bentley Sex Assigned At [facility] [employer] Cigarettes smoked current (pack per day) - Reported 00:00:00 2018-08-03 00:00:00 Vishal Bentley Cigarette pack-years 2018-08-03 00:00:00 2018-08-03 00:00:00 Vishal Bentley Alcohol intake 2018-08-03 00:00:00 2018-08-03 00:00:00 Current non-drinker of alcohol (finding) Vishal Bentley Smoking Status Start Date Stop Date Source Former smoker 2018-08-03 00:00:00 2018-08-03 00:00:00 Vishal Bentley Medications Ordered Medication Name Filled Medication Name Start Date Stop Da te Current Medication? Ordering Clinician Indication Dosage Frequency Signature (SIG) Comments Components Source Furosemide Furosemide 2020-04-15 10:24:00 Yes 20 Faith ly [facility] Metoprolol Tartrate (Lopressor) 25 Mg TAB Metoprolol T artrate (Lopressor) 25 Mg TAB 2020-04-15 09:55:00 Yes 25 Twice A Day [facility] Pantoprazole Sodium (Protonix) 40 Mg TABLET. Pantopr azole Sodium (Protonix) 40 Mg TABLET. 2020-04-15 09:55:00 Yes 40 Twice Daily Before Meals [facility] Tramadol Hcl (Ultram 50MG*) 50 Mg TAB Tramadol Hcl (Ultram 5 0MG*) 50 Mg TAB 2019-07-18 06:43:00 Yes 50 Every 8 Hours as n eeded for Pain [facility] Fenofibrate (Tricor) 48 Mg TAB Fenofibrate (Tricor) 48 Mg TA B 2019-07-18 06:36:00 Yes 48 Daily [facility] Pantoprazole Sodium (Protonix) 40 Mg TABLET. Pantleda azole Sodium (Protonix) 40 Mg TABLET. 2019-07-18 06:36:00 2020-04-12 00:00:00 No 40 Daily@0600 [facility] metFORMIN (GLUCOPHAGE) 500 mg tablet 2018-06-26 13:35:07 [...] Mg TABLET 2016-03-19 14:39:00 Yes 40 Bedtime [facility] Lisinopril (Prinivil) 10 Mg TABLET Lisinopril (Prinivil) 10 Mg TABLET 2016-03-19 14:39:00 2020-04-15 00:00:00 No 10 Daily [facility] Carisoprodol Carisoprodol 2016-03-19 14:39:00 2017-03-26 00:00:00 No 350 Every 12 Hours as needed for Muscle Spasms [facility] Metoprolol Tartrate (Lopressor) 25 Mg TAB Metoprolol T artrate (Lopressor) 25 Mg TAB 2016-03-19 14:39:00 2017-03-26 00:00:00 No 25 Ever y 12 Hours [facility] Pantoprazole Sod (Protonix) 40 Mg/Ml SUSP Pantoprazole Sod (Protonix) 40 Mg/Ml SUSP 2016-03-19 14:39:00 2017-03-26 00:00:00 No 40 Befo re Breakfast [facility] Albuterol Sulfate (Proair Hfa Inhaler*) 8.5 Gm INH Alb uterol Sulfate (Proair Hfa Inhaler*) 8.5 Gm INH Yes 2 Laura ry 6 Hours as needed for Shortness Of Breath [facility] Aspirin (Aspir 81) 81 Mg TABLET. Aspirin (Aspir 81) 81 Mg TABLET. Yes 1 Daily [facility] Bisacodyl (Dulcolax) 5 Mg TABLET. Bisacodyl (Dulcolax) 5 Mg TABLET. Yes 1 Daily [facility] Clopidogrel Bisulfate (Plavix) 75 Mg TABLET Clopidogre l Bisulfate (Plavix) 75 Mg TABLET Yes 75 Daily [facility] Cyanocobalamin (Vitamin B-12) 1,000 Mcg TAB Cyanocobal dennis (Vitamin B-12) 1,000 Mcg TAB Yes 500 Daily [facility] Exenatide Microspheres (Bydureon) 2 Mg VIAL Exenatide Microspheres (Bydureon) 2 Mg VIAL Yes 2 Once A Week [facility] Gabapentin Gabapentin Yes 1 Three Times A Day [facility] Metformin Hcl Metformin Hcl Yes 1000 Twice Daily With Meals [facility] Trazodone Hcl Trazodone Hcl Yes 50 Bedtime [facility] Fluticasone Propionate Fluticasone Propionate 2020-04-12 00:00:00 No [facility] Insulin Aspart (Novolog) 100 Unit/1 Ml CARTRIDGE Insul in Aspart (Novolog) 100 Unit/1 Ml CARTRIDGE 2020-04-12 00:00:00 No 10 Three Times Daily With Meals [facility] Insulin Glargine (Lantus) 100 Units/Ml ML Insulin Glar gine (Lantus) 100 Units/Ml ML 2020-04-12 00:00:00 No 30 Bedtime [facility] Meloxicam Meloxicam 2020-04-12 00:00:00 No 7.5 Daily [facility] Gabapentin Gabapentin 2017-03-26 00:00:00 No 600 Twi ce A Day [facility] Pregabalin (Lyrica) 75 Mg CAP Pregabalin (Lyrica) 75 Mg CAP 2017-03-26 00:00:00 No 75 Twice A Day [facility] Clopidogrel Bisulfate (Plavix) 75 Mg TABLET Clopidogre l Bisulfate (Plavix) 75 Mg TABLET 2016-03-19 00:00:00 No 75 Daily [facility] Diazepam (Valium) 2 Mg TABLET Diazepam (Valium) 2 Mg TABLET 2016-03-14 00:00:00 No 2 Twice A Day [facility] Immunizations Ordered Immunization Name Filled Immunization Name Date Status Comments Source FLUCELVAX QUAD PF 2018-06-15 00:00:00 Completed [facility] Vital Signs Vital Name Observation Time Observation Value Comments Source Body Temperature 2020-04-15 13:27:00 96.7 [degF] [facility] Weight 2020-04-12 00:00:00 156.25 [lb_av] [facility] BMI (Body Mass Index) 2020-04-12 00:00:00 28.6 kg/m2 [facility] Procedures Procedure Date / Time Performed Performing Clinician [facility] e Computed tomography of chest without contrast 2020-04-13 00:00:0 0 [facility] US thyroid 2019-10-08 00:00:00 [facility] Computed tomography of chest without contrast 2019-10-08 00:00:0 0 [facility] Computed tomography of abdomen with contrast 2019-07-19 00:0 0:00 JYOTSNA [facility] Computed tomography of chest with contrast 2019-07-19 00:00:00 Tamie DE LA FUENTE [facility] X-ray of chest, two views 2019-07-17 00:00:00 EVERT BAXTER [facility] Plan of Care Planned Activity Planned Date Details Comments Source Future Scheduled Test 2020-04-19 00:00:00 INFLUENZA VACCINE [code = INFLUENZA VACCINE] [facility] Scheduled Test 2009 00:00:00 65+ PNEUMOCOCCAL V ACCINE (1 of 2 - PCV13) [code = 65+ PNEUMOCOCCAL VACCINE (1 of 2 - PCV13)] [facility] Scheduled Test 1994 00:00:00 BREAST CANCER SCRE ENING [code = BREAST CANCER SCREENING] [facility] Scheduled Test 1994 00:00:00 COLONOSCOPY SCREEN ING [code = COLONOSCOPY SCREENING] [facility] Scheduled Test 1994 00:00:00 SHINGLES VACCINES (#1) [code = SHINGLES VACCINES (#1)] [facility] Instructions Anemia [facility] Encounters Start Date/Time End Date/Time Encounter Type Admission Type [facility] Care Department Encounter ID Source 2020-04-13 15:21:00 2020-04-15 14:41:00 Discharged Inpatient 1 STEPHANIE CHRISTENSEN [facility] [id number] [facility] 2020-04-09 12:19:00 2020-04-09 12:19:00 Registered Clinic 3 [facility] [id number] [facility] 2019-10-08 12:58:00 2019-10-08 12:58:00 Registered Clinic 3 [facility] [id number] [facility] 2019-07-17 16:30:00 2019-07-19 21:55:00 Discharged Inpatient (obs) 1 AMPARO [facility] [id number] I [facility] 2019-06-20 13:35:00 2019-06-20 13:35:00 Registered Clinic 3 [facility] [id number] [facility] 2018-12-27 12:59:00 2018-12-27 12:59:00 Registered Clinic 3 [facility] [id number] [facility] 2018-11-28 13:35:00 2018-11-28 13:35:00 Registered Clinic 3 [facility] [id number] [facility] Results Test Description Test Time Test Comments Results Result Comments Source CHEST SINGLE (PORTABLE) 2020-04-24 19:44:00 [facility] [address] [address] Patient Name: Bharath FRANZ MR #: [id number] : 1945 Age/Sex: 74/F Req #: [id number] Adm Physician: Ordered by: QUETA BENNETT MD Report #: [id number] Location: ER Room/Bed: Procedure: [id number] DX/CHEST SINGLE (PORTABLE) Exam Date: 04/24/20 Exam Time: 1914 REPORT STATUS: Signed Examination: Single AP view of the chest. COMPARISON: None. INDICATION: Shortness of breath, fluid overload DISCUSSION: Lines/tubes: None. Lungs: Pulmonary venous congestion. Pleura: Probable small effusions. Heart and med iastinum: Prominent heart size. Bones and soft tissues: No acute bony abnormalities. IMPRESSION: 1. Cardiopulmonary with pulmonary venous congestion and probable small effusions Signed by: Dr. Quynh Parr M.D. on 04/24/2020 7:45 PM Dictated By: QUYNH PARR MD 44 Transcribed By: LAWRENCE on 04/24/201944 COPY TO: QUETA BENNETT MD Capillary blood glucose measurement by glucometer (mas s/volume) 2020-04-15 11:33:00 Test Item Bedside Glucose (test code = 76024-0) 156 70-120 Meter ID: [id number]Blood leukocytes automated count (number/volume)2020-04-15 06:00:00* Test Item Value Reference Range Interpretation Comments White Blood Count (test code = 6690-2) 9.55 4.8-10.8 [facility] automated count (number/volume)2020-04-15 06:00:00* Test Item Value Reference Range Interpretation Comments Red Blood Count (test code = 789-8) 3.19 3.6-5.1 [facility] hemoglobin measurement (moles/volume)2020-04-15 06:00:00* Test Item Value Reference Range Interpretation Comments Hemoglobin (test code = 45326-7) 7.9 12.0-16.0 [facility] HospitalAutomated blood hematocrit (volume fraction)2020-04-15 06:00:00* Test Item Value Reference Range Interpretation Comments Hematocrit (test code = 4544-3) 26.3 34.2-44.1 [facility] HospitalAutomated erythrocyte mean corpuscular [id number] 06:00:00* Test Item Value Reference Range Interpretation Comments Mean Corpuscular Volume (test code = 787-2) 82.4 81-99 [facility] HospitalAutomated erythrocyte mean corpuscular hemoglobin (mass per erythrocyte)2020-04-15 06:00:00* Test Item Value Reference Range Interpretation Comments Mean Corpuscular Hemoglobin (test code = 785-6) 24.8 28-32 [facility] HospitalAutomated erythrocyte mean corpuscular hemoglobin concentration measurement (mass/volume)2020-04-15 06:00:00* Test Item Value Reference Range Interpretation Comments Mean Corpuscular Hemoglobin Concent (test code = 786-4) 30.0 31-35 [facility] HospitalRDW CzkUl-[id number] 06:00:00* Test Item Value Reference Range Interpretation Comments Red Cell Distribution Width (test code = 18527-2) 15.7 11.7 -14.4 [facility] HospitalAutomated blood platelet count (count/volume)2020-04-15 06:00:00* Test Item Value Reference Range Interpretation Comments Platelet Count (test code = 777-3) 424 140-360 [facility] neutrophil count as percentage of total vkqzylevxr8113-00-88 06:00:00* Test Item Value Reference Range Interpretation Comments Neutrophils (%) (Auto) (test code = 04435-7) 73.5 38.7-80.0 [facility] HospitalAutwata[facility] centered blood lymphocyte count as percentage ot total vccqzhywbi3901-23-14 06:00:00* Test Item Value Reference Range Interpretation Comments Lymphocytes (%) (Auto) (test code = 736-9) 15.6 18.0-39.1 [facility] HospitalAutomated blood monocyte count as percentage of total gokgrnkvmr1263-35-71 06:00:00* Test Item Value Reference Range Interpretation Comments Monocytes (%) (Auto) (test code = 5905-5) 7.3 4.4-11.3 [facility] HospitalAutomated blood eosinophil count as percentage of total wueebygpte1844-29-48 06:00:00* Test Item Value Reference Range Interpretation Comments Eosinophils (%) (Auto) (test code = 713-8) 1.6 0.0-6.0 [facility] HospitalAutomated blood basophil count as percentage of total vlulmihhmr1070-35-87 06:00:00* Test Item Value Reference Range Interpretation Comments Basophils (%) (Auto) (test code = 706-2) 1.6 0.0-1.0 [facility] HospitalFluoroscopic procedure less than one hour ugzknhqs4438-46-25 06:00:00* Test Item Value Reference Range Interpretation Comments IM GRANULOCYTES % (test code = IM GRANULOCYTES %) 0.4 0.0- 1.0 [facility] HospitalAutomated blood neutrophil count 2020-04-15 06:00:00* Test Item Value Reference Range Interpretation Comments Neutrophils # (Auto) (test code = 751-8) 7.0 2.1-6.9 [facility] HospitalBlood lymphocytes count (number/volume) 2020-04-15 06:00:00* Test Item Value Reference Range Interpretation Comments Lymphocytes # (Auto) (test code = 77767-9) 1.5 1.0-3.2 [facility] HospitalBlood monocytes automated count (number/volume)2020-04-15 06:00:00* Test Item Value Reference Range Interpretation Comments Monocytes # (Auto) (test code = 742-7) 0.7 0.2-0.8 [facility] HospitalAutomated blood eosinophil count 2020-04-15 06:00:00* Test Item Value Reference Range Interpretation Comments Eosinophils # (Auto) (test code = 711-2) 0.2 0.0-0.4 [facility] HospitalAutomated blood basophil count (count/volume)2020-04-15 06:00:00* Test Item Value Reference Range Interpretation Comments Basophils # (Auto) (test code = 704-7) 0.2 0.0-0.1 [facility] HospitalFluoroscopic procedure less than one hour [id number] 06:00:00* Test Item Value Reference Range Interpretation Comments Absolute Immature Granulocyte (auto (jojo t code = Absolute Immature Granulocyte (auto) 0.04 0-0.1 [facility] plasma sodium measurement (moles/volume)2020-04-15 05:30:00* Test Item Value Reference Range Interpretation Comments Sodium Level (test code = 2951-2) 138 136-145 [facility] Allianceerum or plasma potassium measurement (moles/volume)2020-04-15 05:30:00* Test Item Value Reference Range Interpretation Comments Potassium Level (test code = 2823-3) 3.7 3.5-5.1 [facility] Allianceer[facility] or plasma chloride measurement (moles/volume)2020-04-15 05:30:00* Test Item Value Reference Range Interpretation Comments Chloride Level (test code = 2075-0) 100 98-107 [facility] Allianceerum or plasma carbon dioxide, total measurement (moles/volume)2020-04-15 05:30:00* Test Item Value Reference Range Interpretation Comments Carbon Dioxide Level (test code = 2028-9) 26 22-29 [facility] Allianceerum or plasma anion nje6081-05-13 05:30:00* Test Item Value Reference Range Interpretation Comments Anion Gap (test code = 94026-7) 15.7 8-16 [facility] Allianceer[facility] or plasma urea nitrogen measurement (mass/volume)2020-04-15 05:30:00* Test Item Value Reference Range Interpretation Comments Blood Urea Nitrogen (test code = 3094-0) 19 7-26 [facility] Allianceer[facility] or plasma creatinine measurement (mass/volume)2020-04-15 05:30:00* Test Item Value Reference Range Interpretation Comments Creatinine (test code = 2160-0) 1.32 0.57-1.11 [facility] Allianceer[facility] or plasma urea nitrogen/creatinine mass ndmyt6012-96-25 05:30:00* Test Item Value Reference Range Interpretation Comments BUN/Creatinine Ratio (test code = 3097-3) 14 6-25 [facility] HospitalEstimated glomerular filtration rate (GFR) mmzergptbessz0769-38-20 05:30:00* Test Item Value Reference Range Interpretation Comments Estimat Glomerular Filtration Rate (test code = 954485305) 39 >60 Ranges were taken from the National Kidney Disease Education Program and the [facility] Kidney Foundation literature.Reference ranges:60 or greater: Rxjytq68-55 ( for 3 consecutive months): Chronic kidney disease 15 or less: Kidney failureFormerly [facility] HospitalGlucose iltzfnmdqtz2081-19-26 05:30:00* Test Item Value Reference Range Interpretation Comments Glucose Level (test code = MKM6644) 123 74-118 [facility] Allianceer[facility] or plasma calcium measurement (mass/volume)2020-04-15 05:30:00* Test Item Value Reference Range Interpretation Comments Calcium Level (test code = 32079-9) 8.8 8.4-10.2 [facility] Allianceer[facility] or plasma magnesium measurement (mass/volume)2020-04-15 05:30:00* Test Item Value Reference Range Interpretation Comments Magnesium Level (test code = 67057-1) 2.3 1.3-2.1 [facility] Allianceer[facility] or plasma total bilirubin measurement (mass/volume)2020-04-15 05:30:00* Test Item Value Reference Range Interpretation Comments Total Bilirubin (test code = 1975-2) 0.5 0.2-1.2 [facility] HospitalFluoroscopic procedure less than one hour wuvsdbzq0266-84-99 05:30:00* Test Item Value Reference Range Interpretation Comments Aspartate Amino Transf (AST/SGOT) (test code = Aspartate Amino Transf (AST/SGOT)) 16 5-34 [facility] Allianceer[facility] or plasma alanine aminotransferase measurement (enzymatic activity/volume)2020-04-15 05:30:00* Test Item Value Reference Range Interpretation Comments Alanine Aminotransferase (ALT/SGPT) (test code = 1742-6) 7 0-55 [facility] Allianceerum or plasma protein measurement (mass/volume)2020-04-15 05:30:00* Test Item Value Reference Range Interpretation Comments Total Protein (test code = 2885-2) 6.9 6.5-8.1 [facility] Allianceer[facility] or plasma albumin measurement (mass/volume)2020-04-15 05:30:00* Test Item Value Reference Range Interpretation Comments Albumin (test code = 1751-7) 3.1 3.5-5.0 [facility] HospitalPlasma globulin measurement (mass/volume) 2020-04-15 05:30:00* Test Item Value Reference Range Interpretation Comments Globulin (test code = 66065-1) 3.8 2.3-3.5 [facility] Allianceer[facility] or plasma albumin/globulin mass bseqo8625-53-03 05:30:00* Test Item Value Reference Range Interpretation Comments Albumin/Globulin Ratio (test code = 1759-0) 0.8 0.8-2.0 [facility] Allianceer[facility] or plasma alkaline phosphatase measurement (enzymatic activity/volume)2020-04-15 05:30:00* Test Item Value Reference Range Interpretation Comments Alkaline Phosphatase (test code = 6768-6) 104 40-150 [facility] HospitalFluoroscopic procedure less than one hour epztyzzy5567-31-28 10:36:00* Test Item Value Reference Range Interpretation [...] under 564(g) of the ACT.Testing performed by [facility] [place], [place] [address]KSMFormerly [facility] HospitalAutomated reticulocyte count as percentage of total skynanlszpoa9981-07-92 05:10:00* Test Item Value Reference Range Interpretation Comments Percent Reticulocyte Count (test code = 47134-6) 2.4 0.8-2 .2 [facility] HospitalFluoroscopic procedure less than one hour tkdypwlg7981-51-17 05:10:00* Test Item Value Reference Range Interpretation Comments Hemoglobin A1c Percent (test code = Hemoglobin A1c Percent) 9.9 4.0-7.0 [facility] HospitalPhosphorus sfqzcnmwuzz8824-29-45 05:10:00 * Test Item Value Reference Range Interpretation Comments Phosphorus Level (test code = SUV3154) 4.0 2.3-4.7 [facility] Allianceer[facility] or plasma iron measurement (mass/volume)2020-04-14 05:10:00* Test Item Value Reference Range Interpretation Comments Iron Level (test code = 2498-4) 26 50-170 [facility] Allianceerum or plasma iron binding capacity measurement (mass/volume)2020-04-14 05:10:00* Test Item Value Reference Range Interpretation Comments Total Iron Binding Capacity (test code = 2500-7) 402 261-4 78 [facility] Allianceerum or plasma iron saturation measurement (mass fraction)2020-04-14 05:10:00* Test Item Value Reference Range Interpretation Comments Percent Iron Saturation (test code = 2502-3) 6 15-50 [facility] Allianceerum or plasma transferrin measurement (mass/volume)2020-04-14 05:10:00* Test Item Value Reference Range Interpretation Comments Transferrin (test code = 3034-6) 287 180-382 [facility] Allianceerum or plasma ferritin measurement (mass/volume)2020-04-14 05:10:00* Test Item Value Reference Range Interpretation Comments Ferritin (test code = 2276-4) 23.15 4.63-204.00 [facility] HospitalBlood cobalamin (vitamin B12) measurement (mass/volume)2020-04-14 05:10:00* Test Item Value Reference Range Interpretation Comments Vitamin B12 Level (test code = 74393-6) 850 213816 [facility] Allianceer[facility] or plasma folate measurement (mass/volume)2020-04-14 05:10:00* Test Item Value Reference Range Interpretation Comments Folate (test code = 2284-8) 12.3 >3.0 A serum folate concentration of less than 3.1 ng/mL isconsidered to represent cl inical deficiency.Performed at: - [facility] [address] [id number] Director: Leonardo Delarosa MD, Phone: [phone] [facility] HospitalCT CHEST DN8938-57-88 18:48:00 [place] [address] Patient Name: Bharath FRANZ MR #: [id number] : 1945 Age/Sex: 74/F Req #: [id number] Adm Physician: STEPHANIE CHRISTENSEN MD Ordered by: CESAR CHESTER FLAT CUTTER Report #: [id number] Location: MED/SURG2 Room/Bed: [facility] Procedure: [id number] CT/CT CHEST WO Exam Date: 04/13/20 Exam [...] Level (test code = 2571-8) 114 0-149 [facility] Allianceerum or plasma cholesterol measurement (mass/volume)2020-04-13 05:00:00* Test Item Value Reference Range Interpretation Comments Cholesterol Level (test code = 2093-3) 142 0-199 Less than 200 mg/dL Low Msor083 - 239 mg/dL Borderline Hcpo445 m g/dl and greater High Risk [facility] Allianceerum or plasma cholesterol in LDL measurement (mass/volume) 2020-04-13 05:00:00* Test Item Value Reference Range Interpretation Comments LDL Cholesterol (test code = 2089-1) 89 60-130 [facility] Allianceer[facility] or plasma cholesterol in HDL measurement (mass/volume)2020-04-13 05:00:00* Test Item Value Reference Range Interpretation Comments HDL Cholesterol (test code = 2085-9) 30 40-60 [facility] Allianceerum or plasma total cholesterol/cholesterol in HDL mass okhiw8771-15-97 05:00:00* Test Item Value Reference Range Interpretation Comments Cholesterol/HDL Ratio (test code = 9830-1) 4.7 3.0-3.6 [facility] Allianceerum or plasma thyrotropin measurement by detection limit <= 0.005 miu/l (units/volume)2020-04-13 05:00:00* Test Item Value Reference Range Interpretation Comments Thyroid Stimulating Hormone (TSH) (test code = 18867-7) 1.651 0.350-4.940 [facility] HospitalBNP Opw-vCqj7953-48-25 05:30:00* Test Item Value Reference Range Interpretation Comments B-Type Natriuretic Peptide (test code = 59796-2) 1144.5 0-100 [facility] Allianceer[facility] or plasma creatine kinase measurement (enzymatic activity/volume)2020-04-12 05:30:00* Test Item Value Reference Range Interpretation Comments Creatine Kinase (test code = 2157-6) 49 29-168 [facility] Allianceerum or plasma creatine kinase MB measurement (mass/volume)2020-04-12 05:30:00* Test Item Value Reference Range Interpretation Comments Creatine Kinase MB (test code = 93379-2) 2.60 0-5.0 [facility] HospitalTroponin I measurement by highly sensitive enzyme mrmlhbvoryg5539-59-29 05:30:00* Test Item Value Reference Range Interpretation Comments Troponin I (test code = 67389-6) 0.168 0-0.300 [facility] HospitalVQ LUNG SCAN VENT ERKPMRRGY1133-22-51 20:07:00 [place] [address] Patient Name: Bharath FRANZ MR #: [id number] : 1945 Age/Sex: 74/F Req #: [id number] Adm Physician: STEPHANIE CHRISTENSEN MD Ordered by: RENATO BUSBY MD Report #: [id number] Location: [facility] Room/Bed: [place] [address] Procedure: [id number] NM/VQ LUNG SCAN VENT PERFUSION Exam Date: [...] Blood (test code = 2335-8) POSITIVE NEGATIVE [facility] HospitalBlood lpqvexg1062-28-90 18:15:00* Test Item Value Reference Range Interpretation Comments Blood Culture (test code = 21638014) NO GROWTH AFTER 72 HOURS [facility] HospitalFluoroscopic procedure less than one hour nihpgqzm3983-36-36 18:00:00* Test Item Value Reference Range Interpretation Comments Lactic Acid Level (test code = Lactic Acid Level) 1.0 0.5- 2.0 [facility] HospitalCHEST SINGLE (PORTABLE)2020-04-11 16:19:00 [place] [address] Patient Name: Bharath FRANZ MR #: [id number] : 1945 Age/Sex: 74/F Req #: [id number] Adm Physician: Ordered by: RENATO BUSBY MD Report #: [id number] Location: ER Room/Bed: Procedure: [id number] DX/CHEST SINGLE (RILEY BLE) Exam Date: 04/11/20 Exam Time: 1542 REPORT STATUS: Signed EXAMINATION: CHEST S EMILY [...] 4:20 PM Dictated By: Ofelia PELAYO MD 162 Transcri bed By: LAWRENCE on 04/11/20 1620 COPY TO: RENATO BUSBY MD Prothrombin time (PT) in platelet poor plasma by coagulation ljkpt1058-89-98 15:21:00* Test Item Value Reference Range Interpretation Comments Prothrombin Time (test code = 5902-2) 14.1 11.9-14.5 [facility] HospitalINR in Platelet poor plasma by Coagulation nbndd9440-89-43 15:21:00* Test Item Value Reference Range Interpretation Comments Prothromb Time International Ratio (test code = 6301-6) 1.04 Oral Anticoagulant Therapy INR Values:1. Low Intensity Therapy 1.5 - 2.02 . Moderate Intensity Therapy 2.0 - 3.03. High Intensity Therapy(1) 2.5 - 3. 54. High Intensity Therapy(2) 3.0 - 4.05. Panic Value INR > 5.0 [facility] HospitalActivated partial thromboplastin time (aPTT) in platelet poor plasma by coagulation xvwmo2967-37-87 15:21:00* Test Item Value Reference Range Interpretation Comments Activated Partial Thromboplast Time (test code = 37865-9) 30.7 23.8-35.5 [facility] HospitalFibrin D-dimer DDU measurement in platelet poor plasma (mass/volume)2020-04-11 15:21:00* Test Item Value Reference Range Interpretation Comments D-Dimer Quantitative (PE/DVT) (test code = 41112-2) 2.29 0. 00-0.45 As with all in vitro diagnostic tests, the test results should be interpreted by the physician in conjunction with clinical findings and other test results.Test results are reported in NEW D-dimer units(ug/mLFEU).[facility] HospitalUrine color wlmylmkdptmqg5292-16-29 15:21:00* Test Item Value Reference Range Interpretation Comments Urine Color (test code = 5778-6) YELLOW YELLOW [facility] HospitalUrine spskdlm1012-23-79 15:21:00* Test Item Value Reference Range Interpretation Comments Urine Clarity (test code = 87978-8) CLEAR CLEAR [facility] Alliancepecific gravity of Urine by Test strip 2020-04-11 15:21:00* Test Item Value Reference Range Interpretation Comments Urine Specific [place] (test code = 5811-5) 1.020 1.010-1.02 5 [facility] HospitalUrine pH measurement by automated test oaobd2071-72-77 15:21:00* Test Item Value Reference Range Interpretation Comments Urine pH (test code = 56331-4) 7 5-7 [facility] HospitalUrine leukocyte esterase detection by uremgdsd6285-06-55 15:21:00* Test Item Value Reference Range Interpretation Comments Urine Leukocyte Esterase (test code = 5799-2) NEGATIVE NEGATIVE [facility] HospitalUrine nitrite bvhwtqezb2916-97-21 15:21:00* Test Item Value Reference Range Interpretation Comments Urine Nitrite (test code = 09574-9) NEGATIVE NEGATIVE [facility] HospitalUrine protein measurement by test strip (mass/volume)2020-04-11 15:21:00* Test Item Value Reference Range Interpretation Comments Urine Protein (test code = 5804-0) 2+ NEGATIVE [facility] HospitalUrine glucose skoyctyul3542-61-04 15:21:00* Test Item Value Reference Range Interpretation Comments Urine Glucose (UA) (test code = 2349-9) NEGATIVE NEGATIVE [facility] HospitalUrine ketones detection by automated test gbvdx0149-85-32 15:21:00* Test Item Value Reference Range Interpretation Comments Urine Ketones (test code = 41397-6) NEGATIVE NEGATIVE [facility] HospitalUrine urobilinogen measurement by test strip (mass/volume)2020-04-11 15:21:00* Test Item Value Reference Range Interpretation Comments Urine Urobilinogen (test code = 20360-7) 2.0 0.2-1 [facility] HospitalUrine total bilirubin measurement (mass/volume)2020-04-11 15:21:00* Test Item Value Reference Range Interpretation Comments Urine Bilirubin (test code = 1978-6) SMALL NEGATIVE [facility] HospitalUrine erythrocytes skmgpcsgj9068-42-24 15:21:00* Test Item Value Reference Range Interpretation Comments Urine Blood (test code = 97368-5) NEGATIVE NEGATIVE [facility] HospitalAutomated urine sediment leukocyte count by microscopy (number/high power field)2020-04-11 15:21:00* Test Item Value Reference Range Interpretation Comments Urine WBC (test code = 5821-4) 0-5 0-5 [facility] HospitalErythrocytes detection in urine sediment by light mwayevjsds7585-40-15 15:21:00* Test Item Value Reference Range Interpretation Comments Urine RBC (test code = 23954-3) NONE 0-5 [facility] HospitalBacteria detection in urine sediment by light pzqfxrwuji8691-00-90 15:21:00* Test Item Value Reference Range Interpretation Comments Urine Bacteria (test code = 04884-3) MODERATE NONE [facility] HospitalEpithelial cells detection in urine sediment by light ufnpmcpyik9103-79-38 15:21:00* Test Item Value Reference Range Interpretation Comments Urine Epithelial Cells (test code = 01747-1) MANY NONE [facility] MarcosROYCE MCKEON MSETCYLH2796-80-80 14:33:00 [place] [address] Patient Name: Bharath FRANZ MR #: [id number] : 1945 Age/Sex: 74/F Req #: [id number] Adm Physician: Ordered by: RAMA MEDINA MD Report #: [id number] Location: [facility] Room/Bed: Procedure: [id number] DX/ELBOW RIGHT COMPL ETE Exam Date: 04/09/20 Exam Time: 1230 REPORT STATUS: Signed EXAMINATION: ELBOW RI GHT COMPLETE INDICATION: Elbow pain COMPARISON: None FIN DINGS: No acute fracture or dislocation. Alignment is anatomic. No substant ial joint effusion. Soft tissues appear unremarkable. Atherosclerotic arterial calcifications. IMPRESSION: No acute osseous injury. Signed by: Omid Pelayo MD on 04/09/2020 2:34 PM Dictated By: OMID PELAYO MD [facility] Signed By: OMID PELAYO MD on 04/09/20 1434 Transcribed By: LAWRENCE on 03/20 11/08 1434 COPY TO: RAMA MEDINA MD [facility]ENTERHKPTBKW2804-13-73 10:59:00 [place] [address] Patient Name: Bharath FRANZ MR #: [id number] : 1945 Age/Sex: 74/F Req #: [id number] Adm Physician: Ordered by: RAMA MEDINA MD Report #: [id number] Location: Room/Bed: Procedure: [id number] US/US THY ROID Exam Date: 10/08/19 Exam Time: 1518 REPORT STATUS: Signed Thyroid ultrasound CPT code: 91735 History: Thyromegaly Comparison: None Findings: The thyroid [...] TO: RAMA CATES MD KNEE RIGHT THREE THPMQ9849 15:06:00 [place] [address] Patient Name: Bharath FRANZ MR #: [id number] : 1945 Age/Sex: 74/F Req #: [id number] Adm Physician: Ordered by: RAMA MEDINA MD Report #: [id number] Location: Room/Bed: Procedure: [id number] DX/KNEE R IGHT THREE VIEWS Exam Date: [...] MEDINA MD CT CHEST WO 2019-10-08 14:50:00 [facility] [address] [place] [address] Patient Name: Bharath FRANZ MR #: [id number] : 1945 Age/Sex: 74/F Req #: [id number] Adm Physician: Ordered by: RAMA MEDINA MD Report #: [id number] Location: Room/Bed: Procedure: [id number] CT/CT [facility] Exam Date: Exam Time: REPORT STATUS: Signed [...] Interpretation Comments Bedside Glucose (test code = 59700-2) 297 70-120 H Meter ID: [id number] [facility] MarcosCT ABDOMEN W 2019-07-19 10:34:00 [facility] [address] [place] [address] Patient Name: Bharath FRANZ MR #: [id number] : 1945 Age/Sex: 74/F Req #: [id number] Adm Physician: STEPHANIE CHRISTENSEN MD Ordered by: EDMUNDO GOYAL MD Report #: [id number] Location: MED/SURG3 Room/Bed: 284-1 Procedure: [id number] CT/CT A ANDIE Medeiros Exam Date: 07/19/19 Exam Time: 1000 REPORT [...] COPY TO: EDMUNDO GOYAL MD CT CHEST A7677-72-41 10:34:00 [place] [address] Patient Name: Bharath FRANZ MR #: [id number] : 1945 Age/Sex: 74/F Req #: [id number] Adm Physician: STEPHANIE CHRISTENSEN MD Ordered by: EDMUNDO GOYAL MD Report #: [id number] Location: MED/SURG3 Room/Bed: [facility] Procedure: [id number] CT/CT C HEST W Exam Date: 07/19/19 [...] EDMUNDO GOYAL MD Stress Test - Treadmill IWNI2378-45-71 18:17:00 [place] [address] Patient Name : Bharath FRANZ MR #: [id number] : 1945 Age/Sex: 74/F Adm Physician : STEPHANIE CHRISTENSEN MD Admit Date : 07/17/19 Location : MED/SURG3 Room/Bed : [facility] REPORT: Myoview Stre ss Test DATE [...] the patient was t aken to the [employer] SPECT camera for resting myocardial perfusion imaging. [...] 1. Resting myocardial perfusion imaging reveals a tkguq-ld-ftpldzwi sized decr eased area of uptake in [...] stress test. MD SHANELL Argueta/BRIANNE 19:1 5:46 /[id number] Signature Date Dictated By: NATALY GOYAL MD Transcribed By: BRIANNE on 07/18/19 <Electronically signed by EDMUNDO GOYAL MD>for NATALY GOYAL MD<<Signature on File>>07/19/19 1232 COPY TO: Creatine Kinase CJ6019-26-34 12:29:00* Test Item Value Reference Range Interpretation Comments Creatine Kinase MB (test code = 57283-7) 1.80 0-5.0 [facility] HospitalHemoglobin A1c Pljakqu3225-38-46 11:19:00 * Test Item Value Reference Range Interpretation Comments Hemoglobin A1c Percent (test code = Hemoglobin A1c Percent) 8.2 4.0-7.0 H [facility] HospitalThyroid Stimulating Hormone (TSH) 2019-07-18 11:19:00* Test Item Value Reference Range Interpretation Comments Thyroid Stimulating Hormone (TSH) (test code = 16057-1) 1.335 0.350-4.940 [facility] HospitalCHEST 2 UNDUL9493-25-03 10:00:00 [facility] [address] [place] [address] Patient Name: Bharath FRANZ MR #: [id number] : 1945 Age/Sex: 74/F Req #: [id number] Adm Physician: STEPHANIE CHRISTENSEN MD Ordered by: EVERT BAXTER MD Report #: [id number] Location: [facility] Room/Bed: [facility] Procedure: [id number] DX/TIGRE ST 2 VIEWS Exam Date: 07/17/19 [...] 1001 COPY TO: EVERT BAXTER MD Creatine Whwsew8645-85-56 03:30:00* Test Item Value Reference Range Interpretation Comments Creatine Kinase (test code = 2157-6) 48 29-168 [facility] HospitalTroponin N1020-04-56 03:30:00* Test Item Value Reference Range Interpretation Comments Troponin I (test code = 77078-8) < 0.05 0.0-0.40 [facility] Allianceodium Etqhw9356-48-70 03:29:00* Test Item Value Reference Range Interpretation Comments Sodium Level (test code = 2951-2) 139 136-145 [facility] HospitalPotassium Uaecd9617-06-74 03:29:00* Test Item Value Reference Range Interpretation Comments Potassium Level (test code = 2823-3) 3.3 3.5-5.1 L [facility] HospitalChloride Ucrdr2641-69-14 03:29:00* Test Item Value Reference Range Interpretation Comments Chloride Level (test code = 2075-0) 99 98-107 [facility] HospitalCarbon Dioxide Xdtri9224-49-31 03:29:00* Test Item Value Reference Range Interpretation Comments Carbon Dioxide Level (test code = 2028-9) 28 22-29 [facility] HospitalAnion Ayq9467-30-94 03:29:00* Test Item Value Reference Range Interpretation Comments Anion Gap (test code = 89421-3) 15.3 8-16 [facility] HospitalBlood Urea Nvhvdyzu0918-92-88 03:29:00* Test Item Value Reference Range Interpretation Comments Blood Urea Nitrogen (test code = 3094-0) 15 7-26 [facility] HospitalCreatinine2019-10-30 03:29:00* Test Item Value Reference Range Interpretation Comments Creatinine (test code = 2160-0) 1.16 0.57-1.11 H [facility] HospitalBUN/Creatinine Ywtvf5416-56-57 03:29:00* Test Item Value Reference Range Interpretation Comments BUN/Creatinine Ratio (test code = 3097-3) 13 6-25 [facility] HospitalEstimat Glomerular Filtration Rate 2019-07-18 03:29:00* Test Item Value Reference Range Interpretation Comments Estimat Glomerular Filtration Rate (test code = 372918608) 46 >60 L Ranges were taken from the National Kidney Disease Education Program and the [facility] [employer] literature.Reference ranges:60 or greater: Yjoyip63-93 ( for 3 consecutive months): Chronic kidney disease 15 or less: Kidney failureFormerly [facility] HospitalGlucose Llnps8153-17-92 03:29:00* Test Item Value Reference Range Interpretation Comments Glucose Level (test code = HVG1803) 164 74-118 H [facility] HospitalCalcium Mfytj0178-33-85 03:29:00* Test Item Value Reference Range Interpretation Comments Calcium Level (test code = 86895-0) 8.5 8.4-10.2 [facility] HospitalTriglycerides Gbnwk6557-48-84 03:29:00* Test Item Value Reference Range Interpretation Comments Triglycerides Level (test code = 2571-8) 374 0-149 H [facility] HospitalCholesterol Huydi5015-31-40 03:29:00* Test Item Value Reference Range Interpretation Comments Cholesterol Level (test code = 2093-3) 234 0-199 H Less than 200 mg/dL Low Nwaj333 - 239 mg/dL Borderline Pcqg186 m g/dl and greater High Risk [facility] HospitalLDL Wvxmwpuptjb3973-44-36 03:29:00* Test Item Value Reference Range Interpretation Comments LDL Cholesterol (test code = 2089-1) 114 60-130 [facility] HospitalHDL Ihgvjvapkuw8088-55-42 03:29:00* Test Item Value Reference Range Interpretation Comments HDL Cholesterol (test code = 2085-9) 45 40-60 [facility] HospitalCholesterol/HDL Ukvsp9910-13-36 03:29:00 * Test Item Value Reference Range Interpretation Comments Cholesterol/HDL Ratio (test code = 9830-1) 5.2 3.0-3.6 H [facility] HospitalWhite Blood Nziyk8653-79-79 03:09:00* Test Item Value Reference Range Interpretation Comments White Blood Count (test code = 6690-2) 7.64 4.8-10.8 [facility] HospitalRed Blood Qfwyu8385-46-46 03:09:00* Test Item Value Reference Range Interpretation Comments Red Blood Count (test code = 789-8) 3.65 3.6-5.1 [facility] HospitalHemoglobin2019-10-30 03:09:00* Test Item Value Reference Range Interpretation Comments Hemoglobin (test code = 11247-6) 11.3 12.0-16.0 L [facility] HospitalHematocrit2019-10-30 03:09:00* Test Item Value Reference Range Interpretation Comments Hematocrit (test code = 4544-3) 32.4 34.2-44.1 L [facility] HospitalMean Corpuscular Bkwvrx6133-43-38 03:09:00* Test Item Value Reference Range Interpretation Comments Mean Corpuscular Volume (test code = 787-2) 88.8 81-99 [facility] HospitalMean Corpuscular Qbjuteqzfx3037-03-22 03:09:00* Test Item Value Reference Range Interpretation Comments Mean Corpuscular Hemoglobin (test code = 785-6) 31.0 28-32 [facility] HospitalMean Corpuscular Hemoglobin Concent 2019-07-18 03:09:00* Test Item Value Reference Range Interpretation Comments Mean Corpuscular Hemoglobin Concent (test code = 786-4) 34.9 31-35 [facility] HospitalRed Cell Distribution Glive5638-86-17 03:09:00* Test Item Value Reference Range Interpretation Comments Red Cell Distribution Width (test code = 44524-3) 13.4 11.7 -14.4 [facility] HospitalPlatelet Akbfz0804-96-09 03:09:00* Test Item Value Reference Range Interpretation Comments Platelet Count (test code = 777-3) 263 140-360 [facility] HospitalNeutrophils (%) (Auto)2019-07-18 03:09:00 * Test Item Value Reference Range Interpretation Comments Neutrophils (%) (Auto) (test code = 94483-7) 65.3 38.7-80.0 [facility] HospitalLymphocytes (%) (Auto)2019-07-18 03:09:00 * Test Item Value Reference Range Interpretation Comments Lymphocytes (%) (Auto) (test code = 736-9) 20.9 18.0-39.1 [facility] HospitalMonocytes (%) (Auto)2019-07-18 03:09:00* Test Item Value Reference Range Interpretation Comments Monocytes (%) (Auto) (test code = 5905-5) 8.4 4.4-11.3 [facility] HospitalEosinophils (%) (Auto)2019-07-18 03:09:00 * Test Item Value Reference Range Interpretation Comments Eosinophils (%) (Auto) (test code = 713-8) 3.3 0.0-6.0 [facility] HospitalBasophils (%) (Auto)2019-07-18 03:09:00* Test Item Value Reference Range Interpretation Comments Basophils (%) (Auto) (test code = 706-2) 1.8 0.0-1.0 H [facility] HospitalIM GRANULOCYTES %2019-07-18 03:09:00* Test Item Value Reference Range Interpretation Comments IM GRANULOCYTES % (test code = IM GRANULOCYTES %) 0.3 0.0- 1.0 [facility] HospitalNeutrophils # (Auto)2019-07-18 03:09:00* Test Item Value Reference Range Interpretation Comments Neutrophils # (Auto) (test code = 751-8) 5.0 2.1-6.9 [facility] HospitalLymphocytes # (Auto)2019-07-18 03:09:00* Test Item Value Reference Range Interpretation Comments Lymphocytes # (Auto) (test code = 03269-3) 1.6 1.0-3.2 [facility] HospitalMonocytes # (Auto)2019-07-18 03:09:00* Test Item Value Reference Range Interpretation Comments Monocytes # (Auto) (test code = 742-7) 0.6 0.2-0.8 [facility] HospitalEosinophils # (Auto)2019-07-18 03:09:00* Test Item Value Reference Range Interpretation Comments Eosinophils # (Auto) (test code = 711-2) 0.3 0.0-0.4 [facility] HospitalBasophils # (Auto)2019-07-18 03:09:00* Test Item Value Reference Range Interpretation Comments Basophils # (Auto) (test code = 704-7) 0.1 0.0-0.1 [facility] HospitalAbsolute Immature Granulocyte (auto 2019-07-18 03:09:00* Test Item Value Reference Range Interpretation Comments Absolute Immature Granulocyte (auto (jojo t code = Absolute Immature Granulocyte (auto) 0.02 0-0.1 [facility] HospitalTomo[facility] Defjgbfld4552-37-87 15:27:00* Test Item Value Reference Range Interpretation Comments Total Bilirubin (test code = 1975-2) 0.4 0.2-1.2 [facility] HospitalAspartate Amino Transf (AST/SGOT) 2019-07-17 15:27:00* Test Item Value Reference Range Interpretation Comments Aspartate Amino Transf (AST/SGOT) (test code = Aspartate Amino Transf (AST/SGOT)) 14 5-34 [facility] HospitalAlanine Aminotransferase (ALT/SGPT) 2019-07-17 15:27:00* Test Item Value Reference Range Interpretation Comments Alanine Aminotransferase (ALT/SGPT) (test code = 1742-6) 7 0-55 [facility] HospitalTotal Qcxrhei9268-19-01 15:27:00* Test Item Value Reference Range Interpretation Comments Total Protein (test code = 2885-2) 7.5 6.5-8.1 [facility] HospitalAlbumin2019-10-29 15:27:00* Test Item Value Reference Range Interpretation Comments Albumin (test code = 1751-7) 3.7 3.5-5.0 [facility] HospitalGlobulin2019-10-29 15:27:00* Test Item Value Reference Range Interpretation Comments Globulin (test code = 39973-8) 3.8 2.3-3.5 H [facility] HospitalAlbumin/Globulin Txlsh7720-26-08 15:27:00 * Test Item Value Reference Range Interpretation Comments Albumin/Globulin Ratio (test code = 1759-0) 1.0 0.8-2.0 [facility] HospitalAlkaline Lmdjwvtcqkg9388-71-97 15:27:00* Test Item Value Reference Range Interpretation Comments Alkaline Phosphatase (test code = 6768-6) 116 40-150 [facility] HospitalMAMMOGRAPHY DIGITAL SCR ACOBB7731-73-46 14:25:00 [facility] [address] [address] Patient Name: Bharath FRANZ MR #: [id number] : 1945 Age/Sex: 74/F Req #: [id number] Adm Physician: Ordered by: RAMA MEDINA MD Report #: [id number] Location: MAMMO Room/Bed: Procedure: [id number] MG/MAMMOG MANJULA DIGITAL SCR BILAT Exam Date: 06/20/19 Exam Jaswinder e: 1350 REPORT STATUS: Signed #[id number] - MGSCRBIL #BILATERAL DIGITAL SCREENING MAMMOGRAM WITH CAD: CLINICAL: Routine screening. Comparison is made to exams dated: 04/27/2018 mammogram and 03/15/2018 mammogram - [facility] nter. Current study contains 4 films. [...] of the results. JOSHUA MEJÍA M.D. ct/margarita:06/21/2019 16 :13:53 Airplane Pilot Crop Dusting: Lauren MOHNA)(Meir), [facility] letter sent: Normal Exam Mammogram BI-RADS: 2 Benign D ictated By: JOSHUA MEJÍA MD 12 COPY TO: CRISTOBAL MEDINA MD RIBSanti UNILAT [id number] 08:43:00 [place] [address] Patient Name: Bharath FRANZ MR #: [id number] : 1945 Age/Sex: 73/F Req #: [id number] Adm Physician: Ordered by: RAMA MEDINA MD Report #: [id number] Location: [facility] Room/Bed: Procedure: [id number] DX/RIBS U NILAT W/CXR Exam Date: 12/27/18 [...] TO: RAMA MEDINA MD BONE DXA DUAL [id number] 07:02:00 [place] [address] Patient Name: Bharath FRANZ MR #: [id number] : 1945 Age/Sex: 73/F Req #: [id number] Adm Physician: Ordered by: RAMA MEDINA MD Report #: [id number] Location: [facility] Room/Bed: Procedure: [id number] DX/BONE D XA DUAL ENERGY Exam Date: [...] OVIEDO DO 1 Transcribed By: MESFIN on 12/28/18 07 COPY TO: RAMA MEDINA MD SP LUMBAR, COMPLETE MIN [id number] 15:47:00 [place] [address] Patient Name: AMISH FRANZ MR #: [id number] : 1945 Age/Sex: 73/F Req #: [id number] Adm Physician: Ordered by: RAMA MEDINA MD Report #: [id number] Location: [facility] Room/Bed: Procedure: [id number] DX/S P LUMBAR, COMPLETE MIN 4VW Exam [...] 3:56 PM Dictated By: WALKER TOLEDO MD 55 Transcr ibed By: LAWRENCE on 11/28/181555 COPY TO: RAMA MEDINA MD BASIC METABOLIC [id number] 22:24:00* Test Item Value Reference Range Interpretation [...] code = CA) 9.0 mg/dL 8.5-10.1 N [id number] 22:24:00* Test Item Value Reference Range Interpretation Comments TROPONIN-I (test code = TROPI) <0.015 ng/mL 0-0.045 N CBC W/AUTO [id number] 22:04:00* Test Item Value Reference Range Interpretation [...] = MDIFF) NO - CT HEAD/BRAIN W/O [id number] 21:51:00 Name: AMISH FRANZ [facility] : 1945 Age/S: 73 / F [address] [facility] Unit #: [id number] Loc: [place] [address] Phys: Moise Martin MD Acct: [id number] Dis Date: Status: PRE ER PHONE #: [phone] Exam Date: 10/12/20188 FAX #: [phone] Reason: Headache EXAMS: CPT CODE: [id number] CT HEAD/BRAIN W/O CONT 10724 EXAM: CT of the head without contrast; [...] matter changes. 3. Right maxillary sinusitis. at 2150 Reported and signed by: Stephen Brown M.D. CC: Moise Martin MD; Lucio Trimble III, MD Technologist:Leela Rhodes RT(R); VIDHYA Medeiros CTDI: DLP: Trnscb Date/Time: 10/12/2018 (2150) [email or web address] Orig Print D/T: S: 10/12/2018 (2154) CTDI: DLP: PAGE 1 Signed Report CHEST 2 [id number] 13:31:00 [place] [address] Patient Name: AMISH FRANZ MR #: [id number] : 1945 Age/Sex: 73/F Req #: [id number] Adm Physician: Ordered by: RAMA MEDINA MD Report #: [id number] Location: [facility] Room/Bed: Procedure: [id number] DX/C HEST 2 VIEWS Exam Date: 07/18/18 [...] TO: RAMA MEDINA MD MAMMOGRAPHY DIGITAL DX [id number] 12:10:00 [place] [address] Patient Name: AMISH FRANZ MR #: [id number] : 1945 Age/Sex: 72/F Req #: [id number] Adm Physician: Ordered by: RAMA MEDINA MD Report #: [id number] Location: [facility] Room/Bed: Procedure: [id number] MG/MAMMOGRAPHY DIGITAL DX UN I LT Exam Date: 04/27/18 Exam Time: 1133 REPOR T STATUS: Signed #[id number] - MGDXLT #UNILATERAL LEFT DIGITAL DIAGNO STIC MAMMOGRAM WITH SPOT COMPRESSION: 04/27/2018 Comparison is made to exam date d: 03/15/2018 mammogram - [facility]. Current study contains 2 films. [...] Vandana Oviedo Jr., D.O. cw/: 04/27/2018 13:40:22 Airplane Pilot Crop Dusting: Lauren KING(Gal)(Meir), [facility] letter sent: Normal Exam Mammogram BI-RADS: 2 B enign Dictated By: VANDANA OVIEDO DO 1340 Transcribed By: MARGARITA on 04/27/18 1340 COPY TO: RAMA MATHEW MD [id number] 17:10:00 [place] [address] Patient Name: AMISH FRANZ MR #: [id number] : 1945 Age/Sex: 72/F Req #: [id number] Adm Physician: Ordered by: RAMA MEDINA MD Report #: [id number] Location: Room/Bed: Procedure: US/US THYROID Exam Date: 04/13 Exam Time: 1113 REPORT STATUS: Signed PA OCEDURE: US THYROID COMPARISON: None. INDICATIONS: Thyromegaly [...] VENEGAS MD 09 Transcribed By: MESFIN on 04/13/18 171 COPY TO: RAMA DELGADO MD FNA WITH IMAGE [id number] 14:13:00 [place] [address] Patient Name: AMISH FRANZ MR #: [id number] : 1945 Age/Sex: 72/F Req #: [id number] Adm Physician: Ordered by: RAMA MEDINA MD Report #: [id number] Location: CT Room/Bed: Procedure: [id number] IR/FNA WITH IMAGE GUIDANCE Exa m Date: [...] RAMA MEDINA MD BIOPSY LUNG 2018-04-06 14:13:00 [place] [address] Patient Name: AMISH FRANZ MR #: [id number] : 1945 Age/Sex: 72/F Req #: [id number] Adm Physician: Ordered by: RAMA MEDINA MD Report #: [id number] Location: CT Room/Bed: Procedure: IR/BIOPSY LUNG Exam Date: 03/19 06/06 Exam [...] COPY TO: RAMA MEDINA MD CT GUIDED BIOPSY/ASPIR/INJ/[id number] 14:13:00 [place] [address] Patient Name: AMISH FRANZ MR #: [id number] : 1945 Age/Sex: 72/F Req #: [id number] Adm Physician: Ordered by: RAMA MEDNIA MD Report #: [id number] Location: CT Room/Bed: Procedure: CT/CT GUIDED BIOPSY/ASPIR/INJ/P LA Exam Date: 04/06/18 Exam Time: 1124 REPORT STATUS: Signed PROCEDURE: CT GUIDED NEEDLE [...] 04/06/2018 at 14:13 Electronically approved by: Vandana Portillo am, D.O. on 04/06/2018 at 14:13 Dictated By: VANDANA OVIEDO DO 1413 Transcribed By: RIZWANA SMALLS on 04/06/18 1413 COPY TO: RAMA MEDINA MD CHEST SINGLE (NOT PORTABLE)2018-04-06 14:00:00 [facility] [address] [place] [address] Patient Name: AMISH FRANZ MR #: [id number] : 1945 Age/Sex: 72/F Req #: [id number] Adm Physician: Ordered by: VANDANA OVIEDO DO Report #: [id number] Location: CT Room/Bed: Procedure: [id number] DX/CHEST SINGLE (NOT PORTABLE) Exam Date: Exam Time: REPORT STATUS: Signed PROCEDURE: X-RAY CHEST, ONE VIEW COMPARISON: [facility], DX, CHEST XRAY POST PROCEDURE, 04/06/2018, 11:31. [...] DO CHEST XRAY POST PROCEDURE 2018-04-06 11:53:00 [facility] [address] [place] [address] Patient Name: AMISH FRANZ MR #: [id number] : 1945 Age/Sex: 72/F Req #: [id number] Adm Physician: Ordered by: VANDANA OVIEDO DO Report #: [id number] Location: CT Room/Bed: Procedure: [id number] DX/CHEST XRAY POST PROCEDURE Ex am Date: [...] COPY TO: VANDANA OVIEDO DO CT CHEST [id number] 18:11:[address] [address] Patient Name: Bharath FRANZ MR #: [id number] : 1945 Age/Sex: 72/F Req #: [id number] Adm Physician: Ordered by: RAMA MEDINA MD Report #: [id number] Location: CT Room/Bed: Procedure: [id number] CT/CT CHEST WO Exam Date: 03/21/18 Exam Time: 1725 REPORT STATUS: Signed PROCED URE: CT CHEST WITHOUT CONTRAST CT scan of the chest WITHOUT intravenous contra st, using standard protocol. TECHNIQUE: The chest was scanned utilCrossReader ng a multidetector helical scanner from the apex to the level of the adrenal glands. No IV contrast was administered per physician's request. Coronal and sagittal multiplanar reformations were obtained. COMPARISON: [facility], CT, CT CHEST WO, 03/13/2016, 18:39. INDICATIONS: [...] MD 10 Transcribed By: MESFIN on 03/21/181810 EXTRUSION MANAGER Y TO: RAMA MEDINA MD MAMMOGRAPHY DIGITAL SCR [id number] 11:44:00 [place] [address] Patient Name: Bharath FRANZ MR #: [id number] : 1945 Age/Sex: 72/F Req #: [id number] Adm Physician: Ordered by: RAMA MEDINA MD Report #: [id number] Location: MAMMO Room/Bed: Procedure: [id number] MG/MAMMOGRAPHY DIGITAL SCR BILAT Exam Date: 03/15/18 Exam Time: 1106 REPORT STA TUS: Signed #[id number] - [id number] #BILATERAL DIGITAL SCREENING MAMMO GRAM [...] depth medial region seen on the aircraft rigging and controls mechanic niocaudal view only. Scattered calcifications and [...] appointment. Vandana Oviedo Jr., D.O. cw/:03/23/2018 14:02:53 Airplane Pilot Crop Dusting: Lauren MOHAN)(Meir), [facility] letter sent: Additional Imaging Needed Mammogram BI-RADS: 0 Indeterminate Dictated By: VANDANA ANNE DO 140 Transcrib ed By: MARGARITA on 03/23/181401 COPY TO: RAMA MEDINA MD CERVICAL SPINE 4 OR 5 [id number] 23:38:00 [place] [address] Patient Name: AMISH FRANZ MR #: [id number] : 1945 Age/Sex: 72/F Req #: [id number] Adm Physician: Ordered by: RAMA MEDINA MD Report #: [id number] Location: [facility] Room/Bed: Procedure: [id number] DX/CERVICAL SPINE 4 OR 5 VIEWS Exam [...] COPY TO: RAMA MEDINA MD CHEST 2 [id number] 15:28:00 [facility] [address] [place] [address] Patient Name: AMISH FRANZ MR #: [id number] : Age/Sex: 72/F Req #: [id number] Adm Physician: Ordered by: RAMA MEDINA MD Report #: [id number] Location: [facility] Room/Bed: Procedure: [id number] DX/CHEST 2 VIEWS Exam Date: 0 03/14/18 Exam Time: 1415 REPORT STATUS: Signed PROCEDURE: Frontal and lateral views of the chest. COMPARISON: [facility], DX, CHEST SINGLE (PORTABLE), 03/13/2016, 17:51. Patients [facility], CT, CT CHEST WO, 03/13/2016, 18:39. [facility], , CHEST SINGLE (PORTABLE), 09/23/2016, 22:15. INDICATIONS: [...]
--- OUTSIDE RECORDS SUMMARY | 2020-04-24 22:45 | XMS REPORT | Clinical Summary ---
Author Author [employer] Organization [employer] Address Unknown Phone Unavailable Care Team Providers Care Splicer Operator Name Role Phone Channing Graves MD PCP [...] Carotid bruit 06/04/2018 Coronary artery disease involving little traverse heart with a ngina pectoris 06/04/2018 Angina [...] ot Implanted Type Area Manufactur er 11/24/2022 [id number] / / [id number] Clip Ligtng Hem-O-Moni Endoscpc Aplr Surgical N/A: N/A CHRISTINE [facility] - [id number] Implants; CLOSURE Implanted: Qty: 1 on 06/12/2018 by [employer]; Scott Marvin MD at [facility] Extenders; HOSPITAL Surgical Wires Results Not on fileafter 04/24/2019 Insurance Type Payer Benefit Subscriber ID Effective Phone Address Plan / Dates Group Medicaid MEDICAID MEDICAID xxxxxxxxx 2011-P resent HMO [facility] MEDICARE [facility] DUAL xxxxxxxxx 2018-P COMPLETE resent [facility] Advance Directives For more information, please contact: [phone] Patient Process Camera Operator Explanation Type Date Recorded Advance Directives, Living Will and Medical Power of Supervisor Dry Paste
[2020-04-24 22:56] VITALS: BP 117/64
[2020-04-24] MEDS: INSULIN REGULAR, HUMAN 100 UNIT/1 ML 3ML VIAL SQ SCH (23:15)
[2020-04-25] VITALS (9 sets, daily range): BP systolic 102–140; BP diastolic 58–69
[2020-04-25] MEDS ORDERED: ONDANSETRON HCL INJ 2MG/ML 2ML 2 MG/ML VIAL IV PRN
[2020-04-25] MEDS ORDERED: METOPROLOL TARTRATE INJ 1 MG/ML VIAL IV PRN
[2020-04-25] MEDS ORDERED: ACETAMINOPHEN 325 MG TAB PO PRN
[2020-04-25] MEDS ORDERED: POLYETHYLENE GLYCOL 3350 17 GM PACK PO PRN
[2020-04-25] MEDS ORDERED: TEMAZEPAM 15 MG CAP PO PRN (00:15)
[2020-04-25 03:46] LABS: BASOPHILS # (AUTO) 0.2 (0.0-0.1); BASOPHILS % 1.8 % (0.0-1.0); EOSINOPHILS # (AUTO) 0.1 (0.0-0.4); EOSINOPHILS % 0.8 % (0.0-6.0); HEMATOCRIT 26.9 % (34.2-44.1); HEMOGLOBIN 8.1 g/dL (12.0-16.0); LYMPHOCYTES # (AUTO) 1.1 (1.0-3.2); LYMPHOCYTES % 13.7 % (18.0-39.1); MEAN CORPUSCULAR HEMOGLOBIN 24.3 pg (28-32); MEAN CORPUSCULAR HGB CONC 30.1 g/dL (31-35); MEAN CORPUSCULAR VOLUME 80.5 fL (81-99); MONOCYTES # (AUTO) 0.8 (0.2-0.8); MONOCYTES % 9.3 % (4.4-11.3); NEUTROPHILS # (AUTO) 6.2 (2.1-6.9); NEUTROPHILS % 74.2 % (38.7-80.0); PLATELET COUNT 360 x10e3/uL (140-360); RED BLOOD COUNT 3.34 x10e6/uL (3.6-5.1); RED CELL DISTRIBUTION WIDTH 15.9 % (11.7-14.4)
[2020-04-25 04:10] LABS: CREATINE KINASE MB 2.5 ng/mL (0-5.0)
[2020-04-25 04:14] LABS: ALBUMIN 3.3 g/dL (3.5-5.0); ALBUMIN/GLOBULIN RATIO 0.8 (0.8-2.0); ANION GAP 14.8 mmol/L (8-16); CALCIUM 9.1 mg/dL (8.4-10.2); CHOL/HDL RATIO 3.1 (3.0-3.6); CREATININE, SERUM 1.55 mg/dL (0.57-1.11); POTASSIUM 3.8 mmol/L (3.5-5.1)
--- NOTE | 2020-04-25 06:28 | NUR ---
Trop more elevated called Dr Holder and informed him of elevation. aware.
--- NOTE | 2020-04-25 07:10 | NUR ---
recd pt in bed awake ,no s/s discomfort ,no s/s distress
[2020-04-25] MEDS: INSULIN REGULAR, HUMAN 100 UNIT/1 ML 3ML VIAL SQ SCH ×4 (08:30→20:57)
[2020-04-25] MEDS: DOCUSATE SODIUM 100 MG CAP PO SCH ×2 (08:42→17:00)
[2020-04-25] MEDS: FAMOTIDINE 20 MG/2 ML VIAL IV SCH ×2 (08:43→17:00)
[2020-04-25] MEDS: FUROSEMIDE INJ 10 MG/ML 4 ML VIAL IV SCH ×2 (08:43→21:00)
[2020-04-25] MEDS: ASPIRIN 81 MG ENTERIC COATED PO SCH (08:43)
[2020-04-25] MEDS: METOPROLOL TARTRATE 25 MG TAB PO SCH ×2 (08:44→21:00)
[2020-04-25] MEDS ORDERED: FUROSEMIDE INJ 10 MG/ML 4 ML VIAL IV ONE (11:25)
[2020-04-25 12:34] LABS: CREATINE KINASE MB 2.2 ng/mL (0-5.0)
--- NOTE | 2020-04-25 16:40 | NUR ---
Patient is requesting a RW for gait safety and a nebulizer if D/C'd home. Addendum: 04/25/20 at 1940 by Simba Abrams PT Amended: Links added.
--- NOTE | 2020-04-25 17:30 | Consultation ---
DATE OF CONSULTATION: 04/25/2020 REASON FOR CONSULTATION: Chest pain, elevated troponins, and CHF. CHIEF COMPLAINT: Shortness of breath. HISTORY OF PRESENT ILLNESS: This is a 74-year-old female, very poor historian with history of CAD, CHF, diabetes, hypertension, hyperlipidemia, and depression. The patient presents to the [facility] ER with complaints of shortness of breath and lower extremity edema for the past several days, who was noted with pulmonary congestion on x-ray and a BNP over 1999. Cardiology was consulted to evaluate the patient. The patient is seen in room, reports for the past 3-4 days she has been short of breath with orthopnea, PND, lower extremity edema, and anxiety. Reports has been off her Lasix for unknown reason, therefore came to the ER due to her symptoms. Denies any chest pains, again main complaints are shortness of breath, lower extremity edema, and orthopnea. PAST MEDICAL HISTORY: CAD, CHF, diabetes, hypertension, hyperlipidemia, depression, and history of TIA. PAST SURGICAL HISTORY: PCI, cholecystectomy, appendectomy, hysterectomy, right lumpectomy, and also right lower lung procedure apparently from history of lung cancer. FAMILY HISTORY: Mother and father reported , unknown cause. However, does report some family members with cancer and CAD and congestive heart failure. SOCIAL HISTORY: She is . She is a nonsmoker. HOME MEDICATIONS: Aspirin 81 mg daily, Plavix 75 mg daily, Lipitor 20 mg daily, mg daily, lisinopril 10 mg daily, Lantus, Humalog, and metformin. ALLERGIES: TO CODEINE AND IODINE. REVIEW OF SYSTEMS: GENERAL: Reports weakness, fatigue. Denies any fevers, chills, or night sweats. SKIN: No rashes or sores. HEENT: Denies any nausea, vomiting, any blurred vision, double vision, epistaxis, or sore throat. CARDIAC: Positive for shortness of breath. Positive for dyspnea on exertion. No orthopnea, PND, or lower extremity edema. RESPIRATORY: Positive for shortness of breath. Positive for cough. Denies any hemoptysis. GI: Denies any nausea, vomiting, diarrhea, constipation, melena, or tarry bloody stools. URINARY: Denies any hematuria or dysuria. Positive for frequency, urgency. VASCULAR: Positive for lower extremity edema. Denies any claudication. MUSCULOSKELETAL: Positive for generalized joint pains, back pains with muscle weakness. NEUROLOGIC: Denies any fainting or blackout seizures. HEMATOLOGY: Denies any bruising. Positive for anemia. ENDOCRINE: Denies any heat or cold intolerance, polyuria, polydipsia, or polyphagia. PHYSICAL EXAMINATION: VITAL SIGNS: Height 65 inches, weight 149 pounds, temperature 97.6, pulse 93, respiratory rate 20, blood pressure 105/59, and pulse ox 99% on 2 L. GENERAL: A very poor historian. At this time, in no acute distress. SKIN: No rashes or bruises. HEENT: Normocephalic. Pupils are equal and reactive. Extraocular movements intact. Trachea midline. No JVD. No carotid bruit. HEART: Regular rate and rhythm. Soft systolic murmur heard in the right upper sternal border. LUNGS: Bilateral crackles noted. Good airway entry and exit. ABDOMEN: Soft, nontender, and nondistended. No organomegaly noted. MUSCULOSKELETAL: Generalized weakness. Good muscle strength throughout. +1 to 2 lower extremity edema. VASCULAR: +2 radial pulses bilaterally. +1 DP and PT pulses bilaterally. NEUROLOGIC: Cranial nerves II through XII seem intact. LABORATORY DATA: Sodium 138, potassium 3.8, chloride 101, creatinine 1.5, and BUN 30. Troponin 0.3, next 0.5. BNP 2274. White count 8, hemoglobin 8.1, hematocrit 26, and platelets 360. Chest x-ray showing some pulmonary venous congestion. EKG sinus rhythm with ST changes in lateral leads. ASSESSMENT: 1. Acute on chronic systolic heart failure, demand type 2. 2. Coronary artery disease history. 3. Chronic kidney disease stage 3. 4. Microcytic anemia with history of positive fecal occult blood recently. 5. Diabetes. 6. Hypertension. 7. Hyperlipidemia. PLAN: 1. The patient presents to the [facility] ER with complaints of shortness of breath, lower extremity edema, noted with pulmonary congestion and BNP of greater than 2000. 2. We will diurese patient. We will increase Lasix to 80 twice a day. 3. We will continue beta-denzel therapy. 4. The patient is anemic. We will continue to monitor H and H and obtain fecal occult blood. 5. We will get an echo to evaluate heart function and structure. 6. We will continue to monitor and adjust cardiac therapy as clinic course dictates. Thank you very much for this consult. Seen and examined Agree with note Dictated by Eduardo Michelle, JUAN Daljit Randall MD DC/BRIANNE /[id number] MTDBethel
--- NOTE | 2020-04-25 18:00 | NUR ---
pt up in bed no c/o pain ,no distress noted.
--- NOTE | 2020-04-25 18:57 | NUR ---
Received change of shift report from AM nurse.
--- NOTE | 2020-04-25 20:14 | NUR ---
Patient c/o tongue pain. Tongue is beefy and red. Called and received order to treat. Continue monitor.
[2020-04-25] MEDS: ATORVASTATIN 20 MG TAB PO SCH (21:00)
[2020-04-25] MEDS: NYSTATIN SUSPENSION 5 ML UDC PO SCH (21:25)
[2020-04-26] VITALS (8 sets, daily range): BP systolic 84–141; BP diastolic 52–67
--- NOTE | 2020-04-26 00:47 | History and Physical ---
PRIMARY CARE PHYSICIAN: Channing Graves MD. CONSULTING PHYSICIAN: Daljit Randall MD. CHIEF COMPLAINT: Shortness of breath and lower extremity edema. HISTORY OF PRESENT ILLNESS: The patient is a 74-year-old female with shortness of breath and lower extremity edema over the past several days with pulmonary vascular congestion, on chest x-ray and B-type natriuretic peptide greater than 2000. Apparently for the last 3 or 4 days, the patient has been having shortness of breath, orthopnea, paroxysmal nocturnal dyspnea, lower extremity edema, and anxiety. The patient reports that when she was discharged from [facility] on 04/15/2020, she was prescribed Lasix, however, failed to pick it up right away, although she does state that she now has Lasix at home. Per the discharge summary from her last hospitalization here, chest x-ray showed no pneumonia or edema. V/Q scan showed low probability of PE. CT of the chest showed faint bilateral ground-glass opacities, new bilateral pulmonary nodules, moderate right and small left pleural effusion. The patient's B-type natriuretic peptide on admission at that time was 1275, and she was started on IV Lasix. Her stool for occult blood came back positive, so she was started on oral Protonix. Her echocardiogram at that time had shown an ejection fraction of 40-45%. After few days on IV Lasix, she was feeling much better. She was assessed for home oxygen prior to discharge, but she did not qualify. She was to follow up with her PCP, Cardiology and Dr. Rodriguez in 1-2 weeks. However, she has returned back here under 2 weeks time. PAST MEDICAL HISTORY: Coronary artery disease, systolic congestive heart failure, hypertension, hyperlipidemia, type 2 diabetes mellitus, depression, TIA, lung cancer, childhood asthma, iron deficiency anemia, severe neuropathy, ambulatory dysfunction. PAST SURGICAL HISTORY: Appendectomy, cholecystectomy, hysterectomy, bilateral carpal tunnel surgery, knee surgery, left carotid endarterectomy, PCI with multiple coronary artery stents, right lumpectomy. She had some type of modified right lung surgery and states that she had 5 nodules removed from the right lung by Dr. Servin, cervical spine surgery. FAMILY HISTORY: The patient's sister has cancer. Also, reports of family history of coronary artery disease and congestive heart failure. Really truly, she does not know much about her father or mother. She does not know the cause of their . Her father at age 61 and mother at age 84 with enlarged heart. Eleven siblings, 2 brothers, 9 sisters. Several with cancer, several with diabetes mellitus, coronary artery disease, congestive heart failure. Four children, 2 sons and 2 daughters. One son with some illness, but she does not know details. SOCIAL HISTORY: She is . She is currently a nonsmoker. She stopped smoking 10 years ago. She is not an alcohol drinker. She is retired from several jobs and she is disabled because of her problems. She lives alone. She states she has a daughter, who lives close. There is a second daughter, who lives in [place], [place] and she has a son who does not live nearby. She has difficulty getting transportation to see her PCP, Dr. Graves, but his office is at [place] [address] and she lives in [place]. FUNCTIONAL HISTORY: She uses a cane for ambulation. ALLERGIES: CODEINE, IODINE. HOME MEDICATIONS: Reviewed. REVIEW OF SYSTEMS: The 14-point review of systems was completed and the patient states that her shortness of breath has much improved. She denies any chest pain. She has a tickle in her throat, which causes her to cough at times. She is dizzy at times. Last bowel movement 04/22/2020. PHYSICAL EXAMINATION: VITAL SIGNS: Temperature 97.7. She has been afebrile. Pulse 93, blood pressure 140/69, respirations 18, and oxygen saturation 100% on room air. Height 5 feet 5 inches. Weight 149 pounds, BMI of 24.79. GENERAL: The patient is lying supine in bed, appears weak, frail. LUNGS: Overall clear to auscultation. Diminished in the bases. No supplemental oxygen. HEENT: EOMI. Darkened periorbital areas, which she states is chronic. NECK: Supple. No JVD. CARDIOVASCULAR: Regular rate and rhythm without murmur. ABDOMEN: Bowel sounds positive. Soft, nontender. No guarding. EXTREMITIES: No pitting edema currently. No clubbing, cyanosis, or signs of DVT. NEUROLOGICAL: GCS 15. Nonfocal. DIAGNOSTIC STUDIES/LABORATORY DATA: Today, WBC 8.3, RBC 3.34, hemoglobin 8.1, hematocrit 26.9, platelets 360. Sodium 138, potassium 3.8, chloride 101, CO2 26, anion gap 14.8, BUN 30, creatinine 1.55, estimated GFR 33, glucose 259, calcium 9.1, total bilirubin 1.3, AST 59, ALT 45, alkaline phosphatase 222, total protein 7.2, albumin 3.3. Triglycerides 83, cholesterol 114, LDL 60, HDL 37. Creatine kinase 57, then 43, then 46. CK-MB 3.3, then 2.5, then 2.2. Troponin I 0.397, then 0.518, then 0.423. B-type natriuretic peptide was 2274.3. Fingerstick blood glucose levels today 182, 166, 99, 179. On 04/24, coronavirus PCR negative. Imaging on 04/24, chest x-ray showed pulmonary venous congestion and probable small effusions. EKG showed sinus rhythm with ST changes in lateral leads. Heart rate 94. Preliminary report on 04/25, echocardiogram showed ejection fraction of 25 to 30%, mild aortic insufficiency, mitral regurgitation, calcified aortic valves. On her prior echocardiogram on 04/12/2020, her x-ray showed mild concentric left ventricular hypertrophy. Left ventricular systolic function mild to moderately impaired with an ejection fraction between 40-45%. Pseudonormal left ventricular filling pattern consistent with elevated left atrial pressure. Left atrium enlargement. Mild aortic valve sclerosis without stenosis. Mild-to moderate aortic regurgitation. Very abnormal mitral valve with eccentric jet of uovq-kw-izexstms mitral regurgitation. Evidence of pulmonary hypertension. ASSESSMENT AND PLAN: 1. Uowbj-oi-qnrjhaa systolic congestive heart failure with preliminary ejection fraction of 25 to 30% and pulmonary vascular congestion. Continue beta-denzel and diuresis per Cardiology. Monitor chest x-ray results p.r.n. 2. Controlled hypertension with systolic congestive heart failure and chronic kidney disease stage 3, blood pressure 140/69, monitor. Also continue current antihypertensives. 3. Uncontrolled type 2 diabetes mellitus with chronic kidney disease stage 3 and hyperglycemia. Hemoglobin A1c on 04/14/2020 was 9.9%. Low-dose sliding scale insulin. Monitor fingerstick blood glucose levels. 4. Microcytic anemia with recent positive fecal occult blood test. No signs of active bleeding. Hemoglobin 8.1, hematocrit 26.9. Serum iron level on 04/14 low at 26. Recheck iron level. The patient may benefit from IV infusions. 5. Coronary artery disease with multiple coronary artery stents. The patient is on aspirin per Cardiology. 6. Hyperlipidemia. Continue Lipitor. 7. History of lung cancer, asthma and possible chronic obstructive pulmonary disease. Oxygen saturation 100% on room air. Monitor. 8. Degenerative joint disease with chronic pain syndrome, severe neuropathy, and ambulatory dysfunction with a history of TIA. PT to evaluate and treat. 9. Prophylaxis. Pepcid and SCDs. Billing code 10761. Time spent 70 minutes. Dictated by Spike Dove NP MD SADIE Naidu/CATHERINEL /[id number]
--- NOTE | 2020-04-26 03:16 | NUR ---
Patient in bed. Denies pain at this time. Resting quitly.
[2020-04-26 05:18] LABS: BASOPHILS # (AUTO) 0.2 (0.0-0.1); BASOPHILS % 1.7 % (0.0-1.0); EOSINOPHILS # (AUTO) 0.2 (0.0-0.4); HEMATOCRIT 29.2 % (34.2-44.1); HEMOGLOBIN 8.8 g/dL (12.0-16.0); LYMPHOCYTES # (AUTO) 1.5 (1.0-3.2); LYMPHOCYTES % 16.7 % (18.0-39.1); MEAN CORPUSCULAR HEMOGLOBIN 23.8 pg (28-32); MEAN CORPUSCULAR HGB CONC 30.1 g/dL (31-35); MEAN CORPUSCULAR VOLUME 79.1 fL (81-99); MONOCYTES # (AUTO) 0.9 (0.2-0.8); MONOCYTES % 9.5 % (4.4-11.3); NEUTROPHILS # (AUTO) 6.2 (2.1-6.9); NEUTROPHILS % 69.7 % (38.7-80.0); PLATELET COUNT 382 x10e3/uL (140-360); RED BLOOD COUNT 3.69 x10e6/uL (3.6-5.1)
--- NOTE | 2020-04-26 05:29 | NUR ---
Patient c/o of itching. Will get order for medsto help with itching.
[2020-04-26 05:38] LABS: ALBUMIN 3.5 g/dL (3.5-5.0); ANION GAP 18.1 mmol/L (8-16); CALCIUM 9.2 mg/dL (8.4-10.2); CREATININE, SERUM 1.57 mg/dL (0.57-1.11); POTASSIUM 3.1 mmol/L (3.5-5.1)
[2020-04-26 05:55] LABS: MAGNESIUM 1.5 MG/DL (1.3-2.1); PHOSPHORUS 4.2 MG/DL (2.3-4.7)
[2020-04-26] MEDS: ASPIRIN 81 MG ENTERIC COATED PO SCH (08:47)
[2020-04-26] MEDS: FAMOTIDINE 20 MG/2 ML VIAL IV SCH ×2 (08:47→17:12)
[2020-04-26] MEDS: FUROSEMIDE INJ 10 MG/ML 4 ML VIAL IV SCH ×2 (08:47→20:41)
[2020-04-26] MEDS: DOCUSATE SODIUM 100 MG CAP PO SCH ×2 (08:47→17:12)
[2020-04-26] MEDS: NYSTATIN SUSPENSION 5 ML UDC PO SCH ×3 (08:47→20:41)
[2020-04-26] MEDS: METOPROLOL TARTRATE 25 MG TAB PO SCH (08:55)
[2020-04-26] MEDS: INSULIN REGULAR, HUMAN 100 UNIT/1 ML 3ML VIAL SQ SCH ×4 (11:58→20:42)
[2020-04-26] MEDS ORDERED: SUCRALFATE 1 GM TAB PO ONE (12:15)
--- NOTE | 2020-04-26 13:29 | NUR ---
Nutrition Screen Note RD Recommendation for Physician: - Rec adding cardiac restriction to current diet order Plan of Care: RD following, monitoring for tolerance and adequacy Nutrition reason for involvement: Diagnosis CHF Primary Diagnose(s): CHF, anemia, elevated troponin PMH: diabetic of many years with severe end-organ damage, coronary artery disease status post multiple PCI and myocardial infarction, hypertension, hypercholesteremia, lung cancer Ht: 62in Wt: 149lb BMI: 27.2kg/m2 IBW: 110lb +/- 10% RD Assessment: (04/13) Chart reviewed. Labs and meds reviewed. 74yo F, who was admitted for zznxx-aa-ybaghbo systolic congestive heart failure. Pt was well known to me. Visited pt in the room. Pt reports good appetite. Pt states that she comes to the hospital because of her abdominal pain. Pt denies any nausea, vomiting or diarrhea. Pt has denture, and denies any chewing or swallowing difficulty. Weight has been stable. Will continue to follow. Current Diet: ADA 1800 Malnutrition Evaluation (04/26/20) The patient does not meet criteria for a specified degree of malnutrition at this time. Will re-evaluate at follow-up as appropriate. Diet Education Needs Assessment: Diet education indicated, but not appropriate during my time of visit. Nutrition Care Level: low Signed: Jackelyn Bowman, MS, RD, LD
[2020-04-26] MEDS ORDERED: POTASSIUM CHLORIDE 20 MEQ TAB CR PO ONE ×2 (13:44→17:08)
--- NOTE | 2020-04-26 17:10 | NUR ---
attempted tx today, pt moved to eob but then refused to cont further and that she jus wanted to sit at eob and was unable to convince pt to participate . f/u on tuesday Addendum: 04/26/20 at 1712 by Marlo Rodriguez PTA Amended: Links added.
--- NOTE | 2020-04-26 17:22 | Diagnostic Imaging Report ---
EXAM: ABDOMEN-1VIEW (KUB), DATE: 04/26/2020 4:10 PM INDICATION: Pain. COMPARISON: None FINDINGS: LINES/TUBES: None BOWEL PATTERN: No evidence for obstruction. Moderate volume of stool within the colon. SOFT TISSUES: Extensive vascular calcifications. Metallic stent within the right, iliac artery. Cholecystectomy clips. LUNG BASES: Bibasilar atelectasis. BONES: No acute findings. IMPRESSION: Nonobstructive bowel gas pattern. Signed by: Dr. Henry Murray M.D. on 04/26/2020 5:19 PM
[2020-04-26] MEDS: SPIRONOLACTONE 25 MG TAB PO SCH (18:08)
--- NOTE | 2020-04-26 20:05 | Consultation ---
DATE OF CONSULTATION: Nephrology Consultation Note REASON FOR CONSULTATION: CKD management, electrolyte abnormalities. HISTORY OF PRESENT ILLNESS: This is a 74-year-old female, very poor historian, has a history of CHF, diabetes, hypertension, hyperlipidemia, depression, CAD, came into the ED with complaints of shortness of breath and lower extremity edema over the last several days. She was found to have a BNP greater than 2000. Chest x-ray consistent with pulmonary edema. The patient reports orthopnea, dyspnea on exertion. The patient was seen and evaluated at bedside on the medical floor. She is currently doing well with no other issues at this time. In fact, she was on room air during my evaluation. She had significant amount of urine output with the Lasix. REVIEW OF SYSTEMS: Pertinent positives for orthopnea and dyspnea on exertion, lower extremity edema. The rest of 14-point review of systems are reviewed with the patient and are negative. ALLERGIES: TO IODINE, IODINE CONTAINING PRODUCTS, CODEINE. MEDICATIONS: Albuterol, aspirin, atorvastatin, Bisacodyl, Plavix, fenofibrate, furosemide, gabapentin, metformin, metoprolol, Protonix, tramadol, trazodone. PAST MEDICAL HISTORY: She has hypertension, type 2 diabetes, peripheral neuropathy, hyperlipidemia, history of CAD in the past. PAST SURGICAL HISTORY: Reports none. FAMILY HISTORY: Hypertension, diabetes. SOCIAL HISTORY: No drugs. No alcohol. Does not smoke. Good social support. PHYSICAL EXAMINATION: VITAL SIGNS: Temperature is 98.3, pulse 71, respiratory rate 19, blood pressure 133/52, pulse ox 96% on room air. GENERAL: Not in acute distress. Alert and oriented x3. Cooperative on examination. HEENT: Head is normocephalic, atraumatic. Eyes; pupils are equal, round, and reactive to light bilaterally. Extraocular movements are intact bilaterally. Throat, no evidence of any erythema or exudates in the posterior pharynx. Has poor dentition. NECK: Supple. Good range of motion. PULMONARY: Clear to auscultation bilaterally. No wheezing, rales, or rhonchi. No crackles appreciated. CARDIOVASCULAR: Positive S1, S2. No murmurs, rubs, or gallops appreciated. ABDOMEN: Soft, nondistended, nontender to palpation. Bowel sounds present. MUSCULOSKELETAL: Strength is 5/5 throughout. No evidence of muscle deficits on examination. No weakness appreciated. NEUROLOGICAL: Cranial nerves 2 through 12 grossly intact. No evidence of any neurological deficits on exam. SKIN: Intact. Warm to touch. Good cap refill. PSYCHIATRIC: Normal affect and mood. EXTREMITIES: No edema. Good range of motion throughout. LABORATORY FINDINGS: Show white count was 8.9, hemoglobin 8.8, hematocrit 29, platelets of 382. Chemistry; sodium 138, potassium 3.1 replaced, chloride 95, bicarb 20, anion gap of 18, BUN is 31, creatinine 1.57, seems to be close to the patient's baseline. Glucose 161, calcium is 9.2. LFTs noted. Coronavirus not detected. MICROBIOLOGY: None. IMAGING STUDIES: Chest x-ray shows some cardiopulmonary vascular congestion. Probable small effusion. IMPRESSION: 1. Acute on chronic systolic heart failure with history of coronary artery disease. 2. Acute kidney injury on chronic kidney disease, stage 3. 3. Hypertension. 4. Type 2 diabetes. PLAN: At this time from a renal standpoint it seems that her renal dysfunction from chronic kidney disease, multifactorial from heart failure, diabetes, and hypertension. I will go ahead and get a urine protein to creatinine ratio, microalbumin to creatinine ratio. She is on diuretics. Renal ultrasound has been ordered. Her other electrolytes are stable. Renally dose all medications. We will continue to monitor very closely. Thank you so much for this consultation. We will continue to follow with you. MD TEA Gómez/BRIANNE /[id number]
[2020-04-26] MEDS: SUCRALFATE 1 GM TAB PO SCH (20:41)
[2020-04-26] MEDS: ATORVASTATIN 20 MG TAB PO SCH (20:41)
--- NOTE | 2020-04-26 21:00 | NUR ---
PATIENT HAVE PERIODS OF CONFUSION. COMMERCIAL CREDIT LEAD MADE AWARE NO NEW ORDERS AT THIS TIME.
[2020-04-27] VITALS (12 sets, daily range): BP systolic 70–132; BP diastolic 39–58
[2020-04-27 01:43] LABS: TOTAL PROTEIN, URINE < 6.8 mg/dL (1-14)
[2020-04-27 02:27] LABS: CREATININE,URINE RANDOM 15.86 mg/dL (47-110)
[2020-04-27 06:20] LABS: BASOPHILS # (AUTO) 0.2 (0.0-0.1); BASOPHILS % 1.9 % (0.0-1.0); EOSINOPHILS # (AUTO) 0.2 (0.0-0.4); EOSINOPHILS % 2.5 % (0.0-6.0); HEMATOCRIT 30.4 % (34.2-44.1); HEMOGLOBIN 9.3 g/dL (12.0-16.0); LYMPHOCYTES # (AUTO) 1.3 (1.0-3.2); LYMPHOCYTES % 15.3 % (18.0-39.1); MEAN CORPUSCULAR HEMOGLOBIN 24.4 pg (28-32); MEAN CORPUSCULAR HGB CONC 30.6 g/dL (31-35); MEAN CORPUSCULAR VOLUME 79.8 fL (81-99); MONOCYTES % 11.3 % (4.4-11.3); NEUTROPHILS # (AUTO) 5.8 (2.1-6.9); NEUTROPHILS % 68.8 % (38.7-80.0); PLATELET COUNT 354 x10e3/uL (140-360); RED BLOOD COUNT 3.81 x10e6/uL (3.6-5.1); RED CELL DISTRIBUTION WIDTH 15.9 % (11.7-14.4)
[2020-04-27 06:32] LABS: % IRON SATURATION 4 % (15-50); IRON 17 ug/dL (50-170); TOTAL IRON BINDING CAPACITY 428 ug/dL (261-478); TRANSFERRIN 306 mg/dL (180-382)
[2020-04-27 06:34] LABS: ALBUMIN 3.4 g/dL (3.5-5.0); ANION GAP 16.5 mmol/L (8-16); CALCIUM 8.8 mg/dL (8.4-10.2); CREATININE, SERUM 1.56 mg/dL (0.57-1.11)
--- NOTE | 2020-04-27 06:51 | NUR ---
BP improving 107/ 47 MMHG.
[2020-04-27 06:56] LABS: POTASSIUM 2.5 mmol/L (3.5-5.1)
--- NOTE | 2020-04-27 07:08 | NUR ---
LOW POTASSIUM LEVEL ACCORDING TO LAB. DAY SHIFT RN MADE AWARE.
[2020-04-27] MEDS ORDERED: POTASSIUM CHLORIDE 10MEQ EA PO ONE ×3 (07:15→12:30)
[2020-04-27] MEDS: SUCRALFATE 1 GM TAB PO SCH ×4 (07:27→22:51)
[2020-04-27] MEDS: INSULIN REGULAR, HUMAN 100 UNIT/1 ML 3ML VIAL SQ SCH ×4 (07:30→22:53)
--- NOTE | 2020-04-27 07:30 | NUR ---
potassium 2.5. Dr Ferguson notified. orders received.
[2020-04-27] MEDS: NYSTATIN SUSPENSION 5 ML UDC PO SCH ×3 (09:41→22:51)
[2020-04-27] MEDS: FUROSEMIDE INJ 10 MG/ML 4 ML VIAL IV SCH (09:41)
[2020-04-27] MEDS: ASPIRIN 81 MG ENTERIC COATED PO SCH (09:41)
[2020-04-27] MEDS: DOCUSATE SODIUM 100 MG CAP PO SCH ×2 (09:41→16:44)
[2020-04-27] MEDS: SPIRONOLACTONE 25 MG TAB PO SCH (09:41)
[2020-04-27] MEDS: FAMOTIDINE 20 MG/2 ML VIAL IV SCH ×2 (09:41→16:44)
[2020-04-27] MEDS: CARVEDILOL 12.5 MG TAB PO SCH ×2 (09:42→17:00)
[2020-04-27] MEDS: IRON SUCROSE 100 MG in SODIUM CHLORIDE 0.9% 100 ML 100 ML IV SCH (12:44)
--- NOTE | 2020-04-27 16:34 | Progress Note ---
DATE: 04/27/2020 Nephrology Progress Note SUBJECTIVE: The patient is doing well at bedside. No overnight events. She was eating her lunch. PHYSICAL EXAMINATION: VITAL SIGNS: Temperature is 97.7, pulse 83, respiratory rate is 19, blood pressure 104/53, and pulse ox is 95% on room air. GENERAL: Not in acute distress. Alert and oriented x3. She is cooperative on examination. HEENT: Head; normocephalic, atraumatic. Eyes; pupils are equal, round, and reactive to light bilaterally. Extraocular movements intact bilaterally. Throat; no evidence of erythema or exudates in the posterior pharynx. Has poor dentition. NECK: Supple. Good range of motion. PULMONARY: Clear to auscultation bilaterally. No wheezing, no rales, no rhonchi, no crackles appreciated. CARDIOVASCULAR: Positive S1 and S2. No murmurs, rubs, or gallops appreciated. ABDOMEN: Soft, nondistended, and nontender to palpation. Bowel sounds present. MUSCULOSKELETAL: Strength is 5/5 throughout. No evidence of any muscle deficits on examination. No weakness appreciated. NEUROLOGIC: Cranial nerves 2 through 12 grossly intact. No evidence of any neurological deficits on exam. SKIN: Intact. Warm to touch. Good cap refill. PSYCHIATRIC: Normal affect and mood. EXTREMITIES: No edema. Good range of motion throughout. LABORATORY FINDINGS: Show white count 8.4, hemoglobin 9.3, hematocrit is 30, and platelets of 354. Chemistry; sodium was 137, potassium 2.5 replaced, chloride 92, bicarbonate is 31, anion gap of 16, BUN is 32, creatinine is 1.56 at baseline, glucose 87, and calcium is 8.8. Iron saturation 4%. LFTs noted. Albumin was 3.4. Urine protein to creatinine was 0 g proteinuria. Microalbumin to creatinine is pending. Serology; coronavirus not detected. MICROBIOLOGY: None. IMAGING STUDIES: None. IMPRESSION: 1. Lkkfr-az-jzwfaej systolic heart failure with history of coronary artery disease. 2. Acute kidney injury on chronic kidney disease, seems to be at baseline. 3. Electrolyte abnormalities with hypokalemia. 4. Type 2 diabetes. 5. Hypertension. PLAN: At this time, her creatinine seems to be at her baseline and seems to be doing well. Replace electrolytes accordingly with potassium today. She is okay to continue with Aldactone and monitor very closely. Otherwise, from a renal standpoint, electrolytes are improving. We will get a.m. labs including magnesium level. MD TEA Gómez/BRIANNE /[id number]
[2020-04-27] MEDS ORDERED: ACETAZOLAMIDE SODIUM 500 MG/VIAL IV SCH (17:00)
[2020-04-27] MEDS ORDERED: SODIUM CHLORIDE 0.9% 250ML 250 ML ONE (17:20)
--- NOTE | 2020-04-27 17:35 | NUR ---
BP 90/41. notified Dr Ferguson and 500cc bolus NS being given and will re-notify him if pressure remains low.
[2020-04-27] MEDS ORDERED: SODIUM CHLORIDE 0.9% 500ML 500 ML ONE (18:07)
[2020-04-27] MEDS: MIDODRINE 2.5 MG TAB PO SCH (18:10)
--- NOTE | 2020-04-27 19:06 | NUR ---
at 4PM vitals, patient BP low 91/44. patient seeming to be mildly confused. re-checked BP and was 80/50. notified Dr Ferguson and began NS bolus but BP continued to decline. after several checks, last BP on floor was 35/15. Spike garcia was present and instructed to move to ICU. patient transported and several MD's consulted. EKG done and shows several areas of ischemia. Dr Francis consulted and will insert central line for vasoressor support. consent obtained from daughter.
[2020-04-27] MEDS ORDERED: LIDOCAINE HCL 2% LOCAL 20 ML VIAL ONE (19:25)
--- NOTE | 2020-04-27 19:54 | NUR ---
Pt to be on hold from physical therapy with change of status to the icu. will need new orders from Physician to resume once pt is stable Addendum: 04/27/20 at 1956 by Marlo Rodriguez PTA Amended: Links added.
[2020-04-27] MEDS ORDERED: FUROSEMIDE INJ 10 MG/ML 4 ML VIAL IV SCH (21:00)
--- NOTE | 2020-04-27 21:08 | Diagnostic Imaging Report ---
EXAMINATION: CHEST XRAY POST PROCEDURE INDICATION: ^cvc placement COMPARISON: CT dated 04/13/2020. FINDINGS: The tip of the left internal jugular central venous catheter projects over the distal SVC. Stable cardiomegaly. No consolidation. Blunting of the costophrenic angles likely represent small effusions. Cervical spine fusion hardware is incompletely assessed. IMPRESSION: 1. Left internal jugular central venous catheter projects over the distal SVC. No pneumothorax. 2. Cardiomegaly without overt edema. Small pleural effusions. Signed by: Marlo Villegas MD on 04/27/2020 9:05 PM
[2020-04-27] MEDS: NOREPINEPHRINE INJ 4MG/4ML 8 MG in DEXTROSE 5% 250ML 250 ML IV SCH (21:30)
--- NOTE | 2020-04-27 21:30 | NUR ---
LEFT IJ TLC INSERTED BY DR Prema ROACH USING US GUIDANCE. POST INSERTION CXR DONE AND REVIEWED BY DR Prema ROACH, JAVIER TO USE LINE
--- NOTE | 2020-04-27 22:00 | Progress Note ---
DATE: 04/26/2020 SUBJECTIVE: The patient is seen in her room in 101 around 8 p.m. on April 26, giddy/silly, borderline and appropriate, jovial/pleasant, but with no new complaints. OBJECTIVE: VITAL SIGNS: Temperature 98.7, heart rate 88, blood pressure 140/60, respirations 19, and oxygen saturation 95%. GENERAL: No acute distress. LUNGS: Clear to auscultation. Respiratory pattern even and unlabored. No supplemental oxygen. HEENT: EOMI. NECK: Supple. No JVD. CARDIOVASCULAR: Regular rate and rhythm. No murmur. ABDOMEN: Bowel sounds positive. Soft and nontender. No guarding. EXTREMITIES: Without pitting edema. No clubbing, cyanosis, or marked swelling. NEUROLOGICAL: GCS 15. Nonfocal. LABORATORY DATA: WBCs 8.92, hemoglobin 8.8, hematocrit 29.2, and platelets 382. Sodium 138, potassium 3.1, chloride 95, CO2 28, anion gap 18.1, BUN 31, creatinine 1.57, estimated GFR 32, glucose 161, and calcium 9.2. Total bilirubin 1.3, AST 63, ALT 58, and alkaline phosphatase 269. Total protein 7.1 and albumin 3.5. Phosphorus 4.2 and magnesium 1.5. Fingerstick blood glucose levels 187, 182, and 215. Urine random total protein less than 6.8, urine creatinine 15.86, and protein/creatinine ratio zero. Coronavirus PCR was negative on 04/24. KUB done this afternoon showed nonobstructive bowel gas pattern. 04/25, final echocardiogram result with ejection fraction of 20% to 25%. ASSESSMENT AND PLAN: 1. Rlxyf-ln-qfwcpmj systolic and diastolic congestive heart failure with preliminary ejection fraction of 25% to 30% and final ejection fraction of 20% to 25% as well as pulmonary vascular congestion. Per Cardiology, on Coreg 6.25 mg b.i.d. and spironolactone 12.5 mg daily. Continue beta-denzel and diuresis per Cardiology. Monitor chest x-ray results p.r.n. 2. Controlled hypertension with systolic and diastolic congestive heart failure, chronic kidney disease stage 3, blood pressure 140/60. Monitor. Also, continue current antihypertensives. 3. Uncontrolled type 2 diabetes mellitus with chronic kidney disease stage 3 and hyperglycemia. Hemoglobin A1c on 04/14 was 9.9%. Low-dose sliding scale insulin. Monitor fingerstick blood glucose levels before meals and at bedtime. Continue ADA diet. 4. Microcytic anemia with recent positive fecal occult blood test. No signs of active bleeding. Hemoglobin 8.8, hematocrit 29.2, and serum iron level on 04/14 low at 26. We will recheck her iron level. 5. Coronary artery disease with multiple coronary artery stents. The patient is on aspirin per Cardiology. 6. Hyperlipidemia. Continue Lipitor. 7. History of lung cancer, asthma and possible chronic obstructive pulmonary disease. Oxygen saturation 95% on room air. 8. Degenerative joint disease with chronic pain syndrome, severe neuropathy, and ambulatory dysfunction with history of transient ischemic attack. PT to evaluate and treat. 9. Prophylaxis. Pepcid and SCDs. Billing code 00423. Time spent 35 minutes. Dictated by Spike Dove NP MD MANJINDER NaiduP/CATHERINEL /[id number]
--- NOTE | 2020-04-27 22:10 | Progress Note ---
DATE: CONSULTING PHYSICIANS: 1. Dr. Daljit Randall with Nephrology. 2. Dr. Saleem Ferguson with Nephrology. 3. Dr. Loyd with Neurology. SUBJECTIVE: Last night, the patient was giddy/silly, borderline and appropriate, jovial/pleasant. Per the nurse, the patient was more altered today than she had been upon initial examination. The patient complains of right-sided facial numbness. The nurse had called to my attention that the patient's systolic blood pressure was in the 70s and soon after I began to examine her, her systolic blood pressure dropped into the 60s and she was immediately transferred from room #101 to ICU bed #189, which was at approximately 1830 hours today on 04/27/2020. She denies any headache, dizziness, shortness of breath, cough, chest pain, palpitations, nausea, vomiting, diarrhea, or constipation. Upon initial exam, there was no drift of upper extremities after 10 seconds raised with palms facing her and no drift of the lower extremities when each is raised for 5 seconds. OBJECTIVE: VITAL SIGNS: Temperature 98.4, heart rate 85, blood pressure 80/58 this morning, systolic blood pressure in the 60s now. Respiratory rate 16, oxygen saturation 94% on room air. GENERAL: No acute distress. Communicative. No obvious facial droop. LUNGS: Generally clear to auscultation. RESPIRATORY: Pattern even and unlabored. No supplemental oxygen. HEENT: EOMI. Circum orbital darkness according to the patient is longstanding and chronic. NECK: Supple. No JVD. No thyromegaly noted. CARDIOVASCULAR: Regular rate and rhythm without murmur. ABDOMEN: Bowel sounds positive. Soft, nontender. No guarding. EXTREMITIES: With no pitting edema. No clubbing, cyanosis, or marked swelling or signs of DVT. NEUROLOGIC: GCS 15, nonfocal. No drift. LABORATORY DATA: WBCs 8.41, hemoglobin 9.3, hematocrit 30.4, platelets 354. Sodium 137, potassium 2.5, chloride 92, CO2 of 31, anion gap 16.5. BUN 32, creatinine 1.56. Estimated GFR 32, glucose 87. Fingerstick blood glucose levels 118, 142, 277. Calcium 8.8, total bilirubin 1.6, AST 51, ALT 49, alkaline phosphatase 226. Iron 17, TIBC 428, percent saturation 4, transferrin 306. Subsequent potassium level at 1728 hours 4.2. Urine random microalbumin from yesterday is pending. Coronavirus PCR on 04/24 was not detected. No new imaging results. The patient's final report on her echocardiogram, which was done on 04/25/2020, showed according to the apprentice lineman third step interpretation dilated left ventricle, moderate concentric left ventricular hypertrophy, severely impaired left ventricular systolic function with ejection fraction between 20% and 25%. Diastolic filling pattern indicates impaired relaxation. Left atrium is markedly dilated. There is moderate aortic valve sclerosis without stenosis. There is vmhk-ku-grrnsneb aortic regurgitation, rheumatic-appearing mitral valve with thickening and tethering of the leaflet tips. Tdco-kd-kdzlgbfi mitral regurgitation is present. Severe mitral annular calcification present. Moderate mitral stenosis. ASSESSMENT AND PLAN: 1. Severe hypotension with systolic blood pressure in the 60s, right-sided facial weakness, history of transient ischemic attack. The patient received 1 L of fluid IV stat as well as midodrine in room #101. The patient transferred stat to ICU. Pulmonology/Critical Care Medicine consult was ordered as well as a Neurology consult. CT of the head without contrast was ordered stat, which is to be done as soon as the blood pressure is stabilized. Dr. Francis with Critical Care Medicine placed a central venous catheter. Dr. Feldman, the attending physician; Dr. Ferguson with Nephrology, and Dr. Randall as well as the family have all been notified. The patient has been transferred to ICU. 2. Mitit-vh-qkruolv systolic and diastolic congestive heart failure with ejection fraction of 20% to 25%. Continue beta-denzel and diuresis per Cardiology. Monitor chest x-ray results p.r.n. 3. Uncontrolled type 2 diabetes mellitus with chronic kidney disease 3. Hemoglobin A1c 9.9% on 04/14. Continue low-dose insulin sliding scale. Monitor fingerstick blood glucose levels before meals and at bedtime. Maintain ADA diet for nutritional support. 4. Microcytic anemia with recent positive fecal occult blood test. Hemoglobin 9.3, hematocrit 30.4. Monitor H and H. Serum iron level low at 17 (26 on 04/14). We will order iron sucrose infusions. 5. Coronary artery disease with multiple coronary artery stents. The patient is currently on aspirin per Cardiology. 6. Hyperlipidemia. Continue Lipitor. 7. History of lung cancer, asthma and possible chronic obstructive pulmonary disease without any exacerbation. Oxygen saturation 95% on room air. Monitor. 8. Degenerative joint disease with chronic pain syndrome, severe neuropathy, ambulatory dysfunction. Physical therapy has been following. Hold PT until the patient is more stable. 9. History of left carotid endarterectomy. 10. Transaminitis with total bilirubin 1.6, AST 51, ALT 49, alkaline phosphatase 226. Monitor. 11. Prophylaxis. Pepcid and SCDs. Billing code, 29649. Time spent 60 minutes. Dictated by Spike Dove NP MD SADIE Naidu/MODL /[id number]
--- NOTE | 2020-04-27 22:10 | Consultation ---
DATE OF CONSULTATION: Pulmonary Critical Care Consultation Note CHIEF COMPLAINT: Hypotension and cardiogenic shock. HISTORY OF PRESENT ILLNESS: The patient is a 74-year-old woman. She has a history of systolic cardiomyopathy and CHF as well as diabetes and hypertension. She was recently hospitalized at [facility] with an exacerbation of her systolic cardiomyopathy. She was discharged about 3 to 4 weeks ago. She now returns with worsening dyspnea and congestion. She notes some cough. When she came to the emergency department, she was found to have some CHF as well as acute kidney injury. She initially went to the floor, but had low blood pressure and had to be transferred to the intensive care unit. PAST MEDICAL HISTORY: 1. Systolic cardiomyopathy. 2. Diabetes. 3. Hypertension. PAST SURGICAL HISTORY: 1. Status post cholecystectomy. 2. Status post angioplasty with stent placement. 3. Status post hysterectomy. 4. Partial lung resection for possible lung cancer. FAMILY HISTORY: Significant for cancer and coronary artery disease. SOCIAL HISTORY: The patient is a nonsmoker. She is not a drinker. ALLERGIES: THE PATIENT IS ALLERGIC TO IODINE WELL CODEINE. REVIEW OF SYSTEMS: She notes some lightheadedness. She has no fever. She has no headache. She has no neck pain. She has no chest pain. She is complaining of some dyspnea. She has no abdominal pain. She has no nausea or vomiting. She has no leg edema. PHYSICAL EXAMINATION: VITAL SIGNS: The blood pressure is 99/41 and the pulse is 79. HEENT: Shows no facial swelling or erythema. LYMPHATIC: Shows no submandibular, cervical, or supraclavicular adenopathy. CARDIAC: Reveals regular rate and rhythm with normal S1 and S2. LUNGS: Auscultation of lungs shows clear breath sounds bilaterally. There is no wheezing. ABDOMEN: Soft and nontender. There is no rebound or guarding. EXTREMITIES: Shows no leg edema or calf tenderness. There is no cyanosis or clubbing. SKIN: Shows no rashes. LABORATORY DATA: White blood cell count is 8.4, hemoglobin is 9.3, and the platelet count is 354. The BUN to creatinine ratio is 32 to 1.56, and the potassium is 2.5. The other electrolytes are within normal limits. RADIOGRAPHIC DATA: Chest x-ray shows cardiomegaly with some CHF. IMPRESSION: 1. Cardiogenic shock. 2. Acute on chronic systolic congestive heart failure. 3. Acute kidney injury. 4. Hypokalemia. 5. Diabetes. 6. Hypertension. PLAN: 1. Continue to hold Coreg and any other medications causing hypertension. 2. Consider use of dobutamine or Levophed for maintenance of blood pressure. 3. Await further input from Cardiology. 4. Continue to monitor creatinine. 5. Replace potassium. MD ALMA Enrique/BRIANNE /[id number]
--- NOTE | 2020-04-27 22:41 | Operative Report ---
DATE OF PROCEDURE: SURGEON: Glen Francis MD CHIEF COMPLAINT: Acute kidney injury, hypotension, and heart failure. POSTOPERATIVE DIAGNOSES: Acute kidney injury, hypotension, and heart failure. CONSENT: Consent was obtained from the family. MEDICATIONS: 1% lidocaine for local anesthesia. PROCEDURE IN DETAIL: The left neck was prepped sterilely with chlorhexidine. A full length sterile drape, sterile gown, and sterile mask were used. The area between the heads of the left sternocleidomastoid was anesthetized with 1% lidocaine. An ultrasound machine was used to visualize the left internal jugular vein. The left internal jugular vein was cannulated under direct visualization with a 16-gauge needle on the first attempt. A wire was passed through the needle. A dilator was used to open the skin. A triple-lumen catheter was then passed over the wire by the Seldinger technique. All the ports flushed. COMPLICATIONS: None. ESTIMATED BLOOD LOSS: None. Glen Francis MD [facility]/MODL /[id number]
[2020-04-27] MEDS: ATORVASTATIN 20 MG TAB PO SCH (22:51)
[2020-04-28] VITALS (26 sets, daily range): BP systolic 81–141; BP diastolic 38–76
[2020-04-28 05:04] LABS: BASOPHILS # (AUTO) 0.1 (0.0-0.1); BASOPHILS % 1.4 % (0.0-1.0); EOSINOPHILS # (AUTO) 0.2 (0.0-0.4); LYMPHOCYTES # (AUTO) 1.5 (1.0-3.2); MONOCYTES % 12.8 % (4.4-11.3); NEUTROPHILS # (AUTO) 5.1 (2.1-6.9); NEUTROPHILS % 63.4 % (38.7-80.0); PLATELET COUNT 410 x10e3/uL (140-360); RED BLOOD COUNT 3.75 x10e6/uL (3.6-5.1); RED CELL DISTRIBUTION WIDTH 15.9 % (11.7-14.4)
[2020-04-28 05:21] LABS: ANION GAP 14.2 mmol/L (8-16); CALCIUM 8.3 mg/dL (8.4-10.2); CREATININE, SERUM 1.98 mg/dL (0.57-1.11); MAGNESIUM 1.4 MG/DL (1.3-2.1); POTASSIUM 3.2 mmol/L (3.5-5.1)
--- NOTE | 2020-04-28 06:21 | NUR ---
Consult called for Dr Loyd, voice mail message left, awaiting return call
[2020-04-28] MEDS: INSULIN REGULAR, HUMAN 100 UNIT/1 ML 3ML VIAL SQ SCH ×4 (07:30→22:18)
[2020-04-28] MEDS: CARVEDILOL 12.5 MG TAB PO SCH ×2 (09:00→16:41)
[2020-04-28] MEDS ORDERED: MAGNESIUM OXIDE 400 MG TAB PO SCH (09:30)
[2020-04-28] MEDS ORDERED: POTASSIUM CHLORIDE 20 MEQ TAB CR PO SCH (09:30)
--- NOTE | 2020-04-28 09:48 | Diagnostic Imaging Report ---
EXAMINATION: Head CT HISTORY: New onset right-sided numbness COMPARISON: None. TECHNIQUE: Helical axial images of the head were obtained. Reformatted coronal and sagittal images from the axial data. Dose modulation, iterative reconstruction, and/or weight based adjustment of the mA/kV was utilized to reduce the radiation dose to as low as reasonably achievable. Image quality: Motion/streaking artifact limits the evaluation of the skull base and posterior cranial fossa. FINDINGS: Parenchyma: 1. A few scattered white matter hypodensities, most likely age-related minimal chronic O ischemic changes. 2. No mass or hemorrhage. No CT evidence of acute territorial vascular insult. Extra-axial spaces:No abnormal density. No extra-axial fluid collections Brain volume: Normal for age. Ventricles: No hydrocephalus or displacement. Arteries: No density suggestive of thrombus. Dural sinuses: No abnormal density. Foramen magnum: No mass, Chiari malformation, or basilar invagination. Sella: No obvious mass. Paranasal/mastoid sinuses: Partial opacification of the right maxillary sinus, possible underlying retention cyst Skull/Scalp: Heterogeneous bone marrow density throughout the skull base may be related to osteopenia, less likely primary or secondary malignancy. IMPRESSION: 1. No acute intracranial hemorrhage or CT evidence of acute territorial cortical infarct. If clinical concern remains for acute stroke considered brain MRI with and without contrast for further evaluation. 2. Diffuse heterogeneous bone marrow density as detail above. 3. Minimal age-related white matter chronic microvascular ischemic changes. Signed by: Dr. Adriana Mclain M.D. on 04/28/2020 9:44 AM
[2020-04-28] MEDS: SUCRALFATE 1 GM TAB PO SCH ×4 (10:04→22:16)
[2020-04-28] MEDS: NYSTATIN SUSPENSION 5 ML UDC PO SCH ×3 (10:04→21:00)
[2020-04-28] MEDS: MIDODRINE 2.5 MG TAB PO SCH ×3 (10:04→18:31)
[2020-04-28] MEDS: DOCUSATE SODIUM 100 MG CAP PO SCH ×2 (10:04→18:35)
[2020-04-28] MEDS: ASPIRIN 81 MG ENTERIC COATED PO SCH (10:04)
[2020-04-28] MEDS: FAMOTIDINE 20 MG/2 ML VIAL IV SCH ×2 (10:04→18:35)
[2020-04-28] MEDS: IRON SUCROSE 100 MG in SODIUM CHLORIDE 0.9% 100 ML 100 ML IV SCH (13:09)
--- NOTE | 2020-04-28 13:48 | Progress Note ---
DATE: SUBJECTIVE: The patient was weaned off Levophed. She is not complaining of dyspnea or lightheadedness. Overall, she feels better. PHYSICAL EXAMINATION: VITAL SIGNS: Blood pressure is 116/50, saturation is 100%, and the pulse is 68. HEENT: Shows no facial swelling or erythema. LYMPHATIC: Shows no submandibular, cervical, or supraclavicular adenopathy. CARDIAC: Reveals regular rate and rhythm with normal S1 and S2. LUNGS: Auscultation of lungs reveals clear breath sounds bilaterally. There is no wheezing. ABDOMEN: Soft and nontender. There is no rebound or guarding. EXTREMITIES: Shows no leg edema or calf tenderness. LABORATORY DATA: White blood cell count is 8 and the hemoglobin is 9. The platelet count is 410. BUN to creatinine ratio is 37 to 1.98. Potassium is 3.2. RADIOGRAPHIC DATA: Chest x-ray shows no acute changes. IMPRESSION: 1. Pghys-jk-lyacqtv systolic congestive heart failure. 2. Acute kidney injury. 3. Diabetes. 4. Hypertension. PLAN: 1. Continue current cardiac regimen. 2. Continue to monitor creatinine. 3. Transfer out of intensive care unit. MD ALMA Enrique/BRIANNE /[id number]
[2020-04-28] MEDS ORDERED: BISACODYL 10 MG SUPP PR ONE (21:15)
--- NOTE | 2020-04-28 21:30 | NUR ---
TIME CLOCK REPAIRER Derrell on unit and made aware of pt's trending low BP with a MAP less than 65, as low as 50. Pt remains asymptomatic. TIME CLOCK REPAIRER placed orders midodrine po to be given tonight. Pt remains alert and oriented, pt states "i am just so tired". Pt is SR on monitor, on RA saturating at 100%. Pt was able to eat 50% of her dinner. No other needs expressed.
[2020-04-28] MEDS ORDERED: MIDODRINE 2.5 MG TAB PO ONE (22:10)
[2020-04-28] MEDS: NOREPINEPHRINE INJ 4MG/4ML 8 MG in DEXTROSE 5% 250ML 250 ML IV SCH (22:15)
[2020-04-28] MEDS: ATORVASTATIN 20 MG TAB PO SCH (22:16)
[2020-04-29] VITALS (15 sets, daily range): BP systolic 101–125; BP diastolic 35–60
--- NOTE | 2020-04-29 | NUR ---
Pt was assisted to toilet. Pt had a large amount of urine. Pt remains A&OX4, however when BP recycled pt is having a trend of a low DBP and MAP not at or greater than 65. PO midodrine has been given. Pt remains asymptomatic and has been assisted into bed. Pt states no other needs at this time. SR on tele monitor.
--- NOTE | 2020-04-29 03:01 | Progress Note ---
DATE: 04/28/2020 Medicine Progress Note SUBJECTIVE: The patient was seen early this afternoon with the nursing staff. The patient is doing otherwise okay with no issues. Her blood pressure was low yesterday prompting transfer to the ICU. PHYSICAL EXAMINATION: VITAL SIGNS: Temperature is 98.3, pulse 64, respiratory rate is 16, blood pressure is 96/76, pulse ox 100% on room air. GENERAL: Not in acute distress. Alert and oriented x3. Cooperative on examination. HEENT: Head is normocephalic and atraumatic. Eyes; pupils are equal, round, and reactive to light bilaterally. Extraocular movements are intact bilaterally. Throat, no evidence of any erythema or exudates in the posterior pharynx. Has poor dentition. NECK: Supple. Good range of motion. PULMONARY: Clear to auscultation bilaterally. No wheezing, rales, or rhonchi. No crackles appreciated. CARDIOVASCULAR: Positive S1, S2. No murmurs, rubs, or gallops appreciated. ABDOMEN: Soft, nontender, nontender to palpation. Bowel sounds present. MUSCULOSKELETAL: Strength is 5/5 throughout. No evidence of any muscle deficits on examination. No weakness appreciated. NEUROLOGICAL: Cranial nerves 2 through 12 grossly intact. No evidence of any neurological deficits on exam. SKIN: Intact. Warm to touch. Good cap refill. PSYCHIATRIC: Normal affect and mood. EXTREMITIES: No edema. Good range of motion throughout. LABORATORY FINDINGS: White count 8, hemoglobin 9, hematocrit is 30, platelets of 410. Chemistries reviewed, shows sodium 136, potassium 3.2 replaced, chloride 95, bicarb 30, anion gap of 14, BUN is 37 creatinine is 1.98. Urine protein to creatinine ratio was 0. Coronavirus nondetected. Microbiology; none. IMAGING STUDIES: CT brain stat shows no acute intracranial hemorrhage or CT evidence of acute temporal cortical infarct. IMPRESSION: 1. Acute on chronic systolic heart failure with history of coronary artery disease. 2. Acute kidney injury on chronic kidney disease, stage 3-4, seems to be at baseline. 3. Electrolyte abnormalities. 4. Type 2 diabetes. 5. Hypertension. PLAN: At this time, creatinine seems to be at baseline. Electrolytes were replaced accordingly. She was given normal saline boluses yesterday. We will try to avoid all antihypertensive medications for now as her blood pressure is still relatively low. Get a.m. labs. MD TEA Gómez/BRIANNE /[id number]
[2020-04-29 04:44] LABS: BASOPHILS # (AUTO) 0.2 (0.0-0.1); BASOPHILS % 1.8 % (0.0-1.0); EOSINOPHILS # (AUTO) 0.2 (0.0-0.4); EOSINOPHILS % 2.6 % (0.0-6.0); HEMATOCRIT 29.1 % (34.2-44.1); HEMOGLOBIN 8.7 g/dL (12.0-16.0); LYMPHOCYTES # (AUTO) 1.4 (1.0-3.2); LYMPHOCYTES % 15.2 % (18.0-39.1); MEAN CORPUSCULAR HEMOGLOBIN 23.9 pg (28-32); MEAN CORPUSCULAR HGB CONC 29.9 g/dL (31-35); MEAN CORPUSCULAR VOLUME 79.9 fL (81-99); MONOCYTES % 10.7 % (4.4-11.3); NEUTROPHILS # (AUTO) 6.5 (2.1-6.9); NEUTROPHILS % 69.3 % (38.7-80.0); PLATELET COUNT 364 x10e3/uL (140-360); RED BLOOD COUNT 3.64 x10e6/uL (3.6-5.1); RED CELL DISTRIBUTION WIDTH 16.1 % (11.7-14.4)
[2020-04-29 05:08] LABS: ALBUMIN 3.2 g/dL (3.5-5.0); ANION GAP 15.4 mmol/L (8-16); CALCIUM 8.6 mg/dL (8.4-10.2); CREATININE, SERUM 1.78 mg/dL (0.57-1.11); POTASSIUM 3.4 mmol/L (3.5-5.1)
--- NOTE | 2020-04-29 06:34 | Diagnostic Imaging Report ---
EXAM: Abdomen 1 Views INDICATION: ^constipation; no BM in about one week. Negative for COVID. ^Y COMPARISON: KUB dated 04/26/2020 FINDINGS: Nonobstructive bowel gas pattern. No signs of pneumoperitoneum. Right upper quadrant surgical clips are again seen. No acute osseous abnormality. Degenerative changes of spine. Vascular calcifications. Clear lung bases. IMPRESSION: Nonobstructive bowel gas pattern. Signed by: Dr. Emanuel Gee MD on 04/29/2020 6:30 AM
[2020-04-29 08:22] LABS: MAGNESIUM 1.5 MG/DL (1.3-2.1); PHOSPHORUS 3.5 MG/DL (2.3-4.7)
[2020-04-29 08:29] LABS: CREATINE KINASE MB 1.9 ng/mL (0-5.0)
[2020-04-29] MEDS ORDERED: POTASSIUM CHLORIDE 20 MEQ TAB CR PO SCH (08:45)
[2020-04-29] MEDS: CARVEDILOL 12.5 MG TAB PO SCH ×2 (09:00→17:00)
[2020-04-29] MEDS: NYSTATIN SUSPENSION 5 ML UDC PO SCH ×3 (09:00→21:04)
[2020-04-29] MEDS: SUCRALFATE 1 GM TAB PO SCH (09:37)
[2020-04-29] MEDS: INSULIN REGULAR, HUMAN 100 UNIT/1 ML 3ML VIAL SQ SCH ×4 (09:38→21:04)
[2020-04-29] MEDS: FAMOTIDINE 20 MG/2 ML VIAL IV SCH ×2 (09:39→17:17)
[2020-04-29] MEDS: ASPIRIN 81 MG ENTERIC COATED PO SCH (09:39)
[2020-04-29] MEDS: MIDODRINE 2.5 MG TAB PO SCH ×3 (09:39→17:16)
[2020-04-29] MEDS: DOCUSATE SODIUM 100 MG CAP PO SCH ×2 (09:39→17:17)
[2020-04-29] MEDS: IRON SUCROSE 100 MG in SODIUM CHLORIDE 0.9% 100 ML 100 ML IV SCH (09:40)
[2020-04-29] MEDS: SUCRALFATE 1 GM/10 ML SUSP PO SCH ×3 (14:03→21:04)
--- NOTE | 2020-04-29 19:00 | NUR ---
RECEIVED PATIENT IN BEDSIDE SHIFT REPORT. PATIENT RESTING IN BED AT THIS TIME. NO PAIN REPORTED. NO S&S OF DISTRESS NOTED. BED LOCKED IN LOWEST POSITION, SIDE RAILS UPX2, CALL LIGHT IN REACH.
[2020-04-29] MEDS: ATORVASTATIN 20 MG TAB PO SCH (21:04)
--- NOTE | 2020-04-29 21:30 | NUR ---
TURNED ON BED ALARM AND REMINDED PATIENT TO CALL FOR ASSISTANCE WHEN SHE NEEDED TO USE THE RESTROOM. PATIENT LAUGHED AT THIS, STATING SHE DID NOT NEED HELP. BED ALARM IS ON, WILL CHECK ON PATIENT FREQUENTLY.
--- NOTE | 2020-04-29 23:26 | Progress Note ---
DATE: 04/29/2020 Renal Progress Note SUBJECTIVE: The patient is doing much better today with no complaints. No overnight events. LABORATORY DATA: CBC stable. Chemistry reviewed shows potassium 3.4 replaced, BUN 32, creatinine 1.78. The rest of the electrolytes are stable. MICROBIOLOGY: None. IMAGING STUDIES: Abdominal x-ray, nonobstructive bowel gas pattern. PHYSICAL EXAMINATION: VITAL SIGNS: She is afebrile. Normotensive respiratory rate is good. She is on room air 100%. GENERAL: Not in acute distress. Alert and oriented x3. Cooperative on examination. HEENT: Head is normocephalic and atraumatic. Eyes; pupils are equal, round, and reactive to light bilaterally. Extraocular movements are intact bilaterally. Throat, no evidence of any erythema or exudates in the posterior pharynx. Has poor dentition. NECK: Supple. Good range of motion. PULMONARY: Clear to auscultation bilaterally. No wheezing, rales, or rhonchi. No crackles appreciated. CARDIOVASCULAR: Positive S1, S2. No murmurs, rubs, or gallops appreciated. ABDOMEN: Soft, nontender, nontender to palpation. Bowel sounds present. MUSCULOSKELETAL: Strength is 5/5 throughout. No evidence of any muscle deficits on examination. SKIN: Intact. Warm to touch. Good cap refill. PSYCHIATRIC: Normal affect and mood. IMPRESSION: 1. Iutkb-ev-xvdplmf systolic heart failure with history of coronary artery disease. 2. Acute kidney injury on chronic kidney disease stage 3 to 4, seems to be at baseline with electrolyte abnormalities. 3. Type 2 diabetes. 4. Hypertension. PLAN: At this time, her creatinine seems to be at baseline. Replace potassium. Her blood pressure is much improved. Monitor very closely. MD TEA Gómez/MODL /[id number]
[2020-04-30] VITALS: BP 92/50
[2020-04-30 04:35] VITALS: BP 113/48
[2020-04-30 05:14] LABS: BASOPHILS # (AUTO) 0.1 (0.0-0.1); BASOPHILS % 1.3 % (0.0-1.0); EOSINOPHILS # (AUTO) 0.2 (0.0-0.4); EOSINOPHILS % 2.1 % (0.0-6.0); HEMATOCRIT 28.3 % (34.2-44.1); HEMOGLOBIN 8.5 g/dL (12.0-16.0); LYMPHOCYTES # (AUTO) 1.5 (1.0-3.2); LYMPHOCYTES % 15.5 % (18.0-39.1); MEAN CORPUSCULAR HEMOGLOBIN 23.7 pg (28-32); MEAN CORPUSCULAR VOLUME 78.8 fL (81-99); MONOCYTES % 10.3 % (4.4-11.3); NEUTROPHILS % 70.5 % (38.7-80.0); PLATELET COUNT 335 x10e3/uL (140-360); RED BLOOD COUNT 3.59 x10e6/uL (3.6-5.1); RED CELL DISTRIBUTION WIDTH 16.4 % (11.7-14.4)
[2020-04-30 05:43] LABS: ALBUMIN 3.2 g/dL (3.5-5.0); ALBUMIN/GLOBULIN RATIO 0.9 (0.8-2.0); ANION GAP 13.1 mmol/L (8-16); CALCIUM 8.7 mg/dL (8.4-10.2); CREATININE, SERUM 1.6 mg/dL (0.57-1.11); POTASSIUM 3.1 mmol/L (3.5-5.1)
[2020-04-30] MEDS: INSULIN REGULAR, HUMAN 100 UNIT/1 ML 3ML VIAL SQ SCH (07:30)
[2020-04-30 07:39] VITALS: BP 98/48
[2020-04-30] MEDS: MIDODRINE 2.5 MG TAB PO SCH (08:09)
[2020-04-30] MEDS: SUCRALFATE 1 GM/10 ML SUSP PO SCH (08:09)
[2020-04-30] MEDS: ASPIRIN 81 MG ENTERIC COATED PO SCH (08:10)
[2020-04-30] MEDS: CARVEDILOL 12.5 MG TAB PO SCH (08:10)
[2020-04-30] MEDS: DOCUSATE SODIUM 100 MG CAP PO SCH (08:10)
[2020-04-30] MEDS: NYSTATIN SUSPENSION 5 ML UDC PO SCH (08:10)
[2020-04-30] MEDS: FAMOTIDINE 20 MG/2 ML VIAL IV SCH (08:10)
[2020-04-30] MEDS ORDERED: POTASSIUM CHLORIDE 20 MEQ TAB CR PO SCH (08:45)
[2020-04-30] MEDS ORDERED: MAGNESIUM OXIDE 400 MG TAB PO SCH (08:45)
[2020-04-30] MEDS: IRON SUCROSE 100 MG in SODIUM CHLORIDE 0.9% 100 ML 100 ML IV SCH (09:15)
[2020-04-30 09:53] VITALS: BP 98/40
[2020-04-30] MEDS ORDERED: MIDODRINE HCL2.5 MG PO (10:23)
[2020-04-30] MEDS ORDERED: COREG12.5 MG PO (10:23)
[2020-04-30] MEDS ORDERED: SUCRALFATE1 G/10 ML PO (10:23)
[2020-04-30] MEDS ORDERED: COLACE100 MG PO (10:23)
[2020-04-30 11:15] VITALS: BP 82/63
--- NOTE | 2020-04-30 12:05 | NUR ---
Edi to d/c left IJ per Marilyn Garcia.
--- NOTE | 2020-04-30 14:00 | NUR ---
Discharge education provided with the Charlotte Bowman (Daughter) on phone loud speaker. Emphasizing the need to follow-up with the PCP and suction worker. Verbalized understanding. Patient received the home medication prescription. PIV to right AC discontinued with catheter intact, no bleeding noted. Left IJ central line removed as ordered, catheter tip intact, pressure applied, no bleeding noted and occlusive dressing applied. Patient and the daughter is advised to leave the dressing until the next day and if bleeding is noted to apply pressure and call emergency if bleeding does not stop. Verbalized understanding.
--- NOTE | 2020-04-30 14:12 | NUR ---
Transported patient via wheelchair to private vehicle. All personal belongings are taken.
--- NOTE | 2020-04-30 18:25 | Progress Note ---
DATE: 04/28/2020 CONSULTING PHYSICIANS: 1. Dr. Papi Loyd with Neurology. 2. Dr. Daljit Randall with Cardiology. 3. Dr. Glen Francis with Pulmonology. 4. Dr. Saleem Ferguson with Nephrology. SUBJECTIVE: The patient denies any right-sided facial weakness now and blood pressure is 95/42 with a MAP of 58. She has good appetite. Levophed is currently off. She is on midodrine t.i.d., however, she threw up apparently earlier today and may have thrown a part of her midodrine, thus we will give her a supplemental dose of 5 mg tonight. She is complaining of some pain at her left antecubital peripheral IV site, may be infiltrated, RN alerted. Last BM "I do not know." OBJECTIVE: VITAL SIGNS: Temperature 97.9, pulse 65, blood pressure 107/44, respirations 16, oxygen and saturation 100%. These vital signs are from 6 a.m. GENERAL: No acute distress. Communicative. No obvious facial droop. She remains in ICU bed #189. LUNGS: Clear to auscultation. Respiratory pattern even nonlabored. Currently, no supplemental oxygen. HEENT: EOMI. Circumorbital darkness according to the patient is longstanding and chronic. NECK: Supple. No JVD. No thyromegaly noted. CARDIOVASCULAR: Regular rate and rhythm. No murmur. Left IJ triple-lumen central line. ABDOMEN: Bowel sounds positive. Soft, nontender. No guarding. EXTREMITIES: No pitting edema. No clubbing, cyanosis, or marked swelling. NEUROLOGIC: GCS is 15, nonfocal. No drift. LABORATORY DATA: WBC 9.33, hemoglobin 8.7, hematocrit 29.1, and platelets 364. Sodium 136, potassium 3.2, chloride 95, CO2 of 30, anion gap 14.2, BUN 37, creatinine 1.98, estimated GFR 25, glucose 95, calcium 8.3, magnesium 1.4. Fingerstick blood glucose level 171. IMAGING STUDIES: CT of the head today showed no acute intracranial hemorrhage or CT evidence of acute territorial cortical infarct. Minimal age related white matter chronic microvascular ischemic changes. ASSESSMENT AND PLAN: 1. Hypotension, status post cardiogenic shock, rule out acute cerebrovascular accident/transient ischemic attack, history of left CEA. Levophed was weaned off and patient remains on midodrine t.i.d., as she threw up earlier we will give an extra dose of 5 mg midodrine. Blood pressure seems to be improving. We will transfer her to the floor unit. 2. Uekil-af-kuxpwbm systolic and diastolic congestive heart failure with ejection fraction of 20% to 25%. Continue beta-denzel and diuresis as tolerated per Cardiology. Currently, off diuretics. 3. Metabolic alkalosis. Serum bicarbonate level 30 (31). Nephrology following. Appreciate recommendations. 4. Acute kidney injury with chronic kidney disease stage 3, BUN 37, creatinine 1.98, estimated GFR 25. Yesterday, BUN 32, creatinine 1.56, estimated GFR 32. Monitor closely. 5. Acute hypomagnesemia. Magnesium level 1.4 (1.5), this may need to be replaced. We will defer to Nephrology. 6. Acute hypokalemia. Potassium level 3.2 (4.2, 2.5), potassium may also need to be replaced. We will defer this to Nephrology. 7. Uncontrolled type 2 diabetes mellitus with chronic kidney disease, stage 3. Hemoglobin A1c 9.9% on 04/14/2020. Continue low-dose insulin sliding scale and monitor fingerstick blood glucose levels before meals and at bedtime. Maintain ADA diet for nutritional support. The patient has good appetite. States she is hungry. 8. Microcytic anemia of recent positive FOBT, hemoglobin 9.0, hematocrit 30.0. Serum iron level low at 17. Continue iron sucrose infusions. 9. Thrombocytosis. Platelet level 14 (354). Monitor. 10. Coronary artery disease with multiple coronary artery stents. Continue aspirin as per Cardiology recommendations. 11. Hyperlipidemia. Lipitor. 12. History of lung cancer, asthma, and possible chronic obstructive pulmonary disease without exacerbation. Oxygen saturation 100% on room air. Monitor. 13. Degenerative joint disease with chronic pain syndrome, severe neuropathy, ambulatory dysfunction. Resume physical therapy as tolerated. 14. Transaminitis. Monitor. * prophylaxis. Pepcid and SCDs. BILLING CODE: [id number]. TIME SPENT: 40 minutes. Dictated by Spike Dove NP Kin Feldman MD HWP/MODL /[id number]
--- NOTE | 2020-04-30 22:41 | Progress Note ---
DATE: 04/30/2020 Nephrology Progress Note SUBJECTIVE: The patient is being discharged to rehab later today. No overnight events. PHYSICAL EXAMINATION: VITAL SIGNS: Temperature was 98.8, pulse 74, respiratory rate is 18, blood pressure was 98/40, and pulse ox 96% on room air. GENERAL: Not in acute distress. Alert and oriented x3. She is cooperative on examination. HEENT: Head; normocephalic, atraumatic. Eyes; pupils are equal, round, and reactive to light bilaterally. Extraocular movements intact bilaterally. Throat; no evidence of erythema or exudates in the posterior pharynx. Has poor dentition. NECK: Supple. Good range of motion. PULMONARY: Clear to auscultation bilaterally. No wheezing, no rales, no rhonchi, no crackles appreciated. CARDIOVASCULAR: Positive S1 and S2. No murmurs, rubs, or gallops appreciated. ABDOMEN: Soft, nondistended, and nontender to palpation. Bowel sounds present. MUSCULOSKELETAL: Strength is 5/5 throughout. No evidence of any muscle deficits on examination. SKIN: Intact. Warm to touch. Good cap refill. PSYCHIATRIC: Normal affect and mood. EXTREMITIES: No edema. Good range of motion throughout. LABORATORY FINDINGS: Show white count 9.8, hemoglobin 8.5, hematocrit is 28, and platelets of 335. Chemistry; sodium 139, potassium 3.1 replaced, chloride 103, bicarb 26, anion gap of 13, BUN is 26, creatinine is 1.60, and calcium is 8.7. IMAGING STUDIES: Abdominal x-ray shows nonobstructive bowel gas pattern. IMPRESSION: 1. Cgoal-mq-fdcasqt systolic heart failure with history of coronary artery disease. 2. Acute kidney injury, stage 3. 3. Type 2 diabetes. 4. Hypertension. PLAN: At this time, her creatinine and electrolytes are stable. Continue same plan of care. She is in the process of being discharged to home. MD TEA Gómez/MODL /[id number]
--- NOTE | 2020-05-02 19:42 | Discharge Summary ---
ADMISSION DIAGNOSES: Cduxu-kk-yleuzop systolic congestive heart failure, hypertension with chronic systolic congestive heart failure and chronic kidney disease stage 3, type 2 diabetes with chronic kidney disease stage 3, microcytic anemia with acute blood loss anemia secondary to gastrointestinal bleed, coronary artery disease with stent, hyperlipidemia, history of lung cancer and possible chronic obstructive pulmonary disease, chronic pain due to degenerative joint disease, neuropathy, and ambulatory dysfunction. DISCHARGE DIAGNOSES: Eqbpq-sk-vviqxll systolic congestive heart failure, hypertension with chronic systolic congestive heart failure and chronic kidney disease stage 3, type 2 diabetes with chronic kidney disease stage 3, microcytic anemia with acute blood loss anemia secondary to gastrointestinal bleed, coronary artery disease with stent, hyperlipidemia, history of lung cancer and possible chronic obstructive pulmonary disease, chronic pain due to degenerative joint disease, neuropathy, and ambulatory dysfunction, rule out coronavirus, rule out cerebrovascular accident. HISTORY: CAD, chronic systolic CHF, hypertension, hyperlipidemia, type 2 diabetes, depression, TIA, lung cancer, childhood asthma, iron deficiency anemia, severe neuropathy, ambulatory dysfunction. SURGICAL HISTORY: Appendectomy, cholecystectomy, hysterectomy, bilateral carpal tunnel surgery, knee surgery, left carotid endarterectomy, multiple PCIs, right lumpectomy, 5 nodules removed from her right lung, cervical spine surgery. FAMILY HISTORY: The patient's sister has cancer and diabetes. SOCIAL HISTORY: The patient admits to quitting smoking 10 years ago. HOSPITAL COURSE: A 74-year-old female admits with complaints of shortness of breath and lower extremity edema over the past several days. The patient reports that she was discharged from [facility] on 04/15/2020. She was given Lasix, but failed to pick it up right away. On admission, chest x-ray showed cardiopulmonary with pulmonary venous congestion and probable small effusion. Her BNP on admission was 2274. Troponins were elevated due to the CHF. Her echo on 04/25/2020, showed an EF between 20% to 25%. Cardiology was consulted. The patient was started on Lasix. CT of the brain was negative. Coronavirus negative. GFR remained stable throughout hospitalization. After getting Lasix, the patient became volume depleted and required Levophed drip. She was transferred to ICU briefly and then transferred out. She will discharge home with new prescriptions for Coreg, Colace, midodrine t.i.d., and sucralfate. She will follow up with primary care in 1 to 2 weeks. She was advised to get an outpatient supervisor white sugar, whom she will follow frequently. She has good family support and has a provider at home and she uses a cane. She will follow up with primary care in 1 to 2 weeks. She understands instructions and agrees to plan. The patient is very adamant about leaving today and says that she feels better. At the time of discharge, vital signs stable and the patient is afebrile. Dictated by Marilyn Garcia NP MD CANDIDA Naidu/BRIANNE /[id number]
== END 2020-04-30 14:12 | disposition home or self-care (01) | DRG 291 ==
LOC: ER 18:00 → MED/SURG 20:00 → ICU 04-27 18:34 → MED/SURG2 04-29 11:50
PROVIDERS: ADMIT Internal Medicine; ATTEND Internal Medicine
PROC: 02HV33Z Insertion of Infusion Device into Superior Vena Cava, Percutaneous Approach (ICD-10-PCS; principal; 2020-04-27)
PROC: B548ZZA Ultrasonography of Superior Vena Cava, Guidance (ICD-10-PCS; 2020-04-27)
PROC: 3E043XZ Introduction of Vasopressor into Central Vein, Percutaneous Approach (ICD-10-PCS; 2020-04-27)
DX: I13.0 Hypertensive heart and chronic kidney disease with heart failure and stage 1 through stage 4 chronic kidney disease, or unspecified chronic kidney disease (principal); I50.23 Acute on chronic systolic (congestive) heart failure; R57.0 Cardiogenic shock; N17.9 Acute kidney failure, unspecified; E87.3 Alkalosis; K92.2 Gastrointestinal hemorrhage, unspecified; D62 Acute posthemorrhagic anemia; E11.22 Type 2 diabetes mellitus with diabetic chronic kidney disease; D64.9 Anemia, unspecified; Z87.891 Personal history of nicotine dependence; Z88.5 Allergy status to narcotic agent; Z91.041 Radiographic dye allergy status; E78.5 Hyperlipidemia, unspecified; M19.90 Unspecified osteoarthritis, unspecified site; I25.10 Atherosclerotic heart disease of native coronary artery without angina pectoris; Z95.5 Presence of coronary angioplasty implant and graft; Z09 Encounter for follow-up examination after completed treatment for conditions other than malignant neoplasm; Z86.73 Personal history of transient ischemic attack (TIA), and cerebral infarction without residual deficits; E11.65 Type 2 diabetes mellitus with hyperglycemia; N18.3 Chronic kidney disease, stage 3 (moderate); D50.9 Iron deficiency anemia, unspecified; Z85.118 Personal history of other malignant neoplasm of bronchus and lung; G89.4 Chronic pain syndrome; E87.6 Hypokalemia; J44.9 Chronic obstructive pulmonary disease, unspecified; G62.9 Polyneuropathy, unspecified; E83.42 Hypomagnesemia; D47.3 Essential (hemorrhagic) thrombocythemia; Z83.3 Family history of diabetes mellitus; Z82.49 Family history of ischemic heart disease and other diseases of the circulatory system; Z11.59 Encounter for screening for other viral diseases; Z79.82 Long term (current) use of aspirin; Z79.84 Long term (current) use of oral hypoglycemic drugs
CPT/HCPCS: 36415; 70450; 71045; 74018; 80048; 80053; 80061; 82044; 82550; 82553; 82570; 82948; 83540; 83735; 83880; 84100; 84132; 84156; 84466; 84484; 85025; 93005; 93306; 96372; 97139; C1751; J1756; J1817; J1940; J2001; J7040; J7050; U0002

== ENCOUNTER → 2020-05-13 | Outpatient (CLI) | payer MEDICARE, OTHER ==
[~2020-05-13] MED LIST changes: +COLACE100 MG PO; +COREG12.5 MG PO; +MIDODRINE HCL2.5 MG PO; +SUCRALFATE1 G/10 ML PO
--- NOTE | 2020-05-13 14:20 | Diagnostic Imaging Report ---
Radiographs of the left foot - 3 views HISTORY: Pain COMPARISON: None available. FINDINGS: Bones: No acute displaced fracture. Diffuse osteopenia. Osseous alignment is within normal limits. Joints: Scattered degenerative change. No osseous erosion. Small posterior and inferior calcaneal bone spurs. Soft tissues: Scattered vascular calcification. Mild soft tissue swelling. IMPRESSION: Scattered degenerative change. No osseous erosion. Small posterior and inferior calcaneal bone spurs. Signed by: Dr. Bradley Montano M.D. on 05/13/2020 2:17 PM
== END ==
LOC: RAD 13:41
PROVIDERS: ATTEND Emergency Medicine
DX: M79.672 Pain in left foot (principal)